=== PATIENT | female | born 1950 | race American Indian/Alaskan Native ===

== ENCOUNTER 2016-07-03 12:30 | Inpatient (IN) | payer MEDICARE ==
[2016-07-03 13:23] LABS: Bilirubin,Urine NEG (Negative); Blood,Urine NEG (Negative); Ketones,Urine NEG (Negative); Leukocyte Esterase,Urine MOD (Negative); Nitrite,Urine NEG (Negative)
--- NOTE | 2016-07-03 13:27 | Emergency Department Report ---
ED General Adult HPI - General Chief complaint: Dyspnea/Respdistress Stated complaint: LOC Time Seen by Provider: 07/03/16 12:41 Source: patient, EMS (verbal report received from EMS.ems notes not available at time of chart dictation), RN notes reviewed, old records reviewed Mode of arrival: Stretcher Limitations: No Limitations - History of Present Illness Initial comments: Past medical history: Morbid obesity, chronic diastolic heart failure, COPD, obstructive sleep apnea, hypertension, diabetes, chronic anemia Patient has history of chronic undifferentiated GI bleeds, supposed to have Endoscopy, This Has Not Happened Thus Far. As per Review of Old Medical Records, Had an Echocardiogram in 2014 Demonstrated an Ejection Fraction of 50-55%, Nuclear Stress Test June 2012, Demonstrating "Medium Sized Reversible Lateral Wall Defect." This Is a 66-year-old Female, I Have Evaluated Her in the past. She Is Brought to the Hospital by EMS. As per Verbal Report from EMS, Patient Was at Her [facility], and Began to Complain of Chest Pain and Shortness of Breath. The Chest Pain Does Not Radiate to the Back, Arms or Neck. There Is Chronic Lower Extremity Swelling. There Is No Hematemesis or Bright Red Blood per Rectum That the Patient Is Aware of. She Reports No Focal Extremity Weakness or Numbness. The Chest Pain Is Achy in Nature. Initially, the Patient Denied Abdominal Pain. -: Gradual Location: chest Radiation: non-radiation Severity scale (0 -10): 0 Quality: aching Consistency: intermittent Improves with: none Worsens with: none Associated Symptoms: confusion, shortness of breath - Related Data Home Medications Medication Instructions Recorded Confirmed Last Taken glipiZIDE [Glipizide] 5 mg PO DAILY 04/03/14 06/02/16 06/01/16 Previous Rx's Medication Instructions Recorded Last Taken Type Budesonide [Pulmicort Respules] 0.5 mg IH Q12HRT #1 nebu 06/05/16 Unknown Rx Ferrous Sulfate [Feosol 325 MG tab] 325 mg PO BID #60 tablet 06/05/16 Unknown Rx Furosemide [Lasix TAB] 40 mg PO DAILY #30 tablet 06/05/16 Unknown Rx Ipratropium/Albuterol Sulfate 1 ampul IH TIDRT 30 Days 06/05/16 Unknown Rx [Duoneb 0.5 mg-3 mg/3 ml Soln] Pantoprazole [Protonix TAB] 40 mg PO QDAY #30 tablet 06/05/16 Unknown Rx Simvastatin [Zocor TAB] 40 mg PO QHS #30 tablet 06/05/16 Unknown Rx traMADol [Ultram 50 MG tab] 50 mg PO Q4HR PRN #20 tablet 06/05/16 Unknown Rx Allergies Allergy/AdvReac Type Severity Reaction Status Date / Time No Known Allergies Allergy Verified 05/12/15 07:51 ED Review of Systems ROS: Stated complaint: LOC Other details as noted in HPI Constitutional: malaise. denies: fever Eyes: denies: vision change Respiratory: shortness of breath Cardiovascular: chest pain Gastrointestinal: denies: abdominal pain Genitourinary: as per HPI Musculoskeletal: denies: back pain Skin: denies: lesions Neurological: weakness ED Past Medical Hx - Past Medical History Previous Medical History?: Yes Hx Hypertension: Yes Hx Congestive Heart Failure: Yes Hx Diabetes: Yes Hx Renal Disease: No Hx Asthma: Yes Hx COPD: Yes Additional medical history: anemia. Lower GI Bleed and Transfusion - Surgical History Past Surgical History?: Yes Additional Surgical History: tubal ligation/ tonsilectomy - Social History Smoking Status: Never Smoker Substance Use Type: None - Medications Home Medications: Home Medications Medication Instructions Recorded Confirmed Last Taken Type glipiZIDE [Glipizide] 5 mg PO DAILY 04/03/14 06/02/16 06/01/16 History Budesonide [Pulmicort Respules] 0.5 mg IH Q12HRT #1 nebu 06/05/16 Unknown Rx Ferrous Sulfate [Feosol 325 MG tab] 325 mg PO BID #60 tablet 06/05/16 Unknown Rx Furosemide [Lasix TAB] 40 mg PO DAILY #30 tablet 06/05/16 Unknown Rx Ipratropium/Albuterol Sulfate 1 ampul IH TIDRT 30 Days 06/05/16 Unknown Rx [Duoneb 0.5 mg-3 mg/3 ml Soln] Pantoprazole [Protonix TAB] 40 mg PO QDAY #30 tablet 06/05/16 Unknown Rx Simvastatin [Zocor TAB] 40 mg PO QHS #30 tablet 06/05/16 Unknown Rx traMADol [Ultram 50 MG tab] 50 mg PO Q4HR PRN #20 tablet 06/05/16 Unknown Rx ED Physical Exam - General Limitations: Physical Limitation General appearance: alert, in no apparent distress, obese - Head Head exam: Present: atraumatic, normocephalic - Eye Eye exam: Present: normal appearance, EOMI. Absent: nystagmus - ENT ENT exam: Present: normal exam, normal orophraynx, mucous membranes moist, normal external ear exam - Neck Neck exam: Present: normal inspection, full ROM. Absent: tenderness, meningismus - Respiratory Respiratory exam: Present: decreased breath sounds. Absent: respiratory distress - Cardiovascular Cardiovascular Exam: Present: regular rate, normal rhythm, systolic murmur ( there is a 2/6 systolic murmur noted in the right and left second intercostal space). Absent: bradycardia, diastolic murmur, rubs, gallop - GI/Abdominal GI/Abdominal exam: Present: soft, normal bowel sounds. Absent: distended, tenderness, guarding, rebound, rigid, pulsatile mass - Rectal Rectal exam: Present: normal inspection, normal rectal tone, heme (-) stool, other (during rectal examination, I escorted by nurse reinaldo amezcua) - Extremities Exam Extremities exam: Present: normal inspection, normal capillary refill, pedal edema. Absent: joint swelling, calf tenderness - Back Exam Back exam: Present: normal inspection, full ROM. Absent: tenderness, CVA tenderness (R), CVA tenderness (L), muscle spasm, paraspinal tenderness, vertebral tenderness - Neurological Exam Neurological exam: Present: alert, oriented X3, other (Extraocular movements intact. Tongue midline. No facial droop. Facial sensation intact to light touch in the V1, V2, V3 distribution bilaterally. 5 and 5 strength in 4 extremities.. Sensation is intact to light touch in 4 extremities.). Absent: motor sensory deficit - Psychiatric Psychiatric exam: Present: normal affect, normal mood - Skin Skin exam: Present: warm, dry, intact, normal color. Absent: rash ED Course Vital Signs 07/03/16 07/03/16 07/03/16 12:56 13:00 13:07 Temperature 98.4 F Pulse Rate 92 H 88 Respiratory 10 L 12 18 Rate Blood Pressure 130/59 Blood Pressure 130/59 [Left] O2 Sat by Pulse 98 100 Oximetry 07/03/16 07/03/16 07/03/16 13:10 13:20 13:30 Temperature Pulse Rate 89 90 86 Respiratory 12 23 21 Rate Blood Pressure 130/59 130/59 146/68 Blood Pressure [Left] O2 Sat by Pulse 90 92 92 Oximetry 07/03/16 13:40 Temperature Pulse Rate Respiratory Rate Blood Pressure 146/68 Blood Pressure [Left] O2 Sat by Pulse 96 Oximetry - Reevaluation(s) Reevaluation #1: 07/03/16 14:20 differential diagnosis: Symptomatic anemia, acute coronary syndrome, congestive heart failure, pneumonia, costochondritis, obesity hypoventilation syndrome, multifactorial shortness of breath Assessment and plan: 66-year-old female with chest pain, shortness of breath. There is no abdominal tenderness, rebound or guarding. Her abdominal examination is benign. When I was evaluating the patient, she denied abdominal pain, shortly thereafter she did complain to the nurse of abdominal pain, but on her repeat examination her abdomen is soft and benign, I don't believe she requires emergent imaging of her abdomen at this time. X-ray the chest x-rays congestive heart failure. Case is discussed with the hospital physician, Dr. Gilbert, who accepts the patient to his service. He states he will contact cardiology if he feels like it is appropriate. Given patient's past history of COPD, obesity, oxygen dependent, CHF, clinical presence of aortic stenosis on physical examination, patient has multiple reasons to have chest pain and shortness of breath. Incidentally found to have urinary tract infection, ceftriaxone is ordered 07/03/16 14:37 ED Medical Decision Making - Lab Data Result diagrams: 07/03/16 13:58 07/03/16 13:00 Vital Signs 07/03/16 07/03/16 07/03/16 12:56 13:00 13:07 Temperature 98.4 F Pulse Rate 92 H 88 Respiratory 10 L 12 18 Rate Blood Pressure 130/59 Blood Pressure 130/59 [Left] O2 Sat by Pulse 98 100 Oximetry 07/03/16 07/03/16 07/03/16 13:10 13:20 13:30 Temperature Pulse Rate 89 90 86 Respiratory 12 23 21 Rate Blood Pressure 130/59 130/59 146/68 Blood Pressure [Left] O2 Sat by Pulse 90 92 92 Oximetry 07/03/16 13:40 Temperature Pulse Rate Respiratory Rate Blood Pressure 146/68 Blood Pressure [Left] O2 Sat by Pulse 96 Oximetry Lab Results 07/03/16 07/03/16 Range/Units 13:00 13:06 Sodium 144 (137-145) mmol/L Potassium 4.4 (3.6-5.0) mmol/L Chloride 97.1 L (98-107) mmol/L Carbon Dioxide 34 H (22-30) mmol/L Anion Gap 17 mmol/L BUN 19 H (7-17) mg/dL Creatinine 0.6 L (0.7-1.2) mg/dL Estimated GFR > 60 ml/min BUN/Creatinine Ratio 31.66 % Glucose 100 (65-100) mg/dL Calcium 8.9 (8.4-10.2) mg/dL Troponin T < 0.010 (0.00-0.029) ng/mL Urine Color Yellow (Yellow) Urine Turbidity Slightly-cloudy (Clear) Urine pH 7.0 (5.0-7.0) Ur Specific [place] 1.018 (1.003-1.030) Urine Protein >500 (Negative) mg/dL Urine Glucose (UA) Neg (Negative) mg/dL Urine Ketones Neg (Negative) mg/dL Urine Blood Neg (Negative) Urine Nitrite Neg (Negative) Urine Bilirubin Neg (Negative) Urine Urobilinogen 4.0 (<2.0) mg/dL Ur Leukocyte Esterase Mod (Negative) Urine WBC (Auto) 50.0 H (0.0-6.0) /HPF Urine RBC (Auto) 2.0 (0.0-6.0) /HPF U Epithel Cells (Auto) 7.0 (0-13.0) /HPF Urine Bacteria (Auto) 4+ (Negative) /HPF - EKG Data -: EKG Interpreted by Me (here in) - EKG Data 07/03/16 14:37 sinus, 87 bpm, left axis deviation, left ventricular hypertrophy , left anterior fascicular block, not consistent with STEMI, unchanged from prior EKG. Not consistent with STEMI. - Radiology Data Radiology results: report reviewed, image reviewed X-ray the chest demonstrates congestive heart failure Critical care attestation.: If time is entered above; I have spent that time in minutes in the direct care of this critically ill patient, excluding procedure time. ED Disposition Clinical Impression: Heart failure, Chest pain, Shortness of breath, Obesity Disposition: OP ADMITTED IP TO THIS HOSP Is pt being admited?: Yes Does the pt Need Aspirin: Yes Condition: Good Instructions: Chest Pain (ED) Referrals: PRIMARY CARE, [Primary Care Provider] - 3-5 Days
[2016-07-03 13:39] LABS: Anion Gap 17 mmol/L; BUN/Creatinine Ratio 31.66; Blood Urea Nitrogen 19 mg/dL (7-17); Calcium 8.9 mg/dL (8.4-10.2); Carbon Dioxide 34 mmol/L (22-30); Chloride 97.1 mmol/L (98-107); Glucose 100 mg/dL (65-100); Potassium 4.4 mmol/L (3.6-5.0); Sodium 144 mmol/L (137-145)
[2016-07-03 13:46] LABS: Protein,Urine >500 mg/dL (Negative)
[2016-07-03 13:49] LABS: Bacteria,Urine 4+ /HPF (Negative)
--- NOTE | 2016-07-03 13:52 | XRay Report ---
AP CHEST: HISTORY: Shortness of breath Cardiomegaly, pulmonary edema and trace pleural effusions are suspected. No pneumothorax. IMPRESSION: CHF
--- NOTE | 2016-07-03 14:06 | Admit Criteria Form ---
Admission Criteria Documentation: HEART FAILURE: COMMON COMPLICATIONS Clinical Indications for Inpatient Care (Place 'X' for any and all applicable criteria): Ongoing inpatient care may be indicated for heart failure with ANY ONE of the following (1)(2)(3)(4)(5): [ ]I. Ongoing need for care for primary condition requiring frequent therapy adjustments because of changes in cardiac function (eg, drug dosage changes for drugs that are renally metabolized) [ ]II. New-onset heart failure [ ]III. Heart failure with decreased urine output not responsive to attempts to optimize volume status [ ]IV. Acute cardiac ischemia causing or associated with failure [ X]V. Complications of heart failure, including ANY ONE of the following: [ ]a) Pericardial effusion [ ]b) Symptomatic pleural effusion [ ]c) O2 saturation <90% or PO2 < 60 mm Hg (8.0 kPa) on room air or require baseline supplemental O2 [ ]d) Tachypnea [X ]e) Dyspnea [ ]f) Syncope [ ]g) Change in mental status [ ]h) Acute renal insufficiency that is severe (reduction of more than 50% in estimated glomerular filtration rate from baseline) or progressive reduction of more than 25% in estimated glomerular filtration rate from baseline, with creatinine continuing to rise) [ ]i) Hemodynamic instability [ ]j) Anasarca [ ]k) Clinically significant metabolic abnormalities due to heart failure (eg, new-onset metabolic acidosis) Extended stay beyond goal length of stay for primary condition may be needed until ALL of the following are present(1)(3): [ ]a) Stable and effective diuretic regimen established (or patient on stable dialysis regimen if in chronic renal failure) [ ]b) Breathing comfortably at rest [ ]c) Saturation of arterial oxygen greater than 90% or at acceptable baseline [ ]d) Pulmonary edema absent or improved [ ]e) Hemodynamic stability [ ]f) Volume status acceptable on oral medication [ ]g) Peripheral or sacral edema absent or improved [ ]h) Renal function stable and manageable at a lower level of care [ ]i) Complications (eg, pleural effusion) resolved or manageable at a lower level of care [ ]j) Patient or caregiver has received written discharge instructions or educational material addressing activity level, diet, discharge medications, follow-up appointment, weight monitoring, and what to do if symptoms worsen The original [facility] content created by [employer] has been revised. The portions of the content which have been revised are identified through the use of italic text or in bold, and [facility] has neither reviewed nor approved the modified material.All other unmodified content is copyright [facility]. Please see references footnoted in the original [facility] edition 2016 Admission Criteria Met: Yes
[2016-07-03] MEDS ORDERED: ROCEPHIN/NS 1 GM/50 ML 1 GM/50 ML BAG IV ONE (14:22)
[2016-07-03 14:28] LABS: Hematocrit 33.6 % (30.3-42.9); Hemoglobin 10.1 gm/dl (10.1-14.3); Mean Corpuscular HGB Conc 30 % (30-34); Mean Corpuscular Hemoglobin 24 pg (28-32); Mean Corpuscular Volume 82 fl (79-97); Red Blood Count 4.11 M/mm3 (3.65-5.03); White Blood Count 4.9 K/mm3 (4.5-11.0)
[2016-07-03 14:29] LABS: Basophils % (Auto) 0.7 % (0.0-1.8); Eosinophils % (Auto) 1.2 % (0.0-4.3); Platelet Count 159 K/mm3 (140-440)
[2016-07-03 14:33] LABS: INR 1.03 (0.87-1.13)
[2016-07-03] MEDS ORDERED: BABY ASPIRIN PO ONE (14:38)
[2016-07-03 14:57] LABS: ISTAT Base Excess 19; ISTAT HCO3 43.9; ISTAT PCO2 67.5 (35-45); ISTAT PH 7.421 (7.35-7.45); ISTAT PO2 62 (80-105); ISTAT SO2 90; ISTAT TCO2 46
[2016-07-03] MEDS ORDERED: TYLENOL ONE (15:21)
[2016-07-03] MEDS ORDERED: LASIX IV ONE (15:46)
[2016-07-03] MEDS ORDERED: TYLENOL PO ONE (15:50)
--- NOTE | 2016-07-03 20:49 | Event Note ---
Date: 07/03/16 See H/p in reports Acute respiratory failure with hypercapnia. CHF exacerbation. Urinary tract infection. Gastroesophageal reflux disease. Anemia. Type 2 diabetes mellitus. Morbid obesity. Patient started on Rocephin and Zithromax to cover COPD exacerbation and urinary tract infection
[2016-07-03] MEDS ORDERED: ULTRAM PO PRN (21:03)
[2016-07-03] MEDS ORDERED: DULCOLAX PR PRN (21:04)
[2016-07-03] MEDS ORDERED: DILAUDID IV PRN (21:04)
[2016-07-03] MEDS ORDERED: PERCOCET 5/325 PO PRN (21:04)
[2016-07-03] MEDS ORDERED: ZOFRAN IV PRN (21:04)
[2016-07-03] MEDS ORDERED: MILK OF MAGNESIA PO PRN (21:04)
[2016-07-03] MEDS ORDERED: DUONEB 0.5 MG-3 MG/3 ML SOLN IH PRN (21:06)
[2016-07-03] MEDS ORDERED: PROVENTIL IH PRN (21:12)
[2016-07-03] MEDS ORDERED: ROCEPHIN/NS 2 GM/100 ML 2 GM/100 ML BAG IV SCH (22:00)
[2016-07-03] MEDS ORDERED: LASIX PO SCH (22:00)
[2016-07-03] MEDS: LOVENOX SUB-Q SCH (22:16)
[2016-07-03] MEDS: PROTONIX PO SCH (22:17)
[2016-07-03] MEDS: FEOSOL PO SCH (22:17)
[2016-07-03] MEDS: K-DUR PO SCH (22:18)
[2016-07-03] MEDS: ZITHROMAX 500 MG in NACL 0.9% 250ML 250 ML IV SCH (22:33)
[2016-07-03] MEDS: DUONEB 0.5 MG-3 MG/3 ML SOLN IH SCH (22:42)
[2016-07-03] MEDS: PULMICORT IH SCH (22:42)
--- NOTE | 2016-07-03 23:35 | History and Physical Report ---
CHIEF COMPLAINT: Worsening shortness of breath of 1 day duration. HISTORY OF PRESENT ILLNESS: This is a 66-year-old female who is morbidly obese, brought in by EMS for increasing shortness of breath and left-sided chest pain for the last couple of days, more so for today. The patient had a history of symptomatic anemia and recurrent GI bleeds and was supposed to get a pill camera and endoscopy. The patient has multiple medical problems. Shortness of breath associated with wheezing and chest pain. No diaphoresis. No palpitations. The patient has a history of COPD, diabetes, and gastroesophageal reflux disease, congestive heart failure, hyperlipidemia, chronic pain. Last EF was 50-55%. Nuclear test was in June 2012, demonstrating medium-sized reversible lateral wall defect. PAST MEDICAL HISTORY: As mentioned, hypertension, congestive heart failure, COPD, diabetes, asthma, anemia, lower GI bleed and transfusion. PAST SURGICAL HISTORY: Tubal ligation and tonsillectomy. SOCIAL HISTORY: Does not smoke. No alcohol, no recreational drugs. FAMILY HISTORY: Significant for hypertension. CURRENT MEDICATIONS: Glipizide 5 mg p.o. daily, Pulmicort Respules 0.5 q.12 h., ferrous sulfate 325 mg twice a day, Lasix 40 mg once a day, DuoNebs 1 ampule t.i.d., Protonix 40 mg p.o. daily, simvastatin 40 mg p.o. daily, tramadol 50 mg p.o. q.4 h. p.r.n. REVIEW OF SYSTEMS: CONSTITUTIONAL: No weight gain, no weight loss. No fever, no chills. HEENT: No sore throat. No postnasal drip. CARDIOVASCULAR: S1 and respiratory systems as mentioned in history of present illness. GASTROINTESTINAL: No nausea, no vomiting, no diarrhea. GENITOURINARY: No dysuria, no flank pain. MUSCULOSKELETAL: No joint pains. No muscle pains. CENTRAL NERVOUS SYSTEM: No syncope, no seizures. SKIN: No rashes. PSYCHIATRIC: No depression. No suicidal ideation. LYMPHATIC AND HEMATOLOGY: No bruising. A 14-point review of systems otherwise negative. PHYSICAL EXAMINATION: GENERAL: On examination, elderly female, obese, in some mild distress. VITAL SIGNS: Temperature is 98.4, pulse is 92, blood pressure is 130/59, respiratory rate is 10, O2 sats are 98%. HEENT: Unremarkable. Pupils equal and reactive. NECK: Supple. No lymphadenopathy, no thyromegaly. LUNGS: Clear to auscultation and percussion. Good air entry. CARDIOVASCULAR: S1, S2 heard. No gallop, no murmur, no rub. Apical impulse in left fifth intercostal space and midclavicular line. ABDOMEN: Soft and benign. No hepatosplenomegaly. No guarding, no rigidity. Hernial orifices are normal. EXTREMITIES: Good pedal pulses. No pedal edema. CENTRAL NERVOUS SYSTEM: Alert and oriented x 4, nonfocal exam. LABORATORY DATA AND IMAGING STUDIES AND EKG: White count is 4900, hemoglobin is 10.1, hematocrit is 33.6, platelet count is 159,000. The pH is 7.42, pCO2 is 67.5, pO2 62, bicarbonate is 43.9, total CO2 is 46, O2 sats are 90%. Sodium is 144, potassium is 4.4, chloride is 97.1, bicarbonate is 34, BUN and creatinine 19 and 0.6, glucose is 100, calcium is 8.9. Troponin is less than 0.010. BNP is 593. Urine white count is 50. EKG shows sinus tachycardia, nonspecific ST-T wave changes. X-ray of the chest shows congestive heart failure. MEDICAL DECISION MAKING: The patient has multiple medical problems including acute respiratory failure with hypercapnia, CHF exacerbation and UTI being the main symptoms. No electrolyte abnormalities. ASSESSMENT AND PLAN: 1. Acute respiratory failure with hypercapnia. The patient started on DuoNeb q.6 round the clock, q.3 p.r.n. and BiPAP if necessary, IV Solu-Medrol 60 mg q.8 and IV Levaquin 750 q.24. 2. Congestive heart failure exacerbation. Lasix 40 q.12 initiated. Also, potassium 20 p.o. q.12. 3. Anemia. Continue iron tablets. 4. Gastroesophageal reflux disease. Continue Protonix 40 mg daily. 5. Hyperlipidemia. Continue simvastatin 40 mg p.o. daily. 6. Chronic pain. Continue tramadol. 7. Deep venous thrombosis prophylaxis, Lovenox 40 mg subcutaneous daily. Echocardiogram ordered and regulatory affairs associate clinical sales consultant was consulted. Also, pulmonary on-call consulted. JOB# [id number] [facility]
[2016-07-04] MEDS: DUONEB 0.5 MG-3 MG/3 ML SOLN IH SCH ×4 (01:43→21:30)
[2016-07-04] MEDS: LASIX IV SCH ×2 (06:13→17:34)
[2016-07-04 07:06] LABS: Alanine Aminotransferase 8 units/L (7-56); Albumin 4.2 g/dL (3.9-5); Albumin/Globulin Ratio 1.1 %; Alkaline Phosphatase 87 units/L (35-129); Anion Gap 15 mmol/L; Bilirubin,Total 0.3 mg/dL (0.1-1.2); Blood Urea Nitrogen 15 mg/dL (7-17); Carbon Dioxide 36 mmol/L (22-30); Chloride 95.1 mmol/L (98-107); Glucose 163 mg/dL (65-100); Potassium 4.3 mmol/L (3.6-5.0); Sodium 142 mmol/L (137-145)
[2016-07-04 07:14] LABS: Mean Corpuscular HGB Conc 30 % (30-34); Mean Corpuscular Volume 83 fl (79-97); Platelet Count 172 K/mm3 (140-440); White Blood Count 5.8 K/mm3 (4.5-11.0)
[2016-07-04 07:15] LABS: Hemoglobin 11.3 gm/dl (10.1-14.3)
[2016-07-04 07:16] LABS: Hematocrit 37.1 % (30.3-42.9); Mean Corpuscular Hemoglobin 25 pg (28-32); Red Cell Distribution Width 25.8 % (13.2-15.2)
[2016-07-04] MEDS ORDERED: DUONEB 0.5 MG-3 MG/3 ML SOLN IH SCH (08:00)
[2016-07-04 08:06] LABS: Basophils % (Manual) 0 % (0.0-1.8); Blastocytes % (Manual) 0 %; Eosinophils % (Manual) 0 % (0.0-4.3)
[2016-07-04 08:07] LABS: Anisocytosis 1+; Diff Status Complete; Hypochromasia 2+
[2016-07-04 08:08] LABS: Stomatocytes Few
[2016-07-04] MEDS: PULMICORT IH SCH ×2 (08:47→21:30)
[2016-07-04] MEDS: ROCEPHIN/NS 2 GM/100 ML 2 GM/100 ML BAG IV SCH (09:16)
[2016-07-04] MEDS: ZITHROMAX 500 MG in NACL 0.9% 250ML 250 ML IV SCH (09:17)
[2016-07-04] MEDS: NOVOLOG SUB-Q SCH ×4 (09:18→22:07)
[2016-07-04] MEDS: FEOSOL PO SCH (09:19)
[2016-07-04] MEDS: K-DUR PO SCH ×2 (09:19→22:06)
[2016-07-04] MEDS: GLUCOTROL PO SCH (09:19)
[2016-07-04] MEDS: PROTONIX PO SCH (09:19)
--- NOTE | 2016-07-04 10:31 | Consultation ---
History of Present Illness Consult date: 07/04/16 Requesting physician: ALIX WILLIAMSON History of present illness: PULMONARY/CCM CONSULT NOTE (Full dictation # [id number]) Please see dictated notes for full details Medications and Allergies Allergies Allergy/AdvReac Type Severity Reaction Status Date / Time No Known Allergies Allergy Verified 05/12/15 07:51 Home Medications Medication Instructions Recorded Confirmed Last Taken Type glipiZIDE [Glipizide] 5 mg PO DAILY 04/03/14 07/03/16 07/02/16 History Budesonide [Pulmicort Respules] 0.5 mg IH Q12HRT #1 nebu 06/05/16 07/03/1607/02 Rx Ferrous Sulfate [Feosol 325 MG tab] 325 mg PO BID #60 tablet 06/05/16 07/03/16 07/02/16 Rx Furosemide [Lasix TAB] 40 mg PO DAILY #30 tablet 06/05/16 07/03/16 07/02/16 Rx Ipratropium/Albuterol Sulfate 1 ampul IH TIDRT 30 Days 06/05/16 07/03/16 Rx [Duoneb 0.5 mg-3 mg/3 ml Soln] Pantoprazole [Protonix TAB] 40 mg PO QDAY #30 tablet 06/05/16 07/03/16 07/02/16 Rx traMADol [Ultram 50 MG tab] 50 mg PO Q4HR PRN #20 tablet 06/05/16 07/03/1607/02 Rx Active Meds: Active Medications Acetaminophen (Tylenol) 650 mg PO Q4H PRN PRN Reason: Pain MILD(1-3)/Fever >100.5/BARRERA Albuterol (Proventil) 2.5 mg IH Q3HRT PRN PRN Reason: Shortness Of Breath Albuterol/Ipratropium (Duoneb 0.5 Mg-3 Mg/3 Ml Soln) 1 ampul IH Q6HRT [facility] Last Admin: 07/04/16 08:47 Dose: 1 ampul Bisacodyl (Dulcolax) 10 mg VA QDAY PRN PRN Reason: Constipation unrelieved by MOM Budesonide (Pulmicort) 0.5 mg IH Q12HRT [facility] Last Admin: 04/08/17 08:47 Dose: 0.5 mg Enoxaparin Sodium (Lovenox) 40 mg SUB-Q QDAY@2200 [facility] Last Admin: 07/03/16 22:16 Dose: 40 mg Ferrous Sulfate (Feosol) 325 mg PO QDAY [facility] Last Admin: 07/04/16 09:19 Dose: 325 mg Furosemide (Lasix) 40 mg IV 0600,1800 [facility] Last Admin: 07/04/16 06:13 Dose: 40 mg Glipizide (Glucotrol) 5 mg PO QDDIAB [facility] Last Admin: 07/04/16 09:19 Dose: 5 mg Hydromorphone HCl (Dilaudid) 0.5 mg IV Q3H PRN PRN Reason: Pain , Severe (7-10) Azithromycin 500 mg/ Sodium (Chloride) 250 mls @ 250 mls/hr IV Q24HR [facility] Last Admin: 07/04/16 09:17 Dose: 250 mls/hr Ceftriaxone Sodium (Rocephin/Ns 2 Gm/100 Ml) 2 gm in 100 mls @ 200 mls/hr IV Q24HR [facility] PRN Reason: Protocol Last Admin: 07/04/16 09:16 Dose: 200 mls/hr Insulin Aspart (Novolog) 0 units SUB-Q ACHS [facility] PRN Reason: Protocol Last Admin: 07/04/16 09:18 Dose: 2 units Magnesium Hydroxide (Milk Of Magnesia) 30 ml PO Q4H PRN PRN Reason: Constipation Methylprednisolone Sodium Succinate (Solu-Medrol) 60 mg IV Q8HR [facility] Last Admin: 07/04/16 06:12 Dose: 60 mg Ondansetron HCl (Zofran) 4 mg IV Q8H PRN PRN Reason: N/V unrelieved by Reglan Oxycodone/Acetaminophen (Percocet 5/325) 1 tab PO Q6H PRN PRN Reason: Pain, Moderate (4-6) Pantoprazole Sodium (Protonix) 40 mg PO QDAY [facility] Last Admin: 07/04/16 09:19 Dose: 40 mg Potassium Chloride (K-Dur) 20 meq PO Q12H [facility] Last Admin: 07/04/16 09:19 Dose: 20 meq Tramadol HCl (Ultram) 50 mg PO Q4H PRN PRN Reason: Pain Physical Examination Vital signs: Vital Signs Resp Pulse Ox 10 L 98 07/03/16 12:56 07/03/16 12:56 Results - Laboratory Findings CBC and BMP: 07/04/16 06:02 07/04/16 06:02 ABG POC ABG pH 7.421 (7.35-7.45) 07/03/16 14:27 POC ABG pCO2 67.5 (35-45) H 07/03/16 14:27 POC ABG pO2 62 (80-105) L 07/03/16 14:27 POC ABG HCO3 43.9 07/03/16 14:27 POC ABG Total CO2 46 07/03/16 14:27 POC ABG O2 Sat 90 07/03/16 14:27 PT/INR, D-dimer PT 13.4 Sec. (12.2-14.9) 07/03/16 13:58 INR 1.03 (0.87-1.13) 07/03/16 13:58 Abnormal lab findings: Abnormal Labs 07/03/16 07/04/16 07/04/16 22:12 06:02 06:02 MCH 25 L RDW 25.8 H Seg Neuts % (Manual) 80.0 H Lymphocytes % (Manual) 12.0 L Lymphocytes # (Manual) 0.7 L Chloride 95.1 L Carbon Dioxide 36 H Creatinine 0.5 L Glucose 163 H POC Glucose 130 H
--- NOTE | 2016-07-04 12:06 | Progress Note ---
Assessment and Plan Assessment and plan: 1. Acute respiratory failure with hypercapnia and hypoxemia. Continue O2 for supportive care. Etiology is multifactorial secondary to COPD and CHF decompensation along with probable OHS/DOMENIC and morbid obesity. Treat the underlying causes. Continue BiPAP when necessary. 2. Acute diastolic CHF decompensation. Continue IV Lasix. 3. Gastroesophageal reflux disease. Continue Protonix daily. 4. Hyperlipidemia. Continue simvastatin 40 mg by mouth daily. 5. Chronic pain syndrome. Continue tramadol. 6. Chest pain. Defer to cardiology for any intervention stress vs cath. 7. COPD exacerbation. Continue IV steroids and breathing treatments. 8. Obesity due to excess calories. Patient will be counseled on dietary modifications. 9. DVT prophylaxis. Continue Lovenox daily. History Interval history: 66-year-old female with history of COPD, diabetes mellitus type 2, GERD, CHF, hyperlipidemia, morbid obesity and chronic pain syndrome presented to the [facility] department with complaints of dyspnea and left-sided chest pain. Last EF 50-55% with nuclear stress test in June 2012 demonstrating medium sized reversible lateral wall defect Hospitalist Physical - Constitutional Vitals: Temp Pulse Resp BP Pulse Ox 97.1 F L 88 20 142/63 97 07/04/16 07:00 07/04/16 08:57 07/04/16 08:57 07/04/16 07:00 07/04/16 08:47 General appearance: Present: no acute distress, well-nourished - EENT Eyes: Present: PERRL, EOM intact ENT: hearing intact, clear oral mucosa, dentition normal - Neck Neck: Present: supple, normal ROM - Respiratory Respiratory effort: normal Respiratory: bilateral: diminished, rales, rhonchi, wheezing - Cardiovascular Rhythm: regular Heart Sounds: Present: S1 & S2. Absent: gallop, rub - Extremities Extremities: no ischemia, No edema, Full ROM - Abdominal General gastrointestinal: soft, non-tender, non-distended, normal bowel sounds - Integumentary Integumentary: Present: clear, warm, dry - Neurologic Neurologic: CNII-XII intact, moves all extremities Results - Labs CBC & Chem 7: 07/04/16 06:02 07/04/16 06:02 Labs: Laboratory Last Values WBC 5.8 K/mm3 (4.5-11.0) 07/04/16 06:02 RBC 4.60 M/mm3 (3.65-5.03) 07/04/16 06:02 Hgb 11.3 gm/dl (10.1-14.3) 07/04/16 06:02 Hct 37.1 % (30.3-42.9) 07/04/16 06:02 MCV 83 fl (79-97) 07/04/16 06:02 MCH 25 pg (28-32) L 07/04/16 06:02 MCHC 30 % (30-34) 07/04/16 06:02 RDW 25.8 % (13.2-15.2) H 07/04/16 06:02 Plt Count 172 K/mm3 (140-440) 07/04/16 06:02 Lymph % (Auto) 14.3 % (13.4-35.0) 07/03/16 13:58 [place] % (Auto) 6.6 % (0.0-7.3) 07/03/16 13:58 Eos % (Auto) 1.2 % (0.0-4.3) 07/03/16 13:58 Baso % (Auto) 0.7 % (0.0-1.8) 07/03/16 13:58 Lymph # 0.7 K/mm3 (1.2-5.4) L 07/03/16 13:58 [place] # 0.3 K/mm3 (0.0-0.8) 07/03/16 13:58 Eos # 0.1 K/mm3 (0.0-0.4) 07/03/16 13:58 Baso # 0.0 K/mm3 (0.0-0.1) 07/03/16 13:58 Add Manual Diff Complete 07/04/16 06:02 Total Counted 100 07/04/16 06:02 Seg Neutrophils % 77.2 % (40.0-70.0) H 07/03/16 13:58 Seg Neuts % (Manual) 80.0 % (40.0-70.0) H 07/04/16 06:02 Band Neutrophils % 7.0 % 07/04/16 06:02 Lymphocytes % (Manual) 12.0 % (13.4-35.0) L 07/04/16 06:02 Reactive Lymphs % (Man) 0 % 07/04/16 06:02 Monocytes % (Manual) 1.0 % (0.0-7.3) 07/04/16 06:02 Eosinophils % (Manual) 0 % (0.0-4.3) 07/04/16 06:02 Basophils % (Manual) 0 % (0.0-1.8) 07/04/16 06:02 Metamyelocytes % 0 % 07/04/16 06:02 Myelocytes % 0 % 07/04/16 06:02 Promyelocytes % 0 % 07/04/16 06:02 Blast Cells % 0 % 07/04/16 06:02 Nucleated RBC % Not Reportable 07/04/16 06:02 Seg Neutrophils # 3.7 K/mm3 (1.8-7.7) 07/03/16 13:58 Seg Neutrophils # Man 4.6 K/mm3 (1.8-7.7) 07/04/16 06:02 Band Neutrophils # 0.4 K/mm3 07/04/16 06:02 Lymphocytes # (Manual) 0.7 K/mm3 (1.2-5.4) L 07/04/16 06:02 Abs React Lymphs (Man) 0.0 K/mm3 07/04/16 06:02 Monocytes # (Manual) 0.1 K/mm3 (0.0-0.8) 07/04/16 06:02 Eosinophils # (Manual) 0.0 K/mm3 (0.0-0.4) 07/04/16 06:02 Basophils # (Manual) 0.0 K/mm3 (0.0-0.1) 07/04/16 06:02 Metamyelocytes # 0.0 K/mm3 07/04/16 06:02 Myelocytes # 0.0 K/mm3 07/04/16 06:02 Promyelocytes # 0.0 K/mm3 07/04/16 06:02 Blast Cells # 0.0 K/mm3 07/04/16 06:02 WBC Morphology Not Reportable 07/04/16 06:02 Hypersegmented Neuts Not Reportable 07/04/16 06:02 Hyposegmented Neuts Not Reportable 07/04/16 06:02 Hypogranular Neuts Not Reportable 07/04/16 06:02 Smudge Cells Not Reportable 07/04/16 06:02 Toxic Granulation Not Reportable 07/04/16 06:02 Toxic Vacuolation Not Reportable 07/04/16 06:02 Dohle Bodies Not Reportable 07/04/16 06:02 Pelger-Huet Anomaly Not Reportable 07/04/16 06:02 Roxanne Rods Not Reportable 07/04/16 06:02 Platelet Estimate Appears normal 07/04/16 06:02 Clumped Platelets Not Reportable 07/04/16 06:02 Plt Clumps, EDTA Not Reportable 07/04/16 06:02 Large Platelets Not Reportable 07/04/16 06:02 Giant Platelets Not Reportable 07/04/16 06:02 Platelet Satelliting Not Reportable 07/04/16 06:02 Plt Morphology Comment Not Reportable 07/04/16 06:02 RBC Morphology Not Reportable 07/04/16 06:02 Dimorphic RBCs Not Reportable 07/04/16 06:02 Polychromasia Not Reportable 07/04/16 06:02 Hypochromasia 2+ 07/04/16 06:02 Poikilocytosis Not Reportable 07/04/16 06:02 Anisocytosis 1+ 07/04/16 06:02 Microcytosis Not Reportable 07/04/16 06:02 Macrocytosis Not Reportable 07/04/16 06:02 Spherocytes Not Reportable 07/04/16 06:02 Pappenheimer Bodies Not Reportable 07/04/16 06:02 Sickle Cells Not Reportable 07/04/16 06:02 Target Cells Not Reportable 07/04/16 06:02 Tear Drop Cells Not Reportable 07/04/16 06:02 Ovalocytes Not Reportable 07/04/16 06:02 Stomatocytes Few 07/04/16 06:02 Helmet Cells Not Reportable 07/04/16 06:02 [place] Bodies Not Reportable 07/04/16 06:02 [place] Rings Not Reportable 07/04/16 06:02 [place] Cells Not Reportable 07/04/16 06:02 Bite Cells Not Reportable 07/04/16 06:02 Crenated Cell Not Reportable 07/04/16 06:02 Elliptocytes Not Reportable 07/04/16 06:02 Acanthocytes (Spur) Not Reportable 07/04/16 06:02 Rouleaux Not Reportable 07/04/16 06:02 Hemoglobin C Crystals Not Reportable 07/04/16 06:02 Schistocytes Not Reportable 07/04/16 06:02 Malaria parasites Not Reportable 07/04/16 06:02 Tristen Bodies Not Reportable 07/04/16 06:02 Hem Pathologist Commnt No 07/04/16 06:02 PT 13.4 Sec. (12.2-14.9) 07/03/16 13:58 INR 1.03 (0.87-1.13) 07/03/16 13:58 POC ABG pH 7.421 (7.35-7.45) 07/03/16 14:27 POC ABG pCO2 67.5 (35-45) H 07/03/16 14:27 POC ABG pO2 62 (80-105) L 07/03/16 14:27 POC ABG HCO3 43.9 07/03/16 14:27 POC ABG Total CO2 46 07/03/16 14:27 POC ABG O2 Sat 90 07/03/16 14:27 POC ABG Base Excess 19 07/03/16 14:27 FiO2 3 % 07/03/16 14:27 Sodium 142 mmol/L (137-145) 07/04/16 06:02 Potassium 4.3 mmol/L (3.6-5.0) 07/04/16 06:02 Chloride 95.1 mmol/L (98-107) L 07/04/16 06:02 Carbon Dioxide 36 mmol/L (22-30) H 07/04/16 06:02 Anion Gap 15 mmol/L 07/04/16 06:02 BUN 15 mg/dL (7-17) 07/04/16 06:02 Creatinine 0.5 mg/dL (0.7-1.2) L 07/04/16 06:02 Estimated GFR > 60 ml/min 07/04/16 06:02 BUN/Creatinine Ratio 30.00 % 07/04/16 06:02 Glucose 163 mg/dL (65-100) H 07/04/16 06:02 POC Glucose 130 (70-105) H 07/03/16 22:12 Hemoglobin A1c 4.9 % (4-6) 07/04/16 06:02 Calcium 9.0 mg/dL (8.4-10.2) 07/04/16 06:02 Total Bilirubin 0.3 mg/dL (0.1-1.2) 07/04/16 06:02 AST 13 units/L (5-40) 07/04/16 06:02 ALT 8 units/L (7-56) 07/04/16 06:02 Alkaline Phosphatase 87 units/L (35-129) 07/04/16 06:02 Troponin T < 0.010 ng/mL (0.00-0.029) 07/03/16 13:00 NT-Pro-B Natriuret Pep 593.4 pg/mL (0-900) 07/03/16 13:00 Total Protein 8.0 g/dL (6.3-8.2) 07/04/16 06:02 Albumin 4.2 g/dL (3.9-5) 07/04/16 06:02 Albumin/Globulin Ratio 1.1 % 07/04/16 06:02 Urine Color Yellow (Yellow) 07/03/16 13:06 Urine Turbidity Slightly-cloudy (Clear) 07/03/16 13:06 Urine pH 7.0 (5.0-7.0) 07/03/16 13:06 Ur Specific [place] 1.018 (1.003-1.030) 07/03/16 13:06 Urine Protein >500 mg/dL (Negative) 07/03/16 13:06 Urine Glucose (UA) Neg mg/dL (Negative) 07/03/16 13:06 Urine Ketones Neg mg/dL (Negative) 07/03/16 13:06 Urine Blood Neg (Negative) 07/03/16 13:06 Urine Nitrite Neg (Negative) 07/03/16 13:06 Urine Bilirubin Neg (Negative) 07/03/16 13:06 Urine Urobilinogen 4.0 mg/dL (<2.0) 07/03/16 13:06 Ur Leukocyte Esterase Mod (Negative) 07/03/16 13:06 Urine WBC (Auto) 50.0 /HPF (0.0-6.0) H 07/03/16 13:06 Urine RBC (Auto) 2.0 /HPF (0.0-6.0) 07/03/16 13:06 U Epithel Cells (Auto) 7.0 /HPF (0-13.0) 07/03/16 13:06 Urine Bacteria (Auto) 4+ /HPF (Negative) 07/03/16 13:06
--- NOTE | 2016-07-04 13:39 | Consultation ---
History of Present Illness Consult date: 07/04/16 Consult reason: congestive heart failure History of present illness: The patient is a 66-year-old woman with multiple medical problems. She is morbidly obese, has obstructive sleep apnea and COPD. She also reports a history of "congestive heart failure". She is unable to articulate details of any significant prior cardiac workup except to report that she may have had a stress test in the remote past. In our records here, an echocardiogram was done in October 2014, which revealed well-preserved left ventricular ejection fraction 50-55%. She presents to the hospital at this time with complaints of shortness of breath. A chest x-ray revealed cardiomegaly, with diffuse bilateral pulmonary infiltrates right greater than left, consistent with acute pulmonary edema. The EKG was a normal sinus rhythm, left ventricular hypertrophy and nonspecific repolarization changes of LVH. The patient is currently comfortable on the telemetry floor, breathing normally on nasal oxygen, denies any chest pain, and reports significant symptomatic improvement with treatment since hospitalization. Past History Past Medical History: COPD, heart failure, other (morbid obesity) Medications and Allergies Allergies Allergy/AdvReac Type Severity Reaction Status Date / Time No Known Allergies Allergy Verified 05/12/15 07:51 Home Medications Medication Instructions Recorded Confirmed Last Taken Type glipiZIDE [Glipizide] 5 mg PO DAILY 04/03/14 07/03/16 07/02/16 History Budesonide [Pulmicort Respules] 0.5 mg IH Q12HRT #1 nebu 06/05/16 07/03/1607/02 Rx Ferrous Sulfate [Feosol 325 MG tab] 325 mg PO BID #60 tablet 06/05/16 07/03/16 07/02/16 Rx Furosemide [Lasix TAB] 40 mg PO DAILY #30 tablet 06/05/16 07/03/16 07/02/16 Rx Ipratropium/Albuterol Sulfate 1 ampul IH TIDRT 30 Days 06/05/16 07/03/16 Rx [Duoneb 0.5 mg-3 mg/3 ml Soln] Pantoprazole [Protonix TAB] 40 mg PO QDAY #30 tablet 06/05/16 07/03/16 07/02/16 Rx traMADol [Ultram 50 MG tab] 50 mg PO Q4HR PRN #20 tablet 06/05/16 07/03/1607/02 Rx Active Meds: Active Medications Acetaminophen (Tylenol) 650 mg PO Q4H PRN PRN Reason: Pain MILD(1-3)/Fever >100.5/BARRERA Albuterol (Proventil) 2.5 mg IH Q3HRT PRN PRN Reason: Shortness Of Breath Albuterol/Ipratropium (Duoneb 0.5 Mg-3 Mg/3 Ml Soln) 1 ampul IH Q6HRT [facility] Last Admin: 07/04/16 13:25 Dose: 1 ampul Bisacodyl (Dulcolax) 10 mg WI QDAY PRN PRN Reason: Constipation unrelieved by MOM Budesonide (Pulmicort) 0.5 mg IH Q12HRT [facility] Last Admin: 07/04/16 08:47 Dose: 0.5 mg Enoxaparin Sodium (Lovenox) 40 mg SUB-Q QDAY@2200 [facility] Last Admin: 07/03/16 22:16 Dose: 40 mg Ferrous Sulfate (Feosol) 325 mg PO QDAY [facility] Last Admin: 07/04/16 09:19 Dose: 325 mg Furosemide (Lasix) 40 mg IV 0600,1800 [facility] Last Admin: 07/04/16 06:13 Dose: 40 mg Glipizide (Glucotrol) 5 mg PO QDDIAB [facility] Last Admin: 07/04/16 09:19 Dose: 5 mg Hydromorphone HCl (Dilaudid) 0.5 mg IV Q3H PRN PRN Reason: Pain , Severe (7-10) Azithromycin 500 mg/ Sodium (Chloride) 250 mls @ 250 mls/hr IV Q24HR [facility] Last Admin: 07/04/16 09:17 Dose: 250 mls/hr Ceftriaxone Sodium (Rocephin/Ns 2 Gm/100 Ml) 2 gm in 100 mls @ 200 mls/hr IV Q24HR [facility] PRN Reason: Protocol Last Admin: 07/04/16 09:16 Dose: 200 mls/hr Insulin Aspart (Novolog) 0 units SUB-Q ACHS [facility] PRN Reason: Protocol Last Admin: 07/04/16 12:18 Dose: 3 units Magnesium Hydroxide (Milk Of Magnesia) 30 ml PO Q4H PRN PRN Reason: Constipation Methylprednisolone Sodium Succinate (Solu-Medrol) 60 mg IV Q8HR [facility] Last Admin: 07/04/16 06:12 Dose: 60 mg Ondansetron HCl (Zofran) 4 mg IV Q8H PRN PRN Reason: N/V unrelieved by Reglan Oxycodone/Acetaminophen (Percocet 5/325) 1 tab PO Q6H PRN PRN Reason: Pain, Moderate (4-6) Pantoprazole Sodium (Protonix) 40 mg PO QDAY [facility] Last Admin: 07/04/16 09:19 Dose: 40 mg Potassium Chloride (K-Dur) 20 meq PO Q12H [facility] Last Admin: 07/04/16 09:19 Dose: 20 meq Tramadol HCl (Ultram) 50 mg PO Q4H PRN PRN Reason: Pain Review of Systems Cardiovascular: shortness of breath, no chest pain, no orthopnea, no palpitations, no rapid/irregular heart beat, no edema, no syncope, no lightheadedness Physical Examination Vital Signs Resp Pulse Ox 10 L 98 07/03/16 12:56 07/03/16 12:56 General appearance: no acute distress, other (morbidly obese) HEENT: Positive: PERRL Neck: Positive: neck supple Cardiac: Positive: Reg Rate and Rhythm Lungs: Positive: Decreased Breath Sounds Neuro: Positive: Grossly Intact Abdomen: Positive: Soft Female genitourinary: deferred Skin: Positive: Clear Extremities: Absent: edema Results 07/04/16 06:02 07/04/16 06:02 Cardiac Enzymes 07/04/16 Range/Units 06:02 AST 13 (5-40) units/L CBC 07/04/16 Range/Units 06:02 WBC 5.8 (4.5-11.0) K/mm3 RBC 4.60 (3.65-5.03) M/mm3 Hgb 11.3 (10.1-14.3) gm/dl Hct 37.1 (30.3-42.9) % Plt Count 172 (140-440) K/mm3 Comprehensive Metabolic Panel 07/04/16 Range/Units 06:02 Sodium 142 (137-145) mmol/L Potassium 4.3 (3.6-5.0) mmol/L Chloride 95.1 L (98-107) mmol/L Carbon Dioxide 36 H (22-30) mmol/L BUN 15 (7-17) mg/dL Creatinine 0.5 L (0.7-1.2) mg/dL Glucose 163 H (65-100) mg/dL Calcium 9.0 (8.4-10.2) mg/dL AST 13 (5-40) units/L ALT 8 (7-56) units/L Alkaline Phosphatase 87 (35-129) units/L Total Protein 8.0 (6.3-8.2) g/dL Albumin 4.2 (3.9-5) g/dL EKG interpretations - Telemetry EKG Rhythm: Sinus Rhythm Assessment and Plan - Patient Problems (1) Congestive heart failure Current Visit: Yes Status: Acute Qualifiers: Congestive heart failure type: C Congestive heart failure chronicity: C Plan to address problem: Patient presents with shortness of breath and acute pulmonary edema on chest x- ray. Previous echocardiogram years ago revealed well preserved left ventricular systolic function, echocardiogram will be repeated on this presentation to reassess LV systolic function. Continue medical therapy with diuretics as tolerated. Due to her morbid obesity , she weighs over 400 pounds, may not be a candidate for any cardiac ischemic testing.
[2016-07-04] MEDS: BROVANA NEBU IH SCH (21:30)
[2016-07-04] MEDS: LOVENOX SUB-Q SCH (22:05)
[2016-07-04] MEDS: DELTASONE PO SCH (22:06)
--- NOTE | 2016-07-05 00:33 | Consultation ---
PULMONARY CONSULTATION CONSULTING PHYSICIAN: Dr. Gilbert. REASON FOR CONSULTATION: Respiratory failure. CHIEF COMPLAINT AND HISTORY OF PRESENT ILLNESS: As follows: The patient is a 66-year-old -[place] female with past medical history significant amongst other things for a diagnosis of COPD as well as obstructive sleep apnea, supposed to be on a CPAP machine at home, but states she has not been using it, came into the Emergency Room complaining of chest pain, shortness of breath. It was atypical in presentation. She denied any hemoptysis. She denied any new onset lower extremity swelling. She does have chronic swelling. She was evaluated in the Emergency Room and essentially she was admitted with a diagnosis of COPD exacerbation and chest pain. We are asked to assist with management. When I stopped by to see her, she was lying quietly in bed. She was on supplemental oxygen about 2-3 liters nasal cannula. Denied any fevers or chills. Denied any cough or expectoration. She was feeling better. She denied any sick contacts at home. She stated she was not on any bronchodilators at home, but she is on diuretics and she has been using them as ordered. Denies any history of venous thromboembolic phenomenon. This really is much of the history of presentation as I have. PAST MEDICAL HISTORY: COPD, heart failure, morbid obesity, obstructive sleep apnea, history of anemia and lower GI bleed, history of hypertension and congestive heart failure. PAST SURGICAL HISTORY: Unknown. Tubal ligations and tonsillectomy MEDICATIONS: She was on at the time I stopped by to see her according to the medication administration record as follows, She was on Tylenol 650 mg p.o. q. 4 hours p.r.n., DuoNeb treatments nebulized q. 6 hours, azithromycin 500 mg IV daily, Pulmicort 0.5 mg inhaled q. 12 hours p.r.n., Dulcolax, Rocephin 2 g IV daily, Lovenox 40 mg subQ daily, Lasix 40 mg IV b.i.d., Feosol 325 mg p.o. daily, insulin via sliding scale, Dilaudid 0.5 mg IV q. 3 hours p.r.n. severe pain, Solu-Medrol 60 mg IV q. 8 hours, Zofran 4 mg IV q. 8 hours p.r.n. nausea and vomiting, Protonix 40 mg p.o. daily, potassium chloride 20 mEq p.o. q. 12 hours, tramadol 50 mg p.o. q. 4 hours p.r.n. pain. ALLERGIES: No known drug allergies. DIET: Morbidly obese. Denies significant weight loss or gain in preceding few weeks to months. FAMILY AND SOCIAL HISTORY: Apparently lives in the community. She denies any history of tobacco use, illicit drug use or abuse whatsoever. Denies alcohol. Family history; otherwise, noncontributory. REVIEW OF SYSTEMS: No loss of consciousness. No new onset seizures. No new onset focal weakness. No gross hematochezia or melena. No gross hematuria or dysuria. No hematemesis. No hemoptysis. No palpitations. Complete review of systems obtained. Pertinent positives and/or negatives as in body of history above, otherwise noncontributory. PHYSICAL EXAMINATION: VITAL SIGNS: At presentation, she was afebrile, temperature 98.4 Fahrenheit with a pulse of 92, respiratory rate of 10, blood pressure 130/59, oxygen sats 98%, inspired oxygen concentration was not recorded. HEAD, EYES, EARS, NOSE AND THROAT: Pupils are equal, round, about 3 mm, reactive to light. Extraocular muscle movements are intact. Oropharynx is a Mallampati #3 oropharynx with no significant posterior pharyngeal erythema, mild oropharyngeal pallor. Grossly, no palpable lymph nodes in the supraclavicular or submandibular lymph node chains. LUNGS: Auscultation of both lung sheridan revealed diminished bilateral breath sounds without active wheezing. Prolonged expiratory phase. HEART: Sounds 1 and 2 are heard, regular rate and rhythm at time of my evaluation. ABDOMEN: Soft, full, bowel sounds positive, nontender. EXTREMITIES: With trace to 1+ right pedal pitting edema. No significant digital clubbing or cyanosis. NEUROLOGIC: The exam was grossly nonfocal. LABORATORY DATA: From my review are as follows: White cell count 4900 with a hemoglobin of 10.1, hematocrit of 33.6 and platelets of 159. No band forms reported. INR 1.03. Arterial blood gas showed a pH of 7.42, pCO2 of 68, pO2 of 62. This was on 3 liters ____ FIO2. Serum sodium was 144, potassium 4.4, chloride 97, bicarbonate 34, BUN 19, creatinine 0.6, glucose was 100. BNP was within normal limits. Troponin was within normal limits. Urinalysis, moderate leukocyte esterase, 50 white cells per high power field. Urine cultures, I do not have any stool guaiac is negative. Radiographic studies have been reviewed really I am trying to pull up the films. I do have the radiologist's interpretation here. A chest x-ray was done at admission and it was reported as congestive heart failure. ASSESSMENT AND PLAN: We have an elderly lady in with an acute chronic obstructive pulmonary disease exacerbation, doing a little bit better. I have explained to her she does need to treat her obstructive sleep apnea and she obviously does have an element of obesity hypoventilation syndrome. Respiratory mitchell, we will continue bronchodilators as ordered by which I mean short-acting bronchodilators and inhaled corticosteroids. I will add long acting bronchodilators. I will begin a systemic steroid taper. Oxygen will be weaned to keep sats greater than or equal to 92-94%. I will begin empiric BiPAP therapy at bedtime for obstructive sleep apnea. I will empirically go with 16/8 on the settings with a backup rate of 12. Aspiration precautions will be maintained and we should continue gentle diuresis. That should also help improve the overall respiratory status. The chest x-ray is underpenetrated, but it does suggest pulmonary edema. She is appropriately on DVT prophylaxis. We will begin GI prophylaxis. We should continue community-acquired pneumonia therapy. Sputum should be sent for Gram stain culture and sensitivities if she makes any. Flu and pneumonia vaccination will be per protocol. Thank you very much for the consult Dr. Gilbert. We will follow along and make further recommendations as the picture progresses/becomes clearer. Weight loss has been counseled. JOB# [id number] CATERINA/LELA
[2016-07-05] MEDS: DUONEB 0.5 MG-3 MG/3 ML SOLN IH SCH ×4 (02:07→19:37)
[2016-07-05] MEDS: LASIX IV SCH ×2 (05:27→20:14)
[2016-07-05] MEDS: NOVOLOG SUB-Q SCH ×3 (07:30→22:06)
[2016-07-05] MEDS: BROVANA NEBU IH SCH ×2 (07:41→19:42)
[2016-07-05] MEDS: PULMICORT IH SCH ×2 (07:41→19:37)
[2016-07-05] MEDS: DELTASONE PO SCH (10:00)
[2016-07-05] MEDS: ROCEPHIN/NS 2 GM/100 ML 2 GM/100 ML BAG IV SCH (10:00)
[2016-07-05] MEDS: FEOSOL PO SCH (10:00)
[2016-07-05] MEDS: K-DUR PO SCH ×2 (10:15→21:08)
--- NOTE | 2016-07-05 10:16 | Progress Note ---
Assessment and Plan Assessment and plan: 1. Acute respiratory failure with hypercapnia and hypoxemia. Continue O2 for supportive care. Etiology is multifactorial secondary to COPD and CHF decompensation along with probable OHS/DOMENIC and morbid obesity. Treat the underlying causes. Continue BiPAP when necessary. 2. Acute diastolic CHF decompensation. Continue IV Lasix. 3. Gastroesophageal reflux disease. Continue Protonix daily. 4. Hyperlipidemia. Continue simvastatin 40 mg by mouth daily. 5. Chronic pain syndrome. Continue tramadol. 6. Chest pain. Due to her morbid obesity, patient is not a candidate for cardiac ischemic testing per cardiology. 7. COPD exacerbation. Continue IV steroids and breathing treatments. 8. Obesity due to excess calories. Patient will be counseled on dietary modifications. 9. DVT prophylaxis. Continue Lovenox daily. History Interval history: 66-year-old female with history of COPD, diabetes mellitus type 2, GERD, CHF, hyperlipidemia, morbid obesity and chronic pain syndrome presented to the emerge department with complaints of dyspnea and left-sided chest pain. Last EF 50-55% with nuclear stress test in June 2012 demonstrating medium sized reversible lateral wall defect Hospitalist Physical - Constitutional Vitals: Temp Pulse Resp BP Pulse Ox 98 F 78 20 169/74 98 07/05/16 07:30 07/05/16 07:51 07/05/16 07:51 07/05/16 07:30 07/05/16 07:41 General appearance: Present: no acute distress, obese, other (morbidly obese) - EENT Eyes: Present: PERRL, EOM intact ENT: hearing intact, clear oral mucosa, dentition normal - Neck Neck: Present: supple, normal ROM - Respiratory Respiratory effort: normal Respiratory: bilateral: CTA - Cardiovascular Rhythm: regular Heart Sounds: Present: S1 & S2. Absent: gallop, rub - Extremities Extremities: no ischemia, No edema, Full ROM - Abdominal General gastrointestinal: soft, non-tender, non-distended, normal bowel sounds - Integumentary Integumentary: Present: clear, warm, dry - Neurologic Neurologic: CNII-XII intact, moves all extremities Results - Labs CBC & Chem 7: 07/04/16 06:02 07/04/16 06:02 Labs: Laboratory Last Values WBC 5.8 K/mm3 (4.5-11.0) 07/04/16 06:02 RBC 4.60 M/mm3 (3.65-5.03) 07/04/16 06:02 Hgb 11.3 gm/dl (10.1-14.3) 07/04/16 06:02 Hct 37.1 % (30.3-42.9) 07/04/16 06:02 MCV 83 fl (79-97) 07/04/16 06:02 MCH 25 pg (28-32) L 07/04/16 06:02 MCHC 30 % (30-34) 07/04/16 06:02 RDW 25.8 % (13.2-15.2) H 07/04/16 06:02 Plt Count 172 K/mm3 (140-440) 07/04/16 06:02 Lymph % (Auto) 14.3 % (13.4-35.0) 07/03/16 13:58 [place] % (Auto) 6.6 % (0.0-7.3) 07/03/16 13:58 Eos % (Auto) 1.2 % (0.0-4.3) 07/03/16 13:58 Baso % (Auto) 0.7 % (0.0-1.8) 07/03/16 13:58 Lymph # 0.7 K/mm3 (1.2-5.4) L 07/03/16 13:58 [place] # 0.3 K/mm3 (0.0-0.8) 07/03/16 13:58 Eos # 0.1 K/mm3 (0.0-0.4) 07/03/16 13:58 Baso # 0.0 K/mm3 (0.0-0.1) 07/03/16 13:58 Add Manual Diff Complete 07/04/16 06:02 Total Counted 100 07/04/16 06:02 Seg Neutrophils % 77.2 % (40.0-70.0) H 07/03/16 13:58 Seg Neuts % (Manual) 80.0 % (40.0-70.0) H 07/04/16 06:02 Band Neutrophils % 7.0 % 07/04/16 06:02 Lymphocytes % (Manual) 12.0 % (13.4-35.0) L 07/04/16 06:02 Reactive Lymphs % (Man) 0 % 07/04/16 06:02 Monocytes % (Manual) 1.0 % (0.0-7.3) 07/04/16 06:02 Eosinophils % (Manual) 0 % (0.0-4.3) 07/04/16 06:02 Basophils % (Manual) 0 % (0.0-1.8) 07/04/16 06:02 Metamyelocytes % 0 % 07/04/16 06:02 Myelocytes % 0 % 07/04/16 06:02 Promyelocytes % 0 % 07/04/16 06:02 Blast Cells % 0 % 07/04/16 06:02 Nucleated RBC % Not Reportable 07/04/16 06:02 Seg Neutrophils # 3.7 K/mm3 (1.8-7.7) 07/03/16 13:58 Seg Neutrophils # Man 4.6 K/mm3 (1.8-7.7) 07/04/16 06:02 Band Neutrophils # 0.4 K/mm3 07/04/16 06:02 Lymphocytes # (Manual) 0.7 K/mm3 (1.2-5.4) L 07/04/16 06:02 Abs React Lymphs (Man) 0.0 K/mm3 07/04/16 06:02 Monocytes # (Manual) 0.1 K/mm3 (0.0-0.8) 07/04/16 06:02 Eosinophils # (Manual) 0.0 K/mm3 (0.0-0.4) 07/04/16 06:02 Basophils # (Manual) 0.0 K/mm3 (0.0-0.1) 07/04/16 06:02 Metamyelocytes # 0.0 K/mm3 07/04/16 06:02 Myelocytes # 0.0 K/mm3 07/04/16 06:02 Promyelocytes # 0.0 K/mm3 07/04/16 06:02 Blast Cells # 0.0 K/mm3 07/04/16 06:02 WBC Morphology Not Reportable 07/04/16 06:02 Hypersegmented Neuts Not Reportable 07/04/16 06:02 Hyposegmented Neuts Not Reportable 07/04/16 06:02 Hypogranular Neuts Not Reportable 07/04/16 06:02 Smudge Cells Not Reportable 07/04/16 06:02 Toxic Granulation Not Reportable 07/04/16 06:02 Toxic Vacuolation Not Reportable 07/04/16 06:02 Dohle Bodies Not Reportable 07/04/16 06:02 Pelger-Huet Anomaly Not Reportable 07/04/16 06:02 Roxanne Rods Not Reportable 07/04/16 06:02 Platelet Estimate Appears normal 07/04/16 06:02 Clumped Platelets Not Reportable 07/04/16 06:02 Plt Clumps, EDTA Not Reportable 07/04/16 06:02 Large Platelets Not Reportable 07/04/16 06:02 Giant Platelets Not Reportable 07/04/16 06:02 Platelet Satelliting Not Reportable 07/04/16 06:02 Plt Morphology Comment Not Reportable 07/04/16 06:02 RBC Morphology Not Reportable 07/04/16 06:02 Dimorphic RBCs Not Reportable 07/04/16 06:02 Polychromasia Not Reportable 07/04/16 06:02 Hypochromasia 2+ 07/04/16 06:02 Poikilocytosis Not Reportable 07/04/16 06:02 Anisocytosis 1+ 07/04/16 06:02 Microcytosis Not Reportable 07/04/16 06:02 Macrocytosis Not Reportable 07/04/16 06:02 Spherocytes Not Reportable 07/04/16 06:02 Pappenheimer Bodies Not Reportable 07/04/16 06:02 Sickle Cells Not Reportable 07/04/16 06:02 Target Cells Not Reportable 07/04/16 06:02 Tear Drop Cells Not Reportable 07/04/16 06:02 Ovalocytes Not Reportable 07/04/16 06:02 Stomatocytes Few 07/04/16 06:02 Helmet Cells Not Reportable 07/04/16 06:02 Reeder-[place] Bodies Not Reportable 07/04/16 06:02 [place] Rings Not Reportable 07/04/16 06:02 Natalie Cells Not Reportable 07/04/16 06:02 Bite Cells Not Reportable 07/04/16 06:02 Crenated Cell Not Reportable 07/04/16 06:02 Elliptocytes Not Reportable 07/04/16 06:02 Acanthocytes (Spur) Not Reportable 07/04/16 06:02 Rouleaux Not Reportable 07/04/16 06:02 Hemoglobin C Crystals Not Reportable 07/04/16 06:02 Schistocytes Not Reportable 07/04/16 06:02 Malaria parasites Not Reportable 07/04/16 06:02 Tristen Bodies Not Reportable 07/04/16 06:02 Hem Pathologist Commnt No 07/04/16 06:02 PT 13.4 Sec. (12.2-14.9) 07/03/16 13:58 INR 1.03 (0.87-1.13) 07/03/16 13:58 POC ABG pH 7.421 (7.35-7.45) 07/03/16 14:27 POC ABG pCO2 67.5 (35-45) H 07/03/16 14:27 POC ABG pO2 62 (80-105) L 07/03/16 14:27 POC ABG HCO3 43.9 07/03/16 14:27 POC ABG Total CO2 46 07/03/16 14:27 POC ABG O2 Sat 90 07/03/16 14:27 POC ABG Base Excess 19 07/03/16 14:27 FiO2 3 % 07/03/16 14:27 Sodium 142 mmol/L (137-145) 07/04/16 06:02 Potassium 4.3 mmol/L (3.6-5.0) 07/04/16 06:02 Chloride 95.1 mmol/L (98-107) L 07/04/16 06:02 Carbon Dioxide 36 mmol/L (22-30) H 07/04/16 06:02 Anion Gap 15 mmol/L 07/04/16 06:02 BUN 15 mg/dL (7-17) 07/04/16 06:02 Creatinine 0.5 mg/dL (0.7-1.2) L 07/04/16 06:02 Estimated GFR > 60 ml/min 07/04/16 06:02 BUN/Creatinine Ratio 30.00 % 07/04/16 06:02 Glucose 163 mg/dL (65-100) H 07/04/16 06:02 POC Glucose 165 (70-105) H 07/04/16 21:30 Hemoglobin A1c 4.9 % (4-6) 07/04/16 06:02 Calcium 9.0 mg/dL (8.4-10.2) 07/04/16 06:02 Total Bilirubin 0.3 mg/dL (0.1-1.2) 07/04/16 06:02 AST 13 units/L (5-40) 07/04/16 06:02 ALT 8 units/L (7-56) 07/04/16 06:02 Alkaline Phosphatase 87 units/L (35-129) 07/04/16 06:02 Troponin T < 0.010 ng/mL (0.00-0.029) 07/03/16 13:00 NT-Pro-B Natriuret Pep 593.4 pg/mL (0-900) 07/03/16 13:00 Total Protein 8.0 g/dL (6.3-8.2) 07/04/16 06:02 Albumin 4.2 g/dL (3.9-5) 07/04/16 06:02 Albumin/Globulin Ratio 1.1 % 07/04/16 06:02 Urine Color Yellow (Yellow) 07/03/16 13:06 Urine Turbidity Slightly-cloudy (Clear) 07/03/16 13:06 Urine pH 7.0 (5.0-7.0) 07/03/16 13:06 Ur Specific [place] 1.018 (1.003-1.030) 07/03/16 13:06 Urine Protein >500 mg/dL (Negative) 07/03/16 13:06 Urine Glucose (UA) Neg mg/dL (Negative) 07/03/16 13:06 Urine Ketones Neg mg/dL (Negative) 07/03/16 13:06 Urine Blood Neg (Negative) 07/03/16 13:06 Urine Nitrite Neg (Negative) 07/03/16 13:06 Urine Bilirubin Neg (Negative) 07/03/16 13:06 Urine Urobilinogen 4.0 mg/dL (<2.0) 07/03/16 13:06 Ur Leukocyte Esterase Mod (Negative) 07/03/16 13:06 Urine WBC (Auto) 50.0 /HPF (0.0-6.0) H 07/03/16 13:06 Urine RBC (Auto) 2.0 /HPF (0.0-6.0) 07/03/16 13:06 U Epithel Cells (Auto) 7.0 /HPF (0-13.0) 07/03/16 13:06 Urine Bacteria (Auto) 4+ /HPF (Negative) 07/03/16 13:06
[2016-07-05] MEDS: ZITHROMAX 500 MG in NACL 0.9% 250ML 250 ML IV SCH (10:48)
[2016-07-05] MEDS: GLUCOTROL PO SCH (10:50)
[2016-07-05] MEDS: PROTONIX PO SCH (10:56)
--- NOTE | 2016-07-05 12:23 | Progress Note ---
Assessment and Plan - Patient Problems (1) Congestive heart failure Current Visit: Yes Status: Acute Qualifiers: Congestive heart failure type: C Congestive heart failure chronicity: C Plan to address problem: Patient presents with shortness of breath and acute pulmonary edema on chest x- ray. Previous echocardiogram years ago revealed well preserved left ventricular systolic function, echocardiogram will be repeated on this presentation to reassess LV systolic function. Continue medical therapy with diuretics as tolerated. Due to her morbid obesity , she weighs over 400 pounds, may not be a candidate for any cardiac ischemic testing. Subjective Date of service: 07/05/16 Interval history: Patient shortness of breath has improved, no chest pain, no palpitations. Echocardiogram has been ordered, and is pending. Objective Vital Signs Temp Pulse Pulse Pulse Resp Resp BP 07/05/16 07:51 78 20 07/05/16 07:41 76 18 07/05/16 07:30 98 F 75 20 07/05/16 05:24 98.1 F 76 22 07/05/16 00:49 97.6 F 76 18 07/04/16 23:07 91 H 22 193/86 07/04/16 21:42 86 18 07/04/16 21:31 83 18 07/04/16 20:49 98.0 F 82 22 07/04/16 19:55 80 07/04/16 17:00 92 H 07/04/16 16:30 98.4 F 92 H 18 07/04/16 13:35 85 20 07/04/16 13:25 93 H 18 BP Pulse Ox 07/05/16 07:51 07/05/16 07:41 98 07/05/16 07:30 169/74 100 07/05/16 05:24 158/79 97 07/05/16 00:49 144/65 98 07/04/16 23:07 99 07/04/16 21:42 98 07/04/16 21:31 07/04/16 20:49 193/86 94 07/04/16 19:55 07/04/16 17:00 07/04/16 16:30 142/67 96 07/04/16 13:35 07/04/16 13:25 - Physical Examination General: No Apparent Distress, Other (morbidly obese) HEENT: Positive: PERRL Neck: Positive: neck supple Cardiac: Positive: Reg Rate and Rhythm Lungs: Positive: Decreased Breath Sounds, Rhonchi Neuro: Positive: Grossly Intact Abdomen: Positive: Soft Skin: Positive: Clear Extremities: Absent: edema
--- NOTE | 2016-07-05 15:25 | Progress Note ---
Subjective Date of service: 07/05/16 Principal diagnosis: Acute COPD exacerbation Interval history: Seen and examined at bedside; 24 hour events reviewed; nursing and respiratory care staff consulted; no adverse overnight events reported to me; Objective Vital Signs - 12hr 07/05/16 07/05/16 07/05/16 05:24 07:30 07:41 Temperature 98.1 F 98 F Pulse Rate [ 76 Anterior Bilateral Throughout] Pulse Rate [ 76 75 From Monitor] Respiratory 22 20 Rate Respiratory 18 Rate [Anterior Bilateral Throughout] Blood Pressure 158/79 169/74 [Right Arm] O2 Sat by Pulse 97 100 98 Oximetry 07/05/16 07/05/16 07:51 15:02 Temperature Pulse Rate [ 78 85 Anterior Bilateral Throughout] Pulse Rate [ From Monitor] Respiratory Rate Respiratory 20 18 Rate [Anterior Bilateral Throughout] Blood Pressure [Right Arm] O2 Sat by Pulse Oximetry CBC and BMP: 07/04/16 06:02 07/04/16 06:02 ABG, PT/INR, D-dimer: ABG POC ABG pH 7.421 (7.35-7.45) 07/03/16 14:27 POC ABG pCO2 67.5 (35-45) H 07/03/16 14:27 POC ABG pO2 62 (80-105) L 07/03/16 14:27 POC ABG HCO3 43.9 07/03/16 14:27 POC ABG Total CO2 46 07/03/16 14:27 POC ABG O2 Sat 90 07/03/16 14:27 PT/INR, D-dimer PT 13.4 Sec. (12.2-14.9) 07/03/16 13:58 INR 1.03 (0.87-1.13) 07/03/16 13:58 Abnormal lab findings: Abnormal Labs 07/03/16 07/04/16 07/04/16 22:12 06:02 06:02 MCH 25 L RDW 25.8 H Seg Neuts % (Manual) 80.0 H Lymphocytes % (Manual) 12.0 L Lymphocytes # (Manual) 0.7 L Chloride 95.1 L Carbon Dioxide 36 H Creatinine 0.5 L Glucose 163 H POC Glucose 130 H 07/04/16 07/04/16 07/04/16 08:32 11:16 16:32 MCH RDW Seg Neuts % (Manual) Lymphocytes % (Manual) Lymphocytes # (Manual) Chloride Carbon Dioxide Creatinine Glucose POC Glucose 156 H 202 H 133 H 07/04/16 07/05/16 21:30 07:44 MCH RDW Seg Neuts % (Manual) Lymphocytes % (Manual) Lymphocytes # (Manual) Chloride Carbon Dioxide Creatinine Glucose POC Glucose 165 H 151 H
[2016-07-05] MEDS: LOVENOX SUB-Q SCH (21:08)
[2016-07-05] MEDS: TYLENOL PO PRN (23:06)
[2016-07-06] MEDS: DUONEB 0.5 MG-3 MG/3 ML SOLN IH SCH ×4 (01:31→20:13)
[2016-07-06] MEDS: LASIX IV SCH ×2 (05:24→17:34)
[2016-07-06] MEDS: PULMICORT IH SCH ×2 (07:58→20:12)
[2016-07-06] MEDS: GLUCOTROL PO SCH (08:02)
[2016-07-06] MEDS: FEOSOL PO SCH (09:25)
[2016-07-06] MEDS: DELTASONE PO SCH (09:25)
[2016-07-06] MEDS: PROTONIX PO SCH (09:25)
[2016-07-06] MEDS: ROCEPHIN/NS 2 GM/100 ML 2 GM/100 ML BAG IV SCH (09:26)
[2016-07-06] MEDS: BROVANA NEBU IH SCH ×2 (09:27→20:12)
[2016-07-06] MEDS: K-DUR PO SCH ×2 (09:30→21:40)
--- NOTE | 2016-07-06 10:02 | Progress Note ---
Assessment and Plan Assessment and plan: 1. Acute respiratory failure with hypercapnia and hypoxemia. Continue O2 for supportive care. Etiology is multifactorial secondary to COPD and CHF decompensation along with probable OHS/DOMENIC and morbid obesity. Treat the underlying causes. Continue BiPAP when necessary. 2. Acute diastolic CHF decompensation. Continue IV Lasix. Repeat echocardiogram pending. 3. Gastroesophageal reflux disease. Continue Protonix daily. 4. Hyperlipidemia. Continue simvastatin 40 mg by mouth daily. 5. Chronic pain syndrome. Continue tramadol. 6. Chest pain. Due to her morbid obesity, patient is not a candidate for cardiac ischemic testing per cardiology. 7. COPD exacerbation. Continue IV steroids and breathing treatments. 8. Obesity due to excess calories. Patient will be counseled on dietary modifications. 9. DVT prophylaxis. Continue Lovenox daily. History Interval history: 66-year-old female with history of COPD, diabetes mellitus type 2, GERD, CHF, hyperlipidemia, morbid obesity and chronic pain syndrome presented to the emerge department with complaints of dyspnea and left-sided chest pain. Last EF 50-55% with nuclear stress test in June 2012 demonstrating medium sized reversible lateral wall defect Hospitalist Physical - Constitutional Vitals: Temp Pulse Resp BP Pulse Ox 98.6 F 72 16 179/80 99 07/06/16 07:50 07/06/16 07:59 07/06/16 07:59 07/06/16 07:50 07/06/16 08:00 General appearance: Present: no acute distress, obese, other (morbidly obese) - EENT Eyes: Present: PERRL, EOM intact ENT: hearing intact, clear oral mucosa, dentition normal - Neck Neck: Present: supple, normal ROM - Respiratory Respiratory effort: normal Respiratory: bilateral: CTA - Cardiovascular Rhythm: regular Heart Sounds: Present: S1 & S2. Absent: gallop, rub - Extremities Extremities: no ischemia, No edema, Full ROM - Abdominal General gastrointestinal: soft, non-tender, non-distended, normal bowel sounds - Integumentary Integumentary: Present: clear, warm, dry - Neurologic Neurologic: CNII-XII intact, moves all extremities Results - Labs CBC & Chem 7: 07/04/16 06:02 07/04/16 06:02 Labs: Laboratory Last Values WBC 5.8 K/mm3 (4.5-11.0) 07/04/16 06:02 RBC 4.60 M/mm3 (3.65-5.03) 07/04/16 06:02 Hgb 11.3 gm/dl (10.1-14.3) 07/04/16 06:02 Hct 37.1 % (30.3-42.9) 07/04/16 06:02 MCV 83 fl (79-97) 07/04/16 06:02 MCH 25 pg (28-32) L 07/04/16 06:02 MCHC 30 % (30-34) 07/04/16 06:02 RDW 25.8 % (13.2-15.2) H 07/04/16 06:02 Plt Count 172 K/mm3 (140-440) 07/04/16 06:02 Lymph % (Auto) 14.3 % (13.4-35.0) 07/03/16 13:58 [place] % (Auto) 6.6 % (0.0-7.3) 07/03/16 13:58 Eos % (Auto) 1.2 % (0.0-4.3) 07/03/16 13:58 Baso % (Auto) 0.7 % (0.0-1.8) 07/03/16 13:58 Lymph # 0.7 K/mm3 (1.2-5.4) L 07/03/16 13:58 [place] # 0.3 K/mm3 (0.0-0.8) 07/03/16 13:58 Eos # 0.1 K/mm3 (0.0-0.4) 07/03/16 13:58 Baso # 0.0 K/mm3 (0.0-0.1) 07/03/16 13:58 Add Manual Diff Complete 07/04/16 06:02 Total Counted 100 07/04/16 06:02 Seg Neutrophils % 77.2 % (40.0-70.0) H 07/03/16 13:58 Seg Neuts % (Manual) 80.0 % (40.0-70.0) H 07/04/16 06:02 Band Neutrophils % 7.0 % 07/04/16 06:02 Lymphocytes % (Manual) 12.0 % (13.4-35.0) L 07/04/16 06:02 Reactive Lymphs % (Man) 0 % 07/04/16 06:02 Monocytes % (Manual) 1.0 % (0.0-7.3) 07/04/16 06:02 Eosinophils % (Manual) 0 % (0.0-4.3) 07/04/16 06:02 Basophils % (Manual) 0 % (0.0-1.8) 07/04/16 06:02 Metamyelocytes % 0 % 07/04/16 06:02 Myelocytes % 0 % 07/04/16 06:02 Promyelocytes % 0 % 07/04/16 06:02 Blast Cells % 0 % 07/04/16 06:02 Nucleated RBC % Not Reportable 07/04/16 06:02 Seg Neutrophils # 3.7 K/mm3 (1.8-7.7) 07/03/16 13:58 Seg Neutrophils # Man 4.6 K/mm3 (1.8-7.7) 07/04/16 06:02 Band Neutrophils # 0.4 K/mm3 07/04/16 06:02 Lymphocytes # (Manual) 0.7 K/mm3 (1.2-5.4) L 07/04/16 06:02 Abs React Lymphs (Man) 0.0 K/mm3 07/04/16 06:02 Monocytes # (Manual) 0.1 K/mm3 (0.0-0.8) 07/04/16 06:02 Eosinophils # (Manual) 0.0 K/mm3 (0.0-0.4) 07/04/16 06:02 Basophils # (Manual) 0.0 K/mm3 (0.0-0.1) 07/04/16 06:02 Metamyelocytes # 0.0 K/mm3 07/04/16 06:02 Myelocytes # 0.0 K/mm3 07/04/16 06:02 Promyelocytes # 0.0 K/mm3 07/04/16 06:02 Blast Cells # 0.0 K/mm3 07/04/16 06:02 WBC Morphology Not Reportable 07/04/16 06:02 Hypersegmented Neuts Not Reportable 07/04/16 06:02 Hyposegmented Neuts Not Reportable 07/04/16 06:02 Hypogranular Neuts Not Reportable 07/04/16 06:02 Smudge Cells Not Reportable 07/04/16 06:02 Toxic Granulation Not Reportable 07/04/16 06:02 Toxic Vacuolation Not Reportable 07/04/16 06:02 Dohle Bodies Not Reportable 07/04/16 06:02 Pelger-Huet Anomaly Not Reportable 07/04/16 06:02 Roxanne Rods Not Reportable 07/04/16 06:02 Platelet Estimate Appears normal 07/04/16 06:02 Clumped Platelets Not Reportable 07/04/16 06:02 Plt Clumps, EDTA Not Reportable 07/04/16 06:02 Large Platelets Not Reportable 07/04/16 06:02 Giant Platelets Not Reportable 07/04/16 06:02 Platelet Satelliting Not Reportable 07/04/16 06:02 Plt Morphology Comment Not Reportable 07/04/16 06:02 RBC Morphology Not Reportable 07/04/16 06:02 Dimorphic RBCs Not Reportable 07/04/16 06:02 Polychromasia Not Reportable 07/04/16 06:02 Hypochromasia 2+ 07/04/16 06:02 Poikilocytosis Not Reportable 07/04/16 06:02 Anisocytosis 1+ 07/04/16 06:02 Microcytosis Not Reportable 07/04/16 06:02 Macrocytosis Not Reportable 07/04/16 06:02 Spherocytes Not Reportable 07/04/16 06:02 Pappenheimer Bodies Not Reportable 07/04/16 06:02 Sickle Cells Not Reportable 07/04/16 06:02 Target Cells Not Reportable 07/04/16 06:02 Tear Drop Cells Not Reportable 07/04/16 06:02 Ovalocytes Not Reportable 07/04/16 06:02 Stomatocytes Few 07/04/16 06:02 Helmet Cells Not Reportable 07/04/16 06:02 Reeder-[place] Bodies Not Reportable 07/04/16 06:02 [place] Rings Not Reportable 07/04/16 06:02 Natalie Cells Not Reportable 07/04/16 06:02 Bite Cells Not Reportable 07/04/16 06:02 Crenated Cell Not Reportable 07/04/16 06:02 Elliptocytes Not Reportable 07/04/16 06:02 Acanthocytes (Spur) Not Reportable 07/04/16 06:02 Rouleaux Not Reportable 07/04/16 06:02 Hemoglobin C Crystals Not Reportable 07/04/16 06:02 Schistocytes Not Reportable 07/04/16 06:02 Malaria parasites Not Reportable 07/04/16 06:02 Tristen Bodies Not Reportable 07/04/16 06:02 Hem Pathologist Commnt No 07/04/16 06:02 PT 13.4 Sec. (12.2-14.9) 07/03/16 13:58 INR 1.03 (0.87-1.13) 07/03/16 13:58 POC ABG pH 7.421 (7.35-7.45) 07/03/16 14:27 POC ABG pCO2 67.5 (35-45) H 07/03/16 14:27 POC ABG pO2 62 (80-105) L 07/03/16 14:27 POC ABG HCO3 43.9 07/03/16 14:27 POC ABG Total CO2 46 07/03/16 14:27 POC ABG O2 Sat 90 07/03/16 14:27 POC ABG Base Excess 19 07/03/16 14:27 FiO2 3 % 07/03/16 14:27 Sodium 142 mmol/L (137-145) 07/04/16 06:02 Potassium 4.3 mmol/L (3.6-5.0) 07/04/16 06:02 Chloride 95.1 mmol/L (98-107) L 07/04/16 06:02 Carbon Dioxide 36 mmol/L (22-30) H 07/04/16 06:02 Anion Gap 15 mmol/L 07/04/16 06:02 BUN 15 mg/dL (7-17) 07/04/16 06:02 Creatinine 0.5 mg/dL (0.7-1.2) L 07/04/16 06:02 Estimated GFR > 60 ml/min 07/04/16 06:02 BUN/Creatinine Ratio 30.00 % 07/04/16 06:02 Glucose 163 mg/dL (65-100) H 07/04/16 06:02 POC Glucose 165 (70-105) H 07/05/16 21:11 Hemoglobin A1c 4.9 % (4-6) 07/04/16 06:02 Calcium 9.0 mg/dL (8.4-10.2) 07/04/16 06:02 Total Bilirubin 0.3 mg/dL (0.1-1.2) 07/04/16 06:02 AST 13 units/L (5-40) 07/04/16 06:02 ALT 8 units/L (7-56) 07/04/16 06:02 Alkaline Phosphatase 87 units/L (35-129) 07/04/16 06:02 Troponin T < 0.010 ng/mL (0.00-0.029) 07/03/16 13:00 NT-Pro-B Natriuret Pep 593.4 pg/mL (0-900) 07/03/16 13:00 Total Protein 8.0 g/dL (6.3-8.2) 07/04/16 06:02 Albumin 4.2 g/dL (3.9-5) 07/04/16 06:02 Albumin/Globulin Ratio 1.1 % 07/04/16 06:02 Urine Color Yellow (Yellow) 07/03/16 13:06 Urine Turbidity Slightly-cloudy (Clear) 07/03/16 13:06 Urine pH 7.0 (5.0-7.0) 07/03/16 13:06 Ur Specific [place] 1.018 (1.003-1.030) 07/03/16 13:06 Urine Protein >500 mg/dL (Negative) 07/03/16 13:06 Urine Glucose (UA) Neg mg/dL (Negative) 07/03/16 13:06 Urine Ketones Neg mg/dL (Negative) 07/03/16 13:06 Urine Blood Neg (Negative) 07/03/16 13:06 Urine Nitrite Neg (Negative) 07/03/16 13:06 Urine Bilirubin Neg (Negative) 07/03/16 13:06 Urine Urobilinogen 4.0 mg/dL (<2.0) 07/03/16 13:06 Ur Leukocyte Esterase Mod (Negative) 07/03/16 13:06 Urine WBC (Auto) 50.0 /HPF (0.0-6.0) H 07/03/16 13:06 Urine RBC (Auto) 2.0 /HPF (0.0-6.0) 07/03/16 13:06 U Epithel Cells (Auto) 7.0 /HPF (0-13.0) 07/03/16 13:06 Urine Bacteria (Auto) 4+ /HPF (Negative) 07/03/16 13:06
--- NOTE | 2016-07-06 10:50 | Progress Note ---
Assessment and Plan CHF -preserved EF on echo 2014 repeat echocardiogram results pending Sleep apnea COPD Morbidly obese Recommendations: Continue medical therapy with diuretics as tolerated. Due to her morbid obesity , she weighs over 400 pounds, may not be a candidate for any cardiac ischemic testing. Subjective Date of service: 07/06/16 Principal diagnosis: Acute COPD exacerbation Interval history: Patient reports her shortness of breath is less. Objective Vital Signs Temp Pulse Pulse Pulse Pulse Resp Resp 07/06/16 08:00 07/06/16 07:59 72 16 07/06/16 07:58 71 18 07/06/16 07:50 98.6 F 74 22 07/06/16 04:05 98.3 F 59 L 22 07/06/16 01:34 84 20 07/06/16 01:25 87 18 07/06/16 00:28 98.4 F 68 20 07/05/16 23:15 97 H 24 07/05/16 22:30 80 07/05/16 20:06 98.2 F 78 20 07/05/16 19:45 07/05/16 19:43 81 16 07/05/16 19:30 83 18 07/05/16 15:12 83 20 07/05/16 15:02 85 18 07/05/16 15:00 98 F 94 H 18 BP Pulse Ox 07/06/16 08:00 99 07/06/16 07:59 07/06/16 07:58 07/06/16 07:50 179/80 95 07/06/16 04:05 177/81 100 07/06/16 01:34 07/06/16 01:25 07/06/16 00:28 139/82 100 07/05/16 23:15 98 07/05/16 22:30 07/05/16 20:06 162/73 07/05/16 19:45 96 07/05/16 19:43 07/05/16 19:30 07/05/16 15:12 07/05/16 15:02 07/05/16 15:00 171/77 94 - Physical Examination General: No Apparent Distress, Other (morbidly obese) HEENT: Positive: PERRL Neck: Positive: neck supple Cardiac: Positive: Reg Rate and Rhythm
[2016-07-06] MEDS: ZITHROMAX 500 MG in NACL 0.9% 250ML 250 ML IV SCH (11:13)
[2016-07-06] MEDS: NOVOLOG SUB-Q SCH ×3 (12:40→21:41)
--- NOTE | 2016-07-06 18:48 | Progress Note ---
Assessment and Plan Patient alert, awake and resting on nasal canula 3 litres and O2 satuaration 97% .Patient about to go on BIPAP. Patient says cough and shortness of breath getting better. - Patient Problems (1) COPD (chronic obstructive pulmonary disease) Current Visit: No Status: Chronic Qualifiers: COPD type: emphysema Chronic bronchitis type: C Emphysema type: E Plan to address problem: O2 supplementation, and BIPAP during night time and Prn during day time. Brovanna/Budesonide aerosol treatments q 12 hours. Albuterol/atrovent aerosol treatments Prn q 6 hours. Slowly taper PO Prednisone. Continue S/C Lovenox. Continue Protonix. Patient is on zithromax and ceftrioxone. (2) Acute and chronic respiratory failure ([id number]) Current Visit: No Status: Acute Qualifiers: Respiratory failure complication: hypoxia and hypercapnia Qualified Code(s) : J96.21 - Acute and chronic respiratory failure with hypoxia; J96.22 - Acute and chronic respiratory failure with hypercapnia Plan to address problem: O2 supplementation, and BIPAP during night time and Prn during day time. Brovanna/Budesonide aerosol treatments q 12 hours. Albuterol/atrovent aerosol treatments Prn q 6 hours. Slowly taper PO Prednisone. Continue S/C Lovenox. Continue Protonix. (3) Chest pain Current Visit: Yes Status: Acute Qualifiers: Chest pain type: C Plan to address problem: Management as per cardiology. (4) Congestive heart failure Current Visit: Yes Status: Acute Qualifiers: Congestive heart failure type: C Congestive heart failure chronicity: C Plan to address problem: Management as per cardiology. (5) Obesity Current Visit: Yes Status: Acute Qualifiers: Obesity type: O Obesity severity: O Plan to address problem: Consult Nutrition for weight reduction diet. (6) DOMENIC (obstructive sleep apnea) Current Visit: No Status: Chronic Plan to address problem: Patient is on CPAP or BIPAP at home. (7) Obesity hypoventilation syndrome Current Visit: No Status: Chronic Plan to address problem: Patient has CPAP or BIPAP at home. Subjective Date of service: 07/06/16 Principal diagnosis: Acute COPD exacerbation Interval history: Patient alert, awake and resting on nasal canula 3 litres and O2 satuaration 97% .Patient about to go on BIPAP. Patient says cough and shortness of breath getting better. Objective Vital Signs - 12hr 07/06/16 07/06/16 07/06/16 07:50 07:58 07:59 Temperature 98.6 F Pulse Rate Pulse Rate [ 71 72 Anterior Bilateral Throughout] Pulse Rate [ 74 Right Radial] Respiratory 22 Rate Respiratory 18 16 Rate [Anterior Bilateral Throughout] Blood Pressure 179/80 [Right Arm] O2 Sat by Pulse 95 Oximetry 07/06/16 07/06/16 07/06/16 08:00 10:00 11:55 Temperature 98.0 F Pulse Rate Pulse Rate [ Anterior Bilateral Throughout] Pulse Rate [ 68 Right Radial] Respiratory 22 20 Rate Respiratory Rate [Anterior Bilateral Throughout] Blood Pressure 145/67 [Right Arm] O2 Sat by Pulse 99 95 92 Oximetry 07/06/16 07/06/16 07/06/16 11:56 13:24 13:25 Temperature Pulse Rate 69 Pulse Rate [ 75 75 Anterior Bilateral Throughout] Pulse Rate [ Right Radial] Respiratory Rate Respiratory 17 17 Rate [Anterior Bilateral Throughout] Blood Pressure [Right Arm] O2 Sat by Pulse Oximetry Constitutional: no acute distress, alert, other (Morbidley Obese.) Eyes: non-icteric Ascultation: Bilateral: diminished breath sounds Cardiovascular: regular rate and rhythm Gastrointestinal: normoactive bowel sounds, soft, non-tender Integumentary: normal Extremities: no cyanosis, no edema Neurologic: normal mental status, non-focal exam, pupils equal and round, CN II- XII normal Psychiatric: mood appropriate CBC and BMP: 07/04/16 06:02 07/04/16 06:02 ABG, PT/INR, D-dimer: ABG POC ABG pH 7.421 (7.35-7.45) 07/03/16 14:27 POC ABG pCO2 67.5 (35-45) H 07/03/16 14:27 POC ABG pO2 62 (80-105) L 07/03/16 14:27 POC ABG HCO3 43.9 07/03/16 14:27 POC ABG Total CO2 46 07/03/16 14:27 POC ABG O2 Sat 90 07/03/16 14:27 PT/INR, D-dimer PT 13.4 Sec. (12.2-14.9) 07/03/16 13:58 INR 1.03 (0.87-1.13) 07/03/16 13:58 Abnormal lab findings: Abnormal Labs 07/03/16 07/04/16 07/04/16 22:12 06:02 06:02 MCH 25 L RDW 25.8 H Seg Neuts % (Manual) 80.0 H Lymphocytes % (Manual) 12.0 L Lymphocytes # (Manual) 0.7 L Chloride 95.1 L Carbon Dioxide 36 H Creatinine 0.5 L Glucose 163 H POC Glucose 130 H 07/04/16 07/04/16 07/04/16 08:32 11:16 16:32 MCH RDW Seg Neuts % (Manual) Lymphocytes % (Manual) Lymphocytes # (Manual) Chloride Carbon Dioxide Creatinine Glucose POC Glucose 156 H 202 H 133 H 07/04/16 07/05/16 07/05/16 21:30 07:44 16:59 MCH RDW Seg Neuts % (Manual) Lymphocytes % (Manual) Lymphocytes # (Manual) Chloride Carbon Dioxide Creatinine Glucose POC Glucose 165 H 151 H 195 H 07/05/16 21:11 MCH RDW Seg Neuts % (Manual) Lymphocytes % (Manual) Lymphocytes # (Manual) Chloride Carbon Dioxide Creatinine Glucose POC Glucose 165 H Chest x-ray: report reviewed (CHF)
[2016-07-06] MEDS: LOVENOX SUB-Q SCH (21:41)
[2016-07-07] MEDS: DUONEB 0.5 MG-3 MG/3 ML SOLN IH SCH ×4 (01:45→19:26)
[2016-07-07] MEDS: TYLENOL PO PRN (05:48)
[2016-07-07] MEDS: LASIX IV SCH ×2 (05:48→17:55)
[2016-07-07] MEDS: GLUCOTROL PO SCH (07:53)
[2016-07-07] MEDS: ROCEPHIN/NS 2 GM/100 ML 2 GM/100 ML BAG IV SCH (09:26)
[2016-07-07] MEDS: DELTASONE PO SCH (09:27)
[2016-07-07] MEDS: FEOSOL PO SCH (09:27)
[2016-07-07] MEDS: PROTONIX PO SCH (09:27)
[2016-07-07] MEDS: K-DUR PO SCH ×2 (09:28→22:32)
[2016-07-07] MEDS: NOVOLOG SUB-Q SCH ×6 (09:28→22:31)
[2016-07-07] MEDS: PULMICORT IH SCH ×2 (09:38→19:19)
[2016-07-07] MEDS: BROVANA NEBU IH SCH ×2 (09:38→19:19)
--- NOTE | 2016-07-07 09:49 | Progress Note ---
Assessment and Plan Shortness of breath, multifactorial CHF, diastolic Sleep apnea COPD Morbidly obese Echocardiogram shows severe aortic stenosis with a mean transaortic gradient of 56. Left ventricle systolic function is well-preserved, 50-55%. Plan: Due to multiple comorbidities including her morbid obesity, patient is not a candidate for open valve replacement. Continue medical therapy for heart failure with a preserved EF. Subjective Date of service: 07/07/16 Principal diagnosis: Acute COPD exacerbation Interval history: Patient reports her shortness of breath is less. Objective Vital Signs Temp Pulse Pulse Pulse Pulse Resp Resp 07/07/16 05:31 98.0 F 68 20 07/07/16 02:01 62 18 07/07/16 01:46 60 18 07/07/16 00:55 98.0 F 74 20 07/06/16 23:20 99 H 21 07/06/16 22:00 60 07/06/16 20:50 97.8 F 71 22 07/06/16 20:30 60 14 07/06/16 20:19 07/06/16 20:13 62 15 07/06/16 13:25 75 17 07/06/16 13:24 75 17 07/06/16 11:56 69 07/06/16 11:55 98.0 F 68 20 07/06/16 10:00 22 BP Pulse Ox 07/07/16 05:31 165/73 98 07/07/16 02:01 07/07/16 01:46 07/07/16 00:55 140/68 98 07/06/16 23:20 99 07/06/16 22:00 07/06/16 20:50 143/63 97 07/06/16 20:30 07/06/16 20:19 97 07/06/16 20:13 07/06/16 13:25 07/06/16 13:24 07/06/16 11:56 07/06/16 11:55 145/67 92 07/06/16 10:00 95 - Physical Examination General: No Apparent Distress, Other (morbidly obese) HEENT: Positive: PERRL Neck: Positive: neck supple Cardiac: Positive: Reg Rate and Rhythm Neuro: Positive: Grossly Intact Abdomen: Positive: Soft Skin: Positive: Clear Extremities: Absent: edema
[2016-07-07] MEDS: ZITHROMAX 500 MG in NACL 0.9% 250ML 250 ML IV SCH (10:32)
--- NOTE | 2016-07-07 16:57 | Progress Note ---
Assessment and Plan Assessment and plan: Acute respiratory failure with hypercapnia and hypoxemia due to COPD exacerbation and CHF exacerbation, sleep apnea and morbid obesity. Continue O2. Continue BiPAP when necessary. Pulmonology following COPD exacerbation. Continue solumedrol iv, Duoneb, supplemental Oxygen.. Acute on chroonic diastolic CHF. Continue IV Lasix. Coreg po. Cardiology following. Severe aortic stenosis. She is not surgical candidate for open valve surgery,as per cardiology. Hyperlipidemia. Continue simvastatin 40 mg po daily. Chronic pain syndrome. Continue tramadol. Chest pain. Due to her morbid obesity, patient is not a candidate for cardiac ischemic testing per cardiology. Gastroesophageal reflux disease. Continue Protonix daily. Morbid Obesity. Counseled on losing weight. DVT prophylaxis. Continue Lovenox daily. Hospitalist Physical - Physical exam Narrative exam: Gen: Not in acute distress, morbidly obese HEENT: Normocephalic, atraumatic Neck: supple, no JVD Lungs: Decreased breath sounds bilaterally, Bilateral rales, rhonchi, wheezing Heart S1-S2 regular, no murmurs rubs or gallop, Abdomen: soft, non tender,non-distended, normal bowel sounds Ext: No edema, cyanosis or clubbing Neuro: Awake alert oriented 3, no focal neurologic signs, - Constitutional Vitals: Temp Pulse Resp BP Pulse Ox 98.6 F 95 H 16 145/66 97 07/07/16 08:20 07/07/16 13:48 07/07/16 13:48 07/07/16 08:20 07/07/16 11:06 General appearance: Present: no acute distress, obese, other (morbidly obese) Results - Labs CBC & Chem 7: 07/04/16 06:02 07/04/16 06:02 Labs: Laboratory Last Values WBC 5.8 K/mm3 (4.5-11.0) 07/04/16 06:02 RBC 4.60 M/mm3 (3.65-5.03) 07/04/16 06:02 Hgb 11.3 gm/dl (10.1-14.3) 07/04/16 06:02 Hct 37.1 % (30.3-42.9) 07/04/16 06:02 MCV 83 fl (79-97) 07/04/16 06:02 MCH 25 pg (28-32) L 07/04/16 06:02 MCHC 30 % (30-34) 07/04/16 06:02 RDW 25.8 % (13.2-15.2) H 07/04/16 06:02 Plt Count 172 K/mm3 (140-440) 07/04/16 06:02 Lymph % (Auto) 14.3 % (13.4-35.0) 07/03/16 13:58 Bell % (Auto) 6.6 % (0.0-7.3) 07/03/16 13:58 Eos % (Auto) 1.2 % (0.0-4.3) 07/03/16 13:58 Baso % (Auto) 0.7 % (0.0-1.8) 07/03/16 13:58 Lymph # 0.7 K/mm3 (1.2-5.4) L 07/03/16 13:58 Bell # 0.3 K/mm3 (0.0-0.8) 07/03/16 13:58 Eos # 0.1 K/mm3 (0.0-0.4) 07/03/16 13:58 Baso # 0.0 K/mm3 (0.0-0.1) 07/03/16 13:58 Add Manual Diff Complete 07/04/16 06:02 Total Counted 100 07/04/16 06:02 Seg Neutrophils % 77.2 % (40.0-70.0) H 07/03/16 13:58 Seg Neuts % (Manual) 80.0 % (40.0-70.0) H 07/04/16 06:02 Band Neutrophils % 7.0 % 07/04/16 06:02 Lymphocytes % (Manual) 12.0 % (13.4-35.0) L 07/04/16 06:02 Reactive Lymphs % (Man) 0 % 07/04/16 06:02 Monocytes % (Manual) 1.0 % (0.0-7.3) 07/04/16 06:02 Eosinophils % (Manual) 0 % (0.0-4.3) 07/04/16 06:02 Basophils % (Manual) 0 % (0.0-1.8) 07/04/16 06:02 Metamyelocytes % 0 % 07/04/16 06:02 Myelocytes % 0 % 07/04/16 06:02 Promyelocytes % 0 % 07/04/16 06:02 Blast Cells % 0 % 07/04/16 06:02 Nucleated RBC % Not Reportable 07/04/16 06:02 Seg Neutrophils # 3.7 K/mm3 (1.8-7.7) 07/03/16 13:58 Seg Neutrophils # Man 4.6 K/mm3 (1.8-7.7) 07/04/16 06:02 Band Neutrophils # 0.4 K/mm3 07/04/16 06:02 Lymphocytes # (Manual) 0.7 K/mm3 (1.2-5.4) L 07/04/16 06:02 Abs React Lymphs (Man) 0.0 K/mm3 07/04/16 06:02 Monocytes # (Manual) 0.1 K/mm3 (0.0-0.8) 07/04/16 06:02 Eosinophils # (Manual) 0.0 K/mm3 (0.0-0.4) 07/04/16 06:02 Basophils # (Manual) 0.0 K/mm3 (0.0-0.1) 07/04/16 06:02 Metamyelocytes # 0.0 K/mm3 07/04/16 06:02 Myelocytes # 0.0 K/mm3 07/04/16 06:02 Promyelocytes # 0.0 K/mm3 07/04/16 06:02 Blast Cells # 0.0 K/mm3 07/04/16 06:02 WBC Morphology Not Reportable 07/04/16 06:02 Hypersegmented Neuts Not Reportable 07/04/16 06:02 Hyposegmented Neuts Not Reportable 07/04/16 06:02 Hypogranular Neuts Not Reportable 07/04/16 06:02 Smudge Cells Not Reportable 07/04/16 06:02 Toxic Granulation Not Reportable 07/04/16 06:02 Toxic Vacuolation Not Reportable 07/04/16 06:02 Dohle Bodies Not Reportable 07/04/16 06:02 Pelger-Huet Anomaly Not Reportable 07/04/16 06:02 Roxanne Rods Not Reportable 07/04/16 06:02 Platelet Estimate Appears normal 07/04/16 06:02 Clumped Platelets Not Reportable 07/04/16 06:02 Plt Clumps, EDTA Not Reportable 07/04/16 06:02 Large Platelets Not Reportable 07/04/16 06:02 Giant Platelets Not Reportable 07/04/16 06:02 Platelet Satelliting Not Reportable 07/04/16 06:02 Plt Morphology Comment Not Reportable 07/04/16 06:02 RBC Morphology Not Reportable 07/04/16 06:02 Dimorphic RBCs Not Reportable 07/04/16 06:02 Polychromasia Not Reportable 07/04/16 06:02 Hypochromasia 2+ 07/04/16 06:02 Poikilocytosis Not Reportable 07/04/16 06:02 Anisocytosis 1+ 07/04/16 06:02 Microcytosis Not Reportable 07/04/16 06:02 Macrocytosis Not Reportable 07/04/16 06:02 Spherocytes Not Reportable 07/04/16 06:02 Pappenheimer Bodies Not Reportable 07/04/16 06:02 Sickle Cells Not Reportable 07/04/16 06:02 Target Cells Not Reportable 07/04/16 06:02 Tear Drop Cells Not Reportable 07/04/16 06:02 Ovalocytes Not Reportable 07/04/16 06:02 Stomatocytes Few 07/04/16 06:02 Helmet Cells Not Reportable 07/04/16 06:02 Reeder-Hymera Bodies Not Reportable 07/04/16 06:02 [place] Rings Not Reportable 07/04/16 06:02 Natalie Cells Not Reportable 07/04/16 06:02 Bite Cells Not Reportable 07/04/16 06:02 Crenated Cell Not Reportable 07/04/16 06:02 Elliptocytes Not Reportable 07/04/16 06:02 Acanthocytes (Spur) Not Reportable 07/04/16 06:02 Rouleaux Not Reportable 07/04/16 06:02 Hemoglobin C Crystals Not Reportable 07/04/16 06:02 Schistocytes Not Reportable 07/04/16 06:02 Malaria parasites Not Reportable 07/04/16 06:02 Tristen Bodies Not Reportable 07/04/16 06:02 Hem Pathologist Commnt No 07/04/16 06:02 PT 13.4 Sec. (12.2-14.9) 07/03/16 13:58 INR 1.03 (0.87-1.13) 07/03/16 13:58 POC ABG pH 7.421 (7.35-7.45) 07/03/16 14:27 POC ABG pCO2 67.5 (35-45) H 07/03/16 14:27 POC ABG pO2 62 (80-105) L 07/03/16 14:27 POC ABG HCO3 43.9 07/03/16 14:27 POC ABG Total CO2 46 07/03/16 14:27 POC ABG O2 Sat 90 07/03/16 14:27 POC ABG Base Excess 19 07/03/16 14:27 FiO2 3 % 07/03/16 14:27 Sodium 142 mmol/L (137-145) 07/04/16 06:02 Potassium 4.3 mmol/L (3.6-5.0) 07/04/16 06:02 Chloride 95.1 mmol/L (98-107) L 07/04/16 06:02 Carbon Dioxide 36 mmol/L (22-30) H 07/04/16 06:02 Anion Gap 15 mmol/L 07/04/16 06:02 BUN 15 mg/dL (7-17) 07/04/16 06:02 Creatinine 0.5 mg/dL (0.7-1.2) L 07/04/16 06:02 Estimated GFR > 60 ml/min 07/04/16 06:02 BUN/Creatinine Ratio 30.00 % 07/04/16 06:02 Glucose 163 mg/dL (65-100) H 07/04/16 06:02 POC Glucose 140 (70-105) H 07/06/16 21:06 Hemoglobin A1c 4.9 % (4-6) 07/04/16 06:02 Calcium 9.0 mg/dL (8.4-10.2) 07/04/16 06:02 Total Bilirubin 0.3 mg/dL (0.1-1.2) 07/04/16 06:02 AST 13 units/L (5-40) 07/04/16 06:02 ALT 8 units/L (7-56) 07/04/16 06:02 Alkaline Phosphatase 87 units/L (35-129) 07/04/16 06:02 Troponin T < 0.010 ng/mL (0.00-0.029) 07/03/16 13:00 NT-Pro-B Natriuret Pep 593.4 pg/mL (0-900) 07/03/16 13:00 Total Protein 8.0 g/dL (6.3-8.2) 07/04/16 06:02 Albumin 4.2 g/dL (3.9-5) 07/04/16 06:02 Albumin/Globulin Ratio 1.1 % 07/04/16 06:02 Urine Color Yellow (Yellow) 07/03/16 13:06 Urine Turbidity Slightly-cloudy (Clear) 07/03/16 13:06 Urine pH 7.0 (5.0-7.0) 07/03/16 13:06 Ur Specific [place] 1.018 (1.003-1.030) 07/03/16 13:06 Urine Protein >500 mg/dL (Negative) 07/03/16 13:06 Urine Glucose (UA) Neg mg/dL (Negative) 07/03/16 13:06 Urine Ketones Neg mg/dL (Negative) 07/03/16 13:06 Urine Blood Neg (Negative) 07/03/16 13:06 Urine Nitrite Neg (Negative) 07/03/16 13:06 Urine Bilirubin Neg (Negative) 07/03/16 13:06 Urine Urobilinogen 4.0 mg/dL (<2.0) 07/03/16 13:06 Ur Leukocyte Esterase Mod (Negative) 07/03/16 13:06 Urine WBC (Auto) 50.0 /HPF (0.0-6.0) H 07/03/16 13:06 Urine RBC (Auto) 2.0 /HPF (0.0-6.0) 07/03/16 13:06 U Epithel Cells (Auto) 7.0 /HPF (0-13.0) 07/03/16 13:06 Urine Bacteria (Auto) 4+ /HPF (Negative) 07/03/16 13:06
--- NOTE | 2016-07-07 20:06 | Progress Note ---
Assessment and Plan Patient alert, awake and resting on nasal canula 3 litres and O2 satuaration 94% Patient says cough and shortness of breath are better. - Patient Problems (1) COPD (chronic obstructive pulmonary disease) Current Visit: No Status: Chronic Qualifiers: COPD type: emphysema Chronic bronchitis type: C Emphysema type: E Plan to address problem: O2 supplementation, and BIPAP during night time and Prn during day time. Brovanna/Budesonide aerosol treatments q 12 hours. Albuterol/atrovent aerosol treatments Prn q 6 hours. Slowly taper PO Prednisone. Continue S/C Lovenox. Continue Protonix. Patient is on zithromax and ceftrioxone. (2) Acute and chronic respiratory failure ([id number]) Current Visit: No Status: Acute Qualifiers: Respiratory failure complication: hypoxia and hypercapnia Qualified Code(s) : J96.21 - Acute and chronic respiratory failure with hypoxia; J96.22 - Acute and chronic respiratory failure with hypercapnia Plan to address problem: O2 supplementation, and BIPAP during night time and Prn during day time. Brovanna/Budesonide aerosol treatments q 12 hours. Albuterol/atrovent aerosol treatments Prn q 6 hours. Slowly taper PO Prednisone. Continue S/C Lovenox. Continue Protonix. (3) Chest pain Current Visit: Yes Status: Acute Qualifiers: Chest pain type: C Plan to address problem: Management as per cardiology. (4) Congestive heart failure Current Visit: Yes Status: Acute Qualifiers: Congestive heart failure type: C Congestive heart failure chronicity: C Plan to address problem: Management as per cardiology. (5) Obesity Current Visit: Yes Status: Acute Qualifiers: Obesity type: O Obesity severity: O Plan to address problem: Consult Nutrition for weight reduction diet. (6) DOMENIC (obstructive sleep apnea) Current Visit: No Status: Chronic Plan to address problem: Patient is on CPAP or BIPAP at home. (7) Obesity hypoventilation syndrome Current Visit: No Status: Chronic Plan to address problem: Patient has CPAP or BIPAP at home. Subjective Date of service: 07/07/16 Principal diagnosis: Acute COPD exacerbation Interval history: Patient alert, awake and resting on nasal canula 3 litres and O2 satuaration 94% . Patient says cough and shortness of breath are better. Objective Vital Signs - 12hr 07/07/16 07/07/16 07/07/16 08:20 09:15 09:26 Temperature 98.6 F Pulse Rate Pulse Rate [ 89 93 H Anterior Bilateral Throughout] Pulse Rate [ 72 From Monitor] Pulse Rate [ Right Radial] Respiratory 20 Rate Respiratory 18 18 Rate [Anterior Bilateral Throughout] Blood Pressure 145/66 [Right Arm] O2 Sat by Pulse 92 Oximetry 07/07/16 07/07/16 07/07/16 10:00 11:06 12:47 Temperature Pulse Rate 72 Pulse Rate [ Anterior Bilateral Throughout] Pulse Rate [ From Monitor] Pulse Rate [ Right Radial] Respiratory Rate Respiratory Rate [Anterior Bilateral Throughout] Blood Pressure [Right Arm] O2 Sat by Pulse 95 97 Oximetry 07/07/16 07/07/16 07/07/16 12:53 13:39 13:48 Temperature Pulse Rate 72 Pulse Rate [ 97 H 95 H Anterior Bilateral Throughout] Pulse Rate [ From Monitor] Pulse Rate [ Right Radial] Respiratory Rate Respiratory 16 16 Rate [Anterior Bilateral Throughout] Blood Pressure [Right Arm] O2 Sat by Pulse Oximetry 07/07/16 07/07/16 16:10 19:20 Temperature 98.6 F Pulse Rate Pulse Rate [ 91 H Anterior Bilateral Throughout] Pulse Rate [ From Monitor] Pulse Rate [ 90 Right Radial] Respiratory 22 Rate Respiratory 20 Rate [Anterior Bilateral Throughout] Blood Pressure 178/75 [Right Arm] O2 Sat by Pulse 94 Oximetry Constitutional: no acute distress, alert, other (Morbidley Obese.) Eyes: non-icteric Ascultation: Bilateral: diminished breath sounds Cardiovascular: regular rate and rhythm Gastrointestinal: normoactive bowel sounds, soft, non-tender Integumentary: normal Extremities: no cyanosis, no edema Neurologic: normal mental status, non-focal exam, pupils equal and round, CN II- XII normal Psychiatric: mood appropriate CBC and BMP: 07/04/16 06:02 07/04/16 06:02 ABG, PT/INR, D-dimer: ABG POC ABG pH 7.421 (7.35-7.45) 07/03/16 14:27 POC ABG pCO2 67.5 (35-45) H 07/03/16 14:27 POC ABG pO2 62 (80-105) L 07/03/16 14:27 POC ABG HCO3 43.9 07/03/16 14:27 POC ABG Total CO2 46 07/03/16 14:27 POC ABG O2 Sat 90 07/03/16 14:27 PT/INR, D-dimer PT 13.4 Sec. (12.2-14.9) 07/03/16 13:58 INR 1.03 (0.87-1.13) 07/03/16 13:58 Abnormal lab findings: Abnormal Labs 07/03/16 07/04/16 07/04/16 22:12 06:02 06:02 MCH 25 L RDW 25.8 H Seg Neuts % (Manual) 80.0 H Lymphocytes % (Manual) 12.0 L Lymphocytes # (Manual) 0.7 L Chloride 95.1 L Carbon Dioxide 36 H Creatinine 0.5 L Glucose 163 H POC Glucose 130 H 07/04/16 07/04/16 07/04/16 08:32 11:16 16:32 MCH RDW Seg Neuts % (Manual) Lymphocytes % (Manual) Lymphocytes # (Manual) Chloride Carbon Dioxide Creatinine Glucose POC Glucose 156 H 202 H 133 H 07/04/16 07/05/16 07/05/16 21:30 07:44 16:59 MCH RDW Seg Neuts % (Manual) Lymphocytes % (Manual) Lymphocytes # (Manual) Chloride Carbon Dioxide Creatinine Glucose POC Glucose 165 H 151 H 195 H 07/05/16 07/06/16 07/06/16 21:11 07:54 21:06 MCH RDW Seg Neuts % (Manual) Lymphocytes % (Manual) Lymphocytes # (Manual) Chloride Carbon Dioxide Creatinine Glucose POC Glucose 165 H 114 H 140 H
[2016-07-07] MEDS: LOVENOX SUB-Q SCH (22:32)
[2016-07-08] MEDS: DUONEB 0.5 MG-3 MG/3 ML SOLN IH SCH ×3 (04:06→13:53)
[2016-07-08] MEDS: LASIX IV SCH (06:28)
[2016-07-08] MEDS: BROVANA NEBU IH SCH (07:50)
[2016-07-08] MEDS: PULMICORT IH SCH (07:50)
[2016-07-08] MEDS: NOVOLOG SUB-Q SCH ×2 (08:54→12:37)
[2016-07-08] MEDS: GLUCOTROL PO SCH (08:55)
[2016-07-08] MEDS: TYLENOL PO PRN (09:03)
--- NOTE | 2016-07-08 09:37 | Progress Note ---
Assessment and Plan Shortness of breath, multifactorial CHF, diastolic Sleep apnea COPD Morbidly obese Echocardiogram shows severe aortic stenosis with a mean transaortic gradient of 56. Left ventricle systolic function is well-preserved, 50-55%. Plan: Continue medical therapy for heart failure with a preserved EF. Due to multiple comorbidities including her morbid obesity, patient is not a candidate for open valve replacement. Ultimately, we may explore nonsurgical valve replacement options as an outpatient. Subjective Date of service: 07/08/16 Principal diagnosis: Acute COPD exacerbation Interval history: Patient reports her shortness of breath is less. Complains of lower extremity weakness. Objective Vital Signs Temp Pulse Pulse Pulse Resp Resp BP 07/08/16 09:06 07/08/16 08:06 96 H 16 07/08/16 07:51 94 H 16 07/08/16 04:35 98.1 F 64 18 150/65 07/08/16 00:42 98.2 F 65 18 177/82 07/07/16 23:27 99 H 21 07/07/16 21:00 98.2 F 88 20 130/63 07/07/16 20:59 07/07/16 19:35 93 H 20 07/07/16 19:20 91 H 20 07/07/16 16:10 98.6 F 90 22 178/75 07/07/16 13:48 95 H 16 07/07/16 13:39 97 H 16 07/07/16 12:53 72 07/07/16 12:47 72 07/07/16 11:06 07/07/16 10:00 Pulse Ox 07/08/16 09:06 97 07/08/16 08:06 07/08/16 07:51 07/08/16 04:35 97 07/08/16 00:42 100 07/07/16 23:27 99 07/07/16 21:00 95 07/07/16 20:59 97 07/07/16 19:35 07/07/16 19:20 07/07/16 16:10 94 07/07/16 13:48 07/07/16 13:39 07/07/16 12:53 07/07/16 12:47 07/07/16 11:06 97 07/07/16 10:00 95 - Physical Examination General: No Apparent Distress, Other (morbidly obese) HEENT: Positive: PERRL Neck: Positive: neck supple Cardiac: Positive: Reg Rate and Rhythm, Systolic Murmur Lungs: Positive: Decreased Breath Sounds Neuro: Positive: Grossly Intact, Weakness
[2016-07-08 09:50] VITALS: BP 167/76
[2016-07-08] MEDS: ROCEPHIN/NS 2 GM/100 ML 2 GM/100 ML BAG IV SCH (09:58)
[2016-07-08] MEDS: FEOSOL PO SCH (10:01)
[2016-07-08] MEDS: DELTASONE PO SCH (10:02)
[2016-07-08] MEDS: K-DUR PO SCH (10:06)
[2016-07-08] MEDS: ZITHROMAX 500 MG in NACL 0.9% 250ML 250 ML IV SCH (10:06)
[2016-07-08] MEDS: PROTONIX PO SCH (10:06)
--- NOTE | 2016-07-08 10:26 | Discharge Summary ---
Providers - Providers Date of Admission: 07/03/16 14:39 Date of discharge: 07/08/16 Attending physician: CLOVIS CA 07/03/16 21:10 Consult to Physician [CONS] Routine Consulting Provider: MONICA HEARD Reason For Exam: CHF Place consult to:: MONICA HEARD Notified:: Bonnie from answering service Phone number called:: [phone] Was contact made?: Yes Time called:: 06:53 07/03/16 21:11 Consult to Physician [CONS] Routine Consulting Provider: SAHRA BILLINGS Reason For Exam: Resp failure Place consult to:: SAHRA BILLINGS Notified:: Nazia from answering service Phone number called:: [phone] Was contact made?: Yes Time called:: 06:57 Primary care physician: JAYE THOMAS MD Hospitalization Condition: Good Disposition: DISCHARGED TO HOME OR SELFCARE - Discharge Diagnoses (1) CHF exacerbation Status: Acute Qualifiers: Congestive heart failure type: C (2) Acute and chronic respiratory failure ([id number]) Status: Acute Qualifiers: Respiratory failure complication: hypoxia and hypercapnia Qualified Code(s) : J96.21 - Acute and chronic respiratory failure with hypoxia; J96.22 - Acute and chronic respiratory failure with hypercapnia (3) COPD exacerbation Status: Acute (4) Aortic stenosis, severe Status: Chronic Core Measure Documentation - Palliative Care Palliative Care/ Comfort Measures: Not Applicable - Core Measures Any of the following diagnoses?: heart failure - Heart Failure Discharge Requirements TRACEE/ARB for LVSD if EF <40%: Not Applicable Beta russ at discharge: No Reason for no beta russ on DC: COPD Exam - Constitutional Vitals: Temp Pulse Resp BP Pulse Ox 98.8 F 78 20 167/76 91 07/08/16 09:48 07/08/16 09:48 07/08/16 09:48 07/08/16 09:48 07/08/16 09:48 Plan Activity: advance as tolerated Diet: low fat, low cholesterol, low salt Additional Instructions: 1.Follow up with PCP in one week. 2.Follow up with Dr. Heard in 1 week. 3.Follow up with Dr. Bailey in 1 week. 4.Continue continuous home Oxygen at 2 l/min. 5.CPAP every night Follow up with: PRIMARY CAREMD [Primary Care Provider] - 3-5 Days Prescriptions: Budesonide [Pulmicort Respules] 0.5 mg IH Q12HRT #1 nebu Ferrous Sulfate [Feosol 325 MG tab] 325 mg PO BID #60 tablet Furosemide [Lasix TAB] 40 mg PO DAILY #30 tablet glipiZIDE [Glucotrol] 5 mg PO QDDIAB #60 tablet Ipratropium/Albuterol Sulfate [Duoneb 0.5 mg-3 mg/3 ml Soln] 1 ampul IH TIDRT 30 Days Pantoprazole [Protonix TAB] 40 mg PO QDAY #30 tablet Prednisone [predniSONE 10 mg (6-Day Pack, 21 Tabs)] 10 mg PO .TAPER #1 tab.ds.pk
== END 2016-07-08 19:31 | disposition home health service (06) | DRG 291 ==
LOC: ED 12:30 → 4A 14:39
PROVIDERS: ADMIT Internal Medicine; ATTEND Internal Medicine
PROC: 4A033R1 Measurement of Arterial Saturation, Peripheral, Percutaneous Approach (ICD-10-PCS; principal; 2016-07-03)
PROC: 5A09357 Assistance with Respiratory Ventilation, Less than 24 Consecutive Hours, Continuous Positive Airway Pressure (ICD-10-PCS; 2016-07-03)
DX: I11.0 Hypertensive heart disease with heart failure (principal); J96.21 Acute and chronic respiratory failure with hypoxia; J96.22 Acute and chronic respiratory failure with hypercapnia; J44.1 Chronic obstructive pulmonary disease with (acute) exacerbation; N39.0 Urinary tract infection, site not specified; E66.2 Morbid (severe) obesity with alveolar hypoventilation; Z68.45 Body mass index [BMI] 70 or greater, adult; K21.9 Gastro-esophageal reflux disease without esophagitis; E78.5 Hyperlipidemia, unspecified; D64.9 Anemia, unspecified; E11.9 Type 2 diabetes mellitus without complications; G89.4 Chronic pain syndrome; I35.0 Nonrheumatic aortic (valve) stenosis; I50.33 Acute on chronic diastolic (congestive) heart failure; Z98.51 Tubal ligation status; Z82.49 Family history of ischemic heart disease and other diseases of the circulatory system
CPT/HCPCS: 36415; 71010; 80048; 80053; 81001; 82271; 82803; 82962; 83036; 83880; 84484; 85007; 85025; 85610; 93005; 93010; 93306; 94640; 94660; 94760; 96365; 96375; J0456; J0696; J1650; J1815; J1940; J2930; J7050; J7512

== ENCOUNTER 2016-09-27 16:32 | Inpatient (IN) | payer MEDICARE ==
--- NOTE | 2016-09-27 17:42 | Emergency Department Report ---
ED Chest Pain HPI - General Chief Complaint: Dyspnea/Respdistress Stated Complaint: LOC Time Seen by Provider: 09/27/16 17:34 Source: patient, EMS Mode of arrival: Stretcher Limitations: No Limitations - History of Present Illness Initial Comments: This is a 66-year-old -[place] female presents to the emergency department via EMS from home with complaint of chest pain or shortness of breath. She says it is been going on intermittently but it got much worse last night and this morning to the point where she felt she was unable to move. She took a baby aspirin. The chest pain is midsternal and left-sided with some radiation down the left arm. It worsens with exertion. Her primary care physician is Dr. Medel and she does not currently have a it security consultant. However she says she has a past medical history of asthma, CHF, COPD on 2 L oxygen, diabetes and hypertension. No recent travel or sick contacts at home. She has a echocardiogram from June of this year that shows moderate to severe aortic stenosis, EF of 55-60%. She denies any history of DE, CVA, PE/DVT. - Related Data Home Medications Medication Instructions Recorded Confirmed Last Taken glipiZIDE [Glipizide] 5 mg PO DAILY 04/03/14 07/03/16 07/02/16 Previous Rx's Medication Instructions Recorded Last Taken Type traMADol [Ultram 50 MG tab] 50 mg PO Q4HR PRN #20 tablet 06/05/16 07/02/16 Rx Budesonide [Pulmicort Respules] 0.5 mg IH Q12HRT #1 nebu 07/08/16 Unknown Rx Ferrous Sulfate [Feosol 325 MG tab] 325 mg PO BID #60 tablet 07/08/16 Unknown Rx Furosemide [Lasix TAB] 40 mg PO DAILY #30 tablet 07/08/16 Unknown Rx Ipratropium/Albuterol Sulfate 1 ampul IH TIDRT 30 Days 07/08/16 Unknown Rx [Duoneb 0.5 mg-3 mg/3 ml Soln] Pantoprazole [Protonix TAB] 40 mg PO QDAY #30 tablet 07/08/16 Unknown Rx Prednisone [predniSONE 10 mg 10 mg PO .TAPER #1 tab.ds.pk 07/08/16 Unknown Rx (6-Day Pack, 21 Tabs)] glipiZIDE [Glucotrol] 5 mg PO QDDIAB #60 tablet 07/08/16 Unknown Rx Allergies Allergy/AdvReac Type Severity Reaction Status Date / Time No Known Allergies Allergy Verified 05/12/15 07:51 Heart Score - HEART Score History: Moderately suspicious EKG: Non-specific Age: 45-65 Risk factors: > 3 risk factors or hx of atherosclerotic disease Troponin: < normal limit HEART Score: 5 - Critical Actions Critical Actions: 0-3 pts:0.9-1.7%risk of adverse cardiac event.Candidate for discharge ED Review of Systems ROS: Stated complaint: LOC Other details as noted in HPI Comment: All other systems reviewed and negative Constitutional: denies: chills, fever Eyes: denies: eye pain, eye discharge, vision change ENT: denies: ear pain, throat pain Respiratory: shortness of breath. denies: cough Cardiovascular: chest pain. denies: palpitations Gastrointestinal: denies: abdominal pain, nausea, diarrhea Genitourinary: denies: urgency, dysuria, discharge Musculoskeletal: denies: back pain, joint swelling, arthralgia Skin: denies: rash, lesions Neurological: denies: headache, weakness, paresthesias ED Past Medical Hx - Past Medical History Previous Medical History?: Yes Hx Hypertension: Yes Hx Congestive Heart Failure: Yes Hx Diabetes: Yes Hx Renal Disease: No Hx Asthma: Yes Hx COPD: Yes Additional medical history: anemia. Lower GI Bleed and Transfusion - Surgical History Past Surgical History?: Yes Additional Surgical History: tubal ligation/ tonsilectomy - Social History Smoking Status: Never Smoker - Medications Home Medications: Home Medications Medication Instructions Recorded Confirmed Last Taken Type glipiZIDE [Glipizide] 5 mg PO DAILY 04/03/14 07/03/16 07/02/16 History traMADol [Ultram 50 MG tab] 50 mg PO Q4HR PRN #20 tablet 06/05/16 07/03/1607/02 Rx Budesonide [Pulmicort Respules] 0.5 mg IH Q12HRT #1 nebu 07/08/16 Unknown Rx Ferrous Sulfate [Feosol 325 MG tab] 325 mg PO BID #60 tablet 07/08/16 Unknown Rx Furosemide [Lasix TAB] 40 mg PO DAILY #30 tablet 07/08/16 Unknown Rx Ipratropium/Albuterol Sulfate 1 ampul IH TIDRT 30 Days 07/08/16 Unknown Rx [Duoneb 0.5 mg-3 mg/3 ml Soln] Pantoprazole [Protonix TAB] 40 mg PO QDAY #30 tablet 07/08/16 Unknown Rx Prednisone [predniSONE 10 mg 10 mg PO .TAPER #1 tab.ds.pk 07/08/16 Unknown Rx (6-Day Pack, 21 Tabs)] glipiZIDE [Glucotrol] 5 mg PO QDDIAB #60 tablet 07/08/16 Unknown Rx ED Physical Exam - General Limitations: No Limitations - Other Other exam information: GENERAL: The patient is well-developed well-nourished. HEENT: Normocephalic. Atraumatic. Extraocular motions are intact. Patient has moist mucous membranes. Pupils equal reactive to light bilaterally. NECK: Supple. Trachea is midline. CHEST/LUNGS: Coarse breath sounds. No tachypnea or accessory muscle use. There is no respiratory distress noted. HEART/CARDIOVASCULAR: Regular. There is no tachycardia. There is no gallop rub or murmur. ABDOMEN: Abdomen is soft, nontender. Patient has normal bowel sounds. Morbidly obese habitus. SKIN: Skin is warm and dry. NEURO: The patient is awake, alert, and oriented. The patient is cooperative. The patient has no focal neurologic deficits. The patient has normal speech. MUSCULOSKELETAL: There is no tenderness or deformity. There is no limitation range of motion. There is no evidence of acute injury. ED Course Vital Signs 09/27/16 09/27/16 09/27/16 17:18 17:36 17:46 Pulse Rate Respiratory Rate Blood Pressure 95/29 76/19 O2 Sat by Pulse 95 Oximetry 09/27/16 09/27/16 09/27/16 18:00 18:15 18:31 Pulse Rate 101 H Respiratory 16 Rate Blood Pressure 95/20 95/26 103/23 O2 Sat by Pulse Oximetry 09/27/16 09/27/16 09/27/16 18:45 19:01 19:15 Pulse Rate 101 H 96 H 102 H Respiratory 25 H 22 15 Rate Blood Pressure 115/57 100/29 112/52 O2 Sat by Pulse 85 84 Oximetry 09/27/16 09/27/16 09/27/16 19:31 19:45 20:00 Pulse Rate 103 H 101 H 102 H Respiratory 14 23 26 H Rate Blood Pressure 95/26 103/44 103/34 O2 Sat by Pulse Oximetry 09/27/16 09/27/16 20:15 20:30 Pulse Rate 100 H 100 H Respiratory 25 H 22 Rate Blood Pressure 109/34 111/34 O2 Sat by Pulse 100 100 Oximetry MOHAN score - Mohan Score Age > 65: (0) No Aspirin use within the Past 7 Days: (1) Yes 3 or more CAD Risk Factors: (1) Yes 2 or more Angina events in past 24 hrs: (0) No Known CAD with more than 50% Stenosis: (0) No Elevated Cardiac Markers: (0) No ST Deviation Greater than 0.5mm: (0) No MOHAN Score: 2 ED Medical Decision Making - Lab Data Result diagrams: 09/27/16 17:59 09/27/16 17:59 - EKG Data -: EKG Interpreted by Me EKG shows normal: sinus rhythm, axis (left axis deviation), intervals ( prolonged MT interval indicating first-degree AV block), QRS complexes (LVH), ST -T waves Rate: tachycardia - EKG Data When compared to previous EKG there are: previous EKG unavailable Interpretation: other (first-degree AV block, sinus rhythm, LVH) - Radiology Data Radiology results: image reviewed interpreted by me: Chest x-ray shows mild cardiomegaly. No obvious pneumonia or pleural effusions. - Medical Decision Making 66-year-old female presents with some chest pain and shortness of breath. First troponin negative. EKG does not show any signs of intestinal elevation DE. Chest x-ray does not show any etiology of the patient's symptoms or any acute process. The patient has significant anemia with a hemoglobin of 4.3. The patient has a history of anemia and transfusions required in the past. 3 units of packed red blood cells were ordered but this may be the cause of the patient's symptoms. Patient does not appear in any respiratory distress currently. She will be admitted to the hospital for further evaluation and has been accepted for admission by the hospitalist, Dr. Gilbert. - Differential Diagnosis symptomatic anemia, CHF, DE, PE Critical Care Time: No Critical care attestation.: If time is entered above; I have spent that time in minutes in the direct care of this critically ill patient, excluding procedure time. ED Disposition Clinical Impression: Symptomatic anemia, Morbid obesity with BMI of 70 and over, adult Chest pain Qualifiers: Chest pain type: unspecified Qualified Code(s): R07.9 - Chest pain, unspecified COPD (chronic obstructive pulmonary disease) Qualifiers: COPD type: unspecified COPD Qualified Code(s): J44.9 - Chronic obstructive pulmonary disease, unspecified Disposition: OP ADMIT IP TO THIS HOSP Is pt being admited?: Yes Does the pt Need Aspirin: No Condition: Stable Instructions: Chest Pain (ED), Chronic Obstructive Pulmonary Disease (ED) Referrals: PRIMARY CARE, [Referring] - 3-5 Days Time of Disposition: 18:30
[2016-09-27 18:20] LABS: Basophils % (Auto) 0.3 % (0.0-1.8); Eosinophils % (Auto) 0.1 % (0.0-4.3); Mean Corpuscular HGB Conc 29 % (30-34); Mean Corpuscular Hemoglobin 27 pg (28-32); Mean Corpuscular Volume 92 fl (79-97); Platelet Count 173 K/mm3 (140-440); Red Cell Distribution Width 18.1 % (13.2-15.2); White Blood Count 11.1 K/mm3 (4.5-11.0)
--- NOTE | 2016-09-27 18:22 | XRay Report ---
FINAL REPORT PROCEDURE: XR CHEST 1V AP TECHNIQUE: Chest radiograph anteroposterior view. CPT 58933 HISTORY: CP COMPARISON: No prior studies are available for comparison. FINDINGS: The heart appears diffusely enlarged. The patient is significantly rotated to the right. There is mild increased density in the bases, I suspect this represents atelectasis. The chest is poorly visualized secondary to underpenetration, portable technique and the patient's large body habitus. No acute bony abnormalities are identified. IMPRESSION: Cardiomegaly suspected. Examination is significantly limited as described above. Consider follow-up PA and lateral chest x-ray for further evaluation..
[2016-09-27 18:23] LABS: Hematocrit 14.7 % (30.3-42.9); Hemoglobin 4.3 gm/dl (10.1-14.3)
[2016-09-27] MEDS ORDERED: NACL 0.9% 500 ML 500 ML IV ONE (18:26)
[2016-09-27 18:41] LABS: Anion Gap 14 mmol/L; Blood Urea Nitrogen 38 mg/dL (7-17); Calcium 7.9 mg/dL (8.4-10.2); Carbon Dioxide 32 mmol/L (22-30); Chloride 99.3 mmol/L (98-107); Glucose 148 mg/dL (65-100); Potassium 3.9 mmol/L (3.6-5.0); Sodium 141 mmol/L (137-145)
--- NOTE | 2016-09-27 18:56 | Admit Criteria Form ---
Admission Criteria Documentation: CHEST PAIN Clinical Indications for Admission to Inpatient Care (Place 'X' for any and all applicable criteria): Admission is indicated for chest pain and ANY ONE of the following(1)(2)(3)(4)(5 ): [ ]I. Angina with acute coronary syndrome (Also use Myocardial Infarction or Angina guideline) [ ]II. Hemodynamic instability [ ]III. Angina needing acute intervention as indicated by ALL of the following( 11)(12): [ ]a) Unstable angina is present as indicated by angina that is ANY ONE of the following: [ ]i) New onset [ ]ii) Nocturnal [ ]iii) Prolonged at rest [ ]iv) Progressive [ ]b) Angina warrants acute intervention as indicated by ANY ONE of the following: [ ]i) Recurrent angina (e.g, not responding as previously to treatment) [ ]ii) Angina at rest or with low-level activities despite initial medical therapy [ ]iii) New or presumably new ST-segment depression on ECG [ ]iv) Signs or symptoms of heart failure (eg, dyspnea, pulmonary edema) [ ]v) New or worsening mitral regurgitation [ ]vi) Hemodynamic instability [ ]vii) Dangerous arrhythmia (eg, sustained ventricular tachycardia) [ ]viii) History of percutaneous coronary intervention within 6 months [ ]ix) History of coronary artery bypass graft surgery [ ]x) MOHAN risk score of 2 or greater[A] [ ]xi) History of Diabetes(14) [ ]xii) High-risk cardiac ischemia findings on noninvasive testing (e.g, echocardiogram, treadmill testing, nuclear scan) [ ]xiii) Chronic renal insufficiency (ie, estimated GFR less than 60 mL/min/1.732m) [ ]xiv) Left ventricular ejection fraction less than 40% [ ]IV. Evidence of AZ (eg, cardiac biomarkers positive, ST-segment elevation on ECG) also use Myocardial Infarction Criteria Form. [ ]V. Pulmonary edema [X ]. Respiratory distress [ ]VII. Chest pain indicative of serious diagnosis other than coronary artery disease (eg, aortic dissection) [ ]VIII. Contraindications and/or Inappropriate clinical situations for Observational Care in patients with Chest Pain, when ANY ONE of the following is required: [ ]a) Patient with risk factor for pulmonary embolism, acute coronary syndrome and myocardial infarction (18) [ ]b) Patient with Pulmonary embolism require an average LOS of 4.3 days, therefore emergency department observation management is inappropriate 18,23 [ ]c) Painful condition/s in the elderly, have the highest rate of recidivism after emergency department observation management (10.8%) 20,21,22 [ ]d) Elevated cardiac biomarker requires intensive and exhaustive care (19) [ ]IX. General contraindications and/or Inappropriate clinical situations for Observational Care in patients with Chest Pain, when ANY ONE of the following is required: [ ]a) Prediction of prolongation of LOS based on ANY ONE of the following may be considered as a contraindication for observational care 2, 3, 4, 5, 6, 7, 8, 9, 10, 11 [ ]i) Age > 65 yrs. [ ]ii) Patient arriving by ambulance [ ]iii) Patient with high acuity [ ]iv) Patient requiring vital sign monitoring [ ]v) Patient on IV medication [ ]b) Systolic blood pressures 180mmHg 3,12 [ ]c) Patient with altered mental status including delirium and other alteration of consciousness, (3) [ ]d) Patient whose discharge disposition will be to a shelter home or rehabilitation home should not be managed in Emergency Department Observation Unit. CMS rule requires 3 days hospital stay before such placement. 3,13 [ ]e) Patient with failure to thrive due to broad array of etiologies 3,16,17 [ ]f) Inability to ambulate 3,14 Extended stay beyond goal length of stay may be needed for (1)(28): [ ]a) Specific condition diagnosed after evaluation (eg, pulmonary embolism, aortic dissection) [ ]b) Unstable angina [ ]c) Continued suspicion of acute coronary syndrome with inability to complete needed cardiac evaluation (eg, patient clinically unable to undergo stress testing) [ ]d) Myocardial infarction (Contents from ANGINA and CHEST PAIN clinical indications for admission to inpatient care have been integrated in this form) The original [facility] content created by [email or web address] has been revised. The portions of the content which have been revised are identified through the use of italic text or in bold, and [facility] has neither reviewed nor approved the modified material. All other unmodified content is copyright [facility]. Please see references footnoted in the original [facility] edition 2016 Admission Criteria Met: Yes
--- NOTE | 2016-09-27 21:17 | History and Physical Report ---
History of Present Illness Date of examination: 09/27/16 Date of admission: 09/27/16 Chief complaint: SOB and CHest pain History of present illness: This is a 66-year-old -[place] female presents to the emergency department via EMS from home with complaint of chest pain and shortness of breath. She says it is been going on intermittently but it got much worse last night and this morning to the point where she felt she was unable to move. She took a baby aspirin. The chest pain is midsternal and left-sided with some radiation down the left arm. It worsens with exertion. Her primary care physician is Dr. Medel and she does not currently have a litigation associate. However she says she has a past medical history of asthma, CHF, COPD on 2 L oxygen, diabetes and hypertension. No recent travel or sick contacts at home. She has a echocardiogram from June of this year that shows moderate to severe aortic stenosis, EF of 55-60%. She denies any history of DC, CVA, PE/ DVT.Patient had extensive w/u for GI bleed including a pill camera -she says possible AVM's Heart Score - HEART Score History: Moderately suspicious EKG: Non-specific Age: 45-65 Risk factors: > 3 risk factors or hx of atherosclerotic disease Troponin: < normal limit HEART Score: 5 - Critical Actions Critical Actions: 0-3 pts:0.9-1.7%risk of adverse cardiac event.Candidate for discharge Home Medications Medication Instructions Recorded Confirmed Last Taken glipiZIDE [Glipizide] 5 mg PO DAILY 04/03/14 07/03/16 07/02/16 Previous Rx's Medication Instructions Recorded Last Taken Type traMADol [Ultram 50 MG tab] 50 mg PO Q4HR PRN #20 tablet 06/05/16 07/02/16 Rx Budesonide [Pulmicort Respules] 0.5 mg IH Q12HRT #1 nebu 07/08/16 Unknown Rx Ferrous Sulfate [Feosol 325 MG tab] 325 mg PO BID #60 tablet 07/08/16 Unknown Rx Furosemide [Lasix TAB] 40 mg PO DAILY #30 tablet 07/08/16 Unknown Rx Ipratropium/Albuterol Sulfate 1 ampul IH TIDRT 30 Days 07/08/16 Unknown Rx [Duoneb 0.5 mg-3 mg/3 ml Soln] Pantoprazole [Protonix TAB] 40 mg PO QDAY #30 tablet 07/08/16 Unknown Rx Prednisone [predniSONE 10 mg 10 mg PO .TAPER #1 tab.ds.pk 07/08/16 Unknown Rx (6-Day Pack, 21 Tabs)] glipiZIDE [Glucotrol] 5 mg PO QDDIAB #60 tablet 07/08/16 Unknown Rx Allergies Allergy/AdvReac Type Severity Reaction Status Date / Time No Known Allergies Allergy Verified 05/12/15 07:51 ED Review of Systems ROS: Stated complaint: LOC Other details as noted in HPI Comment: All other systems reviewed and negative Constitutional: denies: chills, fever Eyes: denies: eye pain, eye discharge, vision change ENT: denies: ear pain, throat pain Respiratory: shortness of breath. denies: cough Cardiovascular: chest pain. denies: palpitations Gastrointestinal: denies: abdominal pain, nausea, diarrhea Genitourinary: denies: urgency, dysuria, discharge Musculoskeletal: denies: back pain, joint swelling, arthralgia Skin: denies: rash, lesions Neurological: denies: headache, weakness, paresthesias Medications and Allergies Allergies Allergy/AdvReac Type Severity Reaction Status Date / Time No Known Allergies Allergy Verified 05/12/15 07:51 Home Medications Medication Instructions Recorded Confirmed Last Taken Type Budesonide [Pulmicort Respules] 0.5 mg IH Q12HRT #1 nebu 07/08/16 Unknown Rx Ferrous Sulfate [Feosol 325 MG tab] 325 mg PO BID #60 tablet 07/08/16 Unknown Rx Furosemide [Lasix TAB] 40 mg PO DAILY #30 tablet 07/08/16 Unknown Rx Ipratropium/Albuterol Sulfate 1 ampul IH TIDRT 30 Days 07/08/16 Unknown Rx [Duoneb 0.5 mg-3 mg/3 ml Soln] Pantoprazole [Protonix TAB] 40 mg PO QDAY #30 tablet 07/08/16 Unknown Rx Prednisone [predniSONE 10 mg 10 mg PO .TAPER #1 tab.ds.pk 07/08/16 Unknown Rx (6-Day Pack, 21 Tabs)] glipiZIDE [Glucotrol] 5 mg PO QDDIAB #60 tablet 07/08/16 Unknown Rx Exam - Physical Exam Narrative exam: In mild resp distress - Constitutional Vitals: Temp Pulse Resp BP Pulse Ox 100 H 22 111/34 100 09/27/16 20:30 09/27/16 20:30 09/27/16 20:30 09/27/16 20:30 General appearance: Present: mild distress, well-nourished - EENT Eyes: Present: PERRL ENT: hearing intact, clear oral mucosa - Neck Neck: Present: supple, normal ROM - Respiratory Respiratory effort: normal Respiratory: bilateral: CTA, rales - Cardiovascular Heart rate: 86 Rhythm: regular Heart Sounds: Present: S1 & S2. Absent: rub, click - Extremities Extremities: no ischemia, pulses symmetrical, No edema Peripheral Pulses: within normal limits - Abdominal General gastrointestinal: Present: soft, non-tender, non-distended, normal bowel sounds, other (Panniculitis with dermatitis/Hyperpigmentation of abdominal Skin and thighs) Female genitourinary: Present: normal - Integumentary Integumentary: Present: clear, warm, dry - Musculoskeletal Musculoskeletal: gait normal, strength equal bilaterally - Psychiatric Psychiatric: appropriate mood/affect, intact judgment & insight - Neurologic Neurologic: CNII-XII intact, moves all extremities Results - Labs CBC & Chem 7: 09/27/16 17:59 09/27/16 17:59 Labs: Laboratory Last Values WBC 11.1 K/mm3 (4.5-11.0) H 09/27/16 17:59 RBC 1.60 M/mm3 (3.65-5.03) L 09/27/16 17:59 Hgb 4.3 gm/dl (10.1-14.3) L* 09/27/16 17:59 Hct 14.7 % (30.3-42.9) L* 09/27/16 17:59 MCV 92 fl (79-97) 09/27/16 17:59 MCH 27 pg (28-32) L 09/27/16 17:59 MCHC 29 % (30-34) L 09/27/16 17:59 RDW 18.1 % (13.2-15.2) H 09/27/16 17:59 Plt Count 173 K/mm3 (140-440) 09/27/16 17:59 Lymph % (Auto) 8.6 % (13.4-35.0) L 09/27/16 17:59 Frederick % (Auto) 5.4 % (0.0-7.3) 09/27/16 17:59 Eos % (Auto) 0.1 % (0.0-4.3) 09/27/16 17:59 Baso % (Auto) 0.3 % (0.0-1.8) 09/27/16 17:59 Lymph # 1.0 K/mm3 (1.2-5.4) L 09/27/16 17:59 Frederick # 0.6 K/mm3 (0.0-0.8) 09/27/16 17:59 Eos # 0.0 K/mm3 (0.0-0.4) 09/27/16 17:59 Baso # 0.0 K/mm3 (0.0-0.1) 09/27/16 17:59 Seg Neutrophils % 85.6 % (40.0-70.0) H 09/27/16 17:59 Seg Neutrophils # 9.5 K/mm3 (1.8-7.7) H 09/27/16 17:59 D-Dimer < 135.00 ng/mlDDU (0-234) 09/27/16 17:59 Sodium 141 mmol/L (137-145) 09/27/16 17:59 Potassium 3.9 mmol/L (3.6-5.0) 09/27/16 17:59 Chloride 99.3 mmol/L (98-107) 09/27/16 17:59 Carbon Dioxide 32 mmol/L (22-30) H 09/27/16 17:59 Anion Gap 14 mmol/L 09/27/16 17:59 BUN 38 mg/dL (7-17) H 09/27/16 17:59 Creatinine 0.5 mg/dL (0.7-1.2) L 09/27/16 17:59 Estimated GFR > 60 ml/min 09/27/16 17:59 BUN/Creatinine Ratio 76.00 % 09/27/16 17:59 Glucose 148 mg/dL (65-100) H 09/27/16 17:59 Calcium 7.9 mg/dL (8.4-10.2) L 09/27/16 17:59 Troponin T < 0.010 ng/mL (0.00-0.029) 09/27/16 18:40 NT-Pro-B Natriuret Pep 371.3 pg/mL (0-900) 09/27/16 17:59 Blood Type A POSITIVE 09/27/16 18:40 Antibody Screen TNR 09/27/16 18:40 PRINCESS Antibody Screen Negative 09/27/16 18:40 Crossmatch See Detail 09/27/16 18:40 Short CBC 09/27/16 Range/Units 17:59 WBC 11.1 H (4.5-11.0) K/mm3 Hgb 4.3 L* (10.1-14.3) gm/dl Hct 14.7 L* (30.3-42.9) % Plt Count 173 (140-440) K/mm3 BMP 09/27/16 17:59 Sodium 141 Potassium 3.9 Chloride 99.3 Carbon Dioxide 32 H BUN 38 H Creatinine 0.5 L Glucose 148 H Calcium 7.9 L Cardiac Enzymes 09/27/16 09/27/16 09/27/16 Range/Units 17:59 18:40 23:01 Troponin T < 0.010 < 0.010 0.013 (0.00-0.029) ng/mL - Imaging and Cardiology EKG: report reviewed (Sinus Tach) Chest x-ray: report reviewed (Cardiomegaly.Poor film quality) Assessment and Plan Advance Directives: Yes (Full code) VTE prophylaxis?: Mechanical Plan of care discussed with patient/family: Yes - Patient Problems (1) Symptomatic anemia Current Visit: Yes Status: Acute Plan to address problem: Transfuse 2 to 4 units of PRBC Chronic blood loss from GI tract? (2) Chest pain Current Visit: Yes Status: Acute Qualifiers: Chest pain type: unspecified Ischemic chest pain type: I Qualified Code(s ): R07.9 - Chest pain, unspecified Plan to address problem: Lexiscan for 09/29/16 (3) Acute and chronic respiratory failure ([id number]) Current Visit: No Status: Acute Qualifiers: Respiratory failure complication: hypoxia Qualified Code(s): J96.21 - Acute and chronic respiratory failure with hypoxia Plan to address problem: Sec to CHF/Copd/Anemia (4) Morbid obesity with BMI of 70 and over, adult Current Visit: Yes Status: Chronic (5) Acute exacerbation of CHF (congestive heart failure) Current Visit: Yes Status: Acute Qualifiers: Congestive heart failure type: combined Qualified Code(s): I50.43 - Acute on chronic combined systolic (congestive) and diastolic (congestive) heart failure Plan to address problem: Lasix 40 mg iv q12h Check ECHO (6) T2DM (type 2 diabetes mellitus) Current Visit: Yes Status: Chronic Qualifiers: Diabetes mellitus complication status: with hyperglycemia Diabetes mellitus complication detail: D Diabetic retinopathy severity: D Proliferative retinopathy type: P Diabetes mellitus macular edema: D Diabetes mellitus long term care social worker insulin use: without fdc use Laterality: L Chronic kidney disease stage: C Qualified Code(s): E11.65 - Type 2 diabetes mellitus with hyperglycemia Plan to address problem: Cont coverage and oral hypoglycemics (7) COPD (chronic obstructive pulmonary disease) Current Visit: Yes Status: Chronic Qualifiers: COPD type: unspecified COPD Chronic bronchitis type: C Emphysema type: E Qualified Code(s): J44.9 - Chronic obstructive pulmonary disease, unspecified Plan to address problem: cont Duonebs (8) GERD (gastroesophageal reflux disease) Current Visit: Yes Status: Chronic Qualifiers: Esophagitis presence: with esophagitis Qualified Code(s): K21.0 - Gastro- esophageal reflux disease with esophagitis Plan to address problem: Cont ppi's (9) DVT prophylaxis Current Visit: No Status: Acute Plan to address problem: On Lovenox
[2016-09-27] MEDS ORDERED: DILAUDID ONE (22:17)
[2016-09-27] MEDS ORDERED: DILAUDID IV ONE (22:17)
[2016-09-28] MEDS: FEOSOL PO SCH ×3 (00:41→21:00)
[2016-09-28] MEDS: PULMICORT IH SCH ×3 (01:10→19:04)
[2016-09-28] MEDS ORDERED: NACL 0.9% 500 ML 500 ML IV ONE (04:00)
[2016-09-28] MEDS: GLUCOTROL PO SCH (09:03)
[2016-09-28] MEDS: ULTRAM PO PRN ×2 (09:03→20:58)
[2016-09-28] MEDS: PROTONIX PO SCH (09:03)
[2016-09-28] MEDS ORDERED: MORPHINE IV ONE (09:26)
[2016-09-28] MEDS ORDERED: LASIX PO SCH (10:00)
--- NOTE | 2016-09-28 10:10 | Consultation ---
History of Present Illness Consult date: 09/28/16 Consult reason: chest pain, congestive heart failure History of present illness: This is a 66yr old woman who presented with chest pain and shortness of breath; found severely anemic with an H&H of 4.3/14.7 and admitted for evaluation and treatment. Patient has a history of Morbid obesity, Sleep apnea, COPD, CHF. An echocardiogram done 3 months ago showed severe aortic stenosis with a mean gradient of 56. Left ventricular systolic function well preserved, 50-55%. Patient was considered not a candidate for open valve replacement due to multiple comorbidities including her morbid obesity. Medications and Allergies Allergies Allergy/AdvReac Type Severity Reaction Status Date / Time No Known Allergies Allergy Verified 05/12/15 07:51 Home Medications Medication Instructions Recorded Confirmed Last Taken Type Budesonide [Pulmicort Respules] 0.5 mg IH Q12HRT #1 nebu 07/08/16 09/28/16 1 Day Ago Rx Ferrous Sulfate [Feosol 325 MG tab] 325 mg PO BID #60 tablet 07/08/16 09/28/16 1 Day Ago Rx Furosemide [Lasix TAB] 40 mg PO DAILY #30 tablet 07/08/16 09/28/16 1 Day Ago Rx Ipratropium/Albuterol Sulfate 1 ampul IH TIDRT 30 Days 07/08/16 09/28/16 1 Day Ago Rx [Duoneb 0.5 mg-3 mg/3 ml Soln] Pantoprazole [Protonix TAB] 40 mg PO QDAY #30 tablet 07/08/16 09/28/16 1 Day Ago Rx Prednisone [predniSONE 10 mg 10 mg PO .TAPER #1 tab.ds.pk 07/08/16 09/28/16 1 Day Ago Rx (6-Day Pack, 21 Tabs)] glipiZIDE [Glucotrol] 5 mg PO QDDIAB #60 tablet 07/08/16 09/28/16 2 Days Ago Rx Active Meds: Active Medications Albuterol/Ipratropium (Duoneb 0.5 Mg-3 Mg/3 Ml Soln) 1 ampul IH Q6HRT [facility] Budesonide (Pulmicort) 0.5 mg IH Q12HRT [facility] Last Admin: 09/28/16 07:32 Dose: 0.5 mg Ferrous Sulfate (Feosol) 325 mg PO BID [facility] Last Admin: 09/28/16 09:04 Dose: 325 mg Furosemide (Lasix) 40 mg IV 0600,1800 [facility] Glipizide (Glucotrol) 5 mg PO QAMDIAB [facility] Last Admin: 09/28/16 09:03 Dose: 5 mg Morphine Sulfate (Morphine) 1 mg IV Q4H PRN PRN Reason: Pain, Moderate (4-6) Pantoprazole Sodium (Protonix) 40 mg PO QDAY [facility] Last Admin: 09/28/16 09:03 Dose: 40 mg Tramadol HCl (Ultram) 50 mg PO Q4HR PRN PRN Reason: Pain Last Admin: 09/28/16 09:03 Dose: 50 mg Physical Examination Vital Signs Pulse Ox 95 09/27/16 17:18 General appearance: no acute distress, obese Cardiac: Positive: Reg Rate and Rhythm Results 09/27/16 17:59 09/27/16 17:59 Assessment and Plan Symptomatic Anemia s/p blood transfusion CHF -diastolic EF 50-55% on echo 06/2016 Aortic Stenosis previously considered not a candidate for open valve surgery due to multiple co-morbidities including her morbid obesity. Sleep Apnea COPD Morbid obesity
--- NOTE | 2016-09-28 12:10 | Progress Note ---
<JESSICA HILL - Last Filed: 09/28/16 12:41> Assessment and Plan Assessment and plan: 1 Symptomatic anemia Patient has chronic blood loss from GI tract?? The patient has extensive W/U for GI bleed include , GI camera pills. Patient received 1 unit PRBC and she is on second unit at present time and has ordered for 3rd units of PRBC Patient started on Ferrous sulfate 325mg PO BID. 2 Chest pain Follow cardiac enzymes troponin Stress test Lexiscan pending for 09/29/16 EKG obtained also get another EKG in order for any changes that have taken since the first obtained Cardiology consulted 3 Acute and chronic respiratory failure (objbi-[id number]-[id number]) Patient oxygen dependent at home Patient on the 3LNC with SPO2 >92% at present time no acute respiratory distress noted Frequent respiratory assessment 4 Acute exacerbation of CHF (congestive heart failure) Patient has Echocardiogram 2 months ago with EF 55-60% Lasix 40 mg IV BID Strict I and O's, daily weight and low sodium cardiac diet ordered Closely monitor electrolytes Cardiology evaluation 6 5T2DM (type 2 diabetes mellitus) we we will continue oral hypoglycemics Sliding-scale insulin NovoLog Accu-Chek before meals and at bedtime 6 Morbid obesity with BMI of 70 and over, adult Discussed with the patient the importance of losing weight, low-fat diet and physical exercise to improve her folds 7 COPD (chronic obstructive pulmonary disease) Patient on Duoneb Q6hrs 8 GERD (gastroesophageal reflux disease) Patient on Protonix IV 9 DVT prophylaxis On Lovenox Patient on full code History Interval history: Patient has was uneventful overnight except mild shortness of breath. Patient denies chest pain and bloody stool at present time. Hospitalist Physical - Constitutional Vitals: Temp Pulse Resp BP Pulse Ox 98.6 F 80 20 83/32 94 09/28/16 11:15 09/28/16 11:15 09/28/16 11:15 09/28/16 11:15 09/28/16 08:30 General appearance: Present: no acute distress, obese - EENT Eyes: Present: PERRL ENT: hearing intact, clear oral mucosa, dentition normal - Neck Neck: Present: supple - Respiratory Respiratory effort: normal, other (dry cough ) Respiratory: bilateral: diminished - Cardiovascular Heart rate: 79 Rhythm: regular - Extremities Extremities: no ischemia Extremity abnormal: edema (to bilateral lower extremity) Peripheral Pulses: within normal limits - Abdominal General gastrointestinal: soft, non-tender - Integumentary Integumentary: Present: clear, warm, dry - Psychiatric Psychiatric: appropriate mood/affect - Neurologic Neurologic: CNII-XII intact - Allied Health Allied health notes reviewed: nursing Results - Labs CBC & Chem 7: 09/27/16 17:59 09/27/16 17:59 Labs: Laboratory Last Values WBC 11.1 K/mm3 (4.5-11.0) H 09/27/16 17:59 RBC 1.60 M/mm3 (3.65-5.03) L 09/27/16 17:59 Hgb 4.3 gm/dl (10.1-14.3) L* 09/27/16 17:59 Hct 14.7 % (30.3-42.9) L* 09/27/16 17:59 MCV 92 fl (79-97) 09/27/16 17:59 MCH 27 pg (28-32) L 09/27/16 17:59 MCHC 29 % (30-34) L 09/27/16 17:59 RDW 18.1 % (13.2-15.2) H 09/27/16 17:59 Plt Count 173 K/mm3 (140-440) 09/27/16 17:59 Lymph % (Auto) 8.6 % (13.4-35.0) L 09/27/16 17:59 [place] % (Auto) 5.4 % (0.0-7.3) 09/27/16 17:59 Eos % (Auto) 0.1 % (0.0-4.3) 09/27/16 17:59 Baso % (Auto) 0.3 % (0.0-1.8) 09/27/16 17:59 Lymph # 1.0 K/mm3 (1.2-5.4) L 09/27/16 17:59 [place] # 0.6 K/mm3 (0.0-0.8) 09/27/16 17:59 Eos # 0.0 K/mm3 (0.0-0.4) 09/27/16 17:59 Baso # 0.0 K/mm3 (0.0-0.1) 09/27/16 17:59 Seg Neutrophils % 85.6 % (40.0-70.0) H 09/27/16 17:59 Seg Neutrophils # 9.5 K/mm3 (1.8-7.7) H 09/27/16 17:59 D-Dimer < 135.00 ng/mlDDU (0-234) 09/27/16 17:59 Sodium 141 mmol/L (137-145) 09/27/16 17:59 Potassium 3.9 mmol/L (3.6-5.0) 09/27/16 17:59 Chloride 99.3 mmol/L (98-107) 09/27/16 17:59 Carbon Dioxide 32 mmol/L (22-30) H 09/27/16 17:59 Anion Gap 14 mmol/L 09/27/16 17:59 BUN 38 mg/dL (7-17) H 09/27/16 17:59 Creatinine 0.5 mg/dL (0.7-1.2) L 09/27/16 17:59 Estimated GFR > 60 ml/min 09/27/16 17:59 BUN/Creatinine Ratio 76.00 % 09/27/16 17:59 Glucose 148 mg/dL (65-100) H 09/27/16 17:59 Calcium 7.9 mg/dL (8.4-10.2) L 09/27/16 17:59 Troponin T 0.013 ng/mL (0.00-0.029) 09/27/16 23:01 NT-Pro-B Natriuret Pep 371.3 pg/mL (0-900) 09/27/16 17:59 Blood Type A POSITIVE 09/27/16 18:40 Antibody Screen TNR 09/27/16 18:40 PRINCESS Antibody Screen Negative 09/27/16 18:40 Crossmatch See Detail 09/27/16 18:40 - Imaging and Cardiology Chest x-ray: image reviewed (suspected cardiomegaly) <THAO OLIVAREZ R - Last Filed: 09/29/16 00:21> Assessment and Plan Assessment and plan: Patient seen and examined, 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 Patient has h/o aortic stenosis and her breathing difficulty 2/2 severe anemia and . She does not have CHF, based on 2D echo on 07/04/16 she has preserved EF. Will d/c lasix , transfuse PRBC and moitor H and H. Hospitalist Physical - Constitutional Vitals: Temp Pulse Resp BP Pulse Ox 98.5 F 83 18 85/39 95 09/28/16 23:22 09/28/16 23:22 09/28/16 23:22 09/28/16 23:22 09/28/16 20:00 Results - Labs CBC & Chem 7: 09/28/16 14:45 09/28/16 14:45 Labs: Laboratory Last Values WBC 11.2 K/mm3 (4.5-11.0) H 09/28/16 14:45 RBC 1.84 M/mm3 (3.65-5.03) L 09/28/16 14:45 Hgb 5.0 gm/dl (10.1-14.3) L* 09/28/16 14:45 Hct 16.7 % (30.3-42.9) L* 09/28/16 14:45 MCV 91 fl (79-97) 09/28/16 14:45 MCH 27 pg (28-32) L 09/28/16 14:45 MCHC 30 % (30-34) 09/28/16 14:45 RDW 17.0 % (13.2-15.2) H 09/28/16 14:45 Plt Count 160 K/mm3 (140-440) 09/28/16 14:45 Lymph % (Auto) 11.0 % (13.4-35.0) L 09/28/16 14:45 [place] % (Auto) 5.6 % (0.0-7.3) 09/28/16 14:45 Eos % (Auto) 0.2 % (0.0-4.3) 09/28/16 14:45 Baso % (Auto) 1.0 % (0.0-1.8) 09/28/16 14:45 Lymph # 1.2 K/mm3 (1.2-5.4) 09/28/16 14:45 [place] # 0.6 K/mm3 (0.0-0.8) 09/28/16 14:45 Eos # 0.0 K/mm3 (0.0-0.4) 09/28/16 14:45 Baso # 0.1 K/mm3 (0.0-0.1) 09/28/16 14:45 Seg Neutrophils % 82.2 % (40.0-70.0) H 09/28/16 14:45 Seg Neutrophils # 9.2 K/mm3 (1.8-7.7) H 09/28/16 14:45 D-Dimer < 135.00 ng/mlDDU (0-234) 09/27/16 17:59 Sodium 145 mmol/L (137-145) 09/28/16 14:45 Potassium 4.1 mmol/L (3.6-5.0) 09/28/16 14:45 Chloride 102.7 mmol/L (98-107) 09/28/16 14:45 Carbon Dioxide 33 mmol/L (22-30) H 09/28/16 14:45 Anion Gap 13 mmol/L 09/28/16 14:45 BUN 32 mg/dL (7-17) H 09/28/16 14:45 Creatinine 0.6 mg/dL (0.7-1.2) L 09/28/16 14:45 Estimated GFR > 60 ml/min 09/28/16 14:45 BUN/Creatinine Ratio 53.33 % 09/28/16 14:45 Glucose 122 mg/dL (65-100) H 09/28/16 14:45 POC Glucose 171 (70-105) H 09/28/16 21:32 Calcium 7.8 mg/dL (8.4-10.2) L 09/28/16 14:45 Troponin T 0.031 ng/mL (0.00-0.029) H D 09/28/16 14:45 NT-Pro-B Natriuret Pep 371.3 pg/mL (0-900) 09/27/16 17:59 Triglycerides 189 mg/dL (2-149) H 09/28/16 14:45 Cholesterol 124 mg/dL (50-199) 09/28/16 14:45 LDL Cholesterol Direct 58 mg/dL (50-130) 09/28/16 14:45 HDL Cholesterol 29 mg/dL (40-59) L 09/28/16 14:45 Cholesterol/HDL Ratio 4.27 % 09/28/16 14:45 Blood Type A POSITIVE 09/27/16 18:40 Antibody Screen TNR 09/27/16 18:40 PRINCESS Antibody Screen Negative 09/27/16 18:40 Crossmatch See Detail 09/27/16 18:40
--- NOTE | 2016-09-28 12:36 | Consultation ---
History of Present Illness - Reason for Consult Consult date: 09/28/16 Anemia - History of Present Illness Ms Cintron is a 66 yo BF, with morbid obesity and severe , admitted with intermittent CP and SOB, and profound anemia. She has a long-standing hx of anemia, and is followed as an outpatient by LIZ[facility] Willett. She has had multiple admissions over the last 2 yrs for anemia, with transfusions. She had an EGD/Colon in 2014. She was to have had IV iron infusions, and a Pillcam, but has not been able to comply. She states she missed her last Pillcam appt due to lack of a ride. At her last visit with Dr. Daugherty in 06/2016, she was sent to hospital for SOB. She was only mildly anemic then, though she had a Hgb = 6.1 in 05/2016. She denies abd pain, N/V. BMs are 2-3x/d, unchange, and are dark greenish ever since she takes bid iron pills. She denies joseph GI bleed. No significant EtOH hx, and no NSAID hx. Past History Past Medical History: COPD, other (Aortic stenosis - severe, sleep apnea) Past Surgical History: Other (See chart) Social history: denies: smoking, alcohol abuse Family history: no significant family history Medications and Allergies Allergies Allergy/AdvReac Type Severity Reaction Status Date / Time No Known Allergies Allergy Verified 05/12/15 07:51 Home Medications Medication Instructions Recorded Confirmed Last Taken Type Budesonide [Pulmicort Respules] 0.5 mg IH Q12HRT #1 nebu 07/08/16 09/28/16 1 Day Ago Rx Ferrous Sulfate [Feosol 325 MG tab] 325 mg PO BID #60 tablet 07/08/16 09/28/16 1 Day Ago Rx Furosemide [Lasix TAB] 40 mg PO DAILY #30 tablet 07/08/16 09/28/16 1 Day Ago Rx Ipratropium/Albuterol Sulfate 1 ampul IH TIDRT 30 Days 07/08/16 09/28/16 1 Day Ago Rx [Duoneb 0.5 mg-3 mg/3 ml Soln] Pantoprazole [Protonix TAB] 40 mg PO QDAY #30 tablet 07/08/16 09/28/16 1 Day Ago Rx Prednisone [predniSONE 10 mg 10 mg PO .TAPER #1 tab.ds.pk 07/08/16 09/28/16 1 Day Ago Rx (6-Day Pack, 21 Tabs)] glipiZIDE [Glucotrol] 5 mg PO QDDIAB #60 tablet 07/08/16 09/28/16 2 Days Ago Rx Active Meds: Active Medications Albuterol/Ipratropium (Duoneb 0.5 Mg-3 Mg/3 Ml Soln) 1 ampul IH Q6HRT [facility] Budesonide (Pulmicort) 0.5 mg IH Q12HRT [facility] Last Admin: 09/28/16 07:32 Dose: 0.5 mg Ferrous Sulfate (Feosol) 325 mg PO BID [facility] Last Admin: 09/28/16 09:04 Dose: 325 mg Furosemide (Lasix) 40 mg IV 0600,1800 [facility] Glipizide (Glucotrol) 5 mg PO QAMDIAB [facility] Last Admin: 09/28/16 09:03 Dose: 5 mg Morphine Sulfate (Morphine) 1 mg IV Q4H PRN PRN Reason: Pain, Moderate (4-6) Pantoprazole Sodium (Protonix) 40 mg PO QDAY [facility] Last Admin: 09/28/16 09:03 Dose: 40 mg Tramadol HCl (Ultram) 50 mg PO Q4HR PRN PRN Reason: Pain Last Admin: 09/28/16 09:03 Dose: 50 mg Review of Systems All systems: negative (as noted in HPI.) Exam - Constitutional Vitals: Temp Pulse Resp BP Pulse Ox 98.6 F 80 20 83/32 94 09/28/16 11:15 09/28/16 11:15 09/28/16 11:15 09/28/16 11:15 09/28/16 08:30 General appearance: Present: no acute distress, other (Morbidly obese) - EENT Eyes: Present: PERRL, EOM intact ENT: hearing intact - Neck Neck: Present: normal ROM - Respiratory Respiratory effort: normal Respiratory: bilateral: CTA (anteriorly) - Cardiovascular Rhythm: regular Heart Sounds: Present: S1 & S2, systolic murmur (4/6) - Extremities Extremities: No edema - Abdominal General gastrointestinal: Present: soft, non-tender - Rectal Rectal Exam: deferred Results - Labs CBC & Chem 7: 09/27/16 17:59 09/27/16 17:59 Assessment and Plan 1. Anemia - intermittent and long-standing. Iron deficiency documented in past , per patient. AVMs in the small bowel are a likely consideration, donnie in setting of aortic stenosis. No evidence by hx of acute GI bleed. - would transfuse appropriately - then, pt needs to continue f/u with Dr. Daugherty - unless a clear-cut source of bleeding is identified, best option may be periodic IV iron infusions, and avoiding blood thinners or antiplatelet agents. No further GI recommendations. Will sign off. Discussed with Dr. Hernandez.
[2016-09-28] MEDS ORDERED: D50W (25GM) IV PRN (12:37)
[2016-09-28] MEDS: DUONEB *Not for PRN Use IH SCH ×2 (14:57→19:04)
[2016-09-28 15:17] LABS: Eosinophils % (Auto) 0.2 % (0.0-4.3); Mean Corpuscular HGB Conc 30 % (30-34); Mean Corpuscular Hemoglobin 27 pg (28-32); Mean Corpuscular Volume 91 fl (79-97); Platelet Count 160 K/mm3 (140-440); Red Blood Count 1.84 M/mm3 (3.65-5.03); White Blood Count 11.2 K/mm3 (4.5-11.0)
[2016-09-28 15:27] LABS: Hematocrit 16.7 % (30.3-42.9)
[2016-09-28 15:35] LABS: Anion Gap 13 mmol/L; BUN/Creatinine Ratio 53.33; Blood Urea Nitrogen 32 mg/dL (7-17); Calcium 7.8 mg/dL (8.4-10.2); Carbon Dioxide 33 mmol/L (22-30); Chloride 102.7 mmol/L (98-107); Glucose 122 mg/dL (65-100); Potassium 4.1 mmol/L (3.6-5.0); Sodium 145 mmol/L (137-145)
[2016-09-28] MEDS ORDERED: LASIX IV SCH (18:00)
[2016-09-28] MEDS: NOVOLOG SUB-Q SCH (18:19)
[2016-09-28] MEDS ORDERED: PROVENTIL IH PRN (19:12)
[2016-09-29] MEDS: DUONEB *Not for PRN Use IH SCH ×4 (01:33→20:31)
[2016-09-29] MEDS: NOVOLOG SUB-Q SCH ×5 (01:48→21:07)
[2016-09-29 05:29] LABS: Basophils % (Auto) 0.5 % (0.0-1.8); Mean Corpuscular HGB Conc 30 % (30-34); Mean Corpuscular Hemoglobin 27 pg (28-32); Mean Corpuscular Volume 93 fl (79-97); Platelet Count 185 K/mm3 (140-440); Red Blood Count 2.13 M/mm3 (3.65-5.03); Red Cell Distribution Width 17.9 % (13.2-15.2); White Blood Count 12.9 K/mm3 (4.5-11.0)
[2016-09-29 05:33] LABS: Hematocrit 19.7 % (30.3-42.9); Hemoglobin 5.8 gm/dl (10.1-14.3)
[2016-09-29] MEDS ORDERED: NACL 0.9% 500 ML 500 ML IV ONE ×2 (05:58→21:00)
--- NOTE | 2016-09-29 07:18 | Progress Note ---
Assessment and Plan Symptomatic Anemia s/p blood transfusion CHF -diastolic EF 50-55% on echo 06/2016 Aortic Stenosis previously considered not a candidate for open valve surgery due to multiple co-morbidities including her morbid obesity. Sleep Apnea COPD Morbid obesity Continue conservative management Subjective Date of service: 09/29/16 Interval history: No acute events. Resting comfortably. No chest pain or SOB. Objective Vital Signs Temp Pulse Pulse Pulse Resp Resp BP 09/29/16 05:00 98.4 F 84 20 09/29/16 00:00 98.2 F 77 77 19 09/28/16 23:47 83 27 H 09/28/16 23:22 98.5 F 83 18 85/39 09/28/16 22:55 98.2 F 76 18 76/35 09/28/16 22:25 98.2 F 79 18 79/36 09/28/16 21:55 98.4 F 86 18 82/42 09/28/16 21:25 98.1 F 84 16 94/47 09/28/16 20:54 98.5 F 89 18 98/42 09/28/16 20:40 98.8 F 88 18 84/39 09/28/16 20:00 97.3 F L 86 20 09/28/16 19:17 93 H 18 09/28/16 19:10 09/28/16 19:08 09/28/16 19:07 83 17 09/28/16 16:05 97.9 F 76 22 09/28/16 15:19 77 18 09/28/16 15:01 09/28/16 14:58 76 20 09/28/16 14:00 98.2 F 88 18 84/39 09/28/16 11:45 97 F L 80 18 89/41 09/28/16 11:15 97 F L 82 80 18 81/37 09/28/16 11:00 98 F 83 18 87/41 09/28/16 10:57 97.5 F L 79 20 91/40 09/28/16 08:30 97 F L 80 20 83/32 09/28/16 08:03 97.9 F 91 H 20 87/42 09/28/16 07:47 86 18 09/28/16 07:33 97.5 F L 80 20 81/39 09/28/16 07:32 84 18 BP Pulse Ox 09/29/16 05:00 102/68 97 09/29/16 00:00 77/35 97 09/28/16 23:47 100 09/28/16 23:22 09/28/16 22:55 09/28/16 22:25 09/28/16 21:55 09/28/16 21:25 09/28/16 20:54 09/28/16 20:40 09/28/16 20:00 100/54 95 09/28/16 19:17 09/28/16 19:10 100 09/28/16 19:08 100 09/28/16 19:07 09/28/16 16:05 87/45 09/28/16 15:19 09/28/16 15:01 96 09/28/16 14:58 09/28/16 14:00 09/28/16 11:45 09/28/16 11:15 83/32 09/28/16 11:00 95 09/28/16 10:57 09/28/16 08:30 94 09/28/16 08:03 95 09/28/16 07:47 09/28/16 07:33 09/28/16 07:32 100 - Physical Examination General: Appears Well HEENT: Positive: PERRL, EOMI Neck: Positive: neck supple Cardiac: Positive: Reg Rate and Rhythm Lungs: Positive: clear to auscultation, Normal Breath Sounds Abdomen: Positive: Unremarkable, Soft Extremities: Present: normal - Labs and Meds Lipids 09/28/16 Range/Units 14:45 Triglycerides 189 H (2-149) mg/dL Cholesterol 124 (50-199) mg/dL HDL Cholesterol 29 L (40-59) mg/dL Cholesterol/HDL Ratio 4.27 % CBC 09/28/16 09/29/16 Range/Units 14:45 04:23 WBC 11.2 H 12.9 H (4.5-11.0) K/mm3 RBC 1.84 L 2.13 L (3.65-5.03) M/mm3 Hgb 5.0 L* 5.8 L* (10.1-14.3) gm/dl Hct 16.7 L* 19.7 L* (30.3-42.9) % Plt Count 160 185 (140-440) K/mm3 Lymph # 1.2 1.6 (1.2-5.4) K/mm3 [place] # 0.6 0.9 H (0.0-0.8) K/mm3 Eos # 0.0 0.1 (0.0-0.4) K/mm3 Baso # 0.1 0.1 (0.0-0.1) K/mm3 Comprehensive Metabolic Panel 09/28/16 Range/Units 14:45 Sodium 145 (137-145) mmol/L Potassium 4.1 (3.6-5.0) mmol/L Chloride 102.7 (98-107) mmol/L Carbon Dioxide 33 H (22-30) mmol/L BUN 32 H (7-17) mg/dL Creatinine 0.6 L (0.7-1.2) mg/dL Glucose 122 H (65-100) mg/dL Calcium 7.8 L (8.4-10.2) mg/dL - Imaging and Cardiology EKG: report reviewed (Sinus Tach)
[2016-09-29] MEDS: PULMICORT IH SCH ×2 (07:38→20:34)
--- NOTE | 2016-09-29 10:11 | Progress Note ---
Assessment and Plan Assessment and plan: 1 Symptomatic anemia Patient has chronic blood loss from GI tract?? The patient has extensive W/U for GI bleed include , GI camera pills. She has received 3 Units and has 2 Units of PRBC pending. [employer] working on obtaining. Patient started on Ferrous sulfate 325mg PO BID. Hemoglobin 5.8 today 2 Chest pain Follow cardiac enzymes troponin Cardiology following 3 Acute and chronic respiratory failure ([id number]) Patient oxygen dependent at home Patient on the 3LNC with SPO2 >92% at present time no acute respiratory distress noted Frequent respiratory assessment 4 Acute exacerbation of CHF (congestive heart failure) Patient has Echocardiogram 2 months ago with EF 55-60% Lasix 40 mg IV BID Strict I and O's, daily weight and low sodium cardiac diet ordered Closely monitor electrolytes Cardiology evaluation 6 Ttype 2 diabetes mellitus we we will continue oral hypoglycemics Sliding-scale insulin NovoLog Accu-Chek before meals and at bedtime 6 Morbid obesity with BMI of 70 and over, adult Discussed with the patient the importance of losing weight, low-fat diet and physical exercise. 7 COPD (chronic obstructive pulmonary disease) Patient on Duoneb Q6hrs 8 GERD (gastroesophageal reflux disease) Patient on Protonix IV 9 DVT prophylaxis On Lovenox Patient on full code History Interval history: Chest pain, Shortness of breath Hospitalist Physical - Physical exam Narrative exam: Gen Appearance: Not in acute distress, Morbidly obese HEENT: normocephalic, atraumatic Neck: supple, no JVD Lungs: clear to auscultation bilaterally, no crackles or wheezes Heart: S1 and S2 regular, no murmurs or gallop Abdomen: Soft, non-tender, non-distended, normal bowel sounds Extremity:No edema, clubbing or cyanosis Neuro : Awake alert oriented 3, no focal neurological signs Psych :calm - Constitutional Vitals: Temp Pulse Resp BP Pulse Ox 98.7 F 90 20 100/52 98 09/29/16 08:00 09/29/16 08:00 09/29/16 08:00 09/29/16 08:00 09/29/16 08:00 General appearance: Present: no acute distress, obese Results - Labs CBC & Chem 7: 09/29/16 04:23 09/28/16 14:45 Labs: Laboratory Last Values WBC 12.9 K/mm3 (4.5-11.0) H 07/04/17 04:23 RBC 2.13 M/mm3 (3.65-5.03) L 09/29/16 04:23 Hgb 5.8 gm/dl (10.1-14.3) L* 09/29/16 04:23 Hct 19.7 % (30.3-42.9) L* 09/29/16 04:23 MCV 93 fl (79-97) 09/29/16 04:23 MCH 27 pg (28-32) L 09/29/16 04:23 MCHC 30 % (30-34) 09/29/16 04:23 RDW 17.9 % (13.2-15.2) H 09/29/16 04:23 Plt Count 185 K/mm3 (140-440) 09/29/16 04:23 Lymph % (Auto) 12.3 % (13.4-35.0) L 09/29/16 04:23 [place] % (Auto) 6.7 % (0.0-7.3) 09/29/16 04:23 Eos % (Auto) 1.0 % (0.0-4.3) 09/29/16 04:23 Baso % (Auto) 0.5 % (0.0-1.8) 09/29/16 04:23 Lymph # 1.6 K/mm3 (1.2-5.4) 09/29/16 04:23 [place] # 0.9 K/mm3 (0.0-0.8) H 09/29/16 04:23 Eos # 0.1 K/mm3 (0.0-0.4) 09/29/16 04:23 Baso # 0.1 K/mm3 (0.0-0.1) 09/29/16 04:23 Seg Neutrophils % 79.5 % (40.0-70.0) H 09/29/16 04:23 Seg Neutrophils # 10.3 K/mm3 (1.8-7.7) H 09/29/16 04:23 D-Dimer < 135.00 ng/mlDDU (0-234) 09/27/16 17:59 Sodium 145 mmol/L (137-145) 09/28/16 14:45 Potassium 4.1 mmol/L (3.6-5.0) 09/28/16 14:45 Chloride 102.7 mmol/L (98-107) 09/28/16 14:45 Carbon Dioxide 33 mmol/L (22-30) H 09/28/16 14:45 Anion Gap 13 mmol/L 09/28/16 14:45 BUN 32 mg/dL (7-17) H 09/28/16 14:45 Creatinine 0.6 mg/dL (0.7-1.2) L 09/28/16 14:45 Estimated GFR > 60 ml/min 09/28/16 14:45 BUN/Creatinine Ratio 53.33 % 09/28/16 14:45 Glucose 122 mg/dL (65-100) H 09/28/16 14:45 POC Glucose 171 (70-105) H 09/28/16 21:32 Calcium 7.8 mg/dL (8.4-10.2) L 09/28/16 14:45 Troponin T 0.031 ng/mL (0.00-0.029) H D 09/28/16 14:45 NT-Pro-B Natriuret Pep 371.3 pg/mL (0-900) 09/27/16 17:59 Triglycerides 189 mg/dL (2-149) H 09/28/16 14:45 Cholesterol 124 mg/dL (50-199) 09/28/16 14:45 LDL Cholesterol Direct 58 mg/dL (50-130) 09/28/16 14:45 HDL Cholesterol 29 mg/dL (40-59) L 09/28/16 14:45 Cholesterol/HDL Ratio 4.27 % 09/28/16 14:45 Blood Type A POSITIVE 09/27/16 18:40 Antibody Screen TNR 09/27/16 18:40 PRINCESS Antibody Screen Negative 09/27/16 18:40 Crossmatch See Detail 09/27/16 18:40
[2016-09-29] MEDS: MORPHINE IV PRN (11:08)
[2016-09-29] MEDS: FEOSOL PO SCH ×2 (11:09→21:00)
[2016-09-29] MEDS: PROTONIX PO SCH (11:09)
[2016-09-29] MEDS: GLUCOTROL PO SCH (11:10)
[2016-09-29] MEDS: ULTRAM PO PRN (17:24)
[2016-09-30] MEDS: DUONEB *Not for PRN Use IH SCH ×4 (02:07→19:39)
[2016-09-30] MEDS: NOVOLOG SUB-Q SCH ×4 (07:30→22:24)
[2016-09-30] MEDS: PULMICORT IH SCH ×3 (07:39→19:38)
[2016-09-30 08:01] LABS: Hematocrit 20.7 % (30.3-42.9); Hemoglobin 6.3 gm/dl (10.1-14.3)
[2016-09-30] MEDS ORDERED: NACL 0.9% 500 ML 500 ML IV NR (08:30)
[2016-09-30] MEDS: GLUCOTROL PO SCH (08:58)
[2016-09-30] MEDS: FEOSOL PO SCH ×2 (10:00→22:23)
--- NOTE | 2016-09-30 10:12 | Progress Note ---
Assessment and Plan Assessment and plan: 1 Symptomatic anemia Patient has chronic blood loss from GI tract?? The patient has extensive W/U for GI bleed include , GI camera pills. Patient started on Ferrous sulfate 325mg PO BID. Hemoglobin 6.3 today after 2 Units PRBC overnight from 5.8 yesterday. She has had total 5 Units PRBC 2 Chest pain Follow cardiac enzymes, troponins Cardiology following 3 Acute and chronic respiratory failure ([id number]) Patient oxygen dependent at home Patient on the 3LNC with SPO2 >92% at present time no acute respiratory distress noted Frequent respiratory assessment 4 Acute exacerbation of CHF (congestive heart failure) Patient has Echocardiogram 2 months ago with EF 55-60% Lasix 40 mg IV BID Strict I and O's, daily weight and low sodium cardiac diet ordered Closely monitor electrolytes Cardiology evaluation 6 Ttype 2 diabetes mellitus we we will continue oral hypoglycemics Sliding-scale insulin NovoLog Accu-Chek before meals and at bedtime 6 Morbid obesity with BMI of 70 and over, adult Discussed with the patient the importance of losing weight, low-fat diet and physical exercise. 7 COPD (chronic obstructive pulmonary disease) Patient on Duoneb Q6hrs 8 GERD (gastroesophageal reflux disease) Patient on Protonix IV 9 DVT prophylaxis On Lovenox She is full code History Interval history: less chest pain, Shortness of breath, Hospitalist Physical - Physical exam Narrative exam: Gen Appearance: Not in acute distress, Morbidly obese HEENT: normocephalic, atraumatic Neck: supple, no JVD Lungs: clear to auscultation bilaterally, no crackles or wheezes Heart: S1 and S2 regular, no murmurs or gallop Abdomen: Soft, non-tender, non-distended, normal bowel sounds Extremity:No edema, clubbing or cyanosis Neuro : Awake alert oriented 3, no focal neurological signs Psych :calm - Constitutional Vitals: Temp Pulse Resp BP Pulse Ox 98.5 F 84 19 95/44 97 09/30/16 07:19 09/30/16 08:14 09/30/16 08:14 09/30/16 07:19 09/30/16 08:11 General appearance: Present: no acute distress, obese Results - Labs CBC & Chem 7: 09/30/16 07:38 09/28/16 14:45 Labs: Laboratory Last Values WBC 12.9 K/mm3 (4.5-11.0) H 09/29/16 04:23 RBC 2.13 M/mm3 (3.65-5.03) L 09/29/16 04:23 Hgb 6.3 gm/dl (10.1-14.3) L 09/30/16 07:38 Hct 20.7 % (30.3-42.9) L 09/30/16 07:38 MCV 93 fl (79-97) 09/29/16 04:23 MCH 27 pg (28-32) L 09/29/16 04:23 MCHC 30 % (30-34) 09/29/16 04:23 RDW 17.9 % (13.2-15.2) H 09/29/16 04:23 Plt Count 185 K/mm3 (140-440) 09/29/16 04:23 Lymph % (Auto) 12.3 % (13.4-35.0) L 09/29/16 04:23 [place] % (Auto) 6.7 % (0.0-7.3) 09/29/16 04:23 Eos % (Auto) 1.0 % (0.0-4.3) 09/29/16 04:23 Baso % (Auto) 0.5 % (0.0-1.8) 09/29/16 04:23 Lymph # 1.6 K/mm3 (1.2-5.4) 09/29/16 04:23 [place] # 0.9 K/mm3 (0.0-0.8) H 09/29/16 04:23 Eos # 0.1 K/mm3 (0.0-0.4) 09/29/16 04:23 Baso # 0.1 K/mm3 (0.0-0.1) 09/29/16 04:23 Seg Neutrophils % 79.5 % (40.0-70.0) H 09/29/16 04:23 Seg Neutrophils # 10.3 K/mm3 (1.8-7.7) H 09/29/16 04:23 D-Dimer < 135.00 ng/mlDDU (0-234) 09/27/16 17:59 Sodium 145 mmol/L (137-145) 09/28/16 14:45 Potassium 4.1 mmol/L (3.6-5.0) 09/28/16 14:45 Chloride 102.7 mmol/L (98-107) 09/28/16 14:45 Carbon Dioxide 33 mmol/L (22-30) H 09/28/16 14:45 Anion Gap 13 mmol/L 09/28/16 14:45 BUN 32 mg/dL (7-17) H 09/28/16 14:45 Creatinine 0.6 mg/dL (0.7-1.2) L 09/28/16 14:45 Estimated GFR > 60 ml/min 09/28/16 14:45 BUN/Creatinine Ratio 53.33 % 09/28/16 14:45 Glucose 122 mg/dL (65-100) H 09/28/16 14:45 POC Glucose 171 (70-105) H 09/29/16 20:49 Calcium 7.8 mg/dL (8.4-10.2) L 09/28/16 14:45 Troponin T 0.031 ng/mL (0.00-0.029) H D 09/28/16 14:45 NT-Pro-B Natriuret Pep 371.3 pg/mL (0-900) 09/27/16 17:59 Triglycerides 189 mg/dL (2-149) H 09/28/16 14:45 Cholesterol 124 mg/dL (50-199) 09/28/16 14:45 LDL Cholesterol Direct 58 mg/dL (50-130) 09/28/16 14:45 HDL Cholesterol 29 mg/dL (40-59) L 09/28/16 14:45 Cholesterol/HDL Ratio 4.27 % 09/28/16 14:45 Blood Type A POSITIVE 09/27/16 18:40 Antibody Screen TNR 09/27/16 18:40 PRINCESS Antibody Screen Negative 09/27/16 18:40 Crossmatch See Detail 09/27/16 18:40
--- NOTE | 2016-09-30 10:25 | Progress Note ---
Assessment and Plan Symptomatic Anemia s/p blood transfusion CHF -diastolic EF 50-55% on echo 06/2016 Aortic Stenosis previously considered not a candidate for open valve surgery due to multiple co-morbidities including her morbid obesity. Sleep Apnea COPD Morbid obesity We will continue a conservative cardiac management. Subjective Date of service: 09/30/16 Interval history: No interval changes. Objective Vital Signs Temp Pulse Pulse Pulse Resp Resp BP 09/30/16 08:14 84 19 09/30/16 08:11 09/30/16 08:07 87 22 09/30/16 07:19 98.5 F 75 20 09/30/16 05:59 85 09/30/16 03:45 98 F 85 20 83/44 09/30/16 03:15 98.6 F 86 20 84/48 09/30/16 02:45 98.4 F 84 18 84/45 09/30/16 02:15 98.7 F 89 22 128/65 09/30/16 01:45 98.6 F 100 H 22 128/75 09/30/16 01:16 98.7 F 79 20 78/39 09/30/16 00:59 98.7 F 82 23 87/41 09/30/16 00:10 99.2 F 79 21 75/39 09/29/16 23:58 81 18 77/39 09/29/16 23:20 98.3 F 82 18 77/39 09/29/16 22:50 98.5 F 92 H 16 81/43 09/29/16 22:20 98.5 F 87 18 83/37 09/29/16 21:50 98.7 F 89 18 84/33 09/29/16 21:35 98.7 F 85 18 128/58 09/29/16 20:32 09/29/16 20:31 86 20 09/29/16 20:30 78 09/29/16 20:20 88 20 09/29/16 20:00 98.7 F 83 19 09/29/16 16:00 98.3 F 89 86 20 09/29/16 12:00 97.7 F 84 20 BP Pulse Ox 09/30/16 08:14 09/30/16 08:11 97 09/30/16 08:07 09/30/16 07:19 95/44 100 09/30/16 05:59 09/30/16 03:45 97 07/05/17 03:15 94 09/30/16 02:45 96 09/30/16 02:15 100 09/30/16 01:45 09/30/16 01:16 100 09/30/16 00:59 100 09/30/16 00:10 09/29/16 23:58 09/29/16 23:20 09/29/16 22:50 09/29/16 22:20 09/29/16 21:50 09/29/16 21:35 09/29/16 20:32 99 09/29/16 20:31 09/29/16 20:30 09/29/16 20:20 09/29/16 20:00 100/41 96 09/29/16 16:00 90/38 97 09/29/16 12:00 75/32 97 - Physical Examination General: Appears Well, Other (Obese) HEENT: Positive: PERRL Cardiac: Positive: Reg Rate and Rhythm - Labs and Meds CBC 09/30/16 Range/Units 07:38 Hgb 6.3 L (10.1-14.3) gm/dl Hct 20.7 L (30.3-42.9) % - Imaging and Cardiology EKG: report reviewed (Sinus Tach)
[2016-09-30] MEDS: PROTONIX PO SCH (10:40)
[2016-09-30] MEDS: ULTRAM PO PRN ×2 (13:18→22:27)
[2016-09-30] MEDS: MIRALAX 3350 PO SCH (13:26)
[2016-09-30] MEDS ORDERED: NACL 0.9% 250ML 250 ML ONE (15:46)
[2016-10-01] MEDS: DUONEB *Not for PRN Use IH SCH ×4 (01:44→21:02)
[2016-10-01 06:22] LABS: Hematocrit 20.3 % (30.3-42.9); Hemoglobin 6.2 gm/dl (10.1-14.3)
[2016-10-01] MEDS: PULMICORT IH SCH ×2 (07:22→21:04)
[2016-10-01] MEDS: GLUCOTROL PO SCH (09:00)
--- NOTE | 2016-10-01 09:09 | Progress Note ---
Assessment and Plan Assessment and plan: 1 Symptomatic anemia Patient has chronic blood loss from GI tract?? The patient has extensive W/U for GI bleed include , GI camera pills. Patient started on Ferrous sulfate 325mg PO BID. Hemoglobin 6.2 today after total 6 Units PRBC. To transfuse 2 Units PRBC more today 2 Chest pain Follow cardiac enzymes, troponins Cardiology following 3 Acute and chronic respiratory failure ([id number]) Patient oxygen dependent at home Patient on the 3LNC with SPO2 >92% at present time no acute respiratory distress noted Frequent respiratory assessment 4 Acute exacerbation of CHF (congestive heart failure) Patient has Echocardiogram 2 months ago with EF 55-60% Lasix 40 mg IV BID Strict I and O's, daily weight and low sodium cardiac diet ordered Closely monitor electrolytes Cardiology evaluation 6 Ttype 2 diabetes mellitus we we will continue oral hypoglycemics Sliding-scale insulin NovoLog Accu-Chek before meals and at bedtime 6 Morbid obesity with BMI of 70 and over, adult Discussed with the patient the importance of losing weight, low-fat diet and physical exercise. 7 COPD (chronic obstructive pulmonary disease) Patient on Duoneb Q6hrs 8 GERD (gastroesophageal reflux disease) Patient on Protonix IV 9 DVT prophylaxis SCD only because of anemia, GI blood loss She is full code History Interval history: less chest pain, Less Shortness of breath, Hospitalist Physical - Physical exam Narrative exam: Gen Appearance: Not in acute distress, Morbidly obese HEENT: normocephalic, atraumatic Neck: supple, no JVD Lungs: clear to auscultation bilaterally, no crackles or wheezes Heart: S1 and S2 regular, no murmurs or gallop Abdomen: Soft, non-tender, non-distended, normal bowel sounds Extremity:No edema, clubbing or cyanosis Neuro : Awake alert oriented 3, no focal neurological signs Psych :calm - Constitutional Vitals: Temp Pulse Resp BP Pulse Ox 98.5 F 85 24 106/51 100 10/01/16 07:12 10/01/16 08:11 10/01/16 07:59 10/01/16 07:12 10/01/16 07:12 General appearance: Present: no acute distress, obese Results - Labs CBC & Chem 7: 10/01/16 05:27 09/28/16 14:45 Labs: Laboratory Last Values WBC 12.9 K/mm3 (4.5-11.0) H 09/29/16 04:23 RBC 2.13 M/mm3 (3.65-5.03) L 09/29/16 04:23 Hgb 6.2 gm/dl (10.1-14.3) L 10/01/16 05:27 Hct 20.3 % (30.3-42.9) L 10/01/16 05:27 MCV 93 fl (79-97) 09/29/16 04:23 MCH 27 pg (28-32) L 09/29/16 04:23 MCHC 30 % (30-34) 09/29/16 04:23 RDW 17.9 % (13.2-15.2) H 09/29/16 04:23 Plt Count 185 K/mm3 (140-440) 09/29/16 04:23 Lymph % (Auto) 12.3 % (13.4-35.0) L 09/29/16 04:23 [place] % (Auto) 6.7 % (0.0-7.3) 09/29/16 04:23 Eos % (Auto) 1.0 % (0.0-4.3) 09/29/16 04:23 Baso % (Auto) 0.5 % (0.0-1.8) 09/29/16 04:23 Lymph # 1.6 K/mm3 (1.2-5.4) 09/29/16 04:23 [place] # 0.9 K/mm3 (0.0-0.8) H 09/29/16 04:23 Eos # 0.1 K/mm3 (0.0-0.4) 09/29/16 04:23 Baso # 0.1 K/mm3 (0.0-0.1) 09/29/16 04:23 Seg Neutrophils % 79.5 % (40.0-70.0) H 09/29/16 04:23 Seg Neutrophils # 10.3 K/mm3 (1.8-7.7) H 09/29/16 04:23 D-Dimer < 135.00 ng/mlDDU (0-234) 09/27/16 17:59 Sodium 145 mmol/L (137-145) 09/28/16 14:45 Potassium 4.1 mmol/L (3.6-5.0) 09/28/16 14:45 Chloride 102.7 mmol/L (98-107) 09/28/16 14:45 Carbon Dioxide 33 mmol/L (22-30) H 09/28/16 14:45 Anion Gap 13 mmol/L 09/28/16 14:45 BUN 32 mg/dL (7-17) H 09/28/16 14:45 Creatinine 0.6 mg/dL (0.7-1.2) L 09/28/16 14:45 Estimated GFR > 60 ml/min 09/28/16 14:45 BUN/Creatinine Ratio 53.33 % 09/28/16 14:45 Glucose 122 mg/dL (65-100) H 09/28/16 14:45 POC Glucose 117 (70-105) H 09/30/16 21:23 Calcium 7.8 mg/dL (8.4-10.2) L 09/28/16 14:45 Troponin T 0.031 ng/mL (0.00-0.029) H D 09/28/16 14:45 NT-Pro-B Natriuret Pep 371.3 pg/mL (0-900) 09/27/16 17:59 Triglycerides 189 mg/dL (2-149) H 09/28/16 14:45 Cholesterol 124 mg/dL (50-199) 09/28/16 14:45 LDL Cholesterol Direct 58 mg/dL (50-130) 09/28/16 14:45 HDL Cholesterol 29 mg/dL (40-59) L 09/28/16 14:45 Cholesterol/HDL Ratio 4.27 % 09/28/16 14:45 Blood Type A POSITIVE 09/27/16 18:40 Antibody Screen TNR 09/27/16 18:40 PRINCESS Antibody Screen Negative 09/27/16 18:40 Crossmatch See Detail 09/27/16 18:40
[2016-10-01] MEDS: FEOSOL PO SCH ×2 (11:53→22:07)
[2016-10-01] MEDS: MIRALAX 3350 PO SCH (11:53)
[2016-10-01] MEDS: PROTONIX PO SCH (11:53)
[2016-10-01] MEDS: NOVOLOG SUB-Q SCH ×3 (11:54→16:30)
[2016-10-01] MEDS ORDERED: NACL 0.9% 500 ML 500 ML IV NR (12:18)
--- NOTE | 2016-10-01 12:50 | Progress Note ---
Assessment and Plan Symptomatic Anemia s/p blood transfusion CHF -diastolic EF 50-55% on echo 06/2016 Aortic Stenosis previously considered not a candidate for open valve surgery due to multiple co-morbidities including her morbid obesity. Sleep Apnea COPD Morbid obesity Conservative cardiac management. Subjective Date of service: 10/01/16 Interval history: No interval changes. Objective Vital Signs Temp Pulse Pulse Pulse Resp Resp BP 10/01/16 08:11 85 10/01/16 07:59 24 10/01/16 07:31 81 20 10/01/16 07:21 80 20 10/01/16 07:12 98.5 F 82 20 10/01/16 06:33 98.9 F 78 22 10/01/16 05:00 81 10/01/16 01:11 98.6 F 76 20 09/30/16 23:15 84 23 09/30/16 21:00 88 09/30/16 20:35 97.8 F 88 22 09/30/16 19:53 93 H 16 09/30/16 19:44 09/30/16 19:39 90 14 09/30/16 15:50 97.6 F 88 20 124/66 09/30/16 15:42 99.0 F 89 20 09/30/16 15:40 99.1 F 90 20 125/60 09/30/16 14:55 55 L 15 09/30/16 13:00 88 BP Pulse Ox 10/01/16 08:11 10/01/16 07:59 10/01/16 07:31 10/01/16 07:21 100 10/01/16 07:12 106/51 100 10/01/16 06:33 115/53 99 10/01/16 05:00 10/01/16 01:11 100/46 99 09/30/16 23:15 98 09/30/16 21:00 09/30/16 20:35 99/51 99 09/30/16 19:53 09/30/16 19:44 97 09/30/16 19:39 09/30/16 15:50 98 09/30/16 15:42 125/60 98 09/30/16 15:40 99 09/30/16 14:55 09/30/16 13:00 - Physical Examination General: No Apparent Distress, Other (Obese) HEENT: Positive: PERRL Cardiac: Positive: Reg Rate and Rhythm - Labs and Meds CBC 10/01/16 Range/Units 05:27 Hgb 6.2 L (10.1-14.3) gm/dl Hct 20.3 L (30.3-42.9) % - Imaging and Cardiology EKG: report reviewed (Sinus Tach)
[2016-10-01] MEDS ORDERED: NACL 0.9% 250ML 250 ML ONE (21:59)
[2016-10-01] MEDS: ULTRAM PO PRN (22:07)
[2016-10-02] MEDS: NOVOLOG SUB-Q SCH ×5 (00:53→21:32)
[2016-10-02] MEDS: DUONEB *Not for PRN Use IH SCH ×4 (02:48→21:34)
[2016-10-02 08:46] LABS: Hematocrit 25.3 % (30.3-42.9); Hemoglobin 7.8 gm/dl (10.1-14.3)
[2016-10-02] MEDS: PULMICORT IH SCH ×2 (08:55→21:35)
[2016-10-02] MEDS: MORPHINE IV PRN ×2 (09:30→14:34)
[2016-10-02] MEDS: PROTONIX PO SCH (09:30)
[2016-10-02] MEDS: FEOSOL PO SCH ×2 (09:30→21:32)
[2016-10-02] MEDS: GLUCOTROL PO SCH (09:30)
--- NOTE | 2016-10-02 10:04 | Progress Note ---
Assessment and Plan Symptomatic Anemia s/p blood transfusion CHF -diastolic EF 50-55% on echo 06/2016 Aortic Stenosis previously considered not a candidate for open valve surgery due to multiple co-morbidities including her morbid obesity. Sleep Apnea COPD Morbid obesity Conservative cardiac management. Subjective Date of service: 10/02/16 Interval history: No cardiac complaints. Patient received 2 additional units of blood overnight. Objective Vital Signs Temp Pulse Pulse Pulse Resp Resp BP 10/02/16 08:35 98.8 F 82 20 10/02/16 08:00 80 10/02/16 05:20 98.1 F 80 20 135/80 10/02/16 04:35 98.1 F 81 20 118/61 10/02/16 04:32 98.3 F 77 20 124/57 10/02/16 04:02 98.3 F 85 20 97/52 10/02/16 02:32 98.6 F 86 20 93/62 10/02/16 02:02 98.5 F 86 22 94/62 10/02/16 01:47 99 F 99 H 20 124/58 10/02/16 01:46 99 F 99 H 20 124/58 10/02/16 01:16 99 F 99 H 20 124/58 10/02/16 01:01 98.8 F 85 20 107/61 10/02/16 00:00 83 10/01/16 23:55 99.0 F 89 18 121/59 10/01/16 23:01 98.9 F 94 H 18 129/62 10/01/16 23:00 25 H 10/01/16 22:51 99.0 F 86 22 10/01/16 22:31 99.1 F 95 H 18 123/59 10/01/16 22:16 99.0 F 95 H 20 119/69 10/01/16 22:00 18 10/01/16 21:12 87 16 10/01/16 19:36 10/01/16 16:00 98.6 F 81 20 10/01/16 15:00 87 20 10/01/16 14:50 85 20 BP Pulse Ox 10/02/16 08:35 155/83 10/02/16 08:00 10/02/16 05:20 97 10/02/16 04:35 97 10/02/16 04:32 97 10/02/16 04:02 98 10/02/16 02:32 10/02/16 02:02 10/02/16 01:47 96 10/02/16 01:46 10/02/16 01:16 96 10/02/16 01:01 96 10/02/16 00:00 10/01/16 23:55 96 10/01/16 23:01 96 10/01/16 23:00 100 10/01/16 22:51 123/57 99 10/01/16 22:31 98 10/01/16 22:16 96 10/01/16 22:00 10/01/16 21:12 10/01/16 19:36 99 10/01/16 16:00 121/58 100 10/01/16 15:00 10/01/16 14:50 - Physical Examination General: No Apparent Distress, Other (Obese) HEENT: Positive: PERRL Cardiac: Positive: Reg Rate and Rhythm - Labs and Meds CBC 10/02/16 Range/Units 08:32 Hgb 7.8 L (10.1-14.3) gm/dl Hct 25.3 L (30.3-42.9) % - Imaging and Cardiology EKG: report reviewed (Sinus Tach)
--- NOTE | 2016-10-02 12:43 | Progress Note ---
Assessment and Plan Assessment and plan: 1 Symptomatic anemia Patient has chronic blood loss from GI tract?? The patient has extensive W/U for GI bleed include , GI camera pills. Patient started on Ferrous sulfate 325mg PO BID. Hemoglobin now 7.8 after 8 Units PRBCs transfused. Will transfuse 1U nit PRBC more 2 Chest pain Conservative management as per cardiology. Cardiology following 3 Acute and chronic respiratory failure ([id number]) Patient oxygen dependent at home Patient on the 3LNC with SPO2 >92% at present time no acute respiratory distress noted Frequent respiratory assessment 4 Acute exacerbation of CHF (congestive heart failure) Patient has Echocardiogram 2 months ago with EF 55-60% Lasix 40 mg IV BID Strict I and O's, daily weight and low sodium cardiac diet ordered Closely monitor electrolytes Cardiology evaluation 6 Type 2 diabetes mellitus We we will continue oral hypoglycemics Sliding-scale insulin NovoLog Accu-Chek before meals and at bedtime 6 Morbid obesity with BMI of 70 and over, adult Discussed with the patient the importance of losing weight, low-fat diet and physical exercise. 7 COPD (chronic obstructive pulmonary disease) Patient on Duoneb Q6hrs 8 GERD (gastroesophageal reflux disease) Patient on Protonix IV 9 DVT prophylaxis SCD only because of anemia, GI blood loss She is full code History Interval history: less chest pain, Less Shortness of breath, Hospitalist Physical - Physical exam Narrative exam: Gen Appearance: Not in acute distress, Morbidly obese HEENT: normocephalic, atraumatic Neck: supple, no JVD Lungs: clear to auscultation bilaterally, no crackles or wheezes Heart: S1 and S2 regular, no murmurs or gallop Abdomen: Soft, non-tender, non-distended, normal bowel sounds Extremity:No edema, clubbing or cyanosis Neuro : Awake alert oriented 3, no focal neurological signs Psych :calm - Constitutional Vitals: Temp Pulse Resp BP Pulse Ox 98.8 F 82 20 155/83 97 10/02/16 08:35 10/02/16 08:35 10/02/16 08:35 10/02/16 08:35 10/02/16 05:20 General appearance: Present: no acute distress, obese Results - Labs CBC & Chem 7: 10/02/16 08:32 09/28/16 14:45 Labs: Laboratory Last Values WBC 12.9 K/mm3 (4.5-11.0) H 09/29/16 04:23 RBC 2.13 M/mm3 (3.65-5.03) L 09/29/16 04:23 Hgb 7.8 gm/dl (10.1-14.3) L 10/02/16 08:32 Hct 25.3 % (30.3-42.9) L 10/02/16 08:32 MCV 93 fl (79-97) 09/29/16 04:23 MCH 27 pg (28-32) L 09/29/16 04:23 MCHC 30 % (30-34) 09/29/16 04:23 RDW 17.9 % (13.2-15.2) H 09/29/16 04:23 Plt Count 185 K/mm3 (140-440) 09/29/16 04:23 Lymph % (Auto) 12.3 % (13.4-35.0) L 09/29/16 04:23 [place] % (Auto) 6.7 % (0.0-7.3) 09/29/16 04:23 Eos % (Auto) 1.0 % (0.0-4.3) 09/29/16 04:23 Baso % (Auto) 0.5 % (0.0-1.8) 09/29/16 04:23 Lymph # 1.6 K/mm3 (1.2-5.4) 09/29/16 04:23 [place] # 0.9 K/mm3 (0.0-0.8) H 09/29/16 04:23 Eos # 0.1 K/mm3 (0.0-0.4) 09/29/16 04:23 Baso # 0.1 K/mm3 (0.0-0.1) 09/29/16 04:23 Seg Neutrophils % 79.5 % (40.0-70.0) H 09/29/16 04:23 Seg Neutrophils # 10.3 K/mm3 (1.8-7.7) H 09/29/16 04:23 D-Dimer < 135.00 ng/mlDDU (0-234) 09/27/16 17:59 Sodium 145 mmol/L (137-145) 09/28/16 14:45 Potassium 4.1 mmol/L (3.6-5.0) 09/28/16 14:45 Chloride 102.7 mmol/L (98-107) 09/28/16 14:45 Carbon Dioxide 33 mmol/L (22-30) H 09/28/16 14:45 Anion Gap 13 mmol/L 09/28/16 14:45 BUN 32 mg/dL (7-17) H 09/28/16 14:45 Creatinine 0.6 mg/dL (0.7-1.2) L 09/28/16 14:45 Estimated GFR > 60 ml/min 09/28/16 14:45 BUN/Creatinine Ratio 53.33 % 09/28/16 14:45 Glucose 122 mg/dL (65-100) H 09/28/16 14:45 POC Glucose 125 (70-105) H 10/02/16 11:42 Calcium 7.8 mg/dL (8.4-10.2) L 09/28/16 14:45 Troponin T 0.031 ng/mL (0.00-0.029) H D 09/28/16 14:45 NT-Pro-B Natriuret Pep 371.3 pg/mL (0-900) 09/27/16 17:59 Triglycerides 189 mg/dL (2-149) H 09/28/16 14:45 Cholesterol 124 mg/dL (50-199) 09/28/16 14:45 LDL Cholesterol Direct 58 mg/dL (50-130) 09/28/16 14:45 HDL Cholesterol 29 mg/dL (40-59) L 09/28/16 14:45 Cholesterol/HDL Ratio 4.27 % 09/28/16 14:45 Blood Type A POSITIVE 10/01/16 13:20 Antibody Screen TNR 10/01/16 13:20 PRINCESS Antibody Screen Negative 10/01/16 13:20 Crossmatch See Detail 10/01/16 13:20
[2016-10-02] MEDS ORDERED: NACL 0.9% 500 ML 500 ML IV ONE (18:00)
[2016-10-02] MEDS: ULTRAM PO PRN (21:32)
--- NOTE | 2016-10-02 22:18 | Progress Note ---
Assessment and Plan Symptomatic Anemia s/p blood transfusion CHF -diastolic EF 50-55% on echo 06/2016 Aortic Stenosis previously considered not a candidate for open valve surgery due to multiple co-morbidities including her morbid obesity. Sleep Apnea COPD Morbid obesity Chronic lymphadema Conservative cardiac management. Patient with significant obesity not a candidate for AVR wither surgical or percutaneous. No further cardiac recommendations at this time. Thank you for the consult. Please re-consult as needed. Will follow up in the outpatient setting Subjective Interval history: No acute events. Resting comfortably. No chest pain or SOB. Objective Vital Signs Temp Pulse Pulse Pulse Resp Resp BP 10/02/16 21:55 18 10/02/16 21:46 81 14 10/02/16 21:43 10/02/16 21:35 84 15 10/02/16 20:00 98.3 F 97 H 18 10/02/16 18:09 98.2 F 66 16 10/02/16 16:00 80 10/02/16 15:10 88 20 10/02/16 14:55 86 18 10/02/16 12:53 98.6 F 80 22 10/02/16 10:00 10/02/16 09:10 82 20 10/02/16 08:55 88 18 10/02/16 08:35 98.8 F 82 20 10/02/16 08:10 82 20 10/02/16 08:00 80 10/02/16 07:55 96 H 18 10/02/16 05:20 98.1 F 80 20 135/80 10/02/16 04:35 98.1 F 81 20 118/61 10/02/16 04:32 98.3 F 77 20 124/57 10/02/16 04:02 98.3 F 85 20 97/52 10/02/16 02:32 98.6 F 86 20 93/62 10/02/16 02:02 98.5 F 86 22 94/62 10/02/16 01:47 99 F 99 H 20 124/58 10/02/16 01:46 99 F 99 H 20 124/58 10/02/16 01:16 99 F 99 H 20 124/58 10/02/16 01:01 98.8 F 85 20 107/61 10/02/16 00:00 83 10/01/16 23:55 99.0 F 89 18 121/59 10/01/16 23:01 98.9 F 94 H 18 129/62 10/01/16 23:00 25 H 10/01/16 22:51 99.0 F 86 22 10/01/16 22:31 99.1 F 95 H 18 123/59 BP Pulse Ox 10/02/16 21:55 97 10/02/16 21:46 10/02/16 21:43 96 10/02/16 21:35 10/02/16 20:00 134/76 98 10/02/16 18:09 143/68 97 10/02/16 16:00 10/02/16 15:10 10/02/16 14:55 10/02/16 12:53 146/62 10/02/16 10:00 95 10/02/16 09:10 10/02/16 08:55 10/02/16 08:35 155/83 10/02/16 08:10 10/02/16 08:00 10/02/16 07:55 10/02/16 05:20 97 10/02/16 04:35 97 10/02/16 04:32 97 10/02/16 04:02 98 10/02/16 02:32 10/02/16 02:02 10/02/16 01:47 96 10/02/16 01:46 10/02/16 01:16 96 10/02/16 01:01 96 10/02/16 00:00 10/01/16 23:55 96 10/01/16 23:01 96 10/01/16 23:00 100 10/01/16 22:51 123/57 99 10/01/16 22:31 98 - Physical Examination General: No Apparent Distress, Other (Obese) HEENT: Positive: PERRL Neck: Positive: neck supple Abdomen: Positive: Unremarkable, Soft Extremities: Present: normal - Labs and Meds CBC 10/02/16 Range/Units 08:32 Hgb 7.8 L (10.1-14.3) gm/dl Hct 25.3 L (30.3-42.9) % - Imaging and Cardiology EKG: report reviewed (Sinus Tach)
[2016-10-03] MEDS ORDERED: NACL 0.9% 250ML 250 ML ONE (02:19)
[2016-10-03] MEDS: DUONEB *Not for PRN Use IH SCH ×4 (03:40→21:05)
[2016-10-03] MEDS: NOVOLOG SUB-Q SCH ×4 (08:31→22:44)
[2016-10-03] MEDS: PULMICORT IH SCH ×2 (09:30→21:05)
[2016-10-03 09:52] LABS: Hematocrit 29.7 % (30.3-42.9); Hemoglobin 9.1 gm/dl (10.1-14.3)
--- NOTE | 2016-10-03 10:07 | Progress Note ---
Assessment and Plan Assessment and plan: 1 Symptomatic anemia Patient has chronic blood loss from GI tract?? The patient has extensive W/U for GI bleed include , GI camera pills. Patient started on Ferrous sulfate 325mg PO BID. Hemoglobin now 9.1 after total 9 Units PRBCs transfused. Will follow with Dr. cole as outpatient. 2 Chest pain Conservative management as per cardiology. Cardiology following 3 Acute and chronic respiratory failure ([id number]) Patient oxygen dependent at home Patient on the 3LNC with SPO2 >92% at present time no acute respiratory distress noted Frequent respiratory assessment 4 Acute exacerbation of CHF (congestive heart failure) Patient has Echocardiogram 2 months ago with EF 55-60% Lasix 40 mg IV BID Strict I and O's, daily weight and low sodium cardiac diet ordered Closely monitor electrolytes Cardiology evaluation 6 Type 2 diabetes mellitus We we will continue oral hypoglycemics Sliding-scale insulin NovoLog Accu-Chek before meals and at bedtime 6 Morbid obesity with BMI of 70 and over, adult Discussed with the patient the importance of losing weight, low-fat diet and physical exercise. 7 COPD (chronic obstructive pulmonary disease) Patient on Duoneb Q6hrs 8 GERD (gastroesophageal reflux disease) Patient on Protonix IV 9 DVT prophylaxis SCD only because of anemia, GI blood loss She is full code Hopefully d/c home in 1-2 days History Interval history: less chest pain, Less Shortness of breath, Received more blood yesterday Hospitalist Physical - Physical exam Narrative exam: Gen Appearance: Not in acute distress, Morbidly obese HEENT: normocephalic, atraumatic Neck: supple, no JVD Lungs: clear to auscultation bilaterally, no crackles or wheezes Heart: S1 and S2 regular, no murmurs or gallop Abdomen: Soft, non-tender, non-distended, normal bowel sounds Extremity: Bilateral lower ext edema, no cyanosis Neuro : Awake alert oriented 3, no focal neurological signs Psych :calm - Constitutional Vitals: Temp Pulse Resp BP Pulse Ox 98.6 F 78 18 102/53 98 10/03/16 07:45 10/03/16 09:25 10/03/16 09:25 10/03/16 07:45 10/03/16 09:36 General appearance: Present: no acute distress, obese Results - Labs CBC & Chem 7: 10/03/16 09:36 09/28/16 14:45 Labs: Laboratory Last Values WBC 12.9 K/mm3 (4.5-11.0) H 09/29/16 04:23 RBC 2.13 M/mm3 (3.65-5.03) L 09/29/16 04:23 Hgb 9.1 gm/dl (10.1-14.3) L 10/03/16 09:36 Hct 29.7 % (30.3-42.9) L 10/03/16 09:36 MCV 93 fl (79-97) 09/29/16 04:23 MCH 27 pg (28-32) L 09/29/16 04:23 MCHC 30 % (30-34) 09/29/16 04:23 RDW 17.9 % (13.2-15.2) H 09/29/16 04:23 Plt Count 185 K/mm3 (140-440) 09/29/16 04:23 Lymph % (Auto) 12.3 % (13.4-35.0) L 09/29/16 04:23 [place] % (Auto) 6.7 % (0.0-7.3) 09/29/16 04:23 Eos % (Auto) 1.0 % (0.0-4.3) 09/29/16 04:23 Baso % (Auto) 0.5 % (0.0-1.8) 09/29/16 04:23 Lymph # 1.6 K/mm3 (1.2-5.4) 09/29/16 04:23 [place] # 0.9 K/mm3 (0.0-0.8) H 09/29/16 04:23 Eos # 0.1 K/mm3 (0.0-0.4) 09/29/16 04:23 Baso # 0.1 K/mm3 (0.0-0.1) 09/29/16 04:23 Seg Neutrophils % 79.5 % (40.0-70.0) H 09/29/16 04:23 Seg Neutrophils # 10.3 K/mm3 (1.8-7.7) H 09/29/16 04:23 D-Dimer < 135.00 ng/mlDDU (0-234) 09/27/16 17:59 Sodium 145 mmol/L (137-145) 09/28/16 14:45 Potassium 4.1 mmol/L (3.6-5.0) 09/28/16 14:45 Chloride 102.7 mmol/L (98-107) 09/28/16 14:45 Carbon Dioxide 33 mmol/L (22-30) H 09/28/16 14:45 Anion Gap 13 mmol/L 09/28/16 14:45 BUN 32 mg/dL (7-17) H 09/28/16 14:45 Creatinine 0.6 mg/dL (0.7-1.2) L 09/28/16 14:45 Estimated GFR > 60 ml/min 09/28/16 14:45 BUN/Creatinine Ratio 53.33 % 09/28/16 14:45 Glucose 122 mg/dL (65-100) H 09/28/16 14:45 POC Glucose 118 (70-105) H 10/03/16 07:24 Calcium 7.8 mg/dL (8.4-10.2) L 09/28/16 14:45 Troponin T 0.031 ng/mL (0.00-0.029) H D 09/28/16 14:45 NT-Pro-B Natriuret Pep 371.3 pg/mL (0-900) 09/27/16 17:59 Triglycerides 189 mg/dL (2-149) H 09/28/16 14:45 Cholesterol 124 mg/dL (50-199) 09/28/16 14:45 LDL Cholesterol Direct 58 mg/dL (50-130) 09/28/16 14:45 HDL Cholesterol 29 mg/dL (40-59) L 09/28/16 14:45 Cholesterol/HDL Ratio 4.27 % 09/28/16 14:45 Blood Type A POSITIVE 10/01/16 13:20 Antibody Screen TNR 10/01/16 13:20 PRINCESS Antibody Screen Negative 10/01/16 13:20 Crossmatch See Detail 10/01/16 13:20
[2016-10-03] MEDS: PROTONIX PO SCH (11:00)
[2016-10-03] MEDS: GLUCOTROL PO SCH (11:00)
[2016-10-03] MEDS: FEOSOL PO SCH ×2 (11:00→21:13)
[2016-10-04] MEDS: DUONEB *Not for PRN Use IH SCH ×4 (02:12→19:57)
[2016-10-04] MEDS: PULMICORT IH SCH ×2 (08:15→19:57)
[2016-10-04] MEDS: PROTONIX PO SCH (10:19)
[2016-10-04] MEDS: FEOSOL PO SCH ×2 (10:19→21:29)
[2016-10-04] MEDS: NOVOLOG SUB-Q SCH ×4 (10:33→21:30)
[2016-10-04] MEDS: GLUCOTROL PO SCH (10:34)
--- NOTE | 2016-10-04 10:50 | Progress Note ---
Assessment and Plan Assessment and plan: 1 Symptomatic anemia Patient has chronic blood loss from GI tract?? The patient has extensive W/U for GI bleed include , GI camera pills. Patient started on Ferrous sulfate 325mg PO BID. Hemoglobin now 9.1 after total 9 Units PRBCs transfused. Will follow with Dr. cole as outpatient. 2 Chest pain Conservative management as per cardiology. Cardiology following 3 Acute and chronic respiratory failure ([id number]) Patient oxygen dependent at home Patient on the 3LNC with SPO2 > 99%. Still has sh Frequent respiratory assessment. Will consult Pulm 4 Acute exacerbation of CHF (congestive heart failure) Patient has Echocardiogram 2 months ago with EF 55-60% Lasix 40 mg IV BID Strict I and O's, daily weight and low sodium cardiac diet ordered Closely monitor electrolytes Cardiology evaluation 6 Type 2 diabetes mellitus We we will continue oral hypoglycemics Sliding-scale insulin NovoLog Accu-Chek before meals and at bedtime 6 Morbid obesity with BMI of 70 and over, adult Discussed with the patient the importance of losing weight, low-fat diet and physical exercise. 7 COPD (chronic obstructive pulmonary disease) exacerbation. Started solumedrol. Consult Pulm.Patient on Duoneb Q6hrs. Add prn 8 GERD (gastroesophageal reflux disease) Patient on Protonix IV 9 DVT prophylaxis SCD only because of anemia, GI blood loss She is full code Patient still needs inpatient management. History Interval history: less chest pain, Still has shortness of breath, Hospitalist Physical - Physical exam Narrative exam: Gen Appearance: Not in acute distress, Morbidly obese HEENT: normocephalic, atraumatic Neck: supple, no JVD Lungs: Decreased breath sounds, no crackles or wheezes Heart: S1 and S2 regular, no murmurs or gallop Abdomen: Soft, non-tender, non-distended, normal bowel sounds Extremity: Bilateral lower ext edema, no cyanosis Neuro : Awake alert oriented 3, no focal neurological signs Psych :calm - Constitutional Vitals: Temp Pulse Resp BP Pulse Ox 99.0 F 88 18 142/67 99 10/04/16 05:35 10/04/16 08:20 10/04/16 08:20 10/04/16 05:35 10/04/16 08:15 General appearance: Present: no acute distress, obese Results - Labs CBC & Chem 7: 10/03/16 09:36 09/28/16 14:45 Labs: Laboratory Last Values WBC 12.9 K/mm3 (4.5-11.0) H 09/29/16 04:23 RBC 2.13 M/mm3 (3.65-5.03) L 09/29/16 04:23 Hgb 9.1 gm/dl (10.1-14.3) L 10/03/16 09:36 Hct 29.7 % (30.3-42.9) L 10/03/16 09:36 MCV 93 fl (79-97) 09/29/16 04:23 MCH 27 pg (28-32) L 09/29/16 04:23 MCHC 30 % (30-34) 09/29/16 04:23 RDW 17.9 % (13.2-15.2) H 09/29/16 04:23 Plt Count 185 K/mm3 (140-440) 09/29/16 04:23 Lymph % (Auto) 12.3 % (13.4-35.0) L 09/29/16 04:23 [place] % (Auto) 6.7 % (0.0-7.3) 09/29/16 04:23 Eos % (Auto) 1.0 % (0.0-4.3) 09/29/16 04:23 Baso % (Auto) 0.5 % (0.0-1.8) 09/29/16 04:23 Lymph # 1.6 K/mm3 (1.2-5.4) 09/29/16 04:23 [place] # 0.9 K/mm3 (0.0-0.8) H 09/29/16 04:23 Eos # 0.1 K/mm3 (0.0-0.4) 09/29/16 04:23 Baso # 0.1 K/mm3 (0.0-0.1) 09/29/16 04:23 Seg Neutrophils % 79.5 % (40.0-70.0) H 09/29/16 04:23 Seg Neutrophils # 10.3 K/mm3 (1.8-7.7) H 09/29/16 04:23 D-Dimer < 135.00 ng/mlDDU (0-234) 09/27/16 17:59 Sodium 145 mmol/L (137-145) 09/28/16 14:45 Potassium 4.1 mmol/L (3.6-5.0) 09/28/16 14:45 Chloride 102.7 mmol/L (98-107) 09/28/16 14:45 Carbon Dioxide 33 mmol/L (22-30) H 09/28/16 14:45 Anion Gap 13 mmol/L 09/28/16 14:45 BUN 32 mg/dL (7-17) H 09/28/16 14:45 Creatinine 0.6 mg/dL (0.7-1.2) L 09/28/16 14:45 Estimated GFR > 60 ml/min 09/28/16 14:45 BUN/Creatinine Ratio 53.33 % 09/28/16 14:45 Glucose 122 mg/dL (65-100) H 09/28/16 14:45 POC Glucose 313 (70-105) H 10/04/16 09:41 Calcium 7.8 mg/dL (8.4-10.2) L 09/28/16 14:45 Troponin T 0.031 ng/mL (0.00-0.029) H D 09/28/16 14:45 NT-Pro-B Natriuret Pep 371.3 pg/mL (0-900) 09/27/16 17:59 Triglycerides 189 mg/dL (2-149) H 09/28/16 14:45 Cholesterol 124 mg/dL (50-199) 09/28/16 14:45 LDL Cholesterol Direct 58 mg/dL (50-130) 09/28/16 14:45 HDL Cholesterol 29 mg/dL (40-59) L 09/28/16 14:45 Cholesterol/HDL Ratio 4.27 % 09/28/16 14:45 Blood Type A POSITIVE 10/01/16 13:20 Antibody Screen TNR 10/01/16 13:20 PRINCESS Antibody Screen Negative 10/01/16 13:20 Crossmatch See Detail 10/01/16 13:20
--- NOTE | 2016-10-04 12:27 | Event Note ---
Date: 10/04/[address] Bailey and Dr. Sotomayor during last admission. Consider consulting them. If patient looking for second opinion can follow. Please let us know if you still need us to see the patient.
--- NOTE | 2016-10-04 15:04 | Consultation ---
History of Present Illness Consult date: 10/04/16 Reason for consult: chest pain, COPD, obstructive sleep apnea History of present illness: Dr. Dia thank you for asking us to participate in the care of this patient. This is 66 year old female morbidly Obese admitted with shorntness of breath,pleuritic chest pain and non productive cough.Patient found to be very anemic Patient given blood transfusion.Patients hemoglobin came upto 9. Still complaining shortness of breath. Patient has history of COPD,CHF,Sleep apnea, Anemia,diabetes, Hypertension,GERD and GI Bleed. Patient has history of smoking 1 pack a day for 20 Years. Stopped smoking 30 years ago.Denies alcohol or drug abuse. 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 Denies allergies to the medications. Patient is on Home O2 and on CPAP at home. Patients chest xray reported cardiomegaly. ABGs: PH 7.42, PCO2 68, PO2 62, HCO3 44, O2 saturation 90% on 3 litres O2. Past History Past Medical History: COPD, diabetes, hypertension, other (Aortic stenosis - severe, sleep apnea,GERD) Social history: denies: smoking, alcohol abuse Family history: no significant family history Medications and Allergies Allergies Allergy/AdvReac Type Severity Reaction Status Date / Time No Known Allergies Allergy Verified 05/12/15 07:51 Home Medications Medication Instructions Recorded Confirmed Last Taken Type Budesonide [Pulmicort Respules] 0.5 mg IH Q12HRT #1 nebu 07/08/16 09/28/16 1 Day Ago Rx Ferrous Sulfate [Feosol 325 MG tab] 325 mg PO BID #60 tablet 07/08/16 09/28/16 1 Day Ago Rx Furosemide [Lasix TAB] 40 mg PO DAILY #30 tablet 07/08/16 09/28/16 1 Day Ago Rx Ipratropium/Albuterol Sulfate 1 ampul IH TIDRT 30 Days 07/08/16 09/28/16 1 Day Ago Rx [Duoneb 0.5 mg-3 mg/3 ml Soln] Pantoprazole [Protonix TAB] 40 mg PO QDAY #30 tablet 07/08/16 09/28/16 1 Day Ago Rx Prednisone [predniSONE 10 mg 10 mg PO .TAPER #1 tab.ds.pk 07/08/16 09/28/16 1 Day Ago Rx (6-Day Pack, 21 Tabs)] glipiZIDE [Glucotrol] 5 mg PO QDDIAB #60 tablet 07/08/16 09/28/16 2 Days Ago Rx Active Meds: Active Medications Albuterol (Proventil) 2.5 mg IH Q4HRT PRN PRN Reason: Shortness Of Breath Albuterol/Ipratropium (Duoneb 0.5 Mg-3 Mg/3 Ml Soln) 1 ampul IH Q6HRT [facility] Last Admin: 10/04/16 14:32 Dose: 1 ampul Budesonide (Pulmicort) 0.5 mg IH Q12HRT [facility] Last Admin: 10/04/16 08:15 Dose: Not Given Dextrose (D50w (25gm)) 50 ml IV PRN PRN PRN Reason: Hypoglycemia Ferrous Sulfate (Feosol) 325 mg PO BID [facility] Last Admin: 10/04/16 10:19 Dose: 325 mg Glipizide (Glucotrol) 5 mg PO QAMDIAB [facility] Last Admin: 10/04/16 10:34 Dose: 5 mg Insulin Aspart (Novolog) 0 units SUB-Q AC [facility] PRN Reason: Protocol Last Admin: 10/04/16 12:44 Dose: Not Given Insulin Aspart (Novolog) 0 units SUB-Q QHS [facility] PRN Reason: Protocol Last Admin: 10/03/16 22:44 Dose: Not Given Methylprednisolone Sodium Succinate (Solu-Medrol) 80 mg IV Q8HR [facility] Morphine Sulfate (Morphine) 1 mg IV Q4H PRN PRN Reason: Pain, Moderate (4-6) Last Admin: 10/02/16 14:34 Dose: 1 mg Pantoprazole Sodium (Protonix) 40 mg PO QDAY [facility] Last Admin: 10/04/16 10:19 Dose: 40 mg Tramadol HCl (Ultram) 50 mg PO Q4HR PRN PRN Reason: Pain Last Admin: 10/02/16 21:32 Dose: 50 mg Review of Systems All systems: negative Constitutional: weight gain, fatigue Ears, nose, mouth and throat: nasal congestion Respiratory: cough, shortness of breath, wheezing, sleep apnea Physical Examination Vital signs: Vital Signs Pulse Ox 95 09/27/16 17:18 General appearance: no acute distress, alert Eyes: non-icteric ENT: oropharynx moist Neck: supple, no JVD Ascultation: Bilateral: diminished breath sounds (Prolonged expiratory phase.), wheezes Cardiovascular: regular rate and rhythm Gastrointestinal: normoactive bowel sounds, soft, non-tender Integumentary: normal Extremities: edema Gait: poor gait normal mental status, non-focal exam, pupils equal and round, CN II-XII normal mood appropriate Results - Laboratory Findings CBC and BMP: 10/03/16 09:36 09/28/16 14:45 PT/INR, D-dimer D-Dimer < 135.00 ng/mlDDU (0-234) 09/27/16 17:59 Abnormal lab findings: Abnormal Labs 09/28/16 09/28/16 09/28/16 14:45 14:45 14:45 WBC 11.2 H RBC 1.84 L Hgb 5.0 L* Hct 16.7 L* MCH 27 L RDW 17.0 H Lymph % (Auto) 11.0 L [place] # Seg Neutrophils % 82.2 H Seg Neutrophils # 9.2 H Carbon Dioxide 33 H BUN 32 H Creatinine 0.6 L Glucose 122 H POC Glucose Calcium 7.8 L Troponin T 0.031 H D Triglycerides 189 H HDL Cholesterol 29 L Crossmatch 09/28/16 09/29/16 09/29/16 21:32 04:23 17:14 WBC 12.9 H RBC 2.13 L Hgb 5.8 L* Hct 19.7 L* MCH 27 L RDW 17.9 H Lymph % (Auto) 12.3 L [place] # 0.9 H Seg Neutrophils % 79.5 H Seg Neutrophils # 10.3 H Carbon Dioxide BUN Creatinine Glucose POC Glucose 171 H 168 H Calcium Troponin T Triglycerides HDL Cholesterol Crossmatch 09/29/16 09/30/16 09/30/16 20:49 07:19 07:38 WBC RBC Hgb 6.3 L Hct 20.7 L MCH RDW Lymph % (Auto) [place] # Seg Neutrophils % Seg Neutrophils # Carbon Dioxide BUN Creatinine Glucose POC Glucose 171 H 143 H Calcium Troponin T Triglycerides HDL Cholesterol Crossmatch 09/30/16 09/30/16 09/30/16 11:00 15:42 21:23 WBC RBC Hgb Hct MCH RDW Lymph % (Auto) [place] # Seg Neutrophils % Seg Neutrophils # Carbon Dioxide BUN Creatinine Glucose POC Glucose 195 H 128 H 117 H Calcium Troponin T Triglycerides HDL Cholesterol Crossmatch 10/01/16 10/01/16 10/01/16 05:27 07:16 11:45 WBC RBC Hgb 6.2 L Hct 20.3 L MCH RDW Lymph % (Auto) [place] # Seg Neutrophils % Seg Neutrophils # Carbon Dioxide BUN Creatinine Glucose POC Glucose 147 H 150 H Calcium Troponin T Triglycerides HDL Cholesterol Crossmatch 10/01/16 10/01/16 10/01/16 13:20 15:58 22:36 WBC RBC Hgb Hct MCH RDW Lymph % (Auto) [place] # Seg Neutrophils % Seg Neutrophils # Carbon Dioxide BUN Creatinine Glucose POC Glucose 164 H 124 H Calcium Troponin T Triglycerides HDL Cholesterol Crossmatch See Detail 10/02/16 10/02/16 10/02/16 07:13 08:32 11:42 WBC RBC Hgb 7.8 L Hct 25.3 L MCH RDW Lymph % (Auto) [place] # Seg Neutrophils % Seg Neutrophils # Carbon Dioxide BUN Creatinine Glucose POC Glucose 130 H 125 H Calcium Troponin T Triglycerides HDL Cholesterol Crossmatch 10/02/16 10/02/16 10/03/16 15:49 21:10 07:24 WBC RBC Hgb Hct MCH RDW Lymph % (Auto) [place] # Seg Neutrophils % Seg Neutrophils # Carbon Dioxide BUN Creatinine Glucose POC Glucose 109 H 163 H 118 H Calcium Troponin T Triglycerides HDL Cholesterol Crossmatch 10/03/16 10/03/16 10/03/16 09:36 11:21 15:36 WBC RBC Hgb 9.1 L Hct 29.7 L MCH RDW Lymph % (Auto) [place] # Seg Neutrophils % Seg Neutrophils # Carbon Dioxide BUN Creatinine Glucose POC Glucose 210 H 118 H Calcium Troponin T Triglycerides HDL Cholesterol Crossmatch 10/03/16 10/04/16 10/04/16 21:28 09:41 11:44 WBC RBC Hgb Hct MCH RDW Lymph % (Auto) [place] # Seg Neutrophils % Seg Neutrophils # Carbon Dioxide BUN Creatinine Glucose POC Glucose 112 H 313 H 108 H Calcium Troponin T Triglycerides HDL Cholesterol Crossmatch - Diagnostic Findings Chest x-ray: report reviewed (Cardiomegaly.), image reviewed Assessment and Plan Dr. Dia thank you for asking us to participate in the care of this patient. This is 66 year old female morbidly Obese admitted with shorntness of breath,pleuritic chest pain and non productive cough.Patient found to be very anemic Patient given blood transfusion.Patients hemoglobin came upto 9. Still complaining shortness of breath. Patient has history of COPD,CHF,Sleep apnea, Anemia,diabetes, Hypertension,GERD and GI bleed. Patient has history of smoking 1 pack a day for 20 Years. Stopped smoking 30 years ago.Denies alcohol or drug abuse. 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 Denies allergies to the medications. Patient is on Home O2 and on CPAP at home. Patients chest xray reported cardiomegaly. ABGs: PH 7.42, PCO2 68, PO2 62, HCO3 44, O2 saturation 90% on 3 litres O2. - Patient Problems (1) COPD (chronic obstructive pulmonary disease) Current Visit: Yes Status: Acute Qualifiers: COPD type: C Chronic bronchitis type: C Emphysema type: E Qualified Code(s): J41.1 - Mucopurulent chronic bronchitis Plan to address problem: 1. O2 3 litres via nasal canula. 2. BIPAP during night time. 18/8, rate 20, FIO2 32%. 3. Albuterol/Atrovent aerosol treatments q 6 hours. 4. Continue I/V solumedral 5. Continue Protonix. 6. SCDs (2) Morbid obesity with BMI of 70 and over, adult Current Visit: Yes Status: Chronic Plan to address problem: Consult medical affairs specialist for weight reduction diet. (3) DOMENIC (obstructive sleep apnea) Current Visit: No Status: Chronic Plan to address problem: BIPAP 18/8, rate 20, FIO2 32%. (4) Obesity hypoventilation syndrome Current Visit: No Status: Chronic Plan to address problem: Continue BIPAP 18/8, rate 20, FIO2 32%. (5) GERD (gastroesophageal reflux disease) Current Visit: Yes Status: Chronic Qualifiers: Esophagitis presence: with esophagitis Qualified Code(s): K21.0 - Gastro- esophageal reflux disease with esophagitis Plan to address problem: Continue Protonix. (6) T2DM (type 2 diabetes mellitus) Current Visit: Yes Status: Chronic Qualifiers: Diabetes mellitus complication status: with hyperglycemia Diabetes mellitus complication detail: D Diabetic retinopathy severity: D Proliferative retinopathy type: P Diabetes mellitus macular edema: D Diabetes mellitus senior care insulin use: without senior care use Laterality: L Chronic kidney disease stage: C Qualified Code(s): E11.65 - Type 2 diabetes mellitus with hyperglycemia Plan to address problem: Management as per primary care. (7) Upper GI bleed Current Visit: No Status: Acute Plan to address problem: Mangement as per GI and primary care. (8) HTN (hypertension) Current Visit: No Status: Chronic Qualifiers: Hypertension type: essential hypertension Qualified Code(s): I10 - Essential (primary) hypertension Plan to address problem: Management as per primary care. (9) Acute and chronic respiratory failure ([id number]) Current Visit: No Status: Acute Qualifiers: Respiratory failure complication: hypoxia Qualified Code(s): J96.21 - Acute and chronic respiratory failure with hypoxia Plan to address problem: 1. O2 3 litres via nasal canula. 2. BIPAP during night time. 18/8, rate 20, FIO2 32%. 3. Albuterol/Atrovent aerosol treatments q 6 hours. 4. Continue I/V solumedral 5. Continue Protonix. 6. SCDs
[2016-10-05] MEDS: DUONEB *Not for PRN Use IH SCH ×4 (01:43→20:20)
[2016-10-05] MEDS: PULMICORT IH SCH ×2 (08:24→20:20)
[2016-10-05] MEDS: GLUCOTROL PO SCH (08:27)
[2016-10-05] MEDS: NOVOLOG SUB-Q SCH ×4 (08:27→22:01)
[2016-10-05] MEDS: PROTONIX PO SCH (10:25)
[2016-10-05] MEDS: FEOSOL PO SCH ×2 (10:25→22:01)
--- NOTE | 2016-10-05 11:42 | Progress Note ---
Assessment and Plan - Patient Problems (1) Chest pain Current Visit: Yes Status: Acute Qualifiers: Chest pain type: unspecified Ischemic chest pain type: I Qualified Code(s ): R07.9 - Chest pain, unspecified Plan to address problem: Patient has atypical chest pain, well-preserved left ventricular systolic function, moderate aortic stenosis. She is on conservative cardiac management. Subjective Date of service: 10/05/16 Interval history: The patient is comfortable, no acute distress. No chest pain, no shortness of breath and no cardiac complaints. Objective Vital Signs Temp Pulse Pulse Pulse Pulse Resp Resp 10/05/16 08:44 94 H 10/05/16 08:35 98.6 F 78 18 10/05/16 08:26 10/05/16 08:24 81 10/05/16 08:14 16 10/05/16 08:08 10/05/16 05:19 98.0 F 72 20 10/05/16 01:58 75 29 H 10/05/16 01:57 85 10/05/16 01:44 79 10/05/16 00:45 99.0 F 74 20 10/05/16 00:22 72 23 10/04/16 22:00 10/04/16 21:00 102 H 10/04/16 20:57 99.2 F 86 20 10/04/16 20:37 22 10/04/16 20:01 10/04/16 19:58 83 10/04/16 16:34 98.6 F 78 18 10/04/16 14:41 80 10/04/16 14:33 80 80 20 10/04/16 12:45 98.2 F 76 16 Resp Resp BP Pulse Ox 10/05/16 08:44 18 10/05/16 08:35 140/84 91 10/05/16 08:26 92 10/05/16 08:24 18 10/05/16 08:14 10/05/16 08:08 16 10/05/16 05:19 143/65 97 10/05/16 01:58 99 10/05/16 01:57 27 H 10/05/16 01:44 30 H 10/05/16 00:45 126/60 95 10/05/16 00:22 99 10/04/16 22:00 97 10/04/16 21:00 10/04/16 20:57 124/61 95 07/09/17 20:37 98 10/04/16 20:01 96 10/04/16 19:58 18 10/04/16 16:34 118/58 97 10/04/16 14:41 20 10/04/16 14:33 20 10/04/16 12:45 130/62 92 - Physical Examination General: No Apparent Distress, Other (Obese) HEENT: Positive: PERRL Neck: Positive: neck supple Cardiac: Positive: Reg Rate and Rhythm Lungs: Positive: Decreased Breath Sounds Neuro: Positive: Grossly Intact Abdomen: Positive: Unremarkable, Soft Skin: Positive: Clear Extremities: Absent: edema - Imaging and Cardiology EKG: report reviewed (Sinus Tach)
--- NOTE | 2016-10-05 16:06 | Progress Note ---
Assessment and Plan Assessment and plan: 1 Symptomatic anemia Patient has chronic blood loss from GI tract?? The patient has extensive W/U for GI bleed include , GI camera pills. Patient started on Ferrous sulfate 325mg PO BID. Hemoglobin now 9.1 after total 9 Units PRBCs transfused. Will follow with Dr. cole as outpatient. 2 Chest pain Conservative management as per cardiology. Cardiology following 3 Acute and chronic respiratory failure ([id number]) Patient oxygen dependent at home Patient on 4l/min NC with chest saturation 92% today. Frequent respiratory assessment. Will consult Pulm 4 Acute exacerbation of CHF (congestive heart failure) Patient has Echocardiogram 2 months ago with EF 55-60 Strict I and O's, daily weight Closely monitor electrolytes Cardiology following. Conservative management. 6 Type 2 diabetes mellitus We we will continue oral hypoglycemics Sliding-scale insulin NovoLog Accu-Chek before meals and at bedtime 6 Morbid obesity with BMI of 70 and over, adult Discussed with the patient the importance of losing weight, low-fat diet and physical exercise. 7 COPD (chronic obstructive pulmonary disease) exacerbation. Continue solumedrol. Pulmonology following. Claudia 8 GERD (gastroesophageal reflux disease) Patient on Protonix IV 9 DVT prophylaxis SCDs only because of GI blood loss She is full code Patient still needs inpatient management. Still very short of breath.PT to re- evaluate today. History Interval history: less chest pain, Still has shortness of breath, no fever Hospitalist Physical - Physical exam Narrative exam: Gen Appearance: Not in acute distress, Morbidly obese HEENT: normocephalic, atraumatic Neck: supple, no JVD Lungs: Decreased breath sounds, no crackles or wheezes Heart: S1 and S2 regular, no murmurs or gallop Abdomen: Soft, non-tender, non-distended, normal bowel sounds Extremity: Bilateral lower ext edema, no cyanosis Neuro : Awake alert oriented 3, no focal neurological signs Psych :calm - Constitutional Vitals: Temp Pulse Resp BP Pulse Ox 98.8 F 72 18 135/65 97 10/05/16 12:27 10/05/16 14:50 10/05/16 14:50 10/05/16 12:27 10/05/16 12:27 General appearance: Present: no acute distress, obese Results - Labs CBC & Chem 7: 10/03/16 09:36 09/28/16 14:45 Labs: Laboratory Last Values WBC 12.9 K/mm3 (4.5-11.0) H 09/29/16 04:23 RBC 2.13 M/mm3 (3.65-5.03) L 09/29/16 04:23 Hgb 9.1 gm/dl (10.1-14.3) L 10/03/16 09:36 Hct 29.7 % (30.3-42.9) L 10/03/16 09:36 MCV 93 fl (79-97) 09/29/16 04:23 MCH 27 pg (28-32) L 09/29/16 04:23 MCHC 30 % (30-34) 09/29/16 04:23 RDW 17.9 % (13.2-15.2) H 09/29/16 04:23 Plt Count 185 K/mm3 (140-440) 09/29/16 04:23 Lymph % (Auto) 12.3 % (13.4-35.0) L 09/29/16 04:23 [place] % (Auto) 6.7 % (0.0-7.3) 09/29/16 04:23 Eos % (Auto) 1.0 % (0.0-4.3) 09/29/16 04:23 Baso % (Auto) 0.5 % (0.0-1.8) 09/29/16 04:23 Lymph # 1.6 K/mm3 (1.2-5.4) 09/29/16 04:23 [place] # 0.9 K/mm3 (0.0-0.8) H 09/29/16 04:23 Eos # 0.1 K/mm3 (0.0-0.4) 09/29/16 04:23 Baso # 0.1 K/mm3 (0.0-0.1) 09/29/16 04:23 Seg Neutrophils % 79.5 % (40.0-70.0) H 09/29/16 04:23 Seg Neutrophils # 10.3 K/mm3 (1.8-7.7) H 09/29/16 04:23 D-Dimer < 135.00 ng/mlDDU (0-234) 09/27/16 17:59 Sodium 145 mmol/L (137-145) 09/28/16 14:45 Potassium 4.1 mmol/L (3.6-5.0) 09/28/16 14:45 Chloride 102.7 mmol/L (98-107) 09/28/16 14:45 Carbon Dioxide 33 mmol/L (22-30) H 09/28/16 14:45 Anion Gap 13 mmol/L 09/28/16 14:45 BUN 32 mg/dL (7-17) H 09/28/16 14:45 Creatinine 0.6 mg/dL (0.7-1.2) L 09/28/16 14:45 Estimated GFR > 60 ml/min 09/28/16 14:45 BUN/Creatinine Ratio 53.33 % 09/28/16 14:45 Glucose 122 mg/dL (65-100) H 09/28/16 14:45 POC Glucose 179 (70-105) H 10/05/16 07:45 Calcium 7.8 mg/dL (8.4-10.2) L 09/28/16 14:45 Troponin T 0.031 ng/mL (0.00-0.029) H D 09/28/16 14:45 NT-Pro-B Natriuret Pep 371.3 pg/mL (0-900) 09/27/16 17:59 Triglycerides 189 mg/dL (2-149) H 09/28/16 14:45 Cholesterol 124 mg/dL (50-199) 09/28/16 14:45 LDL Cholesterol Direct 58 mg/dL (50-130) 09/28/16 14:45 HDL Cholesterol 29 mg/dL (40-59) L 09/28/16 14:45 Cholesterol/HDL Ratio 4.27 % 09/28/16 14:45 Blood Type A POSITIVE 10/01/16 13:20 Antibody Screen TNR 10/01/16 13:20 PRINCESS Antibody Screen Negative 10/01/16 13:20 Crossmatch See Detail 10/01/16 13:20
--- NOTE | 2016-10-05 18:06 | Progress Note ---
Assessment and Plan Dr. Dia thank you for asking us to participate in the care of this patient. This is 66 year old female morbidly Obese admitted with shorntness of breath,pleuritic chest pain and non productive cough.Patient found to be very anemic Patient given blood transfusion.Patients hemoglobin came upto 9. Still complaining shortness of breath. Patient has history of COPD,CHF,Sleep apnea, Anemia,diabetes, Hypertension,GERD and GI bleed. Patient has history of smoking 1 pack a day for 20 Years. Stopped smoking 30 years ago.Denies alcohol or drug abuse. 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 Denies allergies to the medications. Patient is on Home O2 and on CPAP at home. Patients chest xray reported cardiomegaly. ABGs: PH 7.42, PCO2 68, PO2 62, HCO3 44, O2 saturation 90% on 3 litres O2. 10/05/16 Patient alert, awake and resting on nasal canula.O2 saturation 99% on 2 litres O2.Patient is going to go on BIPAP during night time. - Patient Problems (1) COPD (chronic obstructive pulmonary disease) Current Visit: Yes Status: Acute Qualifiers: COPD type: C Chronic bronchitis type: C Emphysema type: E Qualified Code(s): J41.1 - Mucopurulent chronic bronchitis Plan to address problem: 1. O2 3 litres via nasal canula. 2. BIPAP during night time. 18/8, rate 20, FIO2 32%. 3. Albuterol/Atrovent aerosol treatments q 6 hours. 4. Continue I/V solumedral 5. Continue Protonix. 6. SCDs (2) Morbid obesity with BMI of 70 and over, adult Current Visit: Yes Status: Chronic Plan to address problem: Consult induction coordination engineer for weight reduction diet. (3) DOMENIC (obstructive sleep apnea) Current Visit: No Status: Chronic Plan to address problem: BIPAP 18/8, rate 20, FIO2 32%. (4) Obesity hypoventilation syndrome Current Visit: No Status: Chronic Plan to address problem: Continue BIPAP 18/8, rate 20, FIO2 32%. (5) GERD (gastroesophageal reflux disease) Current Visit: Yes Status: Chronic Qualifiers: Esophagitis presence: with esophagitis Qualified Code(s): K21.0 - Gastro- esophageal reflux disease with esophagitis Plan to address problem: Continue Protonix. (6) T2DM (type 2 diabetes mellitus) Current Visit: Yes Status: Chronic Qualifiers: Diabetes mellitus complication status: with hyperglycemia Diabetes mellitus complication detail: D Diabetic retinopathy severity: D Proliferative retinopathy type: P Diabetes mellitus macular edema: D Diabetes mellitus alf insulin use: without alf use Laterality: L Chronic kidney disease stage: C Qualified Code(s): E11.65 - Type 2 diabetes mellitus with hyperglycemia Plan to address problem: Management as per primary care. (7) Upper GI bleed Current Visit: No Status: Acute Plan to address problem: Mangement as per GI and primary care. (8) HTN (hypertension) Current Visit: No Status: Chronic Qualifiers: Hypertension type: essential hypertension Qualified Code(s): I10 - Essential (primary) hypertension Plan to address problem: Management as per primary care. (9) Acute and chronic respiratory failure ([id number]) Current Visit: No Status: Acute Qualifiers: Respiratory failure complication: hypoxia Qualified Code(s): J96.21 - Acute and chronic respiratory failure with hypoxia Plan to address problem: 1. O2 3 litres via nasal canula. 2. BIPAP during night time. 18/8, rate 20, FIO2 32%. 3. Albuterol/Atrovent aerosol treatments q 6 hours. 4. Continue I/V solumedral 5. Continue Protonix. 6. SCDs Subjective Date of service: 10/05/16 Interval history: Patient alert, awake and resting on nasal canula.O2 saturation 99% on 2 litres O2.Patient is going to go on BIPAP during night time. Objective Vital Signs - 12hr 10/05/16 10/05/16 10/05/16 08:08 08:14 08:24 Temperature Pulse Rate [ 81 Anterior Bilateral] Pulse Rate [ Left] Respiratory 16 Rate Respiratory 18 Rate [Anterior Bilateral] Respiratory 16 Rate [denies pain] Blood Pressure [Left Arm] O2 Sat by Pulse Oximetry 10/05/16 10/05/16 10/05/16 08:26 08:35 08:44 Temperature 98.6 F Pulse Rate [ 94 H Anterior Bilateral] Pulse Rate [ 78 Left] Respiratory 18 Rate Respiratory 18 Rate [Anterior Bilateral] Respiratory Rate [denies pain] Blood Pressure 140/84 [Left Arm] O2 Sat by Pulse 92 91 Oximetry 0710/05/16 10/05/16 12:27 14:34 14:50 Temperature 98.8 F Pulse Rate [ 101 H 72 Anterior Bilateral] Pulse Rate [ 95 H Left] Respiratory 20 Rate Respiratory 18 18 Rate [Anterior Bilateral] Respiratory Rate [denies pain] Blood Pressure 135/65 [Left Arm] O2 Sat by Pulse 97 Oximetry 10/05/16 17:07 Temperature 98.8 F Pulse Rate [ Anterior Bilateral] Pulse Rate [ 91 H Left] Respiratory 18 Rate Respiratory Rate [Anterior Bilateral] Respiratory Rate [denies pain] Blood Pressure 117/77 [Left Arm] O2 Sat by Pulse 99 Oximetry Constitutional: no acute distress, alert Eyes: non-icteric ENT: oropharynx moist Neck: supple, no JVD Ascultation: Bilateral: diminished breath sounds (Prolonged expiratory phase.), wheezes Cardiovascular: regular rate and rhythm Gastrointestinal: normoactive bowel sounds, soft, non-tender Integumentary: normal Extremities: edema Neurologic: normal mental status, non-focal exam, pupils equal and round, CN II- XII normal Psychiatric: mood appropriate CBC and BMP: 10/03/16 09:36 09/28/16 14:45 ABG, PT/INR, D-dimer: PT/INR, D-dimer D-Dimer < 135.00 ng/mlDDU (0-234) 09/27/16 17:59 Abnormal lab findings: Abnormal Labs 09/28/16 09/28/16 09/28/16 14:45 14:45 14:45 WBC 11.2 H RBC 1.84 L Hgb 5.0 L* Hct 16.7 L* MCH 27 L RDW 17.0 H Lymph % (Auto) 11.0 L [place] # Seg Neutrophils % 82.2 H Seg Neutrophils # 9.2 H Carbon Dioxide 33 H BUN 32 H Creatinine 0.6 L Glucose 122 H POC Glucose Calcium 7.8 L Troponin T 0.031 H D Triglycerides 189 H HDL Cholesterol 29 L Crossmatch 09/28/16 09/29/16 09/29/16 21:32 04:23 17:14 WBC 12.9 H RBC 2.13 L Hgb 5.8 L* Hct 19.7 L* MCH 27 L RDW 17.9 H Lymph % (Auto) 12.3 L [place] # 0.9 H Seg Neutrophils % 79.5 H Seg Neutrophils # 10.3 H Carbon Dioxide BUN Creatinine Glucose POC Glucose 171 H 168 H Calcium Troponin T Triglycerides HDL Cholesterol Crossmatch 09/29/16 09/30/16 09/30/16 20:49 07:19 07:38 WBC RBC Hgb 6.3 L Hct 20.7 L MCH RDW Lymph % (Auto) [place] # Seg Neutrophils % Seg Neutrophils # Carbon Dioxide BUN Creatinine Glucose POC Glucose 171 H 143 H Calcium Troponin T Triglycerides HDL Cholesterol Crossmatch 09/30/16 09/30/16 09/30/16 11:00 15:42 21:23 WBC RBC Hgb Hct MCH RDW Lymph % (Auto) [place] # Seg Neutrophils % Seg Neutrophils # Carbon Dioxide BUN Creatinine Glucose POC Glucose 195 H 128 H 117 H Calcium Troponin T Triglycerides HDL Cholesterol Crossmatch 10/01/16 10/01/16 10/01/16 05:27 07:16 11:45 WBC RBC Hgb 6.2 L Hct 20.3 L MCH RDW Lymph % (Auto) [place] # Seg Neutrophils % Seg Neutrophils # Carbon Dioxide BUN Creatinine Glucose POC Glucose 147 H 150 H Calcium Troponin T Triglycerides HDL Cholesterol Crossmatch 10/01/16 10/01/16 10/01/16 13:20 15:58 22:36 WBC RBC Hgb Hct MCH RDW Lymph % (Auto) [place] # Seg Neutrophils % Seg Neutrophils # Carbon Dioxide BUN Creatinine Glucose POC Glucose 164 H 124 H Calcium Troponin T Triglycerides HDL Cholesterol Crossmatch See Detail 10/02/16 10/02/16 10/02/16 07:13 08:32 11:42 WBC RBC Hgb 7.8 L Hct 25.3 L MCH RDW Lymph % (Auto) [place] # Seg Neutrophils % Seg Neutrophils # Carbon Dioxide BUN Creatinine Glucose POC Glucose 130 H 125 H Calcium Troponin T Triglycerides HDL Cholesterol Crossmatch 10/02/16 10/02/16 10/03/16 15:49 21:10 07:24 WBC RBC Hgb Hct MCH RDW Lymph % (Auto) [place] # Seg Neutrophils % Seg Neutrophils # Carbon Dioxide BUN Creatinine Glucose POC Glucose 109 H 163 H 118 H Calcium Troponin T Triglycerides HDL Cholesterol Crossmatch 10/03/16 10/03/16 10/03/16 09:36 11:21 15:36 WBC RBC Hgb 9.1 L Hct 29.7 L MCH RDW Lymph % (Auto) [place] # Seg Neutrophils % Seg Neutrophils # Carbon Dioxide BUN Creatinine Glucose POC Glucose 210 H 118 H Calcium Troponin T Triglycerides HDL Cholesterol Crossmatch 10/03/16 10/04/16 10/04/16 21:28 09:41 11:44 WBC RBC Hgb Hct MCH RDW Lymph % (Auto) [place] # Seg Neutrophils % Seg Neutrophils # Carbon Dioxide BUN Creatinine Glucose POC Glucose 112 H 313 H 108 H Calcium Troponin T Triglycerides HDL Cholesterol Crossmatch 10/04/16 10/04/16 10/05/16 15:39 20:57 07:45 WBC RBC Hgb Hct MCH RDW Lymph % (Auto) [place] # Seg Neutrophils % Seg Neutrophils # Carbon Dioxide BUN Creatinine Glucose POC Glucose 147 H 243 H 179 H Calcium Troponin T Triglycerides HDL Cholesterol Crossmatch
[2016-10-05 18:32] LABS: Hematocrit 30.4 % (30.3-42.9); Hemoglobin 9.2 gm/dl (10.1-14.3)
[2016-10-06] MEDS: DUONEB *Not for PRN Use IH SCH ×4 (01:34→20:32)
[2016-10-06] MEDS: NOVOLOG SUB-Q SCH ×4 (08:27→21:25)
[2016-10-06 09:42] LABS: Hematocrit 30.7 % (30.3-42.9); Hemoglobin 9.3 gm/dl (10.1-14.3); Mean Corpuscular HGB Conc 30 % (30-34); Mean Corpuscular Hemoglobin 28 pg (28-32); Mean Corpuscular Volume 91 fl (79-97); Platelet Count 233 K/mm3 (140-440); Red Cell Distribution Width 17.3 % (13.2-15.2)
[2016-10-06 10:00] LABS: Anion Gap 14 mmol/L; BUN/Creatinine Ratio 26.66; Blood Urea Nitrogen 16 mg/dL (7-17); Calcium 8.5 mg/dL (8.4-10.2); Carbon Dioxide 36 mmol/L (22-30); Chloride 96.5 mmol/L (98-107); Glucose 194 mg/dL (65-100); Potassium 5.2 mmol/L (3.6-5.0); Sodium 141 mmol/L (137-145)
--- NOTE | 2016-10-06 10:44 | Progress Note ---
Assessment and Plan Assessment and plan: 1 Symptomatic anemia Patient has chronic blood loss from GI tract?? The patient has extensive W/U for GI bleed include , GI camera pills. Patient started on Ferrous sulfate 325mg PO BID. Hemoglobin now 9.1 after total 9 Units PRBCs transfused. Will follow with Dr. Daugherty as outpatient. 2 Chest pain Conservative management as per cardiology. Cardiology following 3 Acute and chronic respiratory failure ([id number]) Patient oxygen dependent at home Patient on 5l/min NC while resting in bed. Frequent respiratory assessment. Pulmonary following. 4 Acute exacerbation of CHF (congestive heart failure) Patient has Echocardiogram 2 months ago with EF 55-60 Strict I and O's, daily weight Closely monitor electrolytes Cardiology following. Conservative management. 6 Type 2 diabetes mellitus We we will continue oral hypoglycemics Sliding-scale insulin NovoLog Accu-Chek before meals and at bedtime 6 Morbid obesity with BMI of 70 and over, adult Discussed with the patient the importance of losing weight, low-fat diet and physical exercise. 7 COPD (chronic obstructive pulmonary disease) exacerbation. Continue solumedrol but taper to 40 mg IV twice a day for now. Pulmonology following. Claudia 8 GERD (gastroesophageal reflux disease) Patient on Protonix IV 9 DVT prophylaxis SCDs only because of GI blood loss She is full code Disposition. Anticipate discharge in a.m. History Interval history: Patient still complains of shortness of breath with minimal activity. Patient currently on 5 L of O2 while lying in bed. Hospitalist Physical - Constitutional Vitals: Temp Pulse Resp BP Pulse Ox 98.6 F 70 20 143/74 97 10/06/16 07:30 10/06/16 07:30 10/06/16 10:00 10/06/16 07:30 10/06/16 07:30 General appearance: Present: no acute distress, obese - EENT Eyes: Present: PERRL, EOM intact ENT: hearing intact, clear oral mucosa, dentition normal - Neck Neck: Present: supple, normal ROM - Respiratory Respiratory effort: normal Respiratory: bilateral: CTA - Cardiovascular Rhythm: regular Heart Sounds: Present: S1 & S2. Absent: gallop, rub - Extremities Extremities: no ischemia, No edema, Full ROM - Abdominal General gastrointestinal: soft, non-tender, non-distended, normal bowel sounds - Integumentary Integumentary: Present: clear, warm, dry - Neurologic Neurologic: CNII-XII intact, moves all extremities Results - Labs CBC & Chem 7: 10/06/16 09:25 10/06/16 09:25 Labs: Laboratory Last Values WBC 5.0 K/mm3 (4.5-11.0) 10/06/16 09:25 RBC 3.40 M/mm3 (3.65-5.03) L 10/06/16 09:25 Hgb 9.3 gm/dl (10.1-14.3) L 10/06/16 09:25 Hct 30.7 % (30.3-42.9) 10/06/16 09:25 MCV 91 fl (79-97) 10/06/16 09:25 MCH 28 pg (28-32) 10/06/16 09:25 MCHC 30 % (30-34) 10/06/16 09:25 RDW 17.3 % (13.2-15.2) H 10/06/16 09:25 Plt Count 233 K/mm3 (140-440) 10/06/16 09:25 Lymph % (Auto) 12.3 % (13.4-35.0) L 09/29/16 04:23 [place] % (Auto) 6.7 % (0.0-7.3) 09/29/16 04:23 Eos % (Auto) 1.0 % (0.0-4.3) 09/29/16 04:23 Baso % (Auto) 0.5 % (0.0-1.8) 09/29/16 04:23 Lymph # 1.6 K/mm3 (1.2-5.4) 09/29/16 04:23 [place] # 0.9 K/mm3 (0.0-0.8) H 09/29/16 04:23 Eos # 0.1 K/mm3 (0.0-0.4) 09/29/16 04:23 Baso # 0.1 K/mm3 (0.0-0.1) 09/29/16 04:23 Seg Neutrophils % 79.5 % (40.0-70.0) H 09/29/16 04:23 Seg Neutrophils # 10.3 K/mm3 (1.8-7.7) H 09/29/16 04:23 D-Dimer < 135.00 ng/mlDDU (0-234) 09/27/16 17:59 Sodium 141 mmol/L (137-145) 10/06/16 09:25 Potassium 5.2 mmol/L (3.6-5.0) H 10/06/16 09:25 Chloride 96.5 mmol/L (98-107) L 10/06/16 09:25 Carbon Dioxide 36 mmol/L (22-30) H 10/06/16 09:25 Anion Gap 14 mmol/L 10/06/16 09:25 BUN 16 mg/dL (7-17) 10/06/16 09:25 Creatinine 0.6 mg/dL (0.7-1.2) L 10/06/16 09:25 Estimated GFR > 60 ml/min 10/06/16 09:25 BUN/Creatinine Ratio 26.66 % 10/06/16 09:25 Glucose 194 mg/dL (65-100) H 10/06/16 09:25 POC Glucose 144 (70-105) H 10/06/16 07:35 Calcium 8.5 mg/dL (8.4-10.2) 10/06/16 09:25 Troponin T 0.031 ng/mL (0.00-0.029) H D 09/28/16 14:45 NT-Pro-B Natriuret Pep 371.3 pg/mL (0-900) 09/27/16 17:59 Triglycerides 189 mg/dL (2-149) H 09/28/16 14:45 Cholesterol 124 mg/dL (50-199) 09/28/16 14:45 LDL Cholesterol Direct 58 mg/dL (50-130) 09/28/16 14:45 HDL Cholesterol 29 mg/dL (40-59) L 09/28/16 14:45 Cholesterol/HDL Ratio 4.27 % 09/28/16 14:45 Blood Type A POSITIVE 10/01/16 13:20 Antibody Screen TNR 10/01/16 13:20 RPINCESS Antibody Screen Negative 10/01/16 13:20 Crossmatch See Detail 10/01/16 13:20
--- NOTE | 2016-10-06 11:54 | Progress Note ---
Assessment and Plan Symptomatic Anemia s/p blood transfusion CHF -diastolic EF 50-55% on echo 06/2016 Aortic Stenosis, at least moderate previously considered not a candidate for open valve surgery due to multiple co-morbidities including her morbid obesity. Sleep Apnea COPD Morbid obesity Conservative cardiac management. Subjective Date of service: 10/06/16 Interval history: No interval changes. Objective Vital Signs Temp Pulse Pulse Pulse Resp Resp BP 10/06/16 10:00 20 10/06/16 07:30 98.6 F 70 22 143/74 10/06/16 04:47 98.2 F 79 18 169/79 10/06/16 01:07 97.6 F 88 18 128/64 10/05/16 23:32 80 26 H 10/05/16 22:00 20 10/05/16 21:25 10/05/16 21:00 88 10/05/16 20:36 82 18 10/05/16 20:21 80 18 10/05/16 19:52 98.4 F 91 H 18 144/79 10/05/16 17:07 98.8 F 91 H 18 117/77 10/05/16 14:50 72 18 10/05/16 14:34 101 H 18 10/05/16 12:27 98.8 F 95 H 20 135/65 Pulse Ox 10/06/16 10:00 10/06/16 07:30 97 10/06/16 04:47 99 10/06/16 01:07 98 10/05/16 23:32 100 10/05/16 22:00 98 10/05/16 21:25 95 10/05/16 21:00 10/05/16 20:36 10/05/16 20:21 10/05/16 19:52 94 10/05/16 17:07 99 10/05/16 14:50 10/05/16 14:34 10/05/16 12:27 97 - Physical Examination General: No Apparent Distress, Other (Obese) HEENT: Positive: PERRL Cardiac: Positive: Reg Rate and Rhythm - Labs and Meds CBC 10/05/16 10/06/16 Range/Units 18:02 09:25 WBC 5.0 (4.5-11.0) K/mm3 RBC 3.40 L (3.65-5.03) M/mm3 Hgb 9.2 L 9.3 L (10.1-14.3) gm/dl Hct 30.4 30.7 (30.3-42.9) % Plt Count 233 (140-440) K/mm3 Comprehensive Metabolic Panel 10/06/16 Range/Units 09:25 Sodium 141 (137-145) mmol/L Potassium 5.2 H (3.6-5.0) mmol/L Chloride 96.5 L (98-107) mmol/L Carbon Dioxide 36 H (22-30) mmol/L BUN 16 (7-17) mg/dL Creatinine 0.6 L (0.7-1.2) mg/dL Glucose 194 H (65-100) mg/dL Calcium 8.5 (8.4-10.2) mg/dL - Imaging and Cardiology EKG: report reviewed (Sinus Tach)
[2016-10-06] MEDS: FEOSOL PO SCH ×2 (12:23→21:22)
[2016-10-06] MEDS: PROTONIX PO SCH (12:24)
[2016-10-06] MEDS: GLUCOTROL PO SCH (12:25)
[2016-10-06] MEDS: PULMICORT IH SCH ×2 (16:36→20:32)
--- NOTE | 2016-10-06 19:33 | Progress Note ---
Assessment and Plan Dr. Dia thank you for asking us to participate in the care of this patient. This is 66 year old female morbidly Obese admitted with shorntness of breath,pleuritic chest pain and non productive cough.Patient found to be very anemic Patient given blood transfusion.Patients hemoglobin came upto 9. Still complaining shortness of breath. Patient has history of COPD,CHF,Sleep apnea, Anemia,diabetes, Hypertension,GERD and GI bleed. Patient has history of smoking 1 pack a day for 20 Years. Stopped smoking 30 years ago.Denies alcohol or drug abuse. 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 Denies allergies to the medications. Patient is on Home O2 and on CPAP at home. Patients chest xray reported cardiomegaly. ABGs: PH 7.42, PCO2 68, PO2 62, HCO3 44, O2 saturation 90% on 3 litres O2. 10/06/16 Patient alert, awake and resting on nasal canula.O2 saturation 93% on 3 litres O2.Patient is going to go on BIPAP during night time. Patient says she is breathing better today. - Patient Problems (1) COPD (chronic obstructive pulmonary disease) Current Visit: Yes Status: Acute Qualifiers: COPD type: C Chronic bronchitis type: C Emphysema type: E Plan to address problem: 1. O2 3 litres via nasal canula. 2. BIPAP during night time. 18/8, rate 20, FIO2 32%. 3. Albuterol/Atrovent aerosol treatments q 6 hours. 4. Continue I/V solumedral 5. Continue Protonix. 6. SCDs (2) Morbid obesity with BMI of 70 and over, adult Current Visit: Yes Status: Chronic Plan to address problem: Consult meter technician for weight reduction diet. (3) DOMENIC (obstructive sleep apnea) Current Visit: No Status: Chronic Plan to address problem: BIPAP 18/8, rate 20, FIO2 32%. (4) Obesity hypoventilation syndrome Current Visit: No Status: Chronic Plan to address problem: Continue BIPAP 18/8, rate 20, FIO2 32%. (5) GERD (gastroesophageal reflux disease) Current Visit: Yes Status: Chronic Qualifiers: Esophagitis presence: with esophagitis Qualified Code(s): K21.0 - Gastro- esophageal reflux disease with esophagitis Plan to address problem: Continue Protonix. (6) T2DM (type 2 diabetes mellitus) Current Visit: Yes Status: Chronic Qualifiers: Diabetes mellitus complication status: with hyperglycemia Diabetes mellitus complication detail: D Diabetic retinopathy severity: D Proliferative retinopathy type: P Diabetes mellitus macular edema: D Diabetes mellitus usp insulin use: without usp use Laterality: L Chronic kidney disease stage: C Qualified Code(s): E11.65 - Type 2 diabetes mellitus with hyperglycemia Plan to address problem: Management as per primary care. (7) Upper GI bleed Current Visit: No Status: Acute Plan to address problem: Mangement as per GI and primary care. (8) HTN (hypertension) Current Visit: No Status: Chronic Qualifiers: Hypertension type: essential hypertension Qualified Code(s): I10 - Essential (primary) hypertension Plan to address problem: Management as per primary care. (9) Acute and chronic respiratory failure ([id number]) Current Visit: No Status: Acute Qualifiers: Respiratory failure complication: hypoxia Qualified Code(s): J96.21 - Acute and chronic respiratory failure with hypoxia Plan to address problem: 1. O2 3 litres via nasal canula. 2. BIPAP during night time. 18/8, rate 20, FIO2 32%. 3. Albuterol/Atrovent aerosol treatments q 6 hours. 4. Continue I/V solumedral 5. Continue Protonix. 6. SCDs Subjective Date of service: 10/06/16 Interval history: Patient alert, awake and resting on nasal canula.O2 saturation 93% on 3 litres O2.Patient is going to go on BIPAP during night time. Patient says she is breathing better today. Objective Vital Signs - 12hr 10/06/16 10/06/16 10/06/16 07:30 10:00 15:35 Temperature 98.6 F 98.5 F Pulse Rate [ 70 96 H Left] Respiratory 22 20 24 Rate Blood Pressure 143/74 166/73 [Left Arm] O2 Sat by Pulse 97 93 Oximetry Constitutional: no acute distress, alert Eyes: non-icteric ENT: oropharynx moist Neck: supple, no JVD Ascultation: Bilateral: diminished breath sounds (Prolonged expiratory phase.), wheezes Cardiovascular: regular rate and rhythm Gastrointestinal: normoactive bowel sounds, soft, non-tender Integumentary: normal Extremities: edema Neurologic: normal mental status, non-focal exam, pupils equal and round, CN II- XII normal Psychiatric: mood appropriate CBC and BMP: 10/06/16 09:25 10/06/16 09:25 ABG, PT/INR, D-dimer: PT/INR, D-dimer D-Dimer < 135.00 ng/mlDDU (0-234) 09/27/16 17:59 Abnormal lab findings: Abnormal Labs 09/28/16 09/28/16 09/28/16 14:45 14:45 14:45 WBC 11.2 H RBC 1.84 L Hgb 5.0 L* Hct 16.7 L* MCH 27 L RDW 17.0 H Lymph % (Auto) 11.0 L Emmons # Seg Neutrophils % 82.2 H Seg Neutrophils # 9.2 H Potassium Chloride Carbon Dioxide 33 H BUN 32 H Creatinine 0.6 L Glucose 122 H POC Glucose Calcium 7.8 L Troponin T 0.031 H D Triglycerides 189 H HDL Cholesterol 29 L Crossmatch 09/28/16 09/29/16 09/29/16 21:32 04:23 17:14 WBC 12.9 H RBC 2.13 L Hgb 5.8 L* Hct 19.7 L* MCH 27 L RDW 17.9 H Lymph % (Auto) 12.3 L Emmons # 0.9 H Seg Neutrophils % 79.5 H Seg Neutrophils # 10.3 H Potassium Chloride Carbon Dioxide BUN Creatinine Glucose POC Glucose 171 H 168 H Calcium Troponin T Triglycerides HDL Cholesterol Crossmatch 09/29/16 09/30/16 09/30/16 20:49 07:19 07:38 WBC RBC Hgb 6.3 L Hct 20.7 L MCH RDW Lymph % (Auto) Emmons # Seg Neutrophils % Seg Neutrophils # Potassium Chloride Carbon Dioxide BUN Creatinine Glucose POC Glucose 171 H 143 H Calcium Troponin T Triglycerides HDL Cholesterol Crossmatch 09/30/16 09/30/16 09/30/16 11:00 15:42 21:23 WBC RBC Hgb Hct MCH RDW Lymph % (Auto) Emmons # Seg Neutrophils % Seg Neutrophils # Potassium Chloride Carbon Dioxide BUN Creatinine Glucose POC Glucose 195 H 128 H 117 H Calcium Troponin T Triglycerides HDL Cholesterol Crossmatch 10/01/16 10/01/16 10/01/16 05:27 07:16 11:45 WBC RBC Hgb 6.2 L Hct 20.3 L MCH RDW Lymph % (Auto) Emmons # Seg Neutrophils % Seg Neutrophils # Potassium Chloride Carbon Dioxide BUN Creatinine Glucose POC Glucose 147 H 150 H Calcium Troponin T Triglycerides HDL Cholesterol Crossmatch 10/01/16 10/01/16 10/01/16 13:20 15:58 22:36 WBC RBC Hgb Hct MCH RDW Lymph % (Auto) Emmons # Seg Neutrophils % Seg Neutrophils # Potassium Chloride Carbon Dioxide BUN Creatinine Glucose POC Glucose 164 H 124 H Calcium Troponin T Triglycerides HDL Cholesterol Crossmatch See Detail 10/02/16 10/02/16 10/02/16 07:13 08:32 11:42 WBC RBC Hgb 7.8 L Hct 25.3 L MCH RDW Lymph % (Auto) Emmons # Seg Neutrophils % Seg Neutrophils # Potassium Chloride Carbon Dioxide BUN Creatinine Glucose POC Glucose 130 H 125 H Calcium Troponin T Triglycerides HDL Cholesterol Crossmatch 10/02/16 10/02/16 10/03/16 15:49 21:10 07:24 WBC RBC Hgb Hct MCH RDW Lymph % (Auto) Emmons # Seg Neutrophils % Seg Neutrophils # Potassium Chloride Carbon Dioxide BUN Creatinine Glucose POC Glucose 109 H 163 H 118 H Calcium Troponin T Triglycerides HDL Cholesterol Crossmatch 10/03/16 10/03/16 10/03/16 09:36 11:21 15:36 WBC RBC Hgb 9.1 L Hct 29.7 L MCH RDW Lymph % (Auto) Emmons # Seg Neutrophils % Seg Neutrophils # Potassium Chloride Carbon Dioxide BUN Creatinine Glucose POC Glucose 210 H 118 H Calcium Troponin T Triglycerides HDL Cholesterol Crossmatch 10/03/16 10/04/16 10/04/16 21:28 09:41 11:44 WBC RBC Hgb Hct MCH RDW Lymph % (Auto) Emmons # Seg Neutrophils % Seg Neutrophils # Potassium Chloride Carbon Dioxide BUN Creatinine Glucose POC Glucose 112 H 313 H 108 H Calcium Troponin T Triglycerides HDL Cholesterol Crossmatch 10/04/16 10/04/16 10/05/16 15:39 20:57 07:45 WBC RBC Hgb Hct MCH RDW Lymph % (Auto) Emmons # Seg Neutrophils % Seg Neutrophils # Potassium Chloride Carbon Dioxide BUN Creatinine Glucose POC Glucose 147 H 243 H 179 H Calcium Troponin T Triglycerides HDL Cholesterol Crossmatch 10/05/16 10/05/16 10/05/16 16:27 18:02 21:14 WBC RBC Hgb 9.2 L Hct MCH RDW Lymph % (Auto) Emmons # Seg Neutrophils % Seg Neutrophils # Potassium Chloride Carbon Dioxide BUN Creatinine Glucose POC Glucose 154 H 130 H Calcium Troponin T Triglycerides HDL Cholesterol Crossmatch 10/06/16 10/06/16 10/06/16 07:35 09:25 09:25 WBC RBC 3.40 L Hgb 9.3 L Hct MCH RDW 17.3 H Lymph % (Auto) Emmons # Seg Neutrophils % Seg Neutrophils # Potassium 5.2 H Chloride 96.5 L Carbon Dioxide 36 H BUN Creatinine 0.6 L Glucose 194 H POC Glucose 144 H Calcium Troponin T Triglycerides HDL Cholesterol Crossmatch 10/06/16 10/06/16 10/06/16 11:37 15:41 16:44 WBC RBC Hgb Hct MCH RDW Lymph % (Auto) Emmons # Seg Neutrophils % Seg Neutrophils # Potassium Chloride Carbon Dioxide BUN Creatinine Glucose POC Glucose 118 H 48 L 111 H Calcium Troponin T Triglycerides HDL Cholesterol Crossmatch
[2016-10-07] MEDS: DUONEB *Not for PRN Use IH SCH ×3 (01:48→14:09)
[2016-10-07] MEDS: NOVOLOG SUB-Q SCH ×3 (07:30→16:32)
[2016-10-07] MEDS: PULMICORT IH SCH (08:18)
--- NOTE | 2016-10-07 08:53 | Discharge Summary ---
Providers - Providers Date of Admission: 09/27/16 20:43 Date of discharge: 10/07/16 Attending physician: LADONNA REID 09/28/16 08:48 Consult to Physician [CONS] Routine Consulting Provider: MONICA HEARD Reason For Exam: CHF/Chest pain Place consult to:: Hilda Notified:: Dr Heard Phone number called:: on unit Was contact made?: Yes If yes, spoke with:: Hilda Time called:: 08:57 09/28/16 08:49 Consult to Physician [CONS] Routine Consulting Provider: MARU DE LUNA Reason For Exam: Anemia severe-GI source/AVM's Place consult to:: Isidro Notified:: service Phone number called:: [phone] Was contact made?: Yes If yes, spoke with:: butch Time called:: 09:21 09/28/16 08:57 Physical Therapy Evaluation and Treat [CONS] Routine Comment: Reason For Exam: Debility 10/01/16 08:01 Consult to PICC Line RN [CONS] Urgent Reason For Exam: poor access Type Line:: PICC 10/04/16 13:53 Consult to Physician [CONS] Routine Consulting Provider: SAHRA BILLINGS Reason For Exam: respiratory failure, shortness of breath,COPD Place consult to:: dr jean Notified:: a service Phone number called:: [phone] Was contact made?: Yes Primary care physician: LEXUS REYNA Hospitalization Reason for admission: resp failure Condition: Stable Hospital course: This is a 66-year-old morbidly obese female who was admitted through the emergency department with complaints of chest pain and shortness of breath. Patient was found to be severely anemic with a hemoglobin of 4.3. Patient has significant past medical history of chronic hypoxemic respiratory failure, OHS/ DOMENIC, COPD and chronic diastolic CHF. Patient reportedly had an echocardiogram done 3 months ago which revealed severe aortic stenosis and left ventricular systolic function well preserved with an EF of 50%. Patient received appropriate blood transfusion for the anemia. Patient was seen by GI in consultation who felt that since the patient was having no active bleeding that patient could be followed up with her primary lidder Dr. Daugherty. Patient has had extensive workup for GI bleeds in the past. Patient's hemoglobin stabilized at 9 after a total of 9 units of packed red blood cells transfuse. Patient is to follow Dr. Daugherty as an outpatient. With regards to her chest pain, cardiology recommended conservative management and etiology was likely secondary to symptomatic anemia. Patient was also seen by pulmonary consultation for the chronic respiratory failure. Patient is on oxygen at home. Patient was treated for COPD exacerbation with IV Solu-Medrol/breathing treatments respectively. Patient returned to her baseline cardiac and pulmonary status and was felt to have received maximal hospital benefit to be discharged home. H&H remained stable as well. Dedicated discharge time 35 minutes. Disposition: DC-01 TO HOME OR SELFCARE Time spent for discharge: 35 - Discharge Diagnoses (1) Acute exacerbation of CHF (congestive heart failure) Status: Acute Qualifiers: Congestive heart failure type: combined Qualified Code(s): I50.43 - Acute on chronic combined systolic (congestive) and diastolic (congestive) heart failure (2) COPD (chronic obstructive pulmonary disease) Status: Acute Qualifiers: COPD type: C Chronic bronchitis type: C Emphysema type: E (3) Symptomatic anemia Status: Acute (4) COPD (chronic obstructive pulmonary disease) Status: Chronic Qualifiers: COPD type: unspecified COPD Chronic bronchitis type: C Emphysema type: E Qualified Code(s): J44.9 - Chronic obstructive pulmonary disease, unspecified (5) T2DM (type 2 diabetes mellitus) Status: Chronic Qualifiers: Diabetes mellitus complication status: with hyperglycemia Diabetes mellitus complication detail: D Diabetic retinopathy severity: D Proliferative retinopathy type: P Diabetes mellitus macular edema: D Diabetes mellitus [facility] insulin use: without [facility] use Laterality: L Chronic kidney disease stage: C Qualified Code(s): E11.65 - Type 2 diabetes mellitus with hyperglycemia (6) Acute and chronic respiratory failure ([id number]) Status: Acute Qualifiers: Respiratory failure complication: hypoxia Qualified Code(s): J96.21 - Acute and chronic respiratory failure with hypoxia (7) Acute on chronic diastolic CHF (congestive heart failure) Status: Acute (8) Anemia requiring transfusions Status: Acute (9) Diabetes mellitus, type II Status: Chronic Qualifiers: Diabetes mellitus complication status: D Diabetes mellitus complication detail: D Diabetic retinopathy severity: D Proliferative retinopathy type: P Diabetes mellitus macular edema: D Diabetes mellitus buttermaker insulin use : D Laterality: L Chronic kidney disease stage: C (10) HTN (hypertension) Status: Chronic Qualifiers: Hypertension type: essential hypertension Qualified Code(s): I10 - Essential (primary) hypertension (11) Morbid obesity Status: Chronic Qualifiers: Obesity type: O (12) DOMENIC (obstructive sleep apnea) Status: Chronic (13) Obesity hypoventilation syndrome Status: Chronic Core Measure Documentation - Palliative Care Palliative Care/ Comfort Measures: Not Applicable - Core Measures Any of the following diagnoses?: none Exam - Constitutional Vitals: Temp Pulse Resp BP Pulse Ox 97.8 F 69 18 122/66 100 10/07/16 04:56 10/07/16 08:20 10/07/16 08:20 10/07/16 04:56 10/07/16 08:21 General appearance: Present: obese - EENT Eyes: Present: PERRL ENT: hearing intact, clear oral mucosa - Neck Neck: Present: supple, normal ROM - Respiratory Respiratory effort: normal Respiratory: bilateral: CTA - Cardiovascular Heart Sounds: Present: S1 & S2. Absent: rub, click - Extremities Extremities: pulses symmetrical, No edema Peripheral Pulses: within normal limits - Abdominal General gastrointestinal: Present: soft, non-tender, non-distended, normal bowel sounds Female genitourinary: Present: normal - Integumentary Integumentary: Present: clear, warm, dry - Musculoskeletal Musculoskeletal: gait normal, strength equal bilaterally - Psychiatric Psychiatric: appropriate mood/affect, intact judgment & insight - Neurologic Neurologic: CNII-XII intact, moves all extremities Plan Activity: advance as tolerated Weight Bearing Status: Weight Bear as Tolerated Diet: diabetic Follow up with: PRIMARY CAREMD [Referring] - 3-5 Days TAN DAUGHERTY MD [Staff Physician] - 7 Days MONICA HEARD MD [Staff Physician] - 7 Days SAHRA BILLINGS MD [Staff Physician] - 7 Days Prescriptions: Budesonide [Pulmicort Respules] 0.5 mg IH Q12HRT #1 nebu Ferrous Sulfate [Feosol 325 MG tab] 325 mg PO BID #60 tablet Furosemide [Lasix TAB] 40 mg PO DAILY #30 tablet glipiZIDE [Glucotrol] 5 mg PO QAMDIAB #30 tablet glipiZIDE [Glucotrol] 5 mg PO QDDIAB #60 tablet Ipratropium/Albuterol Sulfate [Duoneb 0.5 mg-3 mg/3 ml Soln] 1 ampul IH Q6HRT # 30 ampul.neb Ipratropium/Albuterol Sulfate [Duoneb 0.5 mg-3 mg/3 ml Soln] 1 ampul IH TIDRT 30 Days Pantoprazole [Protonix TAB] 40 mg PO QDAY #30 tablet Prednisone [predniSONE 10 mg (6-Day Pack, 21 Tabs)] 10 mg PO .TAPER #1 tab.ds.pk
[2016-10-07] MEDS: GLUCOTROL PO SCH (09:04)
--- NOTE | 2016-10-07 09:45 | Progress Note ---
Assessment and Plan Symptomatic Anemia s/p blood transfusion CHF -diastolic EF 50-55% on echo 06/2016 Aortic Stenosis, at least moderate previously considered not a candidate for open valve surgery due to multiple co-morbidities including her morbid obesity. Sleep Apnea COPD Morbid obesity Conservative cardiac management. Subjective Date of service: 10/07/16 Interval history: No interval changes. Objective Vital Signs Temp Pulse Pulse Pulse Resp Resp BP 10/07/16 08:21 10/07/16 08:20 69 18 10/07/16 08:19 68 17 10/07/16 04:56 97.8 F 65 21 122/66 10/07/16 00:53 97.3 F L 83 19 137/72 10/07/16 00:17 82 10/06/16 21:00 77 10/06/16 20:45 80 20 10/06/16 20:38 97.9 F 80 20 119/55 10/06/16 20:35 84 20 10/06/16 20:34 10/06/16 16:30 86 18 10/06/16 15:35 98.5 F 96 H 24 166/73 10/06/16 10:55 90 20 10/06/16 10:45 88 22 10/06/16 10:00 20 Pulse Ox 10/07/16 08:21 100 10/07/16 08:20 10/07/16 08:19 10/07/16 04:56 98 10/07/16 00:53 97 10/07/16 00:17 97 10/06/16 21:00 10/06/16 20:45 10/06/16 20:38 97 10/06/16 20:35 10/06/16 20:34 96 10/06/16 16:30 10/06/16 15:35 93 10/06/16 10:55 96 10/06/16 10:45 10/06/16 10:00 - Physical Examination General: No Apparent Distress, Other (Obese) HEENT: Positive: PERRL Cardiac: Positive: Reg Rate and Rhythm - Labs and Meds Comprehensive Metabolic Panel 10/06/16 Range/Units 09:25 Sodium 141 (137-145) mmol/L Potassium 5.2 H (3.6-5.0) mmol/L Chloride 96.5 L (98-107) mmol/L Carbon Dioxide 36 H (22-30) mmol/L BUN 16 (7-17) mg/dL Creatinine 0.6 L (0.7-1.2) mg/dL Glucose 194 H (65-100) mg/dL Calcium 8.5 (8.4-10.2) mg/dL - Imaging and Cardiology EKG: report reviewed (Sinus Tach)
[2016-10-07] MEDS: PROTONIX PO SCH (10:03)
[2016-10-07] MEDS: FEOSOL PO SCH (10:04)
[2016-10-07 14:47] VITALS: BP 184/81
--- NOTE | 2016-10-07 15:31 | Progress Note ---
Assessment and Plan Dr. Dia thank you for asking us to participate in the care of this patient. This is 66 year old female morbidly Obese admitted with shorntness of breath,pleuritic chest pain and non productive cough.Patient found to be very anemic Patient given blood transfusion.Patients hemoglobin came upto 9. Still complaining shortness of breath. Patient has history of COPD,CHF,Sleep apnea, Anemia,diabetes, Hypertension,GERD and GI bleed. Patient has history of smoking 1 pack a day for 20 Years. Stopped smoking 30 years ago.Denies alcohol or drug abuse. 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 Denies allergies to the medications. Patient is on Home O2 and on CPAP at home. Patients chest xray reported cardiomegaly. ABGs: PH 7.42, PCO2 68, PO2 62, HCO3 44, O2 saturation 90% on 3 litres O2. 10/07/16 Patient alert, awake and resting on nasal canula.O2 saturation 100% on 3 litres O2.Patient is going to go on BIPAP during night time. Patient says she is breathing better today. - Patient Problems (1) COPD (chronic obstructive pulmonary disease) Current Visit: Yes Status: Acute Qualifiers: COPD type: C Chronic bronchitis type: C Emphysema type: E Plan to address problem: 1. O2 3 litres via nasal canula. 2. BIPAP during night time. 18/8, rate 20, FIO2 32%. 3. Albuterol/Atrovent aerosol treatments q 6 hours. 4. Continue I/V solumedral 5. Continue Protonix. 6. SCDs (2) Morbid obesity with BMI of 70 and over, adult Current Visit: Yes Status: Chronic Plan to address problem: Consult [employer] retailer sales consultant for weight reduction diet. (3) DOMENIC (obstructive sleep apnea) Current Visit: No Status: Chronic Plan to address problem: BIPAP 18/8, rate 20, FIO2 32%. (4) Obesity hypoventilation syndrome Current Visit: No Status: Chronic Plan to address problem: Continue BIPAP 18/8, rate 20, FIO2 32%. (5) GERD (gastroesophageal reflux disease) Current Visit: Yes Status: Chronic Qualifiers: Esophagitis presence: with esophagitis Qualified Code(s): K21.0 - Gastro- esophageal reflux disease with esophagitis Plan to address problem: Continue Protonix. (6) T2DM (type 2 diabetes mellitus) Current Visit: Yes Status: Chronic Qualifiers: Diabetes mellitus complication status: with hyperglycemia Diabetes mellitus complication detail: D Diabetic retinopathy severity: D Proliferative retinopathy type: P Diabetes mellitus macular edema: D Diabetes mellitus penitentiary insulin use: without exterminator helper use Laterality: L Chronic kidney disease stage: C Qualified Code(s): E11.65 - Type 2 diabetes mellitus with hyperglycemia Plan to address problem: Management as per primary care. (7) Upper GI bleed Current Visit: No Status: Acute Plan to address problem: Mangement as per GI and primary care. (8) HTN (hypertension) Current Visit: No Status: Chronic Qualifiers: Hypertension type: essential hypertension Qualified Code(s): I10 - Essential (primary) hypertension Plan to address problem: Management as per primary care. (9) Acute and chronic respiratory failure ([id number]) Current Visit: No Status: Acute Qualifiers: Respiratory failure complication: hypoxia Qualified Code(s): J96.21 - Acute and chronic respiratory failure with hypoxia Plan to address problem: 1. O2 3 litres via nasal canula. 2. BIPAP during night time. 18/8, rate 20, FIO2 32%. 3. Albuterol/Atrovent aerosol treatments q 6 hours. 4. Continue I/V solumedral 5. Continue Protonix. 6. SCDs Subjective Date of service: 10/07/16 Interval history: Patient alert, awake and resting on nasal canula.O2 saturation 100% on 3 litres O2.Patient is going to go on BIPAP during night time. Patient says she is breathing better today. Objective Vital Signs - 12hr 10/07/16 10/07/16 10/07/16 04:56 07:00 08:19 Temperature 97.8 F 98.0 F Pulse Rate [ 68 Anterior Bilateral] Pulse Rate [ 65 63 Left] Respiratory 21 18 Rate Respiratory 17 Rate [Anterior Bilateral] Blood Pressure 122/66 137/70 [Left Arm] O2 Sat by Pulse 98 100 Oximetry 10/07/16 10/07/16 10/07/16 08:20 08:21 12:00 Temperature 98.4 F Pulse Rate [ 69 Anterior Bilateral] Pulse Rate [ 66 Left] Respiratory 20 Rate Respiratory 18 Rate [Anterior Bilateral] Blood Pressure 184/81 [Left Arm] O2 Sat by Pulse 100 100 Oximetry 10/07/16 14:10 Temperature Pulse Rate [ 71 Anterior Bilateral] Pulse Rate [ Left] Respiratory Rate Respiratory 19 Rate [Anterior Bilateral] Blood Pressure [Left Arm] O2 Sat by Pulse Oximetry Constitutional: no acute distress, alert Eyes: non-icteric ENT: oropharynx moist Neck: supple, no JVD Ascultation: Bilateral: diminished breath sounds (Prolonged expiratory phase.), wheezes Cardiovascular: regular rate and rhythm Gastrointestinal: normoactive bowel sounds, soft, non-tender Integumentary: normal Extremities: edema Neurologic: normal mental status, non-focal exam, pupils equal and round, CN II- XII normal Psychiatric: mood appropriate CBC and BMP: 10/06/16 09:25 10/06/16 09:25 ABG, PT/INR, D-dimer: PT/INR, D-dimer D-Dimer < 135.00 ng/mlDDU (0-234) 09/27/16 17:59 Abnormal lab findings: Abnormal Labs 09/28/16 09/28/16 09/28/16 14:45 14:45 14:45 WBC 11.2 H RBC 1.84 L Hgb 5.0 L* Hct 16.7 L* MCH 27 L RDW 17.0 H Lymph % (Auto) 11.0 L [place] # Seg Neutrophils % 82.2 H Seg Neutrophils # 9.2 H Potassium Chloride Carbon Dioxide 33 H BUN 32 H Creatinine 0.6 L Glucose 122 H POC Glucose Calcium 7.8 L Troponin T 0.031 H D Triglycerides 189 H HDL Cholesterol 29 L Crossmatch 09/28/16 09/29/16 09/29/16 21:32 04:23 17:14 WBC 12.9 H RBC 2.13 L Hgb 5.8 L* Hct 19.7 L* MCH 27 L RDW 17.9 H Lymph % (Auto) 12.3 L [place] # 0.9 H Seg Neutrophils % 79.5 H Seg Neutrophils # 10.3 H Potassium Chloride Carbon Dioxide BUN Creatinine Glucose POC Glucose 171 H 168 H Calcium Troponin T Triglycerides HDL Cholesterol Crossmatch 09/29/16 09/30/16 09/30/16 20:49 07:19 07:38 WBC RBC Hgb 6.3 L Hct 20.7 L MCH RDW Lymph % (Auto) [place] # Seg Neutrophils % Seg Neutrophils # Potassium Chloride Carbon Dioxide BUN Creatinine Glucose POC Glucose 171 H 143 H Calcium Troponin T Triglycerides HDL Cholesterol Crossmatch 09/30/16 09/30/16 09/30/16 11:00 15:42 21:23 WBC RBC Hgb Hct MCH RDW Lymph % (Auto) [place] # Seg Neutrophils % Seg Neutrophils # Potassium Chloride Carbon Dioxide BUN Creatinine Glucose POC Glucose 195 H 128 H 117 H Calcium Troponin T Triglycerides HDL Cholesterol Crossmatch 10/01/16 10/01/16 10/01/16 05:27 07:16 11:45 WBC RBC Hgb 6.2 L Hct 20.3 L MCH RDW Lymph % (Auto) [place] # Seg Neutrophils % Seg Neutrophils # Potassium Chloride Carbon Dioxide BUN Creatinine Glucose POC Glucose 147 H 150 H Calcium Troponin T Triglycerides HDL Cholesterol Crossmatch 10/01/16 10/01/16 10/01/16 13:20 15:58 22:36 WBC RBC Hgb Hct MCH RDW Lymph % (Auto) [place] # Seg Neutrophils % Seg Neutrophils # Potassium Chloride Carbon Dioxide BUN Creatinine Glucose POC Glucose 164 H 124 H Calcium Troponin T Triglycerides HDL Cholesterol Crossmatch See Detail 10/02/16 10/02/16 10/02/16 07:13 08:32 11:42 WBC RBC Hgb 7.8 L Hct 25.3 L MCH RDW Lymph % (Auto) [place] # Seg Neutrophils % Seg Neutrophils # Potassium Chloride Carbon Dioxide BUN Creatinine Glucose POC Glucose 130 H 125 H Calcium Troponin T Triglycerides HDL Cholesterol Crossmatch 10/02/16 10/02/16 10/03/16 15:49 21:10 07:24 WBC RBC Hgb Hct MCH RDW Lymph % (Auto) [place] # Seg Neutrophils % Seg Neutrophils # Potassium Chloride Carbon Dioxide BUN Creatinine Glucose POC Glucose 109 H 163 H 118 H Calcium Troponin T Triglycerides HDL Cholesterol Crossmatch 10/03/16 10/03/16 10/03/16 09:36 11:21 15:36 WBC RBC Hgb 9.1 L Hct 29.7 L MCH RDW Lymph % (Auto) [place] # Seg Neutrophils % Seg Neutrophils # Potassium Chloride Carbon Dioxide BUN Creatinine Glucose POC Glucose 210 H 118 H Calcium Troponin T Triglycerides HDL Cholesterol Crossmatch 10/03/16 10/04/16 10/04/16 21:28 09:41 11:44 WBC RBC Hgb Hct MCH RDW Lymph % (Auto) [place] # Seg Neutrophils % Seg Neutrophils # Potassium Chloride Carbon Dioxide BUN Creatinine Glucose POC Glucose 112 H 313 H 108 H Calcium Troponin T Triglycerides HDL Cholesterol Crossmatch 10/04/16 10/04/16 10/05/16 15:39 20:57 07:45 WBC RBC Hgb Hct MCH RDW Lymph % (Auto) [place] # Seg Neutrophils % Seg Neutrophils # Potassium Chloride Carbon Dioxide BUN Creatinine Glucose POC Glucose 147 H 243 H 179 H Calcium Troponin T Triglycerides HDL Cholesterol Crossmatch 10/05/16 10/05/16 10/05/16 11:13 16:27 18:02 WBC RBC Hgb 9.2 L Hct MCH RDW Lymph % (Auto) [place] # Seg Neutrophils % Seg Neutrophils # Potassium Chloride Carbon Dioxide BUN Creatinine Glucose POC Glucose 254 H 154 H Calcium Troponin T Triglycerides HDL Cholesterol Crossmatch 10/05/16 10/06/16 10/06/16 21:14 07:35 09:25 WBC RBC 3.40 L Hgb 9.3 L Hct MCH RDW 17.3 H Lymph % (Auto) [place] # Seg Neutrophils % Seg Neutrophils # Potassium Chloride Carbon Dioxide BUN Creatinine Glucose POC Glucose 130 H 144 H Calcium Troponin T Triglycerides HDL Cholesterol Crossmatch 10/06/16 10/06/16 10/06/16 09:25 11:37 15:41 WBC RBC Hgb Hct MCH RDW Lymph % (Auto) [place] # Seg Neutrophils % Seg Neutrophils # Potassium 5.2 H Chloride 96.5 L Carbon Dioxide 36 H BUN Creatinine 0.6 L Glucose 194 H POC Glucose 118 H 48 L Calcium Troponin T Triglycerides HDL Cholesterol Crossmatch 10/06/16 10/06/16 10/07/16 16:44 20:59 07:33 WBC RBC Hgb Hct MCH RDW Lymph % (Auto) [place] # Seg Neutrophils % Seg Neutrophils # Potassium Chloride Carbon Dioxide BUN Creatinine Glucose POC Glucose 111 H 180 H 149 H Calcium Troponin T Triglycerides HDL Cholesterol Crossmatch
== END 2016-10-07 19:08 | disposition home or self-care (01) | DRG 291 ==
LOC: ED 16:32 → 4A 20:43
PROVIDERS: ADMIT Internal Medicine; ATTEND Hospitalist
PROC: 30233N1 Transfusion of Nonautologous Red Blood Cells into Peripheral Vein, Percutaneous Approach (ICD-10-PCS; principal; 2016-09-28)
PROC: 5A09357 Assistance with Respiratory Ventilation, Less than 24 Consecutive Hours, Continuous Positive Airway Pressure (ICD-10-PCS; 2016-10-02)
DX: I11.0 Hypertensive heart disease with heart failure (principal); J96.21 Acute and chronic respiratory failure with hypoxia; Z68.45 Body mass index [BMI] 70 or greater, adult; J44.1 Chronic obstructive pulmonary disease with (acute) exacerbation; E66.2 Morbid (severe) obesity with alveolar hypoventilation; D64.9 Anemia, unspecified; I50.43 Acute on chronic combined systolic (congestive) and diastolic (congestive) heart failure; I35.0 Nonrheumatic aortic (valve) stenosis; E11.65 Type 2 diabetes mellitus with hyperglycemia; K21.0 Gastro-esophageal reflux disease with esophagitis; G47.30 Sleep apnea, unspecified; R07.81 Pleurodynia; G47.33 Obstructive sleep apnea (adult) (pediatric); Z99.81 Dependence on supplemental oxygen; Z98.51 Tubal ligation status; Z79.84 Long term (current) use of oral hypoglycemic drugs; Z87.891 Personal history of nicotine dependence
CPT/HCPCS: 36415; 71010; 80048; 80061; 82270; 82962; 83880; 84484; 85014; 85018; 85025; 85027; 85379; 86850; 86900; 86901; 86922; 93005; 93010; 94640; 94644; 94660; 94760; 96374; G8978-GP; G8979-GP; J1170; J1815; J1940; J2270; J2920; J2930; J7040; J7050; P9016

== ENCOUNTER 2016-11-21 20:09 | Inpatient (IN) | payer MEDICARE ==
[2016-11-21 21:43] LABS: ISTAT Base Excess 27; ISTAT HCO3 53.7; ISTAT PCO2 108.6 (35-45); ISTAT PH 7.302 (7.35-7.45); ISTAT PO2 46 (80-105); ISTAT SO2 73; ISTAT TCO2 > 50
--- NOTE | 2016-11-21 21:56 | Emergency Department Report ---
ED Fall HPI - General Chief Complaint: Fall Stated Complaint: LOC Time Seen by Provider: 11/21/16 20:50 Source: patient, EMS Mode of arrival: Stretcher Limitations: Altered Mental Status - History of Present Illness Initial Comments: 66-year-old female with a past medical history of asthma, COPD oxygen dependent 3 L, CHF, diabetes, hypertension, sleep apnea, and morbid obesity presents to the hospital with complaints of status post fall. Patient lives alone. She was found next to her bed without her supplemental oxygen. EMS reports room air saturation of 50 upon their arrival. Patient was placed on nonrebreather and presented to the ER on nonrebreather as well. Patient complains of generalized right leg pain recent event. She is drowsy and falling asleep during history and physical exam. - Related Data Previous Rx's Medication Instructions Recorded Last Taken Type Budesonide [Pulmicort Respules] 0.5 mg IH Q12HRT #1 nebu 10/07/16 Unknown Rx Ferrous Sulfate [Feosol 325 MG tab] 325 mg PO BID #60 tablet 10/07/16 Unknown Rx Furosemide [Lasix TAB] 40 mg PO DAILY #30 tablet 10/07/16 Unknown Rx Ipratropium/Albuterol Sulfate 1 ampul IH Q6HRT #30 ampul.neb 10/07/16 Unknown Rx [DUONEB *Not for PRN Use*] Ipratropium/Albuterol Sulfate 1 ampul IH TIDRT 30 Days 10/07/16 Unknown Rx [DUONEB *Not for PRN Use*] Pantoprazole [Protonix TAB] 40 mg PO QDAY #30 tablet 10/07/16 Unknown Rx Prednisone [predniSONE 10 mg 10 mg PO .TAPER #1 tab.ds.pk 10/07/16 Unknown Rx (6-Day Pack, 21 Tabs)] glipiZIDE [Glucotrol] 5 mg PO QAMDIAB #30 tablet 10/07/16 Unknown Rx glipiZIDE [Glucotrol] 5 mg PO QDDIAB #60 tablet 10/07/16 Unknown Rx Allergies Allergy/AdvReac Type Severity Reaction Status Date / Time No Known Allergies Allergy Verified 11/21/16 20:32 ED Review of Systems ROS: Stated complaint: LOC Other details as noted in HPI ED Past Medical Hx - Past Medical History Previous Medical History?: Yes Hx Hypertension: Yes Hx Congestive Heart Failure: Yes Hx Diabetes: Yes Hx Deep Vein Thrombosis: No Hx Renal Disease: No Hx Asthma: Yes Hx COPD: Yes Additional medical history: anemia. Lower GI Bleed and Transfusion - Surgical History Past Surgical History?: Yes Hx Pacemaker: No Hx Internal Defibrillator: No Additional Surgical History: tubal ligation/ tonsilectomy - Social History Smoking Status: Never Smoker Substance Use Type: None - Medications Home Medications: Home Medications Medication Instructions Recorded Confirmed Last Taken Type Budesonide [Pulmicort Respules] 0.5 mg IH Q12HRT #1 nebu 10/07/16 11/21/16 Unknown Rx Ferrous Sulfate [Feosol 325 MG tab] 325 mg PO BID #60 tablet 10/07/16 11/21/16 Unknown Rx Furosemide [Lasix TAB] 40 mg PO DAILY #30 tablet 10/07/16 11/21/16 Unknown Rx Ipratropium/Albuterol Sulfate 1 ampul IH Q6HRT #30 ampul.neb 10/07/16 11/21/16 Unknown Rx [DUONEB *Not for PRN Use*] Ipratropium/Albuterol Sulfate 1 ampul IH TIDRT 30 Days 10/07/16 11/21/16 Unknown Rx [DUONEB *Not for PRN Use*] Pantoprazole [Protonix TAB] 40 mg PO QDAY #30 tablet 10/07/16 11/21/16 Unknown Rx Prednisone [predniSONE 10 mg 10 mg PO .TAPER #1 tab.ds.pk 10/07/16 11/21/16 Unknown Rx (6-Day Pack, 21 Tabs)] glipiZIDE [Glucotrol] 5 mg PO QAMDIAB #30 tablet 10/07/16 11/21/16 Unknown Rx glipiZIDE [Glucotrol] 5 mg PO QDDIAB #60 tablet 10/07/16 11/21/16 Unknown Rx ED Physical Exam - General Limitations: Physical Limitation - Other Other exam information: General: Patient is drowsy Head: Atraumatic, normocephalic Eyes: Normal appearance HEENT: Moist mucous membranes, normal oropharynx Neck: Full range of motion, normal inspection, no midline tenderness CV: Regular rate and rhythm, loud systolic murmur Respiratory: Diminished breath sounds bilaterally Abdomen: Soft, nondistended, nontender, normal bowel sounds, no rebound or guarding Extremities: Patient has pain to her right hip, right knee, and generalized right leg with palpation. No obvious deformity noted. Full range of motion with passive movement Back: Normal inspection, nontender, full range of motion Neurologic: Patient is drowsy and requires tactile stimulation for continued cooperation with exam and history. Psychiatric: Normal mood and affect Skin: No rash ED Course Vital Signs 11/21/16 11/21/16 11/21/16 20:58 21:22 21:46 Temperature 98.3 F 98.3 F Pulse Rate 105 H 105 H 93 H Respiratory 16 16 27 H Rate Blood Pressure 135/66 Blood Pressure 132/67 132/67 [Left] O2 Sat by Pulse 94 94 45 L Oximetry 11/21/16 11/21/16 11/22/16 22:11 23:49 00:21 Temperature Pulse Rate 91 H 94 H Respiratory Rate Blood Pressure Blood Pressure [Left] O2 Sat by Pulse 98 93 93 Oximetry 11/22/16 00:45 Temperature Pulse Rate Respiratory Rate Blood Pressure Blood Pressure [Left] O2 Sat by Pulse 95 Oximetry - Reevaluation(s) Reevaluation #1: 11/21/16 21:56 After my evaluation. She was switched from our liters nasal cannula. ABG was obtained on supplemental oxygen. BiPAP initiated. - Consultations Consultation #1: 11/22/16 01:15 case d/w Dr Christianson, rec to continue current bipap and repeat abg - ABG Interpretation Ph: 7.3 PCO2: 108.6 PO2: 46 Bicarbonate: 53.7 Interpretation: respiratory acidosis, other (hypoxia) ED Medical Decision Making - Lab Data Result diagrams: 11/21/16 23:07 11/21/16 23:40 Lab Results 11/21/16 11/21/16 11/21/16 Range/Units 21:38 22:16 23:07 WBC 6.5 (4.5-11.0) K/mm3 RBC 4.16 (3.65-5.03) M/mm3 Hgb 11.4 (10.1-14.3) gm/dl Hct 38.9 (30.3-42.9) % MCV 94 (79-97) fl MCH 28 (28-32) pg MCHC 29 L (30-34) % RDW 18.5 H (13.2-15.2) % Plt Count 187 (140-440) K/mm3 Lymph % (Auto) 9.7 L (13.4-35.0) % [place] % (Auto) 8.4 H (0.0-7.3) % Eos % (Auto) 0.4 (0.0-4.3) % Baso % (Auto) 0.3 (0.0-1.8) % Lymph # 0.6 L (1.2-5.4) K/mm3 [place] # 0.5 (0.0-0.8) K/mm3 Eos # 0.0 (0.0-0.4) K/mm3 Baso # 0.0 (0.0-0.1) K/mm3 Seg Neutrophils % 81.2 H (40.0-70.0) % Seg Neutrophils # 5.3 (1.8-7.7) K/mm3 POC ABG pH 7.302 L (7.35-7.45) POC ABG pCO2 108.6 H (35-45) POC ABG pO2 46 L (80-105) POC ABG HCO3 53.7 POC ABG Total CO2 > 50 POC ABG O2 Sat 73 POC ABG Base Excess 27 FiO2 32 % Sodium TNR Potassium TNR Chloride TNR Carbon Dioxide TNR Anion Gap TNR BUN TNR Creatinine TNR Estimated GFR TNR BUN/Creatinine Ratio TNR Glucose TNR Calcium TNR Total Bilirubin (0.1-1.2) mg/dL AST (5-40) units/L ALT (7-56) units/L Alkaline Phosphatase (35-129) units/L Total Creatine Kinase TNR CK-MB (CK-2) TNR CK-MB (CK-2) Rel Index TNR Troponin T TNR Total Protein (6.3-8.2) g/dL Albumin (3.9-5) g/dL Albumin/Globulin Ratio % 11/21/16 11/21/16 11/22/16 Range/Units 23:40 23:40 00:38 WBC (4.5-11.0) K/mm3 RBC (3.65-5.03) M/mm3 Hgb (10.1-14.3) gm/dl Hct (30.3-42.9) % MCV (79-97) fl MCH (28-32) pg MCHC (30-34) % RDW (13.2-15.2) % Plt Count (140-440) K/mm3 Lymph % (Auto) (13.4-35.0) % [place] % (Auto) (0.0-7.3) % Eos % (Auto) (0.0-4.3) % Baso % (Auto) (0.0-1.8) % Lymph # (1.2-5.4) K/mm3 [place] # (0.0-0.8) K/mm3 Eos # (0.0-0.4) K/mm3 Baso # (0.0-0.1) K/mm3 Seg Neutrophils % (40.0-70.0) % Seg Neutrophils # (1.8-7.7) K/mm3 POC ABG pH 7.252 L (7.35-7.45) POC ABG pCO2 117.4 H (35-45) POC ABG pO2 52 L (80-105) POC ABG HCO3 51.7 POC ABG Total CO2 > 50 POC ABG O2 Sat 76 POC ABG Base Excess 24 FiO2 40 % Sodium 142 Potassium 5.3 H Chloride 92.7 L Carbon Dioxide 40 H Anion Gap 15 BUN 16 Creatinine 0.4 L Estimated GFR > 60 BUN/Creatinine Ratio 40.00 Glucose 102 H Calcium 8.7 Total Bilirubin 0.30 (0.1-1.2) mg/dL AST 21 (5-40) units/L ALT 9 (7-56) units/L Alkaline Phosphatase 79 (35-129) units/L Total Creatine Kinase 88 CK-MB (CK-2) 2.2 CK-MB (CK-2) Rel Index 2.5 Troponin T < 0.010 Total Protein 7.9 (6.3-8.2) g/dL Albumin 4.0 (3.9-5) g/dL Albumin/Globulin Ratio 1.0 % - EKG Data -: EKG Interpreted by Me (sinus 1st degree av block, lvh) - Radiology Data Radiology results: report reviewed Chest x-ray: Moderate CHF Right foot x-ray: Degenerative changes osteopenia, acute intra-articular fractures at the base of the second proximal phalanx right hip x-rays: No grossly displaced fracture. Exam is limited by body habitus Right tib-fib: No acute findings, degenerative changes - Differential Diagnosis CHF, COPD, fracture, contusion, sprain Critical Care Time: No Critical care attestation.: If time is entered above; I have spent that time in minutes in the direct care of this critically ill patient, excluding procedure time. ED Disposition Clinical Impression: Acute and chronic respiratory failure ([id number]), DOMENIC (obstructive sleep apnea), Dependence on supplemental oxygen, Hypoxia, Fall, Acute respiratory acidosis, Fracture of second toe, right, closed, CHF exacerbation Disposition: OP ADMIT IP TO THIS HOSP Is pt being admited?: Yes Condition: Stable Time of Disposition: 01:22 (Dr Phan/hosp)
--- NOTE | 2016-11-21 22:36 | XRay Report ---
FINAL REPORT EXAM: XR FOOT 2V RT HISTORY: pain s/p fall TECHNIQUE: Right foot two views PRIORS: None. FINDINGS: There is an acute vertical fracture through the articular surface and base of the 2nd proximal phalanx. Noted is degenerative change at the 1st metatarsophalangeal joint with joint space narrowing and marginal osteophyte A plantar calcaneal enthesophyte noted. There is pes planus deformity of the foot. The head of the 4th metatarsal is poorly defined. Could be secondary to osteopenia however bone loss or cortical disruption cannot be excluded. Consider additional coned-down views 2nd through 5th toes if continued clinical concern. IMPRESSION: Acute intra-articular fracture base of the 2nd proximal phalanx Metatarsal heads 2 through 5 are poorly defined. Could be secondary to osteopenia. If there is continued clinical concern suggest coned-down views. Degenerative changes at the 1st metatarsophalangeal joint Pes planus Heel spur
--- NOTE | 2016-11-21 22:43 | XRay Report ---
FINAL REPORT EXAM: XR CHEST 1V AP HISTORY: copd, hypoxia TECHNIQUE: PRIORS: Comparison is dated September 27, 2016 FINDINGS: There is some limitation due to portable technique and patient body habitus There is prominence of central pulmonary vasculature. Lung bases are not well seen. Small effusion cannot be excluded. Cardiac and mediastinal contours are unremarkable given technique. IMPRESSION: Findings suggestive of moderate CHF Limited exam
[2016-11-21 23:25] LABS: Anion Gap TNR mmol/L; BUN/Creatinine Ratio TNR; Blood Urea Nitrogen TNR mg/dL (7-17); Carbon Dioxide TNR mmol/L (22-30); Chloride TNR mmol/L (98-107); Glucose TNR mg/dL (65-100); Potassium TNR mmol/L (3.6-5.0); Sodium TNR mmol/L (137-145)
[2016-11-21 23:26] LABS: Calcium TNR mg/dL (8.4-10.2); Creatine Kinase TNR units/L (30-135); Creatine Kinase MB TNR ng/mL (0.0-4.0)
[2016-11-21 23:33] LABS: Basophils % (Auto) 0.3 % (0.0-1.8); Eosinophils % (Auto) 0.4 % (0.0-4.3); Mean Corpuscular HGB Conc 29 % (30-34); Mean Corpuscular Hemoglobin 28 pg (28-32); Mean Corpuscular Volume 94 fl (79-97); Platelet Count 187 K/mm3 (140-440); Red Blood Count 4.16 M/mm3 (3.65-5.03); Red Cell Distribution Width 18.5 % (13.2-15.2); White Blood Count 6.5 K/mm3 (4.5-11.0)
[2016-11-21] MEDS ORDERED: LASIX IV ONE (23:37)
[2016-11-22 00:01] LABS: Hematocrit 38.9 % (30.3-42.9); Hemoglobin 11.4 gm/dl (10.1-14.3)
--- NOTE | 2016-11-22 00:10 | XRay Report ---
FINAL REPORT EXAM: XR TIBIA FIBULA 2V RT HISTORY: pain s/p fall COMPARISON: None available. FINDINGS: AP lateral views of the right tibia and fibula were obtained. Tibia and fibula are grossly intact. Mild hypertrophic spurring of the distal tibia. Small plantar calcaneal spur. Mild to moderate narrowing medial joint space compartment of the right knee. No acute fracture dislocation. IMPRESSION: No acute bony abnormality. Degenerative changes.
--- NOTE | 2016-11-22 00:11 | XRay Report ---
FINAL REPORT EXAM: XR HIP 2-3V RT HISTORY: pain s/p fall COMPARISON: None available. FINDINGS: Four total images the pelvis and right hip obtained. Exam is limited by patient body habitus. No grossly displaced fracture of the pelvic ring proximal right femur. Appears to be narrowing of the right hip joint space. IMPRESSION: No grossly displaced fracture. Exam is markedly limited by patient body habitus. If the patient has persistent pain, CT would be suggested for further evaluation.
[2016-11-22 00:13] LABS: Creatine Kinase MB 2.2 ng/mL (0.0-4.0)
[2016-11-22 00:14] LABS: Creatine Kinase 88 units/L (30-135)
[2016-11-22 00:30] LABS: Alanine Aminotransferase 9 units/L (7-56); Alkaline Phosphatase 79 units/L (35-129); Blood Urea Nitrogen 16 mg/dL (7-17); Calcium 8.7 mg/dL (8.4-10.2); Chloride 92.7 mmol/L (98-107); Glucose 102 mg/dL (65-100); Potassium 5.3 mmol/L (3.6-5.0); Sodium 142 mmol/L (137-145); Total Protein 7.9 g/dL (6.3-8.2)
[2016-11-22 00:36] LABS: Anion Gap 15 mmol/L; Carbon Dioxide 40 mmol/L (22-30)
[2016-11-22 00:45] LABS: ISTAT Base Excess 24; ISTAT HCO3 51.7; ISTAT PCO2 117.4 (35-45); ISTAT PH 7.252 (7.35-7.45); ISTAT PO2 52 (80-105); ISTAT SO2 76; ISTAT TCO2 > 50
[2016-11-22] MEDS ORDERED: LASIX IV ONE (01:15)
[2016-11-22] MEDS ORDERED: D50W (25GM) Syringe IV PRN (02:12)
[2016-11-22] MEDS ORDERED: ZOFRAN IV PRN (02:12)
[2016-11-22] MEDS ORDERED: DULCOLAX PR PRN (02:12)
[2016-11-22] MEDS ORDERED: MILK OF MAGNESIA PO PRN (02:12)
[2016-11-22] MEDS ORDERED: PROVENTIL IH PRN (02:12)
--- NOTE | 2016-11-22 02:17 | History and Physical Report ---
History of Present Illness Date of examination: 11/22/16 History of present illness: 5-year-old. History of CHF, COPD, hypertension, diabetes, DOMENIC, morbid obesity was brought to the emergency room for shortness of breath, her saturation was in the 50s per EMS. Status post fall at home. Very difficult to obtain a history from the patient, she is drowsy, review of system unobtainable. Old records were reviewed. Patient was given IV Lasix, steroids and placed on BiPAP PAST MEDICAL HISTORY:CHF, COPD, hypertension, diabetes, DOMENIC, morbid obesity PAST SURGICAL HISTORY: Tubal ligation, tonsillectomy FAMILY HISTORY: Hypertension SOCIAL HISTORY: Unknown Medications and Allergies Allergies Allergy/AdvReac Type Severity Reaction Status Date / Time No Known Allergies Allergy Verified 11/21/16 20:32 Home Medications Medication Instructions Recorded Confirmed Last Taken Type Budesonide [Pulmicort Respules] 0.5 mg IH Q12HRT #1 nebu 10/07/16 11/21/16 Unknown Rx Ferrous Sulfate [Feosol 325 MG tab] 325 mg PO BID #60 tablet 10/07/16 11/21/16 Unknown Rx Furosemide [Lasix TAB] 40 mg PO DAILY #30 tablet 10/07/16 11/21/16 Unknown Rx Ipratropium/Albuterol Sulfate 1 ampul IH Q6HRT #30 ampul.neb 10/07/16 11/21/16 Unknown Rx [DUONEB *Not for PRN Use*] Ipratropium/Albuterol Sulfate 1 ampul IH TIDRT 30 Days 10/07/16 11/21/16 Unknown Rx [DUONEB *Not for PRN Use*] Pantoprazole [Protonix TAB] 40 mg PO QDAY #30 tablet 10/07/16 11/21/16 Unknown Rx Prednisone [predniSONE 10 mg 10 mg PO .TAPER #1 tab.ds.pk 10/07/16 11/21/16 Unknown Rx (6-Day Pack, 21 Tabs)] glipiZIDE [Glucotrol] 5 mg PO QAMDIAB #30 tablet 10/07/16 11/21/16 Unknown Rx glipiZIDE [Glucotrol] 5 mg PO QDDIAB #60 tablet 10/07/16 11/21/16 Unknown Rx Active Meds: Active Medications Budesonide (Pulmicort) 0.5 mg IH Q12HRT [facility] Ferrous Sulfate (Feosol) 325 mg PO BID [facility] Glipizide (Glucotrol) 5 mg PO QAMDIAB [facility] Pantoprazole Sodium (Protonix) 40 mg PO QDAY [facility] Exam - Physical Exam Narrative exam: Gen. appearance: Patient lying in bed in no acute distress ON BIPAP HEENT: Normocephalic/atraumatic, pupils equal round reactive to light, extra alkaline movement intact, no scleral icterus, no JVD or thyromegaly or nodule, neck is supple, mucous membrane moist, no erythema or exudate Heart: S1-S2, regular rate and rhythm Lungs: Difficult to assess Abdomen: Positive bowel sounds, nontender, nondistended, no organomegaly Extremities: No edema, cyanosis, clubbing Neuro:: Oriented 3 , cranial nerves II-12 intact, speech, motor intact Skin: No rash, nodules, warm dry - Constitutional Vitals: Temp Pulse Resp BP Pulse Ox 98.3 F 94 H 27 H 135/66 95 11/21/16 21:22 11/22/16 00:21 11/21/16 21:46 11/21/16 21:46 11/22/16 00:45 Results - Labs CBC & Chem 7: 11/21/16 23:07 11/21/16 23:40 Labs: Abnormal lab results 11/21/16 11/21/16 11/21/16 Range/Units 21:38 23:07 23:40 MCHC 29 L (30-34) % RDW 18.5 H (13.2-15.2) % Lymph % (Auto) 9.7 L (13.4-35.0) % [place] % (Auto) 8.4 H (0.0-7.3) % Lymph # 0.6 L (1.2-5.4) K/mm3 Seg Neutrophils % 81.2 H (40.0-70.0) % POC ABG pH 7.302 L (7.35-7.45) POC ABG pCO2 108.6 H (35-45) POC ABG pO2 46 L (80-105) Potassium 5.3 H (3.6-5.0) mmol/L Chloride 92.7 L (98-107) mmol/L Carbon Dioxide 40 H (22-30) mmol/L Creatinine 0.4 L (0.7-1.2) mg/dL Glucose 102 H (65-100) mg/dL 11/22/16 Range/Units 00:38 MCHC (30-34) % RDW (13.2-15.2) % Lymph % (Auto) (13.4-35.0) % [place] % (Auto) (0.0-7.3) % Lymph # (1.2-5.4) K/mm3 Seg Neutrophils % (40.0-70.0) % POC ABG pH 7.252 L (7.35-7.45) POC ABG pCO2 117.4 H (35-45) POC ABG pO2 52 L (80-105) Potassium (3.6-5.0) mmol/L Chloride (98-107) mmol/L Carbon Dioxide (22-30) mmol/L Creatinine (0.7-1.2) mg/dL Glucose (65-100) mg/dL - Imaging and Cardiology EKG: image reviewed Chest x-ray: image reviewed Assessment and Plan XRAY OF HIP and foot reviewed Assessment Acute respiratory failure Acute on chronic CHF, diastolic dysfunction Probably COPD exacerbation Fracture of the second toe Diabetes type 2 Hypertension Obstructive sleep apnea Morbid obesity Plan Admit to medicine Continue BiPAP, follow ABG Diurese with IV Lasix, hold beta russ given acute COPD Start aspirin, TRACEE inhibitor Check cardiac enzymes, echo, consult cardiology Start high-dose steroids, nebulized treatments, check CT head Check fingersticks, initiate insulin sliding scale Continue appropriate outpatient medications Hold DVT prophylaxis pending CT Head
[2016-11-22 02:42] LABS: ISTAT Base Excess 27; ISTAT HCO3 52.5; ISTAT PCO2 98.1 (35-45); ISTAT PH 7.336 (7.35-7.45); ISTAT PO2 73 (80-105); ISTAT SO2 91; ISTAT TCO2 > 50
[2016-11-22] MEDS ORDERED: APRESOLINE IV PRN (06:45)
[2016-11-22] MEDS: LASIX IV SCH ×2 (07:35→18:58)
[2016-11-22] MEDS: TYLENOL PO PRN (07:35)
[2016-11-22 07:52] LABS: ISTAT Base Excess 28; ISTAT PCO2 83.9 (35-45); ISTAT PH 7.409 (7.35-7.45); ISTAT PO2 48 (80-105); ISTAT SO2 80; ISTAT TCO2 > 50
[2016-11-22] MEDS: PULMICORT IH SCH ×2 (08:59→20:30)
[2016-11-22] MEDS: ZESTRIL PO SCH (10:00)
[2016-11-22] MEDS ORDERED: LOVENOX SUB-Q SCH (10:00)
[2016-11-22] MEDS: NOVOLOG SUB-Q SCH ×4 (10:03→23:06)
[2016-11-22] MEDS: FEOSOL PO SCH ×2 (10:32→23:06)
[2016-11-22] MEDS: BABY ASPIRIN PO SCH (10:34)
[2016-11-22] MEDS: PROTONIX PO SCH (10:34)
--- NOTE | 2016-11-22 11:08 | Consultation ---
History of Present Illness Reason for consult: dyspnea, COPD, obstructive sleep apnea, other (ohs) History of present illness: this is a female w hx of morbid obesity, OHS, chronic respiratory failure w hypoxia and hypercapnia who was in her usoh until day of admission when she feel out of bed for an unknown peroid and was found by family and brought toer. Pt was at [facility], abg done showed acute on chronic resp failure w hypercapnia and hypoxiashe was started on bipap rept abg didnt show improvement. Bipap was adjusted with improvement. This am abg showed chronic resp acidosis w hypoia. Abg was to be repted but pt was attempting to turn on bed and disconnected bipap She was placed on fm40% resp was called. On fm o2 sat 93 to 06%. Abg pnd ing on fm. Past History Past Medical History: arthritis, COPD, hypertension, other (morbid obesity, OHS , DOMENIC) Past Surgical History: No surgical history Family history: hypertension Medications and Allergies Allergies Allergy/AdvReac Type Severity Reaction Status Date / Time No Known Allergies Allergy Verified 11/21/16 20:32 Home Medications Medication Instructions Recorded Confirmed Last Taken Type Budesonide [Pulmicort Respules] 0.5 mg IH Q12HRT #1 nebu 10/07/16 11/21/16 Unknown Rx Ferrous Sulfate [Feosol 325 MG tab] 325 mg PO BID #60 tablet 10/07/16 11/21/16 Unknown Rx Furosemide [Lasix TAB] 40 mg PO DAILY #30 tablet 10/07/16 11/21/16 Unknown Rx Ipratropium/Albuterol Sulfate 1 ampul IH Q6HRT #30 ampul.neb 10/07/16 11/21/16 Unknown Rx [DUONEB *Not for PRN Use*] Ipratropium/Albuterol Sulfate 1 ampul IH TIDRT 30 Days 10/07/16 11/21/16 Unknown Rx [DUONEB *Not for PRN Use*] Pantoprazole [Protonix TAB] 40 mg PO QDAY #30 tablet 10/07/16 11/21/16 Unknown Rx Prednisone [predniSONE 10 mg 10 mg PO .TAPER #1 tab.ds.pk 10/07/16 11/21/16 Unknown Rx (6-Day Pack, 21 Tabs)] glipiZIDE [Glucotrol] 5 mg PO QAMDIAB #30 tablet 10/07/16 11/21/16 Unknown Rx glipiZIDE [Glucotrol] 5 mg PO QDDIAB #60 tablet 10/07/16 11/21/16 Unknown Rx Active Meds: Active Medications Acetaminophen (Tylenol) 650 mg PO Q4H PRN PRN Reason: Pain MILD(1-3)/Fever >100.5/[facility] Last Admin: 11/22/16 07:35 Dose: 650 mg Albuterol (Proventil) 2.5 mg IH Q3HRT PRN PRN Reason: Shortness Of Breath Aspirin (Baby Aspirin) 81 mg PO QDAY [facility] Last Admin: 11/22/16 10:34 Dose: 81 mg Bisacodyl (Dulcolax) 10 mg [place] QDAY PRN PRN Reason: Constipation unrelieved by MOM Budesonide (Pulmicort) 0.5 mg IH Q12HRT [facility] Last Admin: 11/22/16 08:59 Dose: 0.5 mg Dextrose (D50w (25gm) Syringe) 50 ml IV PRN PRN PRN Reason: Hypoglycemia Enoxaparin Sodium (Lovenox) 40 mg SUB-Q QDAY [facility] Last Admin: 11/22/16 10:35 Dose: 40 mg Ferrous Sulfate (Feosol) 325 mg PO BID [facility] Last Admin: 11/22/16 10:32 Dose: 325 mg Furosemide (Lasix) 40 mg IV BID@0600,1800 [facility] Last Admin: 11/22/16 07:35 Dose: 40 mg Glipizide (Glucotrol) 5 mg PO QAMDIAB [facility] Hydralazine HCl (Apresoline) 10 mg IV Q4H PRN PRN Reason: Hypertension Last Admin: 11/22/16 07:35 Dose: 10 mg Influenza Virus Vaccine Quadrival (Fluarix Quad [id number](36 Mos+)) 0.5 ml IM .ONCE ONE Stop: 11/22/16 12:01 Insulin Aspart (Novolog) 0 units SUB-Q ACHS [facility] PRN Reason: Protocol Last Admin: 11/22/16 10:03 Dose: 3 units Lisinopril (Zestril) 2.5 mg PO QDAY [facility] Last Admin: 11/22/16 10:00 Dose: 2.5 mg Magnesium Hydroxide (Milk Of Magnesia) 30 ml PO Q4H PRN PRN Reason: Constipation Methylprednisolone Sodium Succinate (Solu-Medrol) 125 mg IV Q6H [facility] Last Admin: 11/22/16 10:32 Dose: 125 mg Ondansetron HCl (Zofran) 4 mg IV Q8H PRN PRN Reason: N/V unrelieved by Reglan Pantoprazole Sodium (Protonix) 40 mg PO QDAY [facility] Last Admin: 11/22/16 10:34 Dose: 40 mg Review of Systems Constitutional: weight gain Respiratory: shortness of breath Physical Examination Vital signs: Vital Signs Temp Pulse Resp BP Pulse Ox 98.3 F 105 H 16 132/67 94 11/21/16 20:58 11/21/16 20:58 11/21/16 20:58 11/21/16 20:58 11/21/16 20:58 General appearance: no acute distress Eyes: non-icteric ENT: oropharynx moist Neck: supple Ascultation: Bilateral: clear, diminished breath sounds Cardiovascular: regular rate and rhythm Gastrointestinal: normoactive bowel sounds, non-tender, other (obese) Integumentary: other (dry) Extremities: no cyanosis, edema mood appropriate, affect normal Results - Laboratory Findings CBC and BMP: 11/21/16 23:07 11/21/16 23:40 ABG POC ABG pH 7.409 (7.35-7.45) 11/22/16 07:26 POC ABG pCO2 83.9 (35-45) H 11/22/16 07:26 POC ABG pO2 48 (80-105) L 11/22/16 07:26 POC ABG HCO3 53.0 11/22/16 07:26 POC ABG Total CO2 > 50 11/22/16 07:26 POC ABG O2 Sat 80 11/22/16 07:26 Abnormal lab findings: Abnormal Labs 11/22/16 11/22/16 02:31 07:26 POC ABG pH 7.336 L POC ABG pCO2 98.1 H 83.9 H POC ABG pO2 73 L 48 L - Diagnostic Findings Chest x-ray: report reviewed, image reviewed Assessment and Plan - Patient Problems (1) Morbid obesity with BMI of 70 and over, adult Current Visit: Yes Status: Acute (2) Obesity hypoventilation syndrome Current Visit: Yes Status: Acute (3) Acute and chronic respiratory failure ([id number]) Current Visit: Yes Status: Acute Qualifiers: Respiratory failure complication: R (4) Acute respiratory acidosis Current Visit: Yes Status: Acute (5) Dependence on supplemental oxygen Current Visit: Yes Status: Acute (6) Fall Current Visit: Yes Status: Acute Qualifiers: Encounter type: E (7) Hypoxia Current Visit: Yes Status: Acute (8) DOMENIC (obstructive sleep apnea) Current Visit: Yes Status: Chronic (9) Acute on chronic diastolic CHF (congestive heart failure) Current Visit: No Status: Acute (10) COPD (chronic obstructive pulmonary disease) Current Visit: No Status: Acute Qualifiers: COPD type: C Chronic bronchitis type: C Emphysema type: E (11) Hypertension Current Visit: No Status: Chronic Qualifiers: Hypertension type: essential hypertension Qualified Code(s): I10 - Essential (primary) hypertension
[2016-11-22] MEDS: GLUCOTROL PO SCH (11:40)
[2016-11-22 11:59] LABS: Creatine Kinase MB 1.7 ng/mL (0.0-4.0)
[2016-11-22 12:00] LABS: Creatine Kinase 126 units/L (30-135)
[2016-11-22] MEDS ORDERED: Fluarix Quad 2017-2018(36 MOS+) IM ONE (12:00)
[2016-11-22 13:07] LABS: ISTAT Base Excess 30; ISTAT HCO3 54.6; ISTAT PCO2 89.8 (35-45); ISTAT PH 7.391 (7.35-7.45); ISTAT PO2 85 (80-105); ISTAT SO2 95; ISTAT TCO2 > 50
--- NOTE | 2016-11-22 15:22 | Consultation ---
History of Present Illness Consult date: 11/22/16 Consult reason: aortic stenosis History of present illness: The patient is a 66-year-old woman with multiple medical problems including morbid obesity, weighs approximately 500 pounds, obstructive sleep apnea and aortic stenosis. During her past 2 admissions we found that she has at least moderate aortic stenosis, with normal left ventricular systolic function. The asymptomatic moderate aortic stenosis was recommended for medical therapy and conservative management and recognition of the patient's morbid obesity and severe chronic lung disease which will preclude candidacy for an aortic valve operation. Patient was brought to the hospital at this time after being found on the floor at home. There is no clear report of syncope, and it is suggested that the patient may have simply rolled off the bed. She was reported to have an oxygen saturation of 50% on room air, a tiny initial contact with the medical EMS. There is no chest pain, no unusual shortness of breath, no palpitations and no significant lower extremity edema. ECG is normal sinus rhythm, left axis deviation, left ventricular hypertrophy by voltage criteria. Initial cardiac enzymes are negative. Past History Past Medical History: arthritis, COPD, hypertension, other (morbid obesity, OHS , DOMENIC) Past Surgical History: No surgical history Family history: hypertension Medications and Allergies Allergies Allergy/AdvReac Type Severity Reaction Status Date / Time No Known Allergies Allergy Verified 11/21/16 20:32 Home Medications Medication Instructions Recorded Confirmed Last Taken Type Budesonide [Pulmicort Respules] 0.5 mg IH Q12HRT #1 nebu 10/07/16 11/21/16 Unknown Rx Ferrous Sulfate [Feosol 325 MG tab] 325 mg PO BID #60 tablet 10/07/16 11/21/16 Unknown Rx Furosemide [Lasix TAB] 40 mg PO DAILY #30 tablet 10/07/16 11/21/16 Unknown Rx Ipratropium/Albuterol Sulfate 1 ampul IH Q6HRT #30 ampul.neb 10/07/16 11/21/16 Unknown Rx [DUONEB *Not for PRN Use*] Ipratropium/Albuterol Sulfate 1 ampul IH TIDRT 30 Days 10/07/16 11/21/16 Unknown Rx [DUONEB *Not for PRN Use*] Pantoprazole [Protonix TAB] 40 mg PO QDAY #30 tablet 10/07/16 11/21/16 Unknown Rx Prednisone [predniSONE 10 mg 10 mg PO .TAPER #1 tab.ds.pk 10/07/16 11/21/16 Unknown Rx (6-Day Pack, 21 Tabs)] glipiZIDE [Glucotrol] 5 mg PO QAMDIAB #30 tablet 10/07/16 11/21/16 Unknown Rx glipiZIDE [Glucotrol] 5 mg PO QDDIAB #60 tablet 10/07/16 11/21/16 Unknown Rx Active Meds: Active Medications Acetaminophen (Tylenol) 650 mg PO Q4H PRN PRN Reason: Pain MILD(1-3)/Fever >100.5/[facility] Last Admin: 11/22/16 07:35 Dose: 650 mg Albuterol (Proventil) 2.5 mg IH Q3HRT PRN PRN Reason: Shortness Of Breath Aspirin (Baby Aspirin) 81 mg PO QDAY [facility] Last Admin: 11/22/16 10:34 Dose: 81 mg Bisacodyl (Dulcolax) 10 mg [place] QDAY PRN PRN Reason: Constipation unrelieved by MOM Budesonide (Pulmicort) 0.5 mg IH Q12HRT [facility] Last Admin: 11/22/16 08:59 Dose: 0.5 mg Dextrose (D50w (25gm) Syringe) 50 ml IV PRN PRN PRN Reason: Hypoglycemia Enoxaparin Sodium (Lovenox) 40 mg SUB-Q QDAY [facility] Last Admin: 11/22/16 10:35 Dose: 40 mg Ferrous Sulfate (Feosol) 325 mg PO BID [facility] Last Admin: 11/22/16 10:32 Dose: 325 mg Furosemide (Lasix) 40 mg IV BID@0600,1800 [facility] Last Admin: 11/22/16 07:35 Dose: 40 mg Glipizide (Glucotrol) 5 mg PO QAMDIAB [facility] Last Admin: 11/22/16 11:40 Dose: 5 mg Hydralazine HCl (Apresoline) 10 mg IV Q4H PRN PRN Reason: Hypertension Last Admin: 11/22/16 07:35 Dose: 10 mg Insulin Aspart (Novolog) 0 units SUB-Q ACHS [facility] PRN Reason: Protocol Last Admin: 11/22/16 10:03 Dose: 3 units Lisinopril (Zestril) 2.5 mg PO QDAY [facility] Last Admin: 11/22/16 10:00 Dose: 2.5 mg Magnesium Hydroxide (Milk Of Magnesia) 30 ml PO Q4H PRN PRN Reason: Constipation Methylprednisolone Sodium Succinate (Solu-Medrol) 125 mg IV Q6H [facility] Last Admin: 11/22/16 10:32 Dose: 125 mg Ondansetron HCl (Zofran) 4 mg IV Q8H PRN PRN Reason: N/V unrelieved by Reglan Pantoprazole Sodium (Protonix) 40 mg PO QDAY [facility] Last Admin: 11/22/16 10:34 Dose: 40 mg Review of Systems Cardiovascular: syncope, shortness of breath, no chest pain, no orthopnea, no palpitations, no rapid/irregular heart beat, no edema, no lightheadedness Physical Examination Vital Signs Temp Pulse Resp BP Pulse Ox 98.3 F 105 H 16 132/67 94 11/21/16 20:58 11/21/16 20:58 11/21/16 20:58 11/21/16 20:58 11/21/16 20:58 General appearance: no acute distress HEENT: Positive: PERRL Neck: Positive: neck supple Cardiac: Positive: Reg Rate and Rhythm Lungs: Positive: Decreased Breath Sounds Neuro: Positive: Grossly Intact Abdomen: Positive: Soft Female genitourinary: deferred Skin: Positive: Clear Extremities: Present: edema (trace) Results 11/21/16 23:07 11/21/16 23:40 Cardiac Enzymes 11/22/16 Range/Units 08:12 CK-MB (CK-2) 1.7 (0.0-4.0) ng/mL EKG interpretations - Telemetry EKG Rhythm: Sinus Rhythm Assessment and Plan - Patient Problems (1) Aortic stenosis Current Visit: Yes Status: Acute Qualifiers: Cardiac valve disease etiology: C Plan to address problem: Patient has asymptomatic moderate aortic stenosis, recommend continued conservative management. Due to multiple comorbidities including morbid obesity are 500 pounds, and chronic severe lung disease, she is not a candidate for aggressive and invasive cardiac evaluation and therapies.
--- NOTE | 2016-11-22 16:03 | Event Note ---
Date: 11/22/16 pt seen and examined, will continue current Mx as dictated in h and p.
--- NOTE | 2016-11-23 01:25 | Admit Criteria Form ---
Admission Criteria Documentation: RESPIRATORY FAILURE GRG Clinical Indications for Admission to Inpatient Care (Place 'X' for any and all applicable criteria): Hospital admission is needed for appropriate care of the patient because of acute respiratory failure or insufficiency as indicated by 1 or more of the following (1)(2)(3)(4)(5)(6)(7)(8 ): [X]I. Mechanical ventilation needed (acute invasive or noninvasive) [X]II. Severe ventilation deficit as indicated by 1 or more of the following ( 9) [X]a) Uncompensated Respiratory acidosis (pH < 7.35 and PaCO2 > 40 mmHg (5.3 kPa)) [ ]b) Airflow measurements < 25% of predicted (eg, PEFR < 100 L/min) [ ]c) FVC < 15 mL/kg of ideal body weight, or 50% decrease in vital capacity from baseline [ ]III. Noncardiac pulmonary edema not resolving with rapid emergency treatment (8) [ ]IV. Severe respiratory distress as indicated by 1 or more of the following: [ ]a) Severe tachypnea (respiratory rate greater than 30, greater than 45 for 6-month-old, greater than 60 for ) [ ]b) Severe hypoxemia (partial pressure of oxygen less than 50 mm Hg ( 6.7 kPa) on greater than 50% oxygen or partial pressure of oxygen to FIO2 ratio less than 200) [ ]c) Mental status deterioration from respiratory disease [ ]V. Airway obstruction or inadequate protection [A](10)(11) The original [employer] content created by [email or web address] has been revised. The portions of the content which have been revised are identified through the use of italic text or in bold, and [email or web address] has neither reviewed nor approved the modified material. All other unmodified content is copyright [employer]. Please see references footnoted in the original [email or web address] edition 2017 Admission Criteria Met: Yes
[2016-11-23] MEDS: LASIX IV SCH ×2 (05:32→17:21)
[2016-11-23 08:49] LABS: Eosinophils % (Auto) 0.1 % (0.0-4.3)
[2016-11-23 09:05] LABS: Blood Urea Nitrogen 23 mg/dL (7-17); Calcium 8.3 mg/dL (8.4-10.2); Chloride 91.4 mmol/L (98-107); Glucose 160 mg/dL (65-100); Potassium 4.9 mmol/L (3.6-5.0); Sodium 143 mmol/L (137-145); White Blood Count 3.4 K/mm3 (4.5-11.0)
[2016-11-23 09:06] LABS: Basophils % (Auto) 0.3 % (0.0-1.8); Hematocrit 36.4 % (30.3-42.9); Hemoglobin 10.8 gm/dl (10.1-14.3); Mean Corpuscular HGB Conc 30 % (30-34); Mean Corpuscular Hemoglobin 27 pg (28-32); Mean Corpuscular Volume 92 fl (79-97); Platelet Count 187 K/mm3 (140-440); Red Blood Count 3.98 M/mm3 (3.65-5.03); Red Cell Distribution Width 18.1 % (13.2-15.2)
[2016-11-23 09:07] LABS: Anion Gap 12 mmol/L; Carbon Dioxide 45 mmol/L (22-30)
[2016-11-23] MEDS: PULMICORT IH SCH ×2 (09:08→21:00)
[2016-11-23] MEDS: NOVOLOG SUB-Q SCH ×4 (10:41→22:55)
[2016-11-23] MEDS: ZESTRIL PO SCH (10:42)
[2016-11-23] MEDS: FEOSOL PO SCH ×2 (10:42→22:55)
[2016-11-23] MEDS: BABY ASPIRIN PO SCH (10:43)
[2016-11-23] MEDS: PROTONIX PO SCH (10:43)
[2016-11-23] MEDS: GLUCOTROL PO SCH (10:49)
--- NOTE | 2016-11-23 12:56 | Progress Note ---
Assessment and Plan - Patient Problems (1) Aortic stenosis Current Visit: Yes Status: Acute Qualifiers: Cardiac valve disease etiology: C Plan to address problem: Patient has asymptomatic moderate aortic stenosis, recommend continued conservative management. Due to multiple comorbidities including morbid obesity are 500 pounds, and chronic severe lung disease, she is not a candidate for aggressive and invasive cardiac evaluation and therapies. Subjective Date of service: 11/23/16 Interval history: The patient is comfortable in no acute distress. No new cardiac complaints. Objective Vital Signs Temp Pulse Pulse Resp Resp BP Pulse Ox 11/23/16 10:42 96 H 11/23/16 09:24 82 16 11/23/16 09:09 99 11/23/16 09:08 80 16 11/23/16 08:00 97.9 F 66 20 154/82 100 11/23/16 04:00 98.6 F 68 18 109/60 99 11/23/16 00:00 97.6 F 75 18 123/58 100 11/22/16 20:43 96 11/22/16 20:40 77 26 H 99 11/22/16 20:37 76 28 H 11/22/16 20:31 90 20 11/22/16 20:30 77 22 11/22/16 20:00 98.9 F 94 H 18 169/79 98 11/22/16 18:27 99.1 F 95 H 20 167/80 96 11/22/16 13:00 86 - Physical Examination General: Other (morbidly obese) HEENT: Positive: PERRL Neck: Positive: neck supple Cardiac: Positive: Reg Rate and Rhythm Lungs: Positive: Decreased Breath Sounds Neuro: Positive: Grossly Intact Abdomen: Positive: Soft Skin: Positive: Clear Extremities: Present: edema (trace) - Labs and Meds CBC 11/23/16 Range/Units 08:35 WBC 3.4 L (4.5-11.0) K/mm3 RBC 3.98 (3.65-5.03) M/mm3 Hgb 10.8 (10.1-14.3) gm/dl Hct 36.4 (30.3-42.9) % Plt Count 187 (140-440) K/mm3 Lymph # 0.4 L (1.2-5.4) K/mm3 [place] # 0.1 (0.0-0.8) K/mm3 Eos # 0.0 (0.0-0.4) K/mm3 Baso # 0.0 (0.0-0.1) K/mm3 Comprehensive Metabolic Panel 11/23/16 Range/Units 08:35 Sodium 143 (137-145) mmol/L Potassium 4.9 (3.6-5.0) mmol/L Chloride 91.4 L (98-107) mmol/L Carbon Dioxide 45 H* (22-30) mmol/L BUN 23 H (7-17) mg/dL Creatinine 0.5 L (0.7-1.2) mg/dL Glucose 160 H (65-100) mg/dL Calcium 8.3 L (8.4-10.2) mg/dL - Imaging and Cardiology EKG: image reviewed
--- NOTE | 2016-11-23 13:13 | Progress Note ---
Assessment and Plan 66 y/o female, morbidly obese, admitted with acute on chronic respiratory failure, OS and moderate leading to syncopal event. 1. Spoke with CM, will figure out logistics with supply company 2. Patient will likely qualify for trilogy or some other form of nocturnal bi level positive pressure ventilation at night 3. Follow up any new cards recs. 4. Will wean steroids quickly. Subjective Date of service: 11/23/16 Interval history: No acute events. Still feels short of breath. Has moderate but given other co morbid diseases, not a candidate for therapy. Needs positive pressure ventilation at night. Objective Vital Signs - 12hr 11/23/16 11/23/16 11/23/16 04:00 08:00 09:08 Temperature 98.6 F 97.9 F Pulse Rate 68 66 Pulse Rate [ 80 Anterior Bilateral Throughout] Respiratory 18 20 Rate Respiratory 16 Rate [Anterior Bilateral Throughout] Blood Pressure 109/60 154/82 O2 Sat by Pulse 99 100 Oximetry 11/23/16 11/23/16 11/23/16 09:09 09:24 10:42 Temperature Pulse Rate 96 H Pulse Rate [ 82 Anterior Bilateral Throughout] Respiratory Rate Respiratory 16 Rate [Anterior Bilateral Throughout] Blood Pressure O2 Sat by Pulse 99 Oximetry Constitutional: no acute distress Eyes: non-icteric ENT: oropharynx moist Neck: supple Ascultation: Bilateral: clear, diminished breath sounds Cardiovascular: regular rate and rhythm Gastrointestinal: normoactive bowel sounds, non-tender, other (obese) Integumentary: other (dry) Extremities: no cyanosis, edema Psychiatric: mood appropriate, affect normal CBC and BMP: 11/23/16 08:35 11/23/16 08:35 ABG, PT/INR, D-dimer: ABG POC ABG pH 7.391 (7.35-7.45) 11/22/16 13:04 POC ABG pCO2 89.8 (35-45) H 11/22/16 13:04 POC ABG pO2 85 (80-105) 11/22/16 13:04 POC ABG HCO3 54.6 11/22/16 13:04 POC ABG Total CO2 > 50 11/22/16 13:04 POC ABG O2 Sat 95 11/22/16 13:04 Abnormal lab findings: Abnormal Labs 11/22/16 11/22/16 11/22/16 02:31 07:26 08:12 WBC MCH RDW Lymph % (Auto) Lymph # Seg Neutrophils % POC ABG pH 7.336 L POC ABG pCO2 98.1 H 83.9 H POC ABG pO2 73 L 48 L Chloride Carbon Dioxide BUN Creatinine Glucose POC Glucose 160 H Calcium 11/22/16 11/22/16 11/22/16 12:26 13:04 16:41 WBC MCH RDW Lymph % (Auto) Lymph # Seg Neutrophils % POC ABG pH POC ABG pCO2 89.8 H POC ABG pO2 Chloride Carbon Dioxide BUN Creatinine Glucose POC Glucose 192 H 146 H Calcium 11/22/16 11/23/16 11/23/16 21:13 07:43 08:35 WBC 3.4 L MCH 27 L RDW 18.1 H Lymph % (Auto) 10.6 L Lymph # 0.4 L Seg Neutrophils % 87.9 H POC ABG pH POC ABG pCO2 POC ABG pO2 Chloride Carbon Dioxide BUN Creatinine Glucose POC Glucose 162 H 157 H Calcium 11/23/16 11/23/16 08:35 12:22 WBC MCH RDW Lymph % (Auto) Lymph # Seg Neutrophils % POC ABG pH POC ABG pCO2 POC ABG pO2 Chloride 91.4 L Carbon Dioxide 45 H* BUN 23 H Creatinine 0.5 L Glucose 160 H POC Glucose 165 H Calcium 8.3 L
--- NOTE | 2016-11-23 18:10 | Progress Note ---
Assessment and Plan Acute hypoxic respiratory failure - cont neb, supplimental O2, steroid, BiPAP at bed time - pulmonary following - likely due to DOMENIC + OHS with Acute on chronic CHF, diastolic dysfunction - cont lasix iv Fracture of the second toe - PT eval Diabetes type 2 - ADA diet, SSI Hypertension - resume home meds Obstructive sleep apnea - will need Bipap/capap on d/c Morbid obesity - dietart recommendation Aortic stenosis - cardiology following, medical Mx -follow 2d echo Brief History: 66 year-old. AAF History of CHF, COPD, hypertension, diabetes, DOMENIC, morbid obesity was brought to the emergency room for shortness of breath, her saturation was in the 50s per EMS. Subjective Date of service: 11/23/16 Interval history: Pt seen and examined on high flow O2 c/o dyspnea on resting denies chest pain Objective - Constitutional Vitals: Vital Signs - 12hr 11/23/16 11/23/16 11/23/16 08:00 09:08 09:09 Temperature 97.9 F Pulse Rate 66 Pulse Rate [ 80 Anterior Bilateral Throughout] Respiratory 20 Rate Respiratory 16 Rate [Anterior Bilateral Throughout] Blood Pressure 154/82 O2 Sat by Pulse 100 99 Oximetry 11/23/16 11/23/16 11/23/16 09:24 10:42 12:00 Temperature 98.2 F Pulse Rate 96 H 82 Pulse Rate [ 82 Anterior Bilateral Throughout] Respiratory 22 Rate Respiratory 16 Rate [Anterior Bilateral Throughout] Blood Pressure 179/85 O2 Sat by Pulse 99 Oximetry 11/23/16 16:00 Temperature 98 F Pulse Rate 79 Pulse Rate [ Anterior Bilateral Throughout] Respiratory 22 Rate Respiratory Rate [Anterior Bilateral Throughout] Blood Pressure 159/80 O2 Sat by Pulse Oximetry General appearance: Present: mild distress, obese - EENT Eyes: PERRL, EOM intact ENT: hearing intact, clear oral mucosa Ears: bilateral: normal - Neck Neck: supple, normal ROM - Respiratory Respiratory effort: normal Respiratory: bilateral: diminished - Cardiovascular Rhythm: regular Heart Sounds: Present: S1 & S2, systolic murmur. Absent: gallop, rub - Murmur systolic murmur (2) Type: mid Grade: III/ Radiation: carotids Extremities: pulses intact, No edema, Full ROM, abnormal (skin discoloration) - Gastrointestinal General gastrointestinal: Present: soft, non-tender, non-distended, normal bowel sounds - Integumentary Integumentary: clear, warm, dry - Musculoskeletal Musculoskeletal: 1, strength equal bilaterally - Neurologic Neurologic: moves all extremities - Psychiatric Psychiatric: memory intact, appropriate mood/affect, intact judgment & insight - Labs CBC & Chem 7: 11/23/16 08:35 11/23/16 08:35 Labs: Abnormal lab results 11/22/16 11/22/16 11/23/16 Range/Units 16:41 21:13 07:43 WBC (4.5-11.0) K/mm3 MCH (28-32) pg RDW (13.2-15.2) % Lymph % (Auto) (13.4-35.0) % Lymph # (1.2-5.4) K/mm3 Seg Neutrophils % (40.0-70.0) % Chloride (98-107) mmol/L Carbon Dioxide (22-30) mmol/L BUN (7-17) mg/dL Creatinine (0.7-1.2) mg/dL Glucose (65-100) mg/dL POC Glucose 146 H 162 H 157 H (70-105) Calcium (8.4-10.2) mg/dL 11/23/16 11/23/16 11/23/16 Range/Units 08:35 08:35 12:22 WBC 3.4 L (4.5-11.0) K/mm3 MCH 27 L (28-32) pg RDW 18.1 H (13.2-15.2) % Lymph % (Auto) 10.6 L (13.4-35.0) % Lymph # 0.4 L (1.2-5.4) K/mm3 Seg Neutrophils % 87.9 H (40.0-70.0) % Chloride 91.4 L (98-107) mmol/L Carbon Dioxide 45 H* (22-30) mmol/L BUN 23 H (7-17) mg/dL Creatinine 0.5 L (0.7-1.2) mg/dL Glucose 160 H (65-100) mg/dL POC Glucose 165 H (70-105) Calcium 8.3 L (8.4-10.2) mg/dL - Imaging and cardiology Chest x-ray: report reviewed
[2016-11-23] MEDS: TYLENOL PO PRN ×2 (19:59→23:45)
[2016-11-24] MEDS: LASIX IV SCH ×2 (06:47→17:33)
[2016-11-24] MEDS: NOVOLOG SUB-Q SCH ×4 (08:00→21:53)
[2016-11-24] MEDS: PULMICORT IH SCH ×2 (08:07→19:52)
[2016-11-24] MEDS: PROTONIX PO SCH (10:55)
[2016-11-24] MEDS: BABY ASPIRIN PO SCH (10:55)
[2016-11-24] MEDS: ZESTRIL PO SCH (10:55)
[2016-11-24] MEDS: GLUCOTROL PO SCH (10:55)
[2016-11-24] MEDS: FEOSOL PO SCH ×2 (10:55→22:59)
--- NOTE | 2016-11-24 11:15 | Progress Note ---
Assessment and Plan 66 y/o female, morbidly obese, admitted with acute on chronic respiratory failure, OS and moderate leading to syncopal event. 1. Patient requires volume ventilation and all other alternative therapies have been considered and ruled out due to the severity of the disease state and life-threatening condition including CO2 retention. Due to increased probability of acute exacerbation, patient requires Mouth-Piece Ventilation to be used during day as needed, in addition to QHS usage with face mask. 2. Dropped steroids to q12 on yesterday. Will likely need this dosing for at least another 24-48 hours. 3. Wean FiO2 for sats >88%. Patient has chronic respiratory failure, baseline O2 is 2-2.5 liters at home 4. Continue net negative state as safely as possible. Subjective Date of service: 11/24/16 Interval history: No acute events. CM consulted for help with PPV at home. Breathing is stable. Remains on Venti-mask 50% but sat is 98%. Objective Vital Signs - 12hr 11/24/16 11/24/16 11/24/16 00:28 04:34 06:00 Temperature 97.6 F 98.2 F Pulse Rate 67 64 75 Pulse Rate [ Anterior Bilateral Throughout] Respiratory 22 22 Rate Respiratory Rate [Anterior Bilateral Throughout] Blood Pressure 135/67 133/60 O2 Sat by Pulse 100 100 Oximetry 11/24/16 11/24/16 11/24/16 07:53 08:08 08:09 Temperature 97.7 F Pulse Rate 72 Pulse Rate [ 87 Anterior Bilateral Throughout] Respiratory 22 Rate Respiratory 18 Rate [Anterior Bilateral Throughout] Blood Pressure 149/69 O2 Sat by Pulse 100 98 Oximetry 11/24/16 10:04 Temperature Pulse Rate 94 H Pulse Rate [ Anterior Bilateral Throughout] Respiratory Rate Respiratory Rate [Anterior Bilateral Throughout] Blood Pressure O2 Sat by Pulse Oximetry Constitutional: no acute distress Eyes: non-icteric ENT: oropharynx moist Neck: supple Ascultation: Bilateral: clear, diminished breath sounds Cardiovascular: regular rate and rhythm Gastrointestinal: normoactive bowel sounds, non-tender, other (obese) Integumentary: other (dry) Extremities: no cyanosis, edema Psychiatric: mood appropriate, affect normal CBC and BMP: 11/23/16 08:35 11/23/16 08:35 ABG, PT/INR, D-dimer: ABG POC ABG pH 7.391 (7.35-7.45) 11/22/16 13:04 POC ABG pCO2 89.8 (35-45) H 11/22/16 13:04 POC ABG pO2 85 (80-105) 11/22/16 13:04 POC ABG HCO3 54.6 11/22/16 13:04 POC ABG Total CO2 > 50 11/22/16 13:04 POC ABG O2 Sat 95 11/22/16 13:04 Abnormal lab findings: Abnormal Labs 11/22/16 11/22/16 11/22/16 02:31 07:26 08:12 WBC MCH RDW Lymph % (Auto) Lymph # Seg Neutrophils % POC ABG pH 7.336 L POC ABG pCO2 98.1 H 83.9 H POC ABG pO2 73 L 48 L Chloride Carbon Dioxide BUN Creatinine Glucose POC Glucose 160 H Calcium 11/22/16 11/22/16 11/22/16 12:26 13:04 16:41 WBC MCH RDW Lymph % (Auto) Lymph # Seg Neutrophils % POC ABG pH POC ABG pCO2 89.8 H POC ABG pO2 Chloride Carbon Dioxide BUN Creatinine Glucose POC Glucose 192 H 146 H Calcium 11/22/16 11/23/16 11/23/16 21:13 07:43 08:35 WBC 3.4 L MCH 27 L RDW 18.1 H Lymph % (Auto) 10.6 L Lymph # 0.4 L Seg Neutrophils % 87.9 H POC ABG pH POC ABG pCO2 POC ABG pO2 Chloride Carbon Dioxide BUN Creatinine Glucose POC Glucose 162 H 157 H Calcium 11/23/16 11/23/16 11/23/16 08:35 12:22 21:11 WBC MCH RDW Lymph % (Auto) Lymph # Seg Neutrophils % POC ABG pH POC ABG pCO2 POC ABG pO2 Chloride 91.4 L Carbon Dioxide 45 H* BUN 23 H Creatinine 0.5 L Glucose 160 H POC Glucose 165 H 123 H Calcium 8.3 L
--- NOTE | 2016-11-24 14:12 | Progress Note ---
Assessment and Plan s/p Fall Chronic respiratory failure Aortic Stenosis, at least moderate EF 50-55% on echo06/2016 previously considered not a candidate for open valve surgery due to multiple co-morbidities including her morbid obesity. Sleep Apnea COPD Morbid obesity Conservative cardiac management. Subjective Date of service: 11/24/16 Interval history: No new complaints. Objective Vital Signs Temp Pulse Pulse Resp Resp BP Pulse Ox 11/24/16 11:50 98.0 F 73 22 138/72 100 11/24/16 10:04 94 H 11/24/16 08:09 98 11/24/16 08:08 87 18 11/24/16 07:53 97.7 F 72 22 149/69 100 11/24/16 06:00 75 11/24/16 04:34 98.2 F 64 22 133/60 100 11/24/16 00:28 97.6 F 67 22 135/67 100 11/23/16 22:00 64 96 11/23/16 21:57 78 26 H 97 11/23/16 21:32 97 11/23/16 21:07 79 20 11/23/16 20:56 78 20 11/23/16 19:46 98.3 F 76 20 157/69 98 11/23/16 16:00 98 F 79 22 159/80 - Physical Examination General: No Apparent Distress, Other (morbidly obese) HEENT: Positive: PERRL Cardiac: Positive: Reg Rate and Rhythm - Imaging and Cardiology EKG: image reviewed
--- NOTE | 2016-11-24 17:48 | Progress Note ---
Assessment and Plan Assessment and plan: Acute hypoxic respiratory failure - cont neb, supplimental O2, steroid, BiPAP at bed time - pulmonary following - likely due to DOMENIC + OHS with Acute on chronic CHF, diastolic dysfunction - cont lasix iv Fracture of the second toe - PT eval Diabetes type 2 - ADA diet, SSI Hypertension - resume home meds Obstructive sleep apnea - will need Bipap/capap on d/c Morbid obesity - dietart recommendation Aortic stenosis - cardiology following, medical Mx -follow 2d echo Disposition: will be discharged once we get the trilogy machine. History Interval history: Patient was seen and evaluated this morning, patient is on facemask. No shortness of breath or chest pain. Hospitalist Physical - Constitutional Vitals: Temp Pulse Resp BP Pulse Ox 98.4 F 67 22 138/65 99 11/24/16 16:08 11/24/16 16:08 11/24/16 16:08 11/24/16 16:08 11/24/16 16:08 General appearance: Present: mild distress, obese Results - Labs CBC & Chem 7: 11/23/16 08:35 11/23/16 08:35 Labs: Laboratory Last Values WBC 3.4 K/mm3 (4.5-11.0) L 11/23/16 08:35 RBC 3.98 M/mm3 (3.65-5.03) 11/23/16 08:35 Hgb 10.8 gm/dl (10.1-14.3) 11/23/16 08:35 Hct 36.4 % (30.3-42.9) 11/23/16 08:35 MCV 92 fl (79-97) 11/23/16 08:35 MCH 27 pg (28-32) L 11/23/16 08:35 MCHC 30 % (30-34) 11/23/16 08:35 RDW 18.1 % (13.2-15.2) H 11/23/16 08:35 Plt Count 187 K/mm3 (140-440) 11/23/16 08:35 Lymph % (Auto) 10.6 % (13.4-35.0) L 11/23/16 08:35 [place] % (Auto) 1.6 % (0.0-7.3) 11/23/16 08:35 Eos % (Auto) 0.1 % (0.0-4.3) 11/23/16 08:35 Baso % (Auto) 0.3 % (0.0-1.8) 11/23/16 08:35 Lymph # 0.4 K/mm3 (1.2-5.4) L 11/23/16 08:35 [place] # 0.1 K/mm3 (0.0-0.8) 11/23/16 08:35 Eos # 0.0 K/mm3 (0.0-0.4) 11/23/16 08:35 Baso # 0.0 K/mm3 (0.0-0.1) 11/23/16 08:35 Seg Neutrophils % 87.9 % (40.0-70.0) H 11/23/16 08:35 Seg Neutrophils # 3.0 K/mm3 (1.8-7.7) 11/23/16 08:35 POC ABG pH 7.391 (7.35-7.45) 11/22/16 13:04 POC ABG pCO2 89.8 (35-45) H 11/22/16 13:04 POC ABG pO2 85 (80-105) 11/22/16 13:04 POC ABG HCO3 54.6 11/22/16 13:04 POC ABG Total CO2 > 50 11/22/16 13:04 POC ABG O2 Sat 95 11/22/16 13:04 POC ABG Base Excess 30 11/22/16 13:04 FiO2 50 % 11/22/16 13:04 Sodium 143 mmol/L (137-145) 11/23/16 08:35 Potassium 4.9 mmol/L (3.6-5.0) 11/23/16 08:35 Chloride 91.4 mmol/L (98-107) L 11/23/16 08:35 Carbon Dioxide 45 mmol/L (22-30) H* 11/23/16 08:35 Anion Gap 12 mmol/L 11/23/16 08:35 BUN 23 mg/dL (7-17) H 11/23/16 08:35 Creatinine 0.5 mg/dL (0.7-1.2) L 11/23/16 08:35 Estimated GFR > 60 ml/min 11/23/16 08:35 BUN/Creatinine Ratio 46.00 % 11/23/16 08:35 Glucose 160 mg/dL (65-100) H 11/23/16 08:35 POC Glucose 123 (70-105) H 11/23/16 21:11 Calcium 8.3 mg/dL (8.4-10.2) L 11/23/16 08:35 Total Bilirubin 0.30 mg/dL (0.1-1.2) 11/21/16 23:40 AST 21 units/L (5-40) 11/21/16 23:40 ALT 9 units/L (7-56) 11/21/16 23:40 Alkaline Phosphatase 79 units/L (35-129) 11/21/16 23:40 Total Creatine Kinase 126 units/L (30-135) 11/22/16 08:12 CK-MB (CK-2) 1.7 ng/mL (0.0-4.0) 11/22/16 08:12 CK-MB (CK-2) Rel Index 1.3 (0-4) 11/22/16 08:12 Troponin T < 0.010 ng/mL (0.00-0.029) 11/22/16 08:12 Total Protein 7.9 g/dL (6.3-8.2) 11/21/16 23:40 Albumin 4.0 g/dL (3.9-5) 11/21/16 23:40 Albumin/Globulin Ratio 1.0 % 11/21/16 23:40
[2016-11-24] MEDS: TYLENOL PO PRN (19:21)
[2016-11-24] MEDS: PERCOCET 5/325 PO PRN (22:59)
[2016-11-25] MEDS: LASIX IV SCH ×2 (05:19→18:05)
[2016-11-25] MEDS: PULMICORT IH SCH ×2 (07:40→20:06)
[2016-11-25] MEDS: NOVOLOG SUB-Q SCH ×4 (08:00→21:45)
[2016-11-25 08:08] LABS: Basophils % (Auto) 0.1 % (0.0-1.8); Mean Corpuscular HGB Conc 29 % (30-34); Mean Corpuscular Hemoglobin 27 pg (28-32); Mean Corpuscular Volume 93 fl (79-97); Platelet Count 156 K/mm3 (140-440); Red Cell Distribution Width 17.9 % (13.2-15.2); White Blood Count 3.1 K/mm3 (4.5-11.0)
[2016-11-25 08:15] LABS: Blood Urea Nitrogen 30 mg/dL (7-17); Calcium 8.2 mg/dL (8.4-10.2); Chloride 88.2 mmol/L (98-107); Glucose 161 mg/dL (65-100); Potassium 4.6 mmol/L (3.6-5.0); Sodium 142 mmol/L (137-145)
[2016-11-25 08:18] LABS: Hematocrit 34.9 % (30.3-42.9); Hemoglobin 10.6 gm/dl (10.1-14.3)
[2016-11-25 08:22] LABS: Anion Gap 10 mmol/L; Carbon Dioxide 48 mmol/L (22-30)
--- NOTE | 2016-11-25 10:13 | Progress Note ---
Assessment and Plan s/p Fall Chronic respiratory failure Aortic Stenosis, at least moderate EF 50-55% on echo06/2016 previously considered not a candidate for open valve surgery due to multiple co-morbidities including her morbid obesity. Sleep Apnea COPD Morbid obesity Conservative cardiac management. Subjective Date of service: 11/25/16 Interval history: No interval changes. Objective Vital Signs Temp Pulse Pulse Resp Resp BP Pulse Ox 11/25/16 09:48 96 H 20 95 11/25/16 08:00 98.8 F 65 20 103/64 99 11/25/16 07:48 66 20 11/25/16 07:43 96 11/25/16 07:42 65 20 11/25/16 05:14 98.3 F 58 L 22 122/58 98 11/24/16 23:48 98.9 F 59 L 22 140/57 98 11/24/16 22:04 80 11/24/16 20:17 76 28 H 98 11/24/16 20:16 76 20 11/24/16 20:15 98.8 F 75 20 126/59 96 11/24/16 19:54 71 22 11/24/16 19:27 24 11/24/16 16:08 98.4 F 67 22 138/65 99 11/24/16 11:50 98.0 F 73 22 138/72 100 - Physical Examination General: No Apparent Distress, Other (morbidly obese) HEENT: Positive: PERRL Cardiac: Positive: Reg Rate and Rhythm - Labs and Meds CBC 11/25/16 Range/Units 07:32 WBC 3.1 L (4.5-11.0) K/mm3 RBC 3.90 (3.65-5.03) M/mm3 Hgb 10.6 (10.1-14.3) gm/dl Hct 34.9 (30.3-42.9) % Plt Count 156 (140-440) K/mm3 Lymph # 0.5 L (1.2-5.4) K/mm3 [place] # 0.1 (0.0-0.8) K/mm3 Eos # 0.0 (0.0-0.4) K/mm3 Baso # 0.0 (0.0-0.1) K/mm3 Comprehensive Metabolic Panel 11/25/16 Range/Units 07:32 Sodium 142 (137-145) mmol/L Potassium 4.6 (3.6-5.0) mmol/L Chloride 88.2 L (98-107) mmol/L Carbon Dioxide 48 H* (22-30) mmol/L BUN 30 H (7-17) mg/dL Creatinine 0.5 L (0.7-1.2) mg/dL Glucose 161 H (65-100) mg/dL Calcium 8.2 L (8.4-10.2) mg/dL - Imaging and Cardiology EKG: image reviewed
[2016-11-25] MEDS: PROTONIX PO SCH (10:55)
[2016-11-25] MEDS: GLUCOTROL PO SCH (10:55)
[2016-11-25] MEDS: ZESTRIL PO SCH (10:55)
[2016-11-25] MEDS: FEOSOL PO SCH ×2 (10:55→21:44)
[2016-11-25] MEDS: BABY ASPIRIN PO SCH (10:55)
--- NOTE | 2016-11-25 12:13 | Discharge Summary ---
Providers - Providers Date of Admission: 11/22/16 02:12 Attending physician: ANKUR LU MD 11/24/16 07:39 Consult to Case Management [CONS] Routine Services Needed at Discharge: Other Notified:: corrections caseworker Additional Physician Instructions: Home Bipap/Triology machine is needed 11/25/16 10:56 Physical Therapy Evaluation and Treat [CONS] Routine Comment: Reason For Exam: s/p fall at home Primary care physician: HOME HEALTH CARE WORKER Hospitalization Reason for admission: COPD exacerbation, hypoxia, severe aortic stenosis Condition: Stable Pertinent studies: ECHO severe aortic stenosis, preserved ejection fraction, diastolic dysfunction Hospital course: 5-year-old. History of CHF, COPD, hypertension, diabetes, DOMENIC, morbid obesity was brought to the emergency room for shortness of breath, her saturation was in the 50s per EMS. Status post fall at home. Very difficult to obtain a history from the patient, she is drowsy, review of system unobtainable. Old records were reviewed. Patient was given IV Lasix, steroids and placed on BiPAP. Patient was admitted to the floor and she was managed for COPD exacerbation , bronchitis, diastolic CHF, and cardiology was consulted and did echo and showed severe aortic stenosis. Cardiology times for the patient to treatment hospital [facility]. Patient was hemodynamically stable at the time of discharge. Disposition: [id number] Time spent for discharge: 31 minutes - Discharge Diagnoses (1) Acute and chronic respiratory failure ([id number]) Status: Acute Qualifiers: Respiratory failure complication: R (2) Acute respiratory acidosis Status: Acute (3) Aortic stenosis Status: Acute Qualifiers: Cardiac valve disease etiology: C (4) CHF exacerbation Status: Acute Qualifiers: Congestive heart failure type: C (5) Dependence on supplemental oxygen Status: Acute (6) Fall Status: Acute Qualifiers: Encounter type: E (7) Hypoxia Status: Acute Core Measure Documentation - Palliative Care Palliative Care/ Comfort Measures: Not Applicable - Core Measures Any of the following diagnoses?: heart failure - Heart Failure Discharge Requirements TARCEE/ARB for LVSD if EF <40%: Yes (EF is 55-60% but the patient is on ACEI) Beta russ at discharge: No Reason for no beta russ on DC: COPD Exam - Physical Exam Narrative exam: Patient is on Ventimask. The patient is morbidly obese. Vital signs as documented. Head exam is unremarkable. No scleral icterus . Neck is without jugular venous distension, thyromegaly, or carotid bruits. Lungs Decrease air entry bilaterally. Cardiac exam reveals regular rate and Rhythm. Abdominal exam reveals Obese abdomen. Extremities Bilateral LE edema with venous stasis. KAIAWHINA KOHANGA REO: Alert and oriented 3. No focal weakness. - Constitutional Vitals: Temp Pulse Resp BP Pulse Ox 98.8 F 96 H 20 103/64 95 11/25/16 08:00 11/25/16 09:48 11/25/16 09:48 11/25/16 08:00 11/25/16 09:48 Plan Activity: no restrictions Weight Bearing Status: Full Weight Bearing Diet: low fat, low cholesterol, low salt, diabetic Follow up with: PRIMARY CARE, [Primary Care Provider] - 3-5 Days
--- NOTE | 2016-11-25 12:37 | Progress Note ---
Assessment and Plan 66 y/o female, morbidly obese, admitted with acute on chronic respiratory failure, OS and moderate leading to syncopal event. 1. Patient requires volume ventilation and all other alternative therapies have been considered and ruled out due to the severity of the disease state and life-threatening condition including CO2 retention. Due to increased probability of acute exacerbation, patient requires Mouth-Piece Ventilation to be used during day as needed, in addition to QHS usage with face mask. 2. Dropped steroids to q12 on yesterday. Will likely need this dosing for at least another 24. Suggest dropping to daily starting tomorrow 3. Wean FiO2 for sats >88%. Patient has chronic respiratory failure, baseline O2 is 2-2.5 liters at home 4. Continue net negative state as safely as possible. 5. Agree with transfer and work up of as possible cause of syncope. Subjective Date of service: 11/25/16 Interval history: patient being transferred downtown for further evaluation of her given recent syncope. Objective Vital Signs - 12hr 11/25/16 11/25/16 11/25/16 05:14 07:42 07:43 Temperature 98.3 F Pulse Rate 58 L Pulse Rate [ 65 Anterior Bilateral Throughout] Respiratory 22 Rate Respiratory 20 Rate [Anterior Bilateral Throughout] Blood Pressure 122/58 O2 Sat by Pulse 98 96 Oximetry 11/25/16 11/25/16 11/25/16 07:48 08:00 09:48 Temperature 98.8 F Pulse Rate 65 96 H Pulse Rate [ 66 Anterior Bilateral Throughout] Respiratory 20 20 Rate Respiratory 20 Rate [Anterior Bilateral Throughout] Blood Pressure 103/64 O2 Sat by Pulse 99 95 Oximetry 11/25/16 12:00 Temperature 98.0 F Pulse Rate 66 Pulse Rate [ Anterior Bilateral Throughout] Respiratory 20 Rate Respiratory Rate [Anterior Bilateral Throughout] Blood Pressure 133/58 O2 Sat by Pulse 96 Oximetry Constitutional: no acute distress Eyes: non-icteric ENT: oropharynx moist Neck: supple Ascultation: Bilateral: clear, diminished breath sounds Cardiovascular: regular rate and rhythm Gastrointestinal: normoactive bowel sounds, non-tender, other (obese) Integumentary: other (dry) Extremities: no cyanosis, edema Psychiatric: mood appropriate, affect normal CBC and BMP: 11/25/16 07:32 11/25/16 07:32 ABG, PT/INR, D-dimer: ABG POC ABG pH 7.391 (7.35-7.45) 11/22/16 13:04 POC ABG pCO2 89.8 (35-45) H 11/22/16 13:04 POC ABG pO2 85 (80-105) 11/22/16 13:04 POC ABG HCO3 54.6 11/22/16 13:04 POC ABG Total CO2 > 50 11/22/16 13:04 POC ABG O2 Sat 95 11/22/16 13:04 Abnormal lab findings: Abnormal Labs 11/22/16 11/22/16 11/22/16 02:31 07:26 08:12 WBC MCH MCHC RDW Lymph % (Auto) Lymph # Seg Neutrophils % POC ABG pH 7.336 L POC ABG pCO2 98.1 H 83.9 H POC ABG pO2 73 L 48 L Chloride Carbon Dioxide BUN Creatinine Glucose POC Glucose 160 H Calcium 11/22/16 11/22/16 11/22/16 12:26 13:04 16:41 WBC MCH MCHC RDW Lymph % (Auto) Lymph # Seg Neutrophils % POC ABG pH POC ABG pCO2 89.8 H POC ABG pO2 Chloride Carbon Dioxide BUN Creatinine Glucose POC Glucose 192 H 146 H Calcium 11/22/16 11/23/16 11/23/16 21:13 07:43 08:35 WBC 3.4 L MCH 27 L MCHC RDW 18.1 H Lymph % (Auto) 10.6 L Lymph # 0.4 L Seg Neutrophils % 87.9 H POC ABG pH POC ABG pCO2 POC ABG pO2 Chloride Carbon Dioxide BUN Creatinine Glucose POC Glucose 162 H 157 H Calcium 11/23/16 11/23/16 11/23/16 08:35 12:22 21:11 WBC MCH MCHC RDW Lymph % (Auto) Lymph # Seg Neutrophils % POC ABG pH POC ABG pCO2 POC ABG pO2 Chloride 91.4 L Carbon Dioxide 45 H* BUN 23 H Creatinine 0.5 L Glucose 160 H POC Glucose 165 H 123 H Calcium 8.3 L 11/24/16 11/24/16 11/24/16 08:01 11:50 16:11 WBC MCH MCHC RDW Lymph % (Auto) Lymph # Seg Neutrophils % POC ABG pH POC ABG pCO2 POC ABG pO2 Chloride Carbon Dioxide BUN Creatinine Glucose POC Glucose 158 H 186 H 115 H Calcium 11/24/16 11/25/16 11/25/16 21:16 07:32 07:32 WBC 3.1 L MCH 27 L MCHC 29 L RDW 17.9 H Lymph % (Auto) Lymph # 0.5 L Seg Neutrophils % 81.0 H POC ABG pH POC ABG pCO2 POC ABG pO2 Chloride 88.2 L Carbon Dioxide 48 H* BUN 30 H Creatinine 0.5 L Glucose 161 H POC Glucose 136 H Calcium 8.2 L 11/25/16 08:16 WBC MCH MCHC RDW Lymph % (Auto) Lymph # Seg Neutrophils % POC ABG pH POC ABG pCO2 POC ABG pO2 Chloride Carbon Dioxide BUN Creatinine Glucose POC Glucose 183 H Calcium
[2016-11-25 20:10] VITALS: BP 150/73
[2016-11-25] MEDS: PERCOCET 5/325 PO PRN (21:44)
== END 2016-11-25 22:05 | disposition home health service (06) | DRG 291 ==
LOC: ED 20:09 → 4A 11-22 02:12
PROVIDERS: ADMIT Internal Medicine; ATTEND Internal Medicine
PROC: 5A09457 Assistance with Respiratory Ventilation, 24-96 Consecutive Hours, Continuous Positive Airway Pressure (ICD-10-PCS; principal; 2016-11-21)
PROC: 4A033R1 Measurement of Arterial Saturation, Peripheral, Percutaneous Approach (ICD-10-PCS; 2016-11-21)
PROC: 3E0234Z Introduction of Serum, Toxoid and Vaccine into Muscle, Percutaneous Approach (ICD-10-PCS; 2016-11-22)
DX: I11.0 Hypertensive heart disease with heart failure (principal); J96.21 Acute and chronic respiratory failure with hypoxia; J44.1 Chronic obstructive pulmonary disease with (acute) exacerbation; Z68.45 Body mass index [BMI] 70 or greater, adult; E87.2 Acidosis; E66.2 Morbid (severe) obesity with alveolar hypoventilation; I50.33 Acute on chronic diastolic (congestive) heart failure; S92.911A Unspecified fracture of right toe(s), initial encounter for closed fracture; I35.0 Nonrheumatic aortic (valve) stenosis; E11.9 Type 2 diabetes mellitus without complications; W18.39XA Other fall on same level, initial encounter; G47.33 Obstructive sleep apnea (adult) (pediatric); Z99.81 Dependence on supplemental oxygen; Z98.51 Tubal ligation status; Z79.899 Other long term (current) drug therapy; Y93.89 Activity, other specified; Y99.8 Other external cause status; Y92.098 Other place in other non-institutional residence as the place of occurrence of the external cause; Z82.49 Family history of ischemic heart disease and other diseases of the circulatory system; Z23 Encounter for immunization
CPT/HCPCS: 36415; 36600; 71010; 80048; 80053; 82550; 82553; 82803; 82962; 84484; 85025; 90686; 93005; 93010; 94640; 94660; 94760; 96374; 96375; J0360; J1650; J1815; J1940; J2920; J2930

== ENCOUNTER 2017-02-08 20:12 | Inpatient (IN) | payer MEDICARE ==
[2017-02-08] MEDS ORDERED: LASIX IV ONE (21:18)
[2017-02-08] MEDS ORDERED: ATROVENT IH ONE (21:23)
[2017-02-08] MEDS ORDERED: XOPENEX IH ONE (21:23)
--- NOTE | 2017-02-08 21:23 | Emergency Department Report ---
ED Shortness of Breath HPI - General Chief Complaint: Chest Pain Stated Complaint: LOC Time Seen by Provider: 02/08/17 21:11 Source: EMS Mode of arrival: Stretcher Limitations: No Limitations - History of Present Illness Initial Comments: Patient is 67 years old female history of COPD, CHF presented with shortness of breath for the last 2 days, frothy sputum. Denied any fever, chest pain, nausea or vomiting. MD Complaint: shortness of breath - Related Data Previous Rx's Medication Instructions Recorded Last Taken Type Budesonide [Pulmicort Respules] 0.5 mg IH Q12HRT #1 nebu 10/07/16 Unknown Rx Ferrous Sulfate [Feosol 325 MG tab] 325 mg PO BID #60 tablet 10/07/16 Unknown Rx Furosemide [Lasix TAB] 40 mg PO DAILY #30 tablet 10/07/16 Unknown Rx Ipratropium/Albuterol Sulfate 1 ampul IH Q6HRT #30 ampul.neb 10/07/16 Unknown Rx [DUONEB *Not for PRN Use*] Ipratropium/Albuterol Sulfate 1 ampul IH TIDRT 30 Days 10/07/16 Unknown Rx [DUONEB *Not for PRN Use*] Pantoprazole [Protonix TAB] 40 mg PO QDAY #30 tablet 10/07/16 Unknown Rx Prednisone [predniSONE 10 mg 10 mg PO .TAPER #1 tab.ds.pk 10/07/16 Unknown Rx (6-Day Pack, 21 Tabs)] glipiZIDE [Glucotrol] 5 mg PO QAMDIAB #30 tablet 10/07/16 Unknown Rx glipiZIDE [Glucotrol] 5 mg PO QDDIAB #60 tablet 10/07/16 Unknown Rx Allergies Allergy/AdvReac Type Severity Reaction Status Date / Time No Known Allergies Allergy Verified 11/21/16 20:32 ED Review of Systems ROS: Stated complaint: LOC Other details as noted in HPI Comment: All other systems reviewed and negative Constitutional: denies: chills, fever Respiratory: cough, orthopnea, shortness of breath, SOB with exertion, SOB at rest Cardiovascular: dyspnea on exertion, orthopnea, edema. denies: chest pain, palpitations, syncope Gastrointestinal: denies: abdominal pain, nausea, vomiting, diarrhea, constipation, hematemesis, melena, hematochezia Neurological: denies: headache, weakness, numbness, paresthesias ED Past Medical Hx - Past Medical History Previous Medical History?: Yes Hx Hypertension: Yes Hx Congestive Heart Failure: Yes Hx Diabetes: Yes Hx Deep Vein Thrombosis: No Hx Renal Disease: No Hx Asthma: Yes Hx COPD: Yes Additional medical history: anemia. Lower GI Bleed and Transfusion - Surgical History Past Surgical History?: Yes Hx Pacemaker: No Hx Internal Defibrillator: No Additional Surgical History: tubal ligation/ tonsilectomy - Social History Smoking Status: Former Smoker Substance Use Type: None - Medications Home Medications: Home Medications Medication Instructions Recorded Confirmed Last Taken Type Budesonide [Pulmicort Respules] 0.5 mg IH Q12HRT #1 nebu 10/07/16 11/21/16 Unknown Rx Ferrous Sulfate [Feosol 325 MG tab] 325 mg PO BID #60 tablet 10/07/16 11/21/16 Unknown Rx Furosemide [Lasix TAB] 40 mg PO DAILY #30 tablet 10/07/16 11/21/16 Unknown Rx Ipratropium/Albuterol Sulfate 1 ampul IH Q6HRT #30 ampul.neb 10/07/16 11/21/16 Unknown Rx [DUONEB *Not for PRN Use*] Ipratropium/Albuterol Sulfate 1 ampul IH TIDRT 30 Days 10/07/16 11/21/16 Unknown Rx [DUONEB *Not for PRN Use*] Pantoprazole [Protonix TAB] 40 mg PO QDAY #30 tablet 10/07/16 11/21/16 Unknown Rx Prednisone [predniSONE 10 mg 10 mg PO .TAPER #1 tab.ds.pk 10/07/16 11/21/16 Unknown Rx (6-Day Pack, 21 Tabs)] glipiZIDE [Glucotrol] 5 mg PO QAMDIAB #30 tablet 10/07/16 11/21/16 Unknown Rx glipiZIDE [Glucotrol] 5 mg PO QDDIAB #60 tablet 10/07/16 11/21/16 Unknown Rx ED Physical Exam - General Limitations: No Limitations General appearance: alert, other (patient is morbidly obese) - Head Head exam: Present: atraumatic, normocephalic, normal inspection - Eye Eye exam: Present: normal appearance, PERRL - ENT ENT exam: Present: normal exam, mucous membranes moist - Neck Neck exam: Present: normal inspection. Absent: tenderness, meningismus - Respiratory Respiratory exam: Present: wheezes, rhonchi, decreased breath sounds, prolonged expiratory. Absent: rales - Cardiovascular Cardiovascular Exam: Present: regular rate, systolic murmur - GI/Abdominal GI/Abdominal exam: Present: soft, normal bowel sounds. Absent: tenderness, guarding, rebound, rigid, mass, bruit, pulsatile mass, hernia - Extremities Exam Extremities exam: Present: normal inspection, normal capillary refill, pedal edema - Back Exam Back exam: Present: normal inspection. Absent: CVA tenderness (R), CVA tenderness (L) - Neurological Exam Neurological exam: Present: alert, oriented X3, CN II-XII intact - Skin Skin exam: Present: warm, intact, normal color. Absent: cyanosis, diaphoretic ED Course Vital Signs 02/08/17 20:52 Temperature 98.3 F Pulse Rate 97 H Respiratory 18 Rate Blood Pressure 93/36 O2 Sat by Pulse 99 Oximetry - Reevaluation(s) Reevaluation #1: 02/08/17 22:32 Patient stated that she had history of multiple blood transfusion before. Workup was done and he could not find a reason for low hemoglobin. ED Medical Decision Making - Lab Data Result diagrams: 02/08/17 21:08 02/08/17 21:08 - EKG Data -: EKG Interpreted by Me EKG shows normal: sinus rhythm Rate: tachycardia - EKG Data Interpretation: no acute changes - Radiology Data Radiology results: image reviewed interpreted by me: Chest x-ray showed pulmonary congestion. - Medical Decision Making Discussed with Dr. Carmen Phan for admission. Critical care attestation.: If time is entered above; I have spent that time in minutes in the direct care of this critically ill patient, excluding procedure time. ED Disposition Clinical Impression: Acute blood loss anemia, Shortness of breath, COPD exacerbation, CHF exacerbation Disposition: OP ADMIT IP TO THIS HOSP Is pt being admited?: Yes Condition: Stable Instructions: Chronic Obstructive Pulmonary Disease (ED) Referrals: PRIMARY CARE, [Primary Care Provider] - 3-5 Days
[2017-02-08 21:37] LABS: Basophils % (Auto) 0.2 % (0.0-1.8); Eosinophils % (Auto) 0.4 % (0.0-4.3); Mean Corpuscular HGB Conc 29 % (30-34); Mean Corpuscular Hemoglobin 27 pg (28-32); Mean Corpuscular Volume 93 fl (79-97); Platelet Count 223 K/mm3 (140-440); Red Blood Count 1.82 M/mm3 (3.65-5.03); Red Cell Distribution Width 17.8 % (13.2-15.2); White Blood Count 9.9 K/mm3 (4.5-11.0)
[2017-02-08 21:45] LABS: Anion Gap 17 mmol/L; BUN/Creatinine Ratio 59; Blood Urea Nitrogen 41 mg/dL (7-17); Carbon Dioxide 29 mmol/L (22-30); Chloride 99.2 mmol/L (98-107); Glucose 132 mg/dL (65-100); Potassium 4.1 mmol/L (3.6-5.0); Sodium 141 mmol/L (137-145)
[2017-02-08] MEDS ORDERED: NACL 0.9% 500 ML 500 ML IV ONE (22:22)
--- NOTE | 2017-02-08 23:44 | History and Physical Report ---
History of Present Illness Date of examination: 02/08/17 History of present illness: 67-year-old. History of CHF, COPD, hypertension, diabetes, DOMENIC, morbid obesity was brought to the emergency room for shortness of breath for 3 days. Also complain of chest pain in the epigastric area, sharp, intermittent every 5 seconds, intensity 5/10, radiating to the left arm. Admits to nausea, no diaphoresis, palpitations. Denies hematochezia. Patient on iron pills, no change in stool. Patient had a colonoscopy one year ago which was normal. She has history of anemia and blood transfusion. Review Of Systems: Constitutional: no weight loss Ears, eyes, nose, mouth and throat: no nasal congestion, no nasal discharge, no sinus pressure, blurry vision, diplopia Neck: No neck pain or rigidity. Cardiovascular:no no orthopnea, palpitations Respiratory: No shortness of breath, cough Gastrointestinal: abdominal pain Genitourinary : no dysuria, frequency , hematuria Musculoskeletal: no muscle ache Integumentary: no rash, no pruritis Neurological: no parathesias, focal weakness Endocrine: no cold or heat intolerance, no polyuria or polydipsia Hematologic/Lymphatic: no easy bruising, no easy bleeding, no gland swelling Allergic/Immunologic: no urticaria, no angioedema. PAST MEDICAL HISTORY:CHF, COPD, hypertension, diabetes, DOMENIC, morbid obesity PAST SURGICAL HISTORY: Tubal ligation, tonsillectomy FAMILY HISTORY: Hypertension SOCIAL HISTORY: Denies alcohol, tobacco, drugs Medications and Allergies Allergies Allergy/AdvReac Type Severity Reaction Status Date / Time No Known Allergies Allergy Verified 11/21/16 20:32 Home Medications Medication Instructions Recorded Confirmed Last Taken Type Budesonide [Pulmicort Respules] 0.5 mg IH Q12HRT #1 nebu 10/07/16 02/09/17 Unknown Rx Ferrous Sulfate [Feosol 325 MG tab] 325 mg PO BID #60 tablet 10/07/16 02/09/17 Unknown Rx Furosemide [Lasix TAB] 40 mg PO DAILY #30 tablet 10/07/16 02/09/17 Unknown Rx Ipratropium/Albuterol Sulfate 1 ampul IH Q6HRT #30 ampul.neb 10/07/16 02/09/17 Unknown Rx [DUONEB *Not for PRN Use*] Ipratropium/Albuterol Sulfate 1 ampul IH TIDRT 30 Days ampul.neb 10/07/1602/09 Unknown Rx [DUONEB *Not for PRN Use*] Pantoprazole [Protonix TAB] 40 mg PO QDAY #30 tablet 10/07/16 02/09/17 Unknown Rx Prednisone [predniSONE 10 mg 10 mg PO .TAPER #1 tab.ds.pk 10/07/16 02/09/17 Unknown Rx (6-Day Pack, 21 Tabs)] glipiZIDE [Glucotrol] 5 mg PO QAMDIAB #30 tablet 10/07/16 02/09/17 Unknown Rx glipiZIDE [Glucotrol] 5 mg PO QDDIAB #60 tablet 10/07/16 02/09/17 Unknown Rx Exam - Physical Exam Narrative exam: Gen. appearance: Patient lying in bed in no acute distress HEENT: Normocephalic/atraumatic, pupils equal round reactive to light, extra alkaline movement intact, no scleral icterus, no JVD or thyromegaly or nodule, neck is supple, mucous membrane moist, no erythema or exudate Heart: S1-S2, regular rate and rhythm Lungs:clear to ascultation blateral Abdomen: Positive bowel sounds, nontender, nondistended, no organomegaly Extremities: No edema, cyanosis, clubbing Neuro:: Oriented 3 , cranial nerves II-12 intact, speech, motor intact Skin: No rash, nodules, warm dry - Constitutional Vitals: Temp Pulse Resp BP Pulse Ox 98.3 F 97 H 18 93/36 99 02/08/17 20:52 02/08/17 20:52 02/08/17 20:52 02/08/17 20:52 02/08/17 20:52 Results - Labs CBC & Chem 7: 02/10/17 05:50 02/10/17 05:50 Labs: Abnormal lab results 02/08/17 02/08/17 02/08/17 Range/Units 21:08 21:08 22:27 RBC 1.82 L (3.65-5.03) M/mm3 Hgb 5.0 L* (10.1-14.3) gm/dl Hct 17.0 L* (30.3-42.9) % MCH 27 L (28-32) pg MCHC 29 L (30-34) % RDW 17.8 H (13.2-15.2) % Lymph % (Auto) 11.0 L (13.4-35.0) % Lymph # 1.1 L (1.2-5.4) K/mm3 Seg Neutrophils % 82.4 H (40.0-70.0) % Seg Neutrophils # 8.2 H (1.8-7.7) K/mm3 BUN 41 H (7-17) mg/dL Glucose 132 H (65-100) mg/dL Calcium 8.0 L (8.4-10.2) mg/dL Crossmatch See Detail - Imaging and Cardiology EKG: image reviewed Chest x-ray: image reviewed Assessment and Plan Assessment Symptomatic anemia Chest pain chronic CHF, diastolic dysfunction COPD Diabetes type 2 Hypertension Obstructive sleep apnea Morbid obesity Plan Admit to medicine Transfuse blood, check stool for blood Check cardiac enzymes, consult cardiology Check fingersticks, initiate insulin sliding scale Continue appropriate outpatient medications DVT prophylaxis
--- NOTE | 2017-02-09 00:24 | XRay Report ---
FINAL REPORT PROCEDURE: XR CHEST 1V AP TECHNIQUE: Chest radiograph anteroposterior view. CPT 50699 HISTORY: chest pain COMPARISON: Prior chest x-ray 11/21/2016 FINDINGS: The heart is magnified although appears to be mildly enlarged. Pulmonary vasculature mildly distended in the upper lobes however the margins are sharp. No definite pulmonary edema is seen. A small amount of basilar atelectasis appears to be present. No effusions are identified. No acute bony abnormalities are visualized. Patient is rotated to the right. IMPRESSION: Cardiomegaly. There is mild pulmonary venous hypertension changes without pulmonary edema.. No other abnormalities are seen per
[2017-02-09] MEDS ORDERED: MILK OF MAGNESIA PO PRN (01:30)
[2017-02-09] MEDS ORDERED: ZOFRAN IV PRN (01:30)
[2017-02-09] MEDS ORDERED: DULCOLAX PR PRN ×2 (01:30→02:03)
[2017-02-09] MEDS ORDERED: XOPENEX IH ONE (01:49)
[2017-02-09] MEDS ORDERED: ATROVENT IH ONE (01:49)
[2017-02-09 02:42] LABS: Creatine Kinase MB 1.6 ng/mL (0.0-4.0)
[2017-02-09 02:43] LABS: Creatine Kinase 71 units/L (30-135)
[2017-02-09] MEDS: TYLENOL PO PRN ×4 (03:15→23:56)
[2017-02-09] MEDS ORDERED: GLUCOTROL PO SCH (08:00)
[2017-02-09 08:19] LABS: Creatine Kinase 73 units/L (30-135)
--- NOTE | 2017-02-09 08:53 | Progress Note ---
Assessment and Plan Assessment and plan: This is a 67-year-old morbidly obese female with past medical history of chronic hypoxemic respiratory failure, OHS/DOMENIC, COPD and chronic diastolic CHF. Patient reportedly had an echocardiogram a few months ago which revealed severe aortic stenosis and left ventricular systolic function well preserved with an EF of 50%who was admitted through the emergency department with complaints of chest pain and shortness of breath. The chest pain is in the epigastric area, sharp, intermittent every 5 seconds, intensity 5/10, radiating to the left arm. Admits to nausea, no diaphoresis, palpitations. Denies hematochezia. Patient on iron pills, no change in stool. Patient had a colonoscopy one year ago which was normal. She has history of anemia and blood transfusion. Today on admission she is noted to have a hgb of 5.1 Symptomatic anemia * This could be secondary to AVM and with or mechanical due to severe Aortic Stenosis * Recurrent and Awaiting transfuison 2 units PRBC. Per GI eval patient has had extensive work up which has remained negative. She also was to have a pillcam and at last documentation did not get it done due to social issues. she follows with GI Dr Daugherty in the community. * Last Presentation for the same she required 9 Units * She denies no joseph bleeding and no change in Bowel habits and takes Iron pills. * She denies use of NSAIDS, ETOH * Continue PPI Chest pain * Atypical, likely underlying Demand ischemia, await cardiology input. avoid ASA secondary to severe anemia chronic CHF, diastolic dysfunction-Stable * Continue lasix. daily weight, low salt diet. Cardiology following. Acute on Chronic Respiratory failure * Continue Nebs, Wean O2 COPD with exacerbation * Continue inhaled LABA, MIKE. * Restart steroids if no improvement following transfusion Diabetes type 2 with hyperglycemia * Hold Glipizd, initiate sliding scale coverage, monitor accu checks AC/HS Hypertension * Stable, continue current meds Obstructive sleep apnea * CPAP at bed time Morbid obesity * Weight loss counselling provided. DVT prophylaxis The high probability of a clinically significant, sudden or life threatening deterioration of the [Hematology] system(s) required my full and direct attention, intervention and personal management. The aggregate critical care time was [35] minutes. This time is in addition to time spent performing reported procedures but includes the following: [x] Data Review and interpretation [x] Patient assessment and monitoring of vital signs [x] Documentation [x] Medication orders and management History Interval history: patient seen and examined in no acute distress. has not been able to see dr Daugherty, did not feel it was needed. No complaints of chest pain but reports easily fatigue Hospitalist Physical - Physical exam Narrative exam: VITAL SIGNS: Reviewed. GENERAL: The patient appeared well nourished and normally developed. morbidly obese. Vital signs as documented. HEAD: No signs of head trauma. EYES: Pupils are equal. Extraocular motions intact. EARS: Hearing grossly intact. MOUTH: Oropharynx is normal. NECK: No adenopathy, no JVD. CHEST: Chest with clear breath sounds bilaterally. No wheezes, rales, or rhonchi. CARDIAC: Regular rate and rhythm. S1 and S2, without murmurs, gallops, or rubs. VASCULAR: No Edema. Peripheral pulses normal and equal in all extremities. ABDOMEN: Soft, without detectable tenderness. No sign of distention. No rebound or guarding, and no masses palpated. Bowel Sounds normal. MUSCULOSKELETAL: Good range of motion of all major joints. Extremities without clubbing, cyanosis or edema. NEUROLOGIC EXAM: Alert and oriented x 3. No focal sensory or strength deficits. Speech normal. Follows commands. PSYCHIATRIC: Mood normal. SKIN: No rash or lesions. - Constitutional Vitals: Temp Pulse Resp BP Pulse Ox 98.4 F 91 H 18 123/50 100 02/09/17 06:06 02/09/17 06:06 02/09/17 08:48 02/09/17 06:06 02/09/17 06:06 Results - Labs CBC & Chem 7: 02/10/17 05:50 02/10/17 05:50 Labs: Laboratory Last Values WBC 9.9 K/mm3 (4.5-11.0) 02/08/17 21:08 RBC 1.82 M/mm3 (3.65-5.03) L 02/08/17 21:08 Hgb 5.0 gm/dl (10.1-14.3) L* 02/08/17 21:08 Hct 17.0 % (30.3-42.9) L* 02/08/17 21:08 MCV 93 fl (79-97) 02/08/17 21:08 MCH 27 pg (28-32) L 02/08/17 21:08 MCHC 29 % (30-34) L 02/08/17 21:08 RDW 17.8 % (13.2-15.2) H 02/08/17 21:08 Plt Count 223 K/mm3 (140-440) 02/08/17 21:08 Lymph % (Auto) 11.0 % (13.4-35.0) L 02/08/17 21:08 [place] % (Auto) 6.0 % (0.0-7.3) 02/08/17 21:08 Eos % (Auto) 0.4 % (0.0-4.3) 02/08/17 21:08 Baso % (Auto) 0.2 % (0.0-1.8) 02/08/17 21:08 Lymph # 1.1 K/mm3 (1.2-5.4) L 02/08/17 21:08 [place] # 0.6 K/mm3 (0.0-0.8) 02/08/17 21:08 Eos # 0.0 K/mm3 (0.0-0.4) 02/08/17 21:08 Baso # 0.0 K/mm3 (0.0-0.1) 02/08/17 21:08 Seg Neutrophils % 82.4 % (40.0-70.0) H 02/08/17 21:08 Seg Neutrophils # 8.2 K/mm3 (1.8-7.7) H 02/08/17 21:08 Sodium 141 mmol/L (137-145) 02/08/17 21:08 Potassium 4.1 mmol/L (3.6-5.0) 02/08/17 21:08 Chloride 99.2 mmol/L (98-107) 02/08/17 21:08 Carbon Dioxide 29 mmol/L (22-30) 02/08/17 21:08 Anion Gap 17 mmol/L 02/08/17 21:08 BUN 41 mg/dL (7-17) H 02/08/17 21:08 Creatinine 0.7 mg/dL (0.7-1.2) 02/08/17 21:08 Estimated GFR > 60 ml/min 02/08/17 21:08 BUN/Creatinine Ratio 59 % 02/08/17 21:08 Glucose 132 mg/dL (65-100) H 02/08/17 21:08 Calcium 8.0 mg/dL (8.4-10.2) L 02/08/17 21:08 Total Creatine Kinase 73 units/L (30-135) 02/09/17 07:12 CK-MB (CK-2) 2.0 ng/mL (0.0-4.0) 02/09/17 07:12 CK-MB (CK-2) Rel Index 2.7 (0-4) 02/09/17 07:12 Troponin T < 0.010 ng/mL (0.00-0.029) 02/09/17 07:12 NT-Pro-B Natriuret Pep 224.8 pg/mL (0-900) 02/08/17 21:08 Blood Type A POSITIVE 02/08/17 22:27 Antibody Screen TNR 02/08/17 22:27 PRINCESS Antibody Screen Negative 02/08/17 22:27 Crossmatch See Detail 02/08/17 22:27
[2017-02-09] MEDS ORDERED: D50W (25GM) Syringe IV PRN (09:08)
[2017-02-09] MEDS ORDERED: D50W (25GM) Vial IV PRN (09:30)
[2017-02-09] MEDS: LASIX PO SCH (10:33)
[2017-02-09] MEDS: PROTONIX PO SCH (10:33)
[2017-02-09] MEDS: FEOSOL PO SCH ×2 (10:33→23:57)
[2017-02-09] MEDS: PULMICORT IH SCH ×2 (10:52→20:49)
--- NOTE | 2017-02-09 13:08 | Consultation ---
History of Present Illness Consult date: 02/09/17 Consult reason: chest pain History of present illness: Patient has a history of Morbid obesity, Sleep apnea, COPD, CHF. Recent echocardiogram showed aortic stenosis and well-preserved left ventricle systolic function, was recommended for conservative cardiac management. Patient is admitted to this hospital with severe anemia, hematocrit of 17 on presentation. Associated atypical chest pain thus this cardiac consultation. EKG was sinus rhythm with left axis deviation, left ventricle hypertrophy, no acute ischemic changes. Cycled cardiac enzymes are negative. Medications and Allergies Allergies Allergy/AdvReac Type Severity Reaction Status Date / Time No Known Allergies Allergy Verified 11/21/16 20:32 Home Medications Medication Instructions Recorded Confirmed Last Taken Type Budesonide [Pulmicort Respules] 0.5 mg IH Q12HRT #1 nebu 10/07/16 02/09/17 Unknown Rx Ferrous Sulfate [Feosol 325 MG tab] 325 mg PO BID #60 tablet 10/07/16 02/09/17 Unknown Rx Furosemide [Lasix TAB] 40 mg PO DAILY #30 tablet 10/07/16 02/09/17 Unknown Rx Ipratropium/Albuterol Sulfate 1 ampul IH Q6HRT #30 ampul.neb 10/07/16 02/09/17 Unknown Rx [DUONEB *Not for PRN Use*] Ipratropium/Albuterol Sulfate 1 ampul IH TIDRT 30 Days 10/07/16 02/09/17 Unknown Rx [DUONEB *Not for PRN Use*] Pantoprazole [Protonix TAB] 40 mg PO QDAY #30 tablet 10/07/16 02/09/17 Unknown Rx Prednisone [predniSONE 10 mg 10 mg PO .TAPER #1 tab.ds.pk 10/07/16 02/09/17 Unknown Rx (6-Day Pack, 21 Tabs)] glipiZIDE [Glucotrol] 5 mg PO QAMDIAB #30 tablet 10/07/16 02/09/17 Unknown Rx glipiZIDE [Glucotrol] 5 mg PO QDDIAB #60 tablet 10/07/16 02/09/17 Unknown Rx Active Meds: Active Medications Acetaminophen (Tylenol) 650 mg PO Q4H PRN PRN Reason: Pain MILD(1-3)/Fever >100.5/BARRERA Last Admin: 02/09/17 08:48 Dose: 650 mg Albuterol (Proventil) 2.5 mg IH Q3HRT PRN PRN Reason: Shortness Of Breath Bisacodyl (Dulcolax) 10 mg PA QDAY PRN PRN Reason: Constipation unrelieved by MOM Budesonide (Pulmicort) 0.5 mg IH Q12HRT PENDING SALE TO [facility] Last Admin: 02/09/17 10:52 Dose: 0.5 mg Dextrose (D50w (25gm) Vial) 25 gm IV PRN PRN PRN Reason: Hypoglycemia Ferrous Sulfate (Feosol) 325 mg PO BID PENDING SALE TO [facility] Last Admin: 02/09/17 10:33 Dose: 325 mg Furosemide (Lasix) 40 mg PO DAILY PENDING SALE TO [facility] Last Admin: 02/09/17 10:33 Dose: 40 mg Insulin Aspart (Novolog) 0 units SUB-Q ACHS PENDING SALE TO [facility] PRN Reason: Protocol Magnesium Hydroxide (Milk Of Magnesia) 30 ml PO Q4H PRN PRN Reason: Constipation Ondansetron HCl (Zofran) 4 mg IV Q8H PRN PRN Reason: N/V unrelieved by Reglan Pantoprazole Sodium (Protonix) 40 mg PO QDAY PENDING SALE TO [facility] Last Admin: 02/09/17 10:33 Dose: 40 mg Physical Examination Vital Signs Temp Pulse Resp BP Pulse Ox 98.3 F 97 H 18 93/36 99 02/08/17 20:52 02/08/17 20:52 02/08/17 20:52 02/08/17 20:52 02/08/17 20:52 General appearance: no acute distress, obese HEENT: Positive: PERRL Cardiac: Positive: Reg Rate and Rhythm Results 02/08/17 21:08 02/08/17 21:08 Cardiac Enzymes 02/09/17 02/09/17 Range/Units 02:05 07:12 CK-MB (CK-2) 1.6 2.0 (0.0-4.0) ng/mL Assessment and Plan Symptomatic Anemia Aortic Stenosis EF 50-55% on echo 06/2016 previously recommended for conservative management. Sleep Apnea COPD Morbid obesity Conservative cardiac management.
[2017-02-09] MEDS: NOVOLOG SUB-Q SCH ×3 (13:57→23:58)
[2017-02-09] MEDS ORDERED: NACL 0.9% 500 ML 500 ML ONE (16:03)
[2017-02-10 06:23] LABS: Basophils % (Auto) 0.3 % (0.0-1.8); Eosinophils % (Auto) 0.3 % (0.0-4.3); Mean Corpuscular HGB Conc 32 % (30-34); Mean Corpuscular Hemoglobin 29 pg (28-32); Mean Corpuscular Volume 90 fl (79-97); Platelet Count 201 K/mm3 (140-440); Red Cell Distribution Width 17.2 % (13.2-15.2); White Blood Count 8.6 K/mm3 (4.5-11.0)
[2017-02-10 06:38] LABS: Anion Gap 15 mmol/L; BUN/Creatinine Ratio 50; Blood Urea Nitrogen 30 mg/dL (7-17); Calcium 7.9 mg/dL (8.4-10.2); Carbon Dioxide 32 mmol/L (22-30); Chloride 101.5 mmol/L (98-107); Glucose 121 mg/dL (65-100); Potassium 4.3 mmol/L (3.6-5.0); Sodium 144 mmol/L (137-145)
[2017-02-10 06:40] LABS: Hematocrit 18.9 % (30.3-42.9)
[2017-02-10] MEDS: PULMICORT IH SCH ×2 (09:12→20:29)
[2017-02-10] MEDS: PROVENTIL IH PRN (09:12)
--- NOTE | 2017-02-10 09:31 | Progress Note ---
Assessment and Plan Assessment and plan: This is a 67-year-old morbidly obese female with past medical history of chronic hypoxemic respiratory failure, OHS/DOMENIC, COPD and chronic diastolic CHF. Patient reportedly had an echocardiogram a few months ago which revealed severe aortic stenosis and left ventricular systolic function well preserved with an EF of 50%who was admitted through the emergency department with complaints of chest pain and shortness of breath. The chest pain is in the epigastric area, sharp, intermittent every 5 seconds, intensity 5/10, radiating to the left arm. Admits to nausea, no diaphoresis, palpitations. Denies hematochezia. Patient on iron pills, no change in stool. Patient had a colonoscopy one year ago which was normal. She has history of anemia and blood transfusion. Today on admission she is noted to have a hgb of 5.1 Symptomatic anemia * This could be secondary to AVM and with or mechanical due to severe Aortic Stenosis * Recurrent and improved to 6 POST transfusion 2 units PRBC. Per GI eval patient has had extensive work up which has remained negative. She also was to have a pillcam and at last documentation did not get it done due to social issues. she follows with GI Dr Daugherty in the community. * The prior admission pressure so. We'll transfuse additional 2 units. NEED TO MAINTAIN HGB >7 * She denies no joseph bleeding and no change in Bowel habits and takes Iron pills. * She denies use of NSAIDS, ETOH * Continue PPI Severe Aortic Stenosis * Needs TAVR, BUT NEEDS BLEEDING CONTROLLED PRIOR DUE TO NEED TO BE ON ASA AND PLAVIX FOR AT LEAST 6 MONTHS POST TAVR Chest pain * Atypical, likely underlying Demand ischemia, await cardiology input. avoid ASA secondary to severe anemia * No further cardiac workup per cardiology. chronic CHF, diastolic dysfunction-Stable * Continue lasix. daily weight, low salt diet. Cardiology following. Acute on Chronic Respiratory failure * Continue Nebs, patient chronically on 3 liters, will wean down to home level COPD with exacerbation * Continue inhaled LABA, MIKE. * Restart steroids if no improvement following transfusion Diabetes type 2 with hyperglycemia * Hold Glipizd, initiate sliding scale coverage, monitor accu checks AC/HS Hypertension * Stable, continue current meds Obstructive sleep apnea * CPAP at bed time Morbid obesity * Weight loss counselling provided. DVT prophylaxis SCDs Plan discussed in detail with the patient History Interval history: patient seen and examined in no acute distress. No complaints of chest pain but but still reports easily fatigue Hospitalist Physical - Physical exam Narrative exam: VITAL SIGNS: Reviewed. GENERAL: The patient appeared well nourished and normally developed. morbidly obese. Vital signs as documented. HEAD: No signs of head trauma. EYES: Pupils are equal. Extraocular motions intact. EARS: Hearing grossly intact. MOUTH: Oropharynx is normal. NECK: No adenopathy, no JVD. CHEST: Chest with clear breath sounds bilaterally. No wheezes, rales, or rhonchi. CARDIAC: Regular rate and rhythm. S1 and S2, 3/6 félix murmurs, gallops, or rubs. VASCULAR: No Edema. Peripheral pulses normal and equal in all extremities. ABDOMEN: Soft, without detectable tenderness. No sign of distention. No rebound or guarding, and no masses palpated. Bowel Sounds normal. MUSCULOSKELETAL: Good range of motion of all major joints. Extremities without clubbing, cyanosis or edema. NEUROLOGIC EXAM: Alert and oriented x 3. No focal sensory or strength deficits. Speech normal. Follows commands. PSYCHIATRIC: Mood normal. SKIN: No rash or lesions. - Constitutional Vitals: Temp Pulse Resp BP Pulse Ox 96.8 F L 75 20 124/47 100 02/10/17 04:33 02/10/17 09:26 02/10/17 09:26 02/10/17 04:33 02/10/17 09:11 General appearance: Present: no acute distress, obese Results - Labs CBC & Chem 7: 02/10/17 05:50 02/10/17 05:50 Labs: Laboratory Last Values WBC 8.6 K/mm3 (4.5-11.0) 02/10/17 05:50 RBC 2.10 M/mm3 (3.65-5.03) L 02/10/17 05:50 Hgb 6.0 gm/dl (10.1-14.3) L 02/10/17 05:50 Hct 18.9 % (30.3-42.9) L* 02/10/17 05:50 MCV 90 fl (79-97) 02/10/17 05:50 MCH 29 pg (28-32) 02/10/17 05:50 MCHC 32 % (30-34) 02/10/17 05:50 RDW 17.2 % (13.2-15.2) H 02/10/17 05:50 Plt Count 201 K/mm3 (140-440) 02/10/17 05:50 Lymph % (Auto) 16.9 % (13.4-35.0) 02/10/17 05:50 [place] % (Auto) 7.7 % (0.0-7.3) H 02/10/17 05:50 Eos % (Auto) 0.3 % (0.0-4.3) 02/10/17 05:50 Baso % (Auto) 0.3 % (0.0-1.8) 02/10/17 05:50 Lymph # 1.4 K/mm3 (1.2-5.4) 02/10/17 05:50 [place] # 0.7 K/mm3 (0.0-0.8) 02/10/17 05:50 Eos # 0.0 K/mm3 (0.0-0.4) 02/10/17 05:50 Baso # 0.0 K/mm3 (0.0-0.1) 02/10/17 05:50 Seg Neutrophils % 74.8 % (40.0-70.0) H 02/10/17 05:50 Seg Neutrophils # 6.4 K/mm3 (1.8-7.7) 02/10/17 05:50 Sodium 144 mmol/L (137-145) 02/10/17 05:50 Potassium 4.3 mmol/L (3.6-5.0) 02/10/17 05:50 Chloride 101.5 mmol/L (98-107) 02/10/17 05:50 Carbon Dioxide 32 mmol/L (22-30) H 02/10/17 05:50 Anion Gap 15 mmol/L 02/10/17 05:50 BUN 30 mg/dL (7-17) H 02/10/17 05:50 Creatinine 0.6 mg/dL (0.7-1.2) L 02/10/17 05:50 Estimated GFR > 60 ml/min 02/10/17 05:50 BUN/Creatinine Ratio 50 % 02/10/17 05:50 Glucose 121 mg/dL (65-100) H 02/10/17 05:50 POC Glucose 131 (70-105) H 02/09/17 22:02 Calcium 7.9 mg/dL (8.4-10.2) L 02/10/17 05:50 Total Creatine Kinase 73 units/L (30-135) 02/09/17 07:12 CK-MB (CK-2) 2.0 ng/mL (0.0-4.0) 02/09/17 07:12 CK-MB (CK-2) Rel Index 2.7 (0-4) 02/09/17 07:12 Troponin T < 0.010 ng/mL (0.00-0.029) 02/09/17 07:12 NT-Pro-B Natriuret Pep 224.8 pg/mL (0-900) 02/08/17 21:08 Blood Type A POSITIVE 02/08/17 22:27 Antibody Screen TNR 02/08/17 22:27 PRINCESS Antibody Screen Negative 02/08/17 22:27 Crossmatch See Detail 02/08/17 22:27
[2017-02-10] MEDS ORDERED: NACL 0.9% 500 ML 500 ML IV NR (10:00)
--- NOTE | 2017-02-10 10:19 | Progress Note ---
Assessment and Plan Symptomatic Anemia s/p transfusion of PRBCs Aortic Stenosis EF 50-55% on echo 06/2016 previously recommended for conservative management. Sleep Apnea COPD Morbid obesity Conservative cardiac management. Subjective Date of service: 02/10/17 Interval history: Patient has no cardiac complaints. Objective Vital Signs Temp Pulse Pulse Resp Resp BP Pulse Ox 02/10/17 09:26 75 20 02/10/17 09:12 79 20 02/10/17 09:11 100 02/10/17 05:18 74 02/10/17 04:33 96.8 F L 20 124/47 02/10/17 01:01 98.3 F 74 20 118/35 100 02/09/17 23:46 76 27 H 100 02/09/17 23:40 98.6 F 02/09/17 23:36 78 20 142/64 98 02/09/17 23:14 98.9 F 02/09/17 23:11 72 20 116/59 100 02/09/17 22:39 98.8 F 02/09/17 22:36 79 20 122/52 100 02/09/17 22:07 98.8 F 76 20 110/51 99 02/09/17 21:34 98.5 F 02/09/17 21:31 98.5 F 82 20 111/46 99 02/09/17 21:04 98.4 F 02/09/17 21:00 98.4 F 86 20 113/47 100 02/09/17 20:56 98.6 F 02/09/17 20:52 84 20 109/48 100 02/09/17 20:50 98.6 F 02/09/17 20:49 84 18 02/09/17 20:45 99 02/09/17 20:41 85 20 02/09/17 20:00 85 02/09/17 19:46 99.1 F 85 20 100/42 99 02/09/17 18:02 98.7 F 93 H 20 110/48 99 02/09/17 17:32 98.7 F 91 H 20 100/31 99 02/09/17 17:13 99.0 F 87 20 111/49 100 02/09/17 17:02 98.7 F 90 20 130/51 100 02/09/17 16:32 99 F 86 20 111/49 100 02/09/17 16:17 98.7 F 89 20 117/55 99 02/09/17 15:41 98.7 F 91 H 18 117/55 99 02/09/17 14:35 20 02/09/17 12:51 98.5 F 89 20 148/37 100 02/09/17 12:00 78 02/09/17 11:00 82 20 02/09/17 10:40 80 18 - Physical Examination General: No Apparent Distress HEENT: Positive: PERRL Neck: Positive: trachea midline Cardiac: Positive: Reg Rate and Rhythm - Labs and Meds CBC 02/10/17 Range/Units 05:50 WBC 8.6 (4.5-11.0) K/mm3 RBC 2.10 L (3.65-5.03) M/mm3 Hgb 6.0 L (10.1-14.3) gm/dl Hct 18.9 L* (30.3-42.9) % Plt Count 201 (140-440) K/mm3 Lymph # 1.4 (1.2-5.4) K/mm3 [place] # 0.7 (0.0-0.8) K/mm3 Eos # 0.0 (0.0-0.4) K/mm3 Baso # 0.0 (0.0-0.1) K/mm3 Comprehensive Metabolic Panel 02/10/17 Range/Units 05:50 Sodium 144 (137-145) mmol/L Potassium 4.3 (3.6-5.0) mmol/L Chloride 101.5 (98-107) mmol/L Carbon Dioxide 32 H (22-30) mmol/L BUN 30 H (7-17) mg/dL Creatinine 0.6 L (0.7-1.2) mg/dL Glucose 121 H (65-100) mg/dL Calcium 7.9 L (8.4-10.2) mg/dL - Imaging and Cardiology EKG: image reviewed
[2017-02-10] MEDS: FEOSOL PO SCH ×2 (11:37→22:41)
[2017-02-10] MEDS: PROTONIX PO SCH (11:37)
[2017-02-10] MEDS: LASIX PO SCH (11:37)
[2017-02-10] MEDS: NOVOLOG SUB-Q SCH ×3 (11:40→23:30)
[2017-02-10] MEDS ORDERED: NACL 0.9% 500 ML 500 ML ONE (16:08)
[2017-02-11 07:28] LABS: Hematocrit 23.5 % (30.3-42.9); Hemoglobin 7.2 gm/dl (10.1-14.3); Mean Corpuscular HGB Conc 31 % (30-34); Mean Corpuscular Hemoglobin 28 pg (28-32); Mean Corpuscular Volume 91 fl (79-97); Platelet Count 216 K/mm3 (140-440); Red Blood Count 2.59 M/mm3 (3.65-5.03); White Blood Count 7.2 K/mm3 (4.5-11.0)
[2017-02-11] MEDS: PROVENTIL IH PRN (07:46)
[2017-02-11 07:47] LABS: Anion Gap 10 mmol/L; BUN/Creatinine Ratio 40; Blood Urea Nitrogen 20 mg/dL (7-17); Calcium 7.9 mg/dL (8.4-10.2); Carbon Dioxide 36 mmol/L (22-30); Chloride 101.3 mmol/L (98-107); Glucose 126 mg/dL (65-100); Potassium 4.2 mmol/L (3.6-5.0); Sodium 143 mmol/L (137-145)
[2017-02-11] MEDS: PULMICORT IH SCH ×2 (07:47→20:18)
--- NOTE | 2017-02-11 09:21 | Discharge Summary ---
Providers - Providers Date of Admission: 02/08/17 23:44 Attending physician: PANDA GARCIA MD 02/09/17 01:30 Consult to Physician [CONS] Routine Consulting Provider: MONICA HEARD Reason For Exam: cp Place consult to:: [facility] Notified:: y Comment:: added to list Primary care physician: [employer] Hospitalization Reason for admission: GI bleed Condition: Stable Hospital course: This is a 67-year-old morbidly obese female with past medical history of chronic hypoxemic respiratory failure, OHS/DOMENIC, COPD and chronic diastolic CHF. Patient reportedly had an echocardiogram a few months ago which revealed severe aortic stenosis and left ventricular systolic function well preserved with an EF of 50%who was admitted through the emergency department with complaints of chest pain and shortness of breath. The chest pain is in the epigastric area, sharp, intermittent every 5 seconds, intensity 5/10, radiating to the left arm. Admits to nausea, no diaphoresis, palpitations. Denies hematochezia. Patient on iron pills, no change in stool. Patient had a colonoscopy one year ago which was normal. She has history of anemia and blood transfusion. Today on admission she is noted to have a hgb of 5.1 Symptomatic anemia * This could be secondary to AVM and with or mechanical due to severe Aortic Stenosis * Recurrent and improved to 6 POST transfusion 2 units PRBC. Per GI eval patient has had extensive work up which has remained negative. She also was to have a pillcam and at last documentation did not get it done due to social issues. she follows with GI Dr Daugherty in the community. * The prior admission pressure so. We'll transfuse additional 2 units. NEED TO MAINTAIN HGB >7 * She denies no joseph bleeding and no change in Bowel habits and takes Iron pills. * She denies use of NSAIDS, ETOH * Continue PPI Severe Aortic Stenosis * Needs TAVR, BUT NEEDS BLEEDING CONTROLLED PRIOR DUE TO NEED TO BE ON ASA AND PLAVIX FOR AT LEAST 6 MONTHS POST TAVR Chest pain * Atypical, likely underlying Demand ischemia, await cardiology input. avoid ASA secondary to severe anemia * No further cardiac workup per cardiology. chronic CHF, diastolic dysfunction-Stable * Continue lasix. daily weight, low salt diet. Cardiology following. Acute on Chronic Respiratory failure * Continue Nebs, patient chronically on 3 liters, will wean down to home level COPD with exacerbation * Continue inhaled LABA, MIKE. * Restart steroids if no improvement following transfusion Diabetes type 2 with hyperglycemia * Hold Glipizd, initiate sliding scale coverage, monitor accu checks AC/HS Hypertension * Stable, continue current meds Obstructive sleep apnea * CPAP at bed time Morbid obesity * Weight loss counselling provided. DVT prophylaxis SCDs Plan discussed in detail with the patient Disposition: [id number] HOME UNDER HOME HLTH Time spent for discharge: 35 mins Core Measure Documentation - Palliative Care Palliative Care/ Comfort Measures: Not Applicable Exam - Physical Exam Narrative exam: VITAL SIGNS: Reviewed. GENERAL: The patient appeared well nourished and normally developed. morbidly obese. Vital signs as documented. HEAD: No signs of head trauma. EYES: Pupils are equal. Extraocular motions intact. EARS: Hearing grossly intact. MOUTH: Oropharynx is normal. NECK: No adenopathy, no JVD. CHEST: Chest with clear breath sounds bilaterally. No wheezes, rales, or rhonchi. CARDIAC: Regular rate and rhythm. S1 and S2, 3/6 félix murmurs, gallops, or rubs. VASCULAR: No Edema. Peripheral pulses normal and equal in all extremities. ABDOMEN: Soft, without detectable tenderness. No sign of distention. No rebound or guarding, and no masses palpated. Bowel Sounds normal. MUSCULOSKELETAL: Good range of motion of all major joints. Extremities without clubbing, cyanosis or edema. NEUROLOGIC EXAM: Alert and oriented x 3. No focal sensory or strength deficits. Speech normal. Follows commands. PSYCHIATRIC: Mood normal. SKIN: No rash or lesions. - Constitutional Vitals: Temp Pulse Resp BP Pulse Ox 97.7 F 46 L 20 114/32 95 02/11/17 09:16 02/11/17 09:16 02/11/17 09:16 02/11/17 09:16 02/11/17 09:16 Plan Activity: advance as tolerated, fall precautions Diet: per dietitian instruction Special Instructions: record daily weights, record daily BP diary, record blood sugar diary Follow up with: TAN DAUGHERTY MD [Staff Physician] - 7 Days PRIMARY CARE, [Primary Care Provider] - 3-5 Days YOGESH ROBERTSON MD [Staff Physician] - 7 Days Prescriptions: Pantoprazole [Protonix TAB] 40 mg PO QDAY #30 tablet Prednisone [predniSONE 10 mg (6-Day Pack, 21 Tabs)] 10 mg PO .TAPER #1 tab.ds.pk
[2017-02-11] MEDS ORDERED: NACL 0.9% 500 ML 500 ML IV NR (09:30)
[2017-02-11] MEDS: PROTONIX PO SCH (10:27)
[2017-02-11] MEDS: FEOSOL PO SCH (10:27)
[2017-02-11] MEDS: LASIX PO SCH (10:27)
[2017-02-11] MEDS: NOVOLOG SUB-Q SCH ×3 (10:28→18:05)
--- NOTE | 2017-02-11 11:53 | Progress Note ---
Assessment and Plan Symptomatic Anemia s/p transfusion of PRBCs Aortic Stenosis EF 50-55% on echo 06/2016 pt underwent balloon aortic valvuloplasty 10/2016 at [facility] with improvement in her mean gradient to 44 mm Hg and CARLO 0.88 cm2. A TAVR was not performed due to inability to obtain a pre-TAVR CT for measurements. A transfemoral TAVR is planned in the near future with Dr Montaño Sleep Apnea COPD Morbid obesity Conservative cardiac management. Subjective Date of service: 02/11/17 Interval history: Patient has no complaints. Objective Vital Signs Temp Pulse Pulse Pulse Pulse Resp Resp 02/11/17 09:16 97.7 F 46 L 20 02/11/17 09:00 67 02/11/17 08:33 73 02/11/17 07:56 72 20 02/11/17 07:46 77 02/11/17 04:35 65 22 02/11/17 01:40 98.5 F 72 20 02/11/17 01:10 98.3 F 75 22 02/11/17 00:40 98.4 F 77 20 02/11/17 00:10 98.5 F 74 22 02/10/17 23:40 98.4 F 80 22 02/10/17 23:25 98.6 F 77 22 02/10/17 23:00 72 24 02/10/17 22:00 77 20 02/10/17 20:40 80 02/10/17 20:32 02/10/17 20:31 77 02/10/17 20:09 80 02/10/17 19:35 98.5 F 81 20 02/10/17 19:05 98.8 F 78 20 02/10/17 18:35 98.5 F 86 20 02/10/17 18:05 98.5 F 96 H 20 02/10/17 17:35 98.8 F 85 20 02/10/17 17:05 98.5 F 87 20 02/10/17 16:20 98.5 F 79 20 02/10/17 13:00 74 02/10/17 12:56 98.3 F 80 18 Resp BP BP Pulse Ox 02/11/17 09:16 114/32 95 02/11/17 09:00 02/11/17 08:33 98 02/11/17 07:56 02/11/17 07:46 18 99 02/11/17 04:35 132/53 99 02/11/17 01:40 114/45 99 02/11/17 01:10 128/60 100 02/11/17 00:40 133/54 100 02/11/17 00:10 120/51 120/51 100 02/10/17 23:40 101/33 99 02/10/17 23:25 151/57 99 02/10/17 23:00 99 02/10/17 22:00 99 02/10/17 20:40 20 02/10/17 20:32 97 02/10/17 20:31 20 02/10/17 20:09 02/10/17 19:35 129/48 129/48 100 02/10/17 19:05 126/49 99 02/10/17 18:35 124/57 02/10/17 18:05 120/39 98 02/10/17 17:35 117/42 99 02/10/17 17:05 109/34 100 02/10/17 16:20 94/34 100 02/10/17 13:00 02/10/17 12:56 122/41 100 - Physical Examination General: No Apparent Distress HEENT: Positive: PERRL Cardiac: Positive: Reg Rate and Rhythm Lungs: Positive: Decreased Breath Sounds Neuro: Positive: Grossly Intact - Labs and Meds CBC 02/11/17 Range/Units 06:48 WBC 7.2 (4.5-11.0) K/mm3 RBC 2.59 L (3.65-5.03) M/mm3 Hgb 7.2 L (10.1-14.3) gm/dl Hct 23.5 L (30.3-42.9) % Plt Count 216 (140-440) K/mm3 Comprehensive Metabolic Panel 02/11/17 Range/Units 06:48 Sodium 143 (137-145) mmol/L Potassium 4.2 (3.6-5.0) mmol/L Chloride 101.3 (98-107) mmol/L Carbon Dioxide 36 H (22-30) mmol/L BUN 20 H (7-17) mg/dL Creatinine 0.5 L (0.7-1.2) mg/dL Glucose 126 H (65-100) mg/dL Calcium 7.9 L (8.4-10.2) mg/dL - Imaging and Cardiology EKG: image reviewed
[2017-02-11 15:18] VITALS: BP 133/54
--- NOTE | 2017-02-11 23:23 | Progress Note ---
Assessment and Plan Assessment and plan: This is a 67-year-old morbidly obese female with past medical history of chronic hypoxemic respiratory failure, OHS/DOMENIC, COPD and chronic diastolic CHF. Patient reportedly had an echocardiogram a few months ago which revealed severe aortic stenosis and left ventricular systolic function well preserved with an EF of 50%who was admitted through the emergency department with complaints of chest pain and shortness of breath. The chest pain is in the epigastric area, sharp, intermittent every 5 seconds, intensity 5/10, radiating to the left arm. Admits to nausea, no diaphoresis, palpitations. Denies hematochezia. Patient on iron pills, no change in stool. Patient had a colonoscopy one year ago which was normal. She has history of anemia and blood transfusion. Today on admission she is noted to have a hgb of 5.1 Symptomatic anemia * This could be secondary to AVM and with or mechanical due to severe Aortic Stenosis * Recurrent and improved to 6 POST transfusion 4 units PRBC. Per GI eval patient has had extensive work up which has remained negative. She also was to have a pillcam and at last documentation did not get it done due to social issues. she follows with GI Dr Daugherty in the community. * We'll transfuse additional 1 units. NEED TO MAINTAIN HGB >7 * She denies no joseph bleeding and no change in Bowel habits and takes Iron pills. * She denies use of NSAIDS, ETOH * Continue PPI Severe Aortic Stenosis * Needs TAVR, BUT NEEDS BLEEDING CONTROLLED PRIOR DUE TO NEED TO BE ON ASA AND PLAVIX FOR AT LEAST 6 MONTHS POST TAVR Chest pain * Atypical, likely underlying Demand ischemia, await cardiology input. avoid ASA secondary to severe anemia * No further cardiac workup per cardiology. chronic CHF, diastolic dysfunction-Stable * Continue lasix. daily weight, low salt diet. Cardiology following. Acute on Chronic Respiratory failure * Continue Nebs, patient chronically on 3 liters, will wean down to home level COPD with exacerbation * Continue inhaled LABA, MIKE. * Restart steroids if no improvement following transfusion Diabetes type 2 with hyperglycemia * Hold Glipizd, initiate sliding scale coverage, monitor accu checks AC/HS Hypertension * Stable, continue current meds Obstructive sleep apnea * CPAP at bed time Morbid obesity * Weight loss counselling provided. DVT prophylaxis SCDs Plan discussed in detail with the patient Plan for discharge today History Interval history: patient seen and examined in no acute distress. sitting up at bedside. No complaints of chest pain but but still reports easily fatigue Hospitalist Physical - Physical exam Narrative exam: VITAL SIGNS: Reviewed. GENERAL: The patient appeared well nourished and normally developed. morbidly obese. Vital signs as documented. HEAD: No signs of head trauma. EYES: Pupils are equal. Extraocular motions intact. EARS: Hearing grossly intact. MOUTH: Oropharynx is normal. NECK: No adenopathy, no JVD. CHEST: Chest with clear breath sounds bilaterally. No wheezes, rales, or rhonchi. CARDIAC: Regular rate and rhythm. S1 and S2, 3/6 félix murmurs, gallops, or rubs. VASCULAR: No Edema. Peripheral pulses normal and equal in all extremities. ABDOMEN: Soft, without detectable tenderness. No sign of distention. No rebound or guarding, and no masses palpated. Bowel Sounds normal. MUSCULOSKELETAL: Good range of motion of all major joints. Extremities without clubbing, cyanosis or edema. NEUROLOGIC EXAM: Alert and oriented x 3. No focal sensory or strength deficits. Speech normal. Follows commands. PSYCHIATRIC: Mood normal. SKIN: No rash or lesions. - Constitutional Vitals: Temp Pulse Resp BP Pulse Ox 98.3 F 80 20 133/54 94 02/11/17 15:17 02/11/17 15:17 02/11/17 13:08 02/11/17 15:17 02/11/17 13:08 General appearance: Present: no acute distress, obese Results - Labs CBC & Chem 7: 02/11/17 06:48 02/11/17 06:48 Labs: Laboratory Last Values WBC 7.2 K/mm3 (4.5-11.0) 02/11/17 06:48 RBC 2.59 M/mm3 (3.65-5.03) L 02/11/17 06:48 Hgb 7.2 gm/dl (10.1-14.3) L 02/11/17 06:48 Hct 23.5 % (30.3-42.9) L 02/11/17 06:48 MCV 91 fl (79-97) 02/11/17 06:48 MCH 28 pg (28-32) 02/11/17 06:48 MCHC 31 % (30-34) 02/11/17 06:48 RDW 17.0 % (13.2-15.2) H 02/11/17 06:48 Plt Count 216 K/mm3 (140-440) 02/11/17 06:48 Lymph % (Auto) 16.9 % (13.4-35.0) 02/10/17 05:50 [place] % (Auto) 7.7 % (0.0-7.3) H 02/10/17 05:50 Eos % (Auto) 0.3 % (0.0-4.3) 02/10/17 05:50 Baso % (Auto) 0.3 % (0.0-1.8) 02/10/17 05:50 Lymph # 1.4 K/mm3 (1.2-5.4) 02/10/17 05:50 [place] # 0.7 K/mm3 (0.0-0.8) 02/10/17 05:50 Eos # 0.0 K/mm3 (0.0-0.4) 02/10/17 05:50 Baso # 0.0 K/mm3 (0.0-0.1) 02/10/17 05:50 Seg Neutrophils % 74.8 % (40.0-70.0) H 02/10/17 05:50 Seg Neutrophils # 6.4 K/mm3 (1.8-7.7) 02/10/17 05:50 Sodium 143 mmol/L (137-145) 02/11/17 06:48 Potassium 4.2 mmol/L (3.6-5.0) 02/11/17 06:48 Chloride 101.3 mmol/L (98-107) 02/11/17 06:48 Carbon Dioxide 36 mmol/L (22-30) H 02/11/17 06:48 Anion Gap 10 mmol/L 02/11/17 06:48 BUN 20 mg/dL (7-17) H 02/11/17 06:48 Creatinine 0.5 mg/dL (0.7-1.2) L 02/11/17 06:48 Estimated GFR > 60 ml/min 02/11/17 06:48 BUN/Creatinine Ratio 40 % 02/11/17 06:48 Glucose 126 mg/dL (65-100) H 02/11/17 06:48 POC Glucose 270 (70-105) H 02/11/17 12:06 Calcium 7.9 mg/dL (8.4-10.2) L 02/11/17 06:48 Total Creatine Kinase 73 units/L (30-135) 02/09/17 07:12 CK-MB (CK-2) 2.0 ng/mL (0.0-4.0) 02/09/17 07:12 CK-MB (CK-2) Rel Index 2.7 (0-4) 02/09/17 07:12 Troponin T < 0.010 ng/mL (0.00-0.029) 02/09/17 07:12 NT-Pro-B Natriuret Pep 224.8 pg/mL (0-900) 02/08/17 21:08 Blood Type A POSITIVE 02/08/17 22:27 Antibody Screen TNR 02/08/17 22:27 PRINCESS Antibody Screen Negative 02/08/17 22:27 Crossmatch See Detail 02/08/17 22:27
== END 2017-02-11 19:30 | disposition home health service (06) | DRG 377 ==
LOC: ED 20:12 → 4A 23:44
PROVIDERS: ADMIT Internal Medicine; ATTEND Internal Medicine
PROC: 30233N1 Transfusion of Nonautologous Red Blood Cells into Peripheral Vein, Percutaneous Approach (ICD-10-PCS; principal; 2017-02-09)
PROC: 5A09357 Assistance with Respiratory Ventilation, Less than 24 Consecutive Hours, Continuous Positive Airway Pressure (ICD-10-PCS; 2017-02-09)
PROC: 5A09357 Assistance with Respiratory Ventilation, Less than 24 Consecutive Hours, Continuous Positive Airway Pressure (ICD-10-PCS; 2017-02-09)
DX: K55.21 Angiodysplasia of colon with hemorrhage (principal); J96.20 Acute and chronic respiratory failure, unspecified whether with hypoxia or hypercapnia; I50.33 Acute on chronic diastolic (congestive) heart failure; J44.1 Chronic obstructive pulmonary disease with (acute) exacerbation; D62 Acute posthemorrhagic anemia; I35.0 Nonrheumatic aortic (valve) stenosis; G47.33 Obstructive sleep apnea (adult) (pediatric); E66.01 Morbid (severe) obesity due to excess calories; E11.65 Type 2 diabetes mellitus with hyperglycemia; I11.0 Hypertensive heart disease with heart failure; Z90.89 Acquired absence of other organs; Z98.51 Tubal ligation status; Z82.49 Family history of ischemic heart disease and other diseases of the circulatory system; Z79.899 Other long term (current) drug therapy; Z71.3 Dietary counseling and surveillance; R07.89 Other chest pain
CPT/HCPCS: 36415; 71010; 80048; 82550; 82553; 82962; 83880; 84484; 85025; 85027; 86850; 86900; 86901; 86922; 93005; 93010; 94640; 94660; 94760; 96374; 96375; J1815; J1940; J2930; J7040; P9016